=== PATIENT | female | born 1945 | race African-American/Black ===

== ENCOUNTER 2016-06-02 13:39 | Inpatient (IN) | payer MEDICARE, OTHER ==
[2016-06-02] MEDS ORDERED: ASPIRIN 81 MG TABLET, CHEWABLE PO ONE (13:50)
--- NOTE | 2016-06-02 13:52 | ER Document Report ---
ED Medical Screen (RME) - General Stated Complaint: CHEST PAIN Mode of Arrival: Ambulatory Information source: Patient Notes: Patient complains of chest pain that radiates around her chest area that started 2 days ago. Complains of shortness of breath and lower extremity swelling. No nausea or vomiting. hx: Hypertension, COPD, diabetes, CHF I have greeted and performed a rapid initial assessment of this patient. A comprehensive ED assessment and evaluation of the patient, analysis of test results and completion of the medical decision making process will be conducted by additional ED providers. TRAVEL OUTSIDE OF THE [place] IN LAST 30 DAYS: No - Related Data Allergies/Adverse Reactions: Iodinated Contrast Media - Oral and [IV Dye, Iodine Containing] Adverse Reaction (Unknown, Verified 06/02/16 13:44) Respiratory distress Past Medical History - Past Medical History Cardiac Medical History: Reports: Hx Hypertension Pulmonary Medical History: Reports: Hx COPD Denies: Hx Tuberculosis Endocrine Medical History: Reports: Hx Diabetes Mellitus Type 2 - Immunizations Hx Diphtheria, Pertussis, Tetanus Vaccination: Yes Physical Exam - Vital signs Vitals: Temp Pulse Resp BP Pulse Ox 98.0 F 69 28 H 152/71 H 90 L 06/02/16 13:46 06/02/16 13:46 06/02/16 13:46 06/02/16 13:46 06/02/16 13:46 - Respiratory Respiratory status: Labored - slightly Breath sounds: Nonproductive cough Course - Re-evaluation Re-evalutation: 06/02/16 13:52 air purifier servicer advised the patient status - Vital Signs Vital signs: Temp Pulse Resp BP Pulse Ox 98.0 F 69 28 H 152/71 H 90 L 06/02/16 13:46 06/02/16 13:46 06/02/16 13:46 06/02/16 13:46 06/02/16 13:46
[2016-06-02 15:03] LABS: ABSOLUTE BASOPHILS # (AUTO) 0.1 10^3/uL (0.0-0.2); ABSOLUTE EOSINOPHILS # (AUTO) 0.3 10^3/uL (0.0-0.6); ABSOLUTE LYMPHOCYTES (AUTO) 1.4 10^3/uL (0.5-4.7); ABSOLUTE MONOCYTES (AUTO) 0.7 10^3/uL (0.1-1.4); ABSOLUTE NEUT (AUTO) 5.4 10^3/uL (1.7-8.2); BASOPHILS % (AUTO) 0.8 % (0-2); HEMATOCRIT 29.4 % (36.0-47.0); HEMOGLOBIN 9.2 g/dL (12.0-15.5); HGB HCT DIFFERENCE -1.8; LYMPHOCYTES % (AUTO) 17.4 % (13-45); MEAN CORPUSCULAR HEMOGLOBIN 27.8 pg (27.0-33.4); MEAN CORPUSCULAR HGB CONC 31.4 g/dL (32.0-36.0); MEAN CORPUSCULAR VOLUME 89 fl (80-97); MONOCYTES % (AUTO) 8.8 % (3-13); RED BLOOD COUNT 3.32 10^6/uL (3.72-5.28); WHITE BLOOD COUNT 7.8 10^3/uL (4.0-10.5)
[2016-06-02 15:15] LABS: ALANINE AMINOTRANSFERASE 30 U/L (9-52); ALKALINE PHOSPHATASE 90 U/L (38-126); ANION GAP 9 (5-19); ASPARTATE AMINO TRANSFERASE 13 U/L (14-36); BILIRUBIN,TOTAL 0.3 mg/dL (0.2-1.3); BLOOD UREA NITROGEN 25 mg/dL (7-20); CARBON DIOXIDE 20 mmol/L (22-30); CHLORIDE 114 mmol/L (98-107); CREATINE KINASE 152 U/L (30-135); CREATININE RESULT 2.03 mg/dL (0.52-1.25); GLUCOSE 223 mg/dL (75-110); MAGNESIUM 2.1 mg/dL (1.6-2.3); POTASSIUM 5.5 mmol/L (3.6-5.0); SODIUM 143.1 mmol/L (137-145); TOTAL PROTEIN 5.5 g/dL (6.3-8.2)
--- NOTE | 2016-06-02 15:23 | ER Document Report ---
[id number] TRAVEL OUTSIDE OF THE [place] IN LAST 30 DAYS: No - HPI Patient complains to provider of: Chest pain, Shortness of breath Quality of pain: Tightness Cardiac risk factors: Hypertension, Hx CHF Associated symptoms: Other - see above Exacerbated by: Activity <HEMA TAVERAS - Last Filed: 06/02/16 23:00> <KYM YOUSSEF - Last Filed: 06/15/16 13:13> - General Chief Complaint: Chest Tightness Stated Complaint: CHEST PAIN Notes: 70-year-old female with history of congestive heart failure and end-stage renal disease presents to the ED complaining of chest tightness and shortness of breath that started 2 days ago. Patient states that the tightness has progressively gotten worse and that she was not exerting herself when symptoms first started. Patient developed the difficulty breathing soon after the chest tightness began. Patient has noticed that she gets out of breath with exertion and the states that this has been gone on for the past 5 or 6 days. Patient is also complaining of swelling to the bilateral feet, ankles, and hands , a cough, and loss of weight. Patient denies any fever. Patient had a heart catheterization performed more than 5 years ago and states that she had a stress test completed as well. Patient states that she was on Lasix 1 year ago but was changed to new medication including spironolactone. Patient's primary care provider is Dr. Al, upholstery department supervisor is Dr. Perry, melt house supervisor is Dr. Conti. Patient states she has not taken her hypertensive medication today. ( HEMA TAVERAS) - Related Data Allergies/Adverse Reactions: Iodinated Contrast Media - Oral and [IV Dye, Iodine Containing] Adverse Reaction (Unknown, Verified 06/02/16 13:44) Respiratory distress Home Medications: Current Home Medications Albuterol Sulfate [Proair HFA] 2 inh PO Q4HP PRN 06/02/16 [History] Amlodipine Besylate [Norvasc 10 mg Tablet] 10 mg PO DAILY 06/02/16 [History] Atorvastatin Calcium [Lipitor 40 mg Tablet] 40 mg PO DAILY 06/02/16 [History] Carvedilol [Coreg 25 mg Tablet] 25 mg PO BID 06/02/16 [History] Hydralazine HCl [Apresoline 50 mg Tablet] 50 mg PO BID 06/02/16 [History] Insulin Detemir [Levemir Flextouch] 30 units SQ QAM 06/02/16 [History] Linagliptin [Tradjenta] 5 mg PO DAILY 06/02/16 [History] Roflumilast [Daliresp 500 mcg Tablet] 500 mcg PO DAILY 06/02/16 [History] Insulin Detemir [Levemir Flextouch] 10 units SQ QHS 06/03/16 [History] Past Medical History - General Information source: Patient - Social History Smoking Status: Former Smoker Chew tobacco use (# tins/day): No Frequency of alcohol use: None Drug Abuse: None Family History: None Patient has suicidal ideation: No Patient has homicidal ideation: No - Past Medical History Cardiac Medical History: Reports: Hx Congestive Heart Failure, Hx Hypertension Pulmonary Medical History: Reports: Hx COPD Endocrine Medical History: Reports: Hx Diabetes Mellitus Type 2 Renal/ Medical History: Reports: Hx End Stage Renal Disease. Denies: Hx Peritoneal Dialysis - Immunizations Hx Diphtheria, Pertussis, Tetanus Vaccination: Yes Hx Pneumococcal Vaccination: 01/23/09 <HEMA TAVERAS - Last Filed: 06/02/16 23:00> Review of Systems - Review of Systems Constitutional: See HPI, Weight loss. denies: Fever EENT: No symptoms reported Cardiovascular: See HPI, Chest pain - Chest tightness Respiratory: See HPI, Cough, Short of breath Gastrointestinal: No symptoms reported Genitourinary: No symptoms reported Female Genitourinary: No symptoms reported Musculoskeletal: See HPI, Ankle swelling - bilaterally, Other - bilateral feet and hand swelling Skin: No symptoms reported Hematologic/Lymphatic: No symptoms reported Neurological/Psychological: No symptoms reported -: Yes All other systems reviewed and negative <HEMA TAVERAS - Last Filed: 06/02/16 23:00> Physical Exam - General General appearance: Alert In distress: None - HEENT Head: Normocephalic, Atraumatic Eyes: Normal Extraocular movements intact: Yes Pupils: PERRL - Respiratory Respiratory status: No respiratory distress Breath sounds: Rhonchi - bilateral - Cardiovascular Rhythm: Regular Heart sounds: Normal auscultation - Abdominal Inspection: Normal Distension: No distension Bowel sounds: Normal Tenderness: Nontender - Back Back: Normal - Extremities General upper extremity: Normal inspection, Normal ROM General lower extremity: Normal inspection, Normal ROM - Neurological Neuro grossly intact: Yes Cognition: Normal Orientation: AAOx4 [place] Coma Scale Eye Opening: Spontaneous [place] Coma Scale Verbal: Oriented [place] Coma Scale Motor: Obeys Commands [place] Coma Scale Total: 15 Speech: Normal - Psychological Associated symptoms: Normal affect, Normal mood - Skin Skin Temperature: Warm Skin Moisture: Dry Skin Color: Normal <HEMA TAVERAS - Last Filed: 06/02/16 23:00> Course - Laboratory Result Diagrams: 06/02/16 14:40 06/02/16 14:40 <HEMA TAVERAS - Last Filed: 06/02/16 23:00> - Laboratory Result Diagrams: 06/05/16 06:22 06/06/16 09:07 <KYM YOUSSEF - Last Filed: 06/15/16 13:13> - Re-evaluation Re-evalutation: 06/02/16 17:58 I personally performed the services described in the documentation, reviewed and edited the documentation which was dictated to my scribe in my presence, and it accurately records my words and actions. seen and evaluated the bedside she claims shortness of breath chest wall pain since Wednesday. She states that she has lower extremity swelling stage IV kidney disease. She is not overtly in congestive heart failure chest x-ray shows bilateral pneumonia right greater than left. Initial O2 sat was 90% with mild respiratory distress. She is currently satting 93% broad-spectrum antibiotics oxygen and will admit the patient to the hospital for inpatient further assessment and evaluation. EKG is stable negative initial (KYM YOUSSEF) - Vital Signs Vital signs: Temp Pulse Resp BP Pulse Ox 98.5 F 71 18 173/75 H 97 06/06/16 11:00 06/06/16 11:00 06/06/16 11:00 06/06/16 11:00 06/06/16 11:00 (HEMA TAVERAS) (KYM YOUSSEF) - Laboratory Laboratory results interpreted by me: 06/02/16 06/02/16 06/02/16 14:40 14:40 14:40 RBC 3.32 L Hgb 9.2 L Hct 29.4 L MCHC 31.4 L RDW 15.0 H Potassium 5.5 H Chloride 114 H Carbon Dioxide 20 L BUN 25 H Creatinine 2.03 H Est GFR ( Amer) 29 L Est GFR (Non-Af Amer) 24 L Glucose 223 H AST 13 L Creatine Kinase 152 H NT-Pro-B Natriuret Pep 1840 H Total Protein 5.5 L Albumin 3.0 L Urine Protein Urine Glucose (UA) Ur Leukocyte Esterase 06/02/16 14:40 RBC Hgb Hct MCHC RDW Potassium Chloride Carbon Dioxide BUN Creatinine Est GFR ( Amer) Est GFR (Non-Af Amer) Glucose AST Creatine Kinase NT-Pro-B Natriuret Pep Total Protein Albumin Urine Protein >=500 H Urine Glucose (UA) 50 H Ur Leukocyte Esterase SMALL H (HEMA TAVERAS) (KYM YOUSSEF) - EKG Interpretation by Me Additional EKG results interpreted by me: 06/02/16 18:00 EKG shows sinus rhythm at 70 bpm with left axis deviation no acute ST segment elevation or depression (KYM YOUSSEF) Critical Care Note - Critical Care Note Total time excluding time spent on procedures (mins): 45 <KYM YOUSSEF - Last Filed: 06/15/16 13:13> Discharge <HEMA TAVERAS - Last Filed: 06/02/16 23:00> - Discharge Admitting Provider: Hospitalist Unit Admitted: Medical Floor <KYM YOUSSEF - Last Filed: 06/15/16 13:13> - Discharge Clinical Impression: acute pneumonia with low o2 sat Condition: Good Disposition: ADMITTED INPATIENT Scribe Documentation - Scribe Written by Shelly:: Shelly Parker, 06/02/2016 2524 acting as scribe for :: Lisandro <HEMA TAVERAS - Last Filed: 06/02/16 23:00>
[2016-06-02 15:27] LABS: CREATINE KINASE MB 0.58 ng/mL (<4.55); TROPONIN I 0.019 ng/mL
[2016-06-02] MEDS ORDERED: CEFTRIAXONE INJ 1000 MG VIAL IV ONE (17:07)
[2016-06-02] MEDS ORDERED: AZITHROMYCIN INJ 500 MG VIAL IV ONE (17:08)
[2016-06-02] MEDS ORDERED: CEFTRIAXONE 2 GM/D5W RTU 2 GM/50 ML RTUPB IV ONE (17:41)
[2016-06-02 17:47] LABS: APPEARANCE,URINE SLIGHTLY-CLOUDY; BILIRUBIN,URINE NEGATIVE (NEGATIVE); GLUCOSE, URINE 50 mg/dL (NEGATIVE); KETONES,URINE NEGATIVE (NEGATIVE); LEUKOCYTE ESTERASE,URINE SMALL (NEGATIVE); NITRITE,URINE NEGATIVE (NEGATIVE); PROTEIN,URINE >=500 mg/dL (NEGATIVE); URINE SPECIFIC GRAVITY 1.014; UROBILINOGEN,URINE NEGATIVE mg/dL (<2.0)
[2016-06-02] MEDS ORDERED: GLUCAGON,HUMAN RECOMB 1 MG INJ IM PRN (18:27)
[2016-06-02] MEDS ORDERED: ACETAMINOPHEN 325 MG TABLET PO PRN (18:27)
[2016-06-02] MEDS ORDERED: DEXTROSE 40% GEL 15 GM TUBE PO PRN ×2 (18:27)
[2016-06-02] MEDS ORDERED: DEXTROSE 50%-WATER 25 GM/50 ML DISP.SYRIN IV PRN ×2 (18:27)
[2016-06-02] MEDS ORDERED: IPRATROPIUM/ALBUTEROL 0.5-2.5 MG/3 ML AMPUL NEB PRN (18:27)
[2016-06-02] MEDS ORDERED: ONDANSETRON HCL INJ/PF 4 MG/2 ML SDV IV PRN (18:32)
--- NOTE | 2016-06-02 18:49 | PDOC H&P ---
History of Present Illness Admission Date/PCP: 06/02/16 Patient complains of: Worsening shortness of breath History of Present Illness: LUIZA CAMARGO is a 70 year old female presents with several day history of worsening shortness of breath, increasing lower extremity edema, chest tightness with wheezing in spite of increased use of her rescue inhalers, cough developing last 24 hours productive of yellow phlegm with associated pressure- like headache. She reports a recent trip to [place] where she was in the car for 5 hours. Also reports wearing her compression stockings as she's been instructed. Shortly after the trip however is when her symptoms began including asymmetric swelling of her right greater than left lower extremities. She denies any pain in her lower extremities. She denies fevers chills, palpitations, orthopnea, PND, syncope or presyncope. Evaluation in the emergency department shows an elevated BNP with her serum creatinine at baseline 2.0 but clinical signs and symptoms suggestive of an acute bronchitis and possible bilateral pneumonia on chest x-ray as such we were asked to admit for further evaluation and management Her room air sat on presentation is 90% and I find her resting comfortably at 93 % on room air. She carries a history of congestive heart failure but can't remember when her last echocardiogram was performed or what her last EF was. She had a stress test last year that was reportedly normal and are more than 10 years ago that did not require any balloon or stent deployment. She reports receiving both influenza and Pneumovax vaccines. She has a history of COPD but quit smoking more than 30 years ago. She also has a history of obstructive sleep apnea and wears CPAP intermittently. She has chronic kidney disease stage IV and sees Dr. elliott. Past Medical History Cardiac Medical History: Reports: Congestive Heart Failure, Hypertension Pulmonary Medical History: Reports: Chronic Obstructive Pulmonary Disease (COPD) Denies: Tuberculosis Endocrine Medical History: Reports: Diabetes Mellitus Type 2 Renal/ Medical History: Reports: End Stage Renal Disease Hematology: Reports: Anemia Past Surgical History Past Surgical History: Reports: None Social History Smoking Status: Former Smoker Frequency of Alcohol Use: None Hx Recreational Drug Use: No Hx Prescription Drug Abuse: No - Advance Directive Resuscitation Status: Full Code Family History Family History: None Parental Family History Reviewed: Yes Children Family History Reviewed: Yes Sibling(s) Family History Reviewed.: Yes Medication/Allergy Home Medications: Insulin Regular, Human [Novolin R (Reg) Insulin 100 unit/mL] 20 unit SUBCUT DAILY 04/09/13 Sitagliptin Phosphate [Januvia 50 mg Tablet] 100 mg PO DAILY 04/09/13 Atorvastatin Calcium [Lipitor 20 mg Tablet] 20 mg PO QHS 04/10/13 Lisinopril 40 mg PO DAILY #0 tablet 04/10/13 Loratadine 10 mg PO DAILY 04/10/13 Aspirin [Ecotrin 81 mg EC Tablet] 81 mg PO DAILY #30 tabec 04/14/13 Montelukast Sodium [Singulair 5 mg Chewable Tab] 5 mg PO QHS #0 tab.chew Tiotropium [place] [Spiriva Handihaler 18 mcg/dose (30 Dose)] 18 mcg IH DAILY Amlodipine Besylate [Norvasc 5 mg Tablet] 5 mg PO Q12 #60 tablet 07/21/13 Carvedilol [Coreg 12.5 mg Tablet] 25 mg PO Q12 #60 tablet 07/21/13 Fluticasone/Salmeterol [Advair 250-50 Diskus 14 Dose/Diskus] 1 puff IH Q12H #0 07/21/13 Furosemide [Lasix 40 mg Tablet] 40 mg PO BID #60 tablet 07/21/13 Potassium Chloride [Klor-Con 10 Meq Tablet.sa] 20 meq PO Q12 #0 tablet.sa Allergies/Adverse Reactions: Iodinated Contrast Media - Oral and [IV Dye, Iodine Containing] Adverse Reaction (Unknown, Verified 06/02/16 13:44) Respiratory distress Review of Systems Constitutional: ABSENT: chills, fever(s), weight gain, weight loss Eyes: ABSENT: visual disturbances Ears: ABSENT: hearing changes Cardiovascular: PRESENT: chest pain - Described as tightness, dyspnea on exertion, edema. ABSENT: orthropnea, palpitations Respiratory: PRESENT: cough, sputum - Yellow. ABSENT: hemoptysis Gastrointestinal: ABSENT: abdominal pain, constipation, diarrhea, hematemesis, hematochezia, nausea, vomiting Genitourinary: ABSENT: dysuria, hematuria Musculoskeletal: ABSENT: joint swelling Integumentary: ABSENT: rash, wounds Neurological: ABSENT: abnormal gait, abnormal speech, confusion, dizziness, focal weakness, syncope Psychiatric: ABSENT: anxiety, depression Endocrine: ABSENT: cold intolerance, heat intolerance, polydipsia, polyuria Hematologic/Lymphatic: ABSENT: easy bleeding, easy bruising Physical Exam Vital Signs: Temp Pulse Resp BP Pulse Ox 98.0 F 69 28 H 152/71 H 97 06/02/16 13:46 06/02/16 13:46 06/02/16 13:46 06/02/16 13:46 06/02/16 14:21 Intake & Output 06/01/16 06/02/16 06/03/16 06:59 06:59 06:59 Weight 98.8 kg PHYSICAL EXAM GENERAL: NAD; well developed, well nourished; moderate obese; alert and oriented to person, place, time, situation HEENT: normocephalic, atraumatic; EOMI, PERRLA, no conjunctival injection, no scleral icterus; oral mucosa dry,; neck supple, no LAD, normal ROM RESPIRATORY: no accessory muscle use, mild increased WOB with increased intercostal muscle use but good air entry bilaterally; bilateral posterior wheezes, but no rales, rhonchi or inspiratory crackles CARDIO: no JVD; RRR; no systolic murmur; no tachycardia VASCULAR: no carotid bruit; no abdominal bruit; no pallor; 2+ radial, DP pulse ; normal capillary refill GI: soft; nondistended; normal bowel sounds; no hepato spleno megaly; no rebound, rigidity, guarding; no tenderness to palpation. NEURO: normal patella reflexes; normal sensation; normal motor function; no gait abnls; no dysarthria; no nystagmus; tongue protrudes midline; MSK: 5/5 strength; normal ROM hips; ambulatory without assistance; no tenderness EXTREMITIES: no calf tender; no palpable cords in calf; no clubbing, cyanosis ; bilateral right greater than left pedal edema to the knees; no palpable cords PSYCH: normal affect, normal mood SKIN: warm; moist; no petechiae; no telengectasias; no jaundice; no rash Results Laboratory Results: 06/02/16 14:40 06/02/16 14:40 06/02/16 06/02/16 06/02/16 14:40 14:40 14:40 WBC 7.8 RBC 3.32 L Hgb 9.2 L Hct 29.4 L MCV 89 MCH 27.8 MCHC 31.4 L RDW 15.0 H Plt Count 215 Seg Neutrophils % 69.0 Lymphocytes % 17.4 Monocytes % 8.8 Eosinophils % 4.0 Basophils % 0.8 Absolute Neutrophils 5.4 Absolute Lymphocytes 1.4 Absolute Monocytes 0.7 Absolute Eosinophils 0.3 Absolute Basophils 0.1 Sodium 143.1 Potassium 5.5 H Chloride 114 H Carbon Dioxide 20 L Anion Gap 9 BUN 25 H Creatinine 2.03 H Est GFR ( Amer) 29 L Est GFR (Non-Af Amer) 24 L Glucose 223 H Calcium 9.0 Magnesium 2.1 Total Bilirubin 0.3 AST 13 L ALT 30 Alkaline Phosphatase 90 Total Protein 5.5 L Albumin 3.0 L Urine Color YELLOW Urine Appearance SLIGHTLY-CLOUDY Urine pH 5.0 Ur Specific [place] 1.014 Urine Protein >=500 H Urine Glucose (UA) 50 H Urine Ketones NEGATIVE Urine Blood NEGATIVE Urine Nitrite NEGATIVE Ur Leukocyte Esterase SMALL H Urine WBC (Auto) 18 Urine RBC (Auto) 3 06/02/16 06/02/16 14:40 14:40 Creatine Kinase 152 H CK-MB (CK-2) 0.58 Troponin I 0.019 NT-Pro-B Natriuret Pep 1840 H Serum creatinine appears to be at baseline, BNP is elevated but difficult to interpret in the setting of chronic kidney disease. Cardiac enzymes are negative. EKG Comments: Normal sinus rhythm with poor R-wave progression across the precordium, left axis deviation, and borderline prolonged QT at 480 Impressions: Chest X-Ray 06/02/16 13:51 IMPRESSION: Bibasilar airspace disease right greater than left worrisome for pneumonia. Cardiomegaly Status: Image reviewed by me - By my interpretation, Allowing for differences in technique I really don't believe the chest x-ray looks significantly different from one performed late last year. Assessment & Plan - Diagnosis (1) Community acquired pneumonia Is this a current diagnosis for this admission?: YesPlan: Admitted to monitored bed for empiric antibiotics with Rocephin and Zithromax. Follow up on blood cultures performed in the emergency department. Pulmonary toilet. (2) COPD with acute exacerbation Is this a current diagnosis for this admission?: YesPlan: No clear indication for systemic steroids at this time, will use inhaled nebulizers and can add inhaled steroids if needed. (3) Edema extremities Is this a current diagnosis for this admission?: YesPlan: Unclear if this is worsening from her baseline but worrisome given the asymmetry and recent travel. We'll screen for DVT, I do not think a d-dimer is useful in the setting of chronic kidney disease. If she becomes tachycardic or hypoxic or the lower extremities show some evidence of DVT then she will need anticoagulation and a VQ scan of the lungs. Check echocardiogram (4) Obstructive sleep apnea Is this a current diagnosis for this admission?: YesPlan: Nocturnal CPAP as needed. (5) Chronic kidney disease, stage IV (severe) Is this a current diagnosis for this admission?: YesPlan: At baseline. Hold use of diuretics this time. 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 (7) Essential hypertension Is this a current diagnosis for this admission?: YesPlan: Continue home regimen and titrate as needed to goal blood pressure less than 140 /90 - Time Time Spent: 50 to 70 Minutes Anticipated discharge: Home Within: within 48 hours - Inpatient Certification Medical Necessity: Significant Comorbidiites Make Outpatient Treatment Too Risky , Need For Continuous Telemetry Monitoring, Need for IV Antibiotics
--- NOTE | 2016-06-02 18:52 | EKG REPORT ---
SEVERITY:- OTHERWISE NORMAL ECG - SINUS RHYTHM LEFT AXIS DEVIATION : Confirmed by: Rafael Baron MD 02-Jun-2016 18:51:54
[2016-06-03] MEDS: INSULIN LISPRO 100 UNIT/ML 3 ML VIAL SUBCUT PRN ×4 (00:10→22:36)
[2016-06-03] MEDS: HEPARIN SOD (PORCINE) 5,000 UNIT/ML 1 ML SYRINGE SUBCUT SCH ×4 (00:22→22:38)
[2016-06-03] MEDS: LANSOPRAZOLE 30 MG TAB.RAP.DR PO SCH (05:21)
[2016-06-03 08:08] LABS: ANION GAP 7 (5-19); BLOOD UREA NITROGEN 25 mg/dL (7-20); CALCIUM 8.8 mg/dL (8.4-10.2); CARBON DIOXIDE 20 mmol/L (22-30); CHLORIDE 115 mmol/L (98-107); CREATININE RESULT 2.06 mg/dL (0.52-1.25); GLUCOSE 122 mg/dL (75-110); POTASSIUM 5.3 mmol/L (3.6-5.0); SODIUM 142.4 mmol/L (137-145)
[2016-06-03 08:16] LABS: TROPONIN I 0.024 ng/mL
[2016-06-03] MEDS: METHYLPREDNISOLONE INJ 40 MG/1 ML SDV IV SCH ×2 (11:39→23:50)
[2016-06-03] MEDS: AMLODIPINE BESYLATE 10 MG TABLET PO SCH (11:39)
[2016-06-03] MEDS ORDERED: SODIUM CHLORIDE 3% FOR INHALATION 15 ML AMPUL NEB ONE (13:44)
--- NOTE | 2016-06-03 16:17 | XCELERA REPORT ---
[address] [address] Transthoracic Echocardiogram Report Name: LUIZA CAMARGO Age: 70 yrs Gender: Female : 1945 Patient Status: Inpatient Patient Location: [id number]\435\[id number]\A Study Date: 06/03/2016 03:26 PM Height: 61 in Weight: 217 lb BSA: 2.0 m2 Procedure: A complete two-dimensional transthoracic echocardiogram was performed (2D, M-mode, spectral and color flow Doppler). The study was technically adequate with some images being suboptimal in quality. Reason For Study: elevated BNP Ordering Physician: ALVERTO FARFAN Performed By: Lisbet Woo Interpretation Summary The Ejection Fraction estimate is 50-55% Doppler measurements suggest pseudonormalized left ventricular relaxation, which is associated with grade II/IV or mild to moderate diastolic dysfunction There is mild concentric left ventricular hypertrophy. The left ventricle is grossly normal size. Wall motion cannot be accurately commented on, but no definite regional wall motion abnormalities noted. Borderline right ventricular enlargement. The right ventricular systolic function is normal. The right atrium is normal in size The left atrium is moderately dilated. There is a moderate amount of mitral regurgitation There is no mitral valve stenosis. There is a trace amount of aortic regurgitation There is no aortic valve stenosis There is a trace to mild amount of tricuspid regurgitation There is moderate pulmonary hypertension by echo Best estimated right ventricular systolic pressure is elevated at 45- 55mmHg. The inferior vena cava appeared normal and decreased < 50% with respiration (RAP 10-15 mmHg) Minimal pericardial effusion. MMode/2D Measurements \T\ Calculations RVDd: 3.0 cm LVIDd: 5.8 cm FS: 28.9 % Ao root diam: 2.3 cm IVSd: 1.0 cm LVIDs: 4.2 cm EDV(Teich): 169.5 ml LVPWd: 0.99 cm ESV(Teich): 76.5 ml Ao root area: 4.3 cm2 EF(Teich): 54.9 % LA dimension: 4.7 cm Doppler Measurements \T\ Calculations MV E max jude: MV P1/2t max jude: Ao V2 max: LV V1 max P.1 cm/sec 148.7 cm/sec 180.4 cm/sec 6.5 mmHg MV A max jude: MV P1/2t: 60.1 msec Ao max PG: LV V1 max: 99.3 cm/sec 13.0 mmHg 127.1 cm/sec MV E/A: 1.5 MVA(P1/2t): 3.7 cm2 MV dec slope: 725.1 cm/sec2 MV dec time: 0.22 sec PA V2 max: TR max jude: 99.7 cm/sec 354.3 cm/sec PA max PG: TR max P.2 mmHg 4.0 mmHg Left Ventricle The left ventricle is grossly normal size. There is mild concentric left ventricular hypertrophy. The Ejection Fraction estimate is 50-55%. Doppler measurements suggest pseudonormalized left ventricular relaxation, which is associated with grade II/IV or mild to moderate diastolic dysfunction. Wall motion cannot be accurately commented on, but no definite regional wall motion abnormalities noted. Right Ventricle Borderline right ventricular enlargement. There is normal right ventricular wall thickness. The right ventricular systolic function is normal. Atria The right atrium is normal in size. The left atrium is moderately dilated. Interarterial septum not well visualized and not well dopplered. Cannot comment on ASD/PFO presence. Mitral Valve The mitral valve leaflets are sclerotic, but show no functional abnormalities. There is no mitral valve stenosis. There is a moderate amount of mitral regurgitation. Aortic Valve The aortic valve is grossly normal. There is no aortic valve stenosis. There is a trace amount of aortic regurgitation. Tricuspid Valve The tricuspid valve is not well visualized, but is grossly normal. There is no tricuspid stenosis. There is a trace to mild amount of tricuspid regurgitation. There is moderate pulmonary hypertension by echo. Best estimated right ventricular systolic pressure is elevated at 40-50mmHg. Pulmonic Valve The pulmonic valve is not well visualized. Great Vessels The aortic root is not well visualized but is probably normal size. The inferior vena cava appeared normal and decreased < 50% with respiration (RAP 10-15 mmHg). Effusions Minimal pericardial effusion. : ALVERTO FARFAN > Giancarlo Santana
[2016-06-03] MEDS: HYDRALAZINE HCL 50 MG TABLET PO SCH (17:37)
[2016-06-03] MEDS: CEFTRIAXONE 1 GM/D5W RTU 1 GM/50 ML RTUPB IV SCH (17:38)
--- NOTE | 2016-06-03 17:40 | PDOC PROGRESS REPORT ---
Subjective Progress Note for:: 06/03/16 Subjective:: History of present illness: LUIZA CAMARGO is a 70 year old female presents with several day history of worsening shortness of breath, increasing lower extremity edema, chest tightness with wheezing in spite of increased use of her rescue inhalers, cough developing last 24 hours productive of yellow phlegm with associated pressure-like headache. She reports a recent trip to [place] where she was in the car for 5 hours. Also reports wearing her compression stockings as she's been instructed. Shortly after the trip however is when her symptoms began including asymmetric swelling of her right greater than left lower extremities. She denies any pain in her lower extremities. She denies fevers chills, palpitations, orthopnea, PND, syncope or presyncope. Evaluation in the emergency department shows an elevated BNP with her serum creatinine at baseline 2.0 but clinical signs and symptoms suggestive of an acute bronchitis and possible bilateral pneumonia on chest x-ray as such we were asked to admit for further evaluation and management Her room air sat on presentation is 90% and I find her resting comfortably at 93 % on room air. She carries a history of congestive heart failure but can't remember when her last echocardiogram was performed or what her last EF was. She had a stress test last year that was reportedly normal and are more than 10 years ago that did not require any balloon or stent deployment. She reports receiving both influenza and Pneumovax vaccines. She has a history of COPD but quit smoking more than 30 years ago. She also has a history of obstructive sleep apnea and wears CPAP intermittently. She has chronic kidney disease stage IV and sees Dr. elliott. She was admitted to the hospital and started on broad-spectrum antibiotics for presumptive bacterial bronchitis and has shown at least some improvement. Lower extremity Dopplers were negative for DVT. Echocardiogram shows grade 2 out of 4 moderate diastolic dysfunction, mild concentric left ventricular hypertrophy, left atrial dilatation, moderate amount of mitral regurgitation, trace amount of aortic regurgitation, mild amount of tricuspid regurgitation, moderate pulmonary hypertension. Reason for visit: Follow-up dyspnea, bronchitis, lower extremity swelling. Subjective: Patient reports some improvement in her dyspnea though she still gets short of breath with exertion. She still complains of cough but not as productive. She denies fevers, chills, chest pain, abdominal pain, nausea vomiting, diarrhea, syncope or presyncope. ROS: per HPI plus a total of 10 systems reviewed, pertinent positives and negatives noted above, remaining systems negative. Physical Exam Vital Signs: Temp Pulse Resp BP Pulse Ox 98.8 F 71 14 145/66 H 98 06/03/16 11:18 06/03/16 16:27 06/03/16 16:27 06/03/16 11:18 06/03/16 16:27 Intake & Output 06/02/16 06/03/16 06/04/16 06:59 06:59 06:59 Weight 102.6 kg PHYSICAL EXAM GENERAL: NAD; well developed, well nourished; moderate obese; alert and oriented to person, place, time, situation HEENT: normocephalic, atraumatic; EOMI, PERRLA, no conjunctival injection, no scleral icterus; oral mucosa dry,; RESPIRATORY: no accessory muscle use, resolved increased WOB without increased intercostal muscle use; good air entry bilaterally; bilateral anterior wheezes right greater than left, but no rales, rhonchi or inspiratory crackles CARDIO: no JVD; RRR; no systolic murmur; no tachycardia VASCULAR: no carotid bruit; no abdominal bruit; no pallor; 2+ radial, DP pulse ; normal capillary refill GI: soft; nondistended; normal bowel sounds; no hepato spleno megaly; no rebound, rigidity, guarding; no tenderness to palpation. NEURO: normal patella reflexes; normal sensation; normal motor function; MSK: 5/5 strength; normal ROM hips; ambulatory without assistance; no tenderness EXTREMITIES: no calf tender; no palpable cords in calf; no clubbing, cyanosis ; mildly improved bilateral right greater than left pedal edema to the knees; no palpable cords PSYCH: normal affect, normal mood SKIN: warm; moist; no petechiae; no telengectasias; no jaundice; no rash Results Laboratory Results: 06/03/16 07:06 06/03/16 07:06 Sodium 142.4 Potassium 5.3 H Chloride 115 H Carbon Dioxide 20 L Anion Gap 7 BUN 25 H Creatinine 2.06 H Est GFR ( Amer) 29 L Est GFR (Non-Af Amer) 24 L Glucose 122 H Calcium 8.8 06/02/16 06/03/16 06/03/16 19:55 01:33 07:06 Troponin I 0.016 0.026 0.024 NT-Pro-B Natriuret Pep 2240 H Labs reviewed. Essentially no change in her electrolytes and renal function stable. 3 sets cardiac enzymes are reassuring. BNP remains elevated but difficult to interpret given the renal dysfunction. Impressions: Venous Doppler Study 06/02/16 00:00 IMPRESSION: NO EVIDENCE DVT OR SVT IN EITHER LEG. Chest X-Ray 06/02/16 13:51 IMPRESSION: Bibasilar airspace disease right greater than left worrisome for pneumonia. Cardiomegaly Status: Imported from PACS - Reports reviewed Assessment & Plan - Diagnosis (1) Community acquired pneumonia Is this a current diagnosis for this admission?: YesPlan: Improved with Rocephin and Zithromax. Follow up on blood cultures performed in the emergency department. Supplemental O2 as needed, Pulmonary toilet. (2) COPD with acute exacerbation Is this a current diagnosis for this admission?: YesPlan: Minimally improved, will add systemic steroids. (3) Edema extremities Is this a current diagnosis for this admission?: YesPlan: No evidence for venous occlusive disease on Dopplers of the lower extremity. Probably chronic diastolic dysfunction. (4) Obstructive sleep apnea Is this a current diagnosis for this admission?: YesPlan: Nocturnal CPAP from home as needed. (5) Chronic kidney disease, stage IV (severe) Is this a current diagnosis for this admission?: YesPlan: Stable At baseline. Hold use of diuretics this time. (6) Diabetes Qualifiers: Diabetes mellitus type: type 2 Diabetes mellitus complication status: with kidney complications Diabetes mellitus complication detail: with chronic kidney disease Diabetes mellitus fpc insulin use: with assistant terminal manager use Chronic kidney disease stage: stage 4 (severe) Qualified Code(s): E11.22 - Type 2 diabetes mellitus with diabetic chronic kidney disease ; N18.1 - Chronic kidney disease, stage 1; Z79.4 - halfway (current) use of insulin Is this a current diagnosis for this admission?: YesPlan: Continue sliding scale. Blood glucose will likely worsen with the addition of systemic steroids. Titrate as needed. (7) Essential hypertension Is this a current diagnosis for this admission?: YesPlan: Resume home regimen and titrate as needed to goal blood pressure less than 140/ 90 - Time Time Spent with patient: 25-34 minutes Anticipated discharge: Home Within: within 24 hours
[2016-06-03] MEDS ORDERED: AZITHROMYCIN 500 MG in DEXTROSE 5%-WATER 250 ML IV SCH (19:00)
[2016-06-03] MEDS ORDERED: FLUTICASONE/SALMETEROL DISKUS 250-50 MCG/DOSE IH SCH (22:00)
[2016-06-03] MEDS ORDERED: INSULIN DETEMIR 100 UNIT/ML 3 ML PEN SUBCUT ONE (22:28)
[2016-06-03] MEDS: ATORVASTATIN CALCIUM 40 MG TABLET PO SCH (22:36)
[2016-06-03] MEDS: CARVEDILOL 12.5 MG TABLET PO SCH (22:36)
[2016-06-03] MEDS: INSULIN DETEMIR 100 UNIT/ML 3 ML PEN SUBCUT SCH (22:37)
[2016-06-03] MEDS: FLUTICASONE/SALMETEROL DISKUS 250-50 MCG/DOSE IH SCH (22:44)
[2016-06-04] MEDS: LANSOPRAZOLE 30 MG TAB.RAP.DR PO SCH (06:34)
[2016-06-04] MEDS: HEPARIN SOD (PORCINE) 5,000 UNIT/ML 1 ML SYRINGE SUBCUT SCH ×3 (06:34→22:05)
[2016-06-04 07:21] LABS: ABSOLUTE BASOPHILS # (AUTO) 0.1 10^3/uL (0.0-0.2); ABSOLUTE LYMPHOCYTES (AUTO) 0.8 10^3/uL (0.5-4.7); ABSOLUTE MONOCYTES (AUTO) 0.1 10^3/uL (0.1-1.4); ABSOLUTE NEUT (AUTO) 8.4 10^3/uL (1.7-8.2); BASOPHILS % (AUTO) 0.6 % (0-2); HEMATOCRIT 28.4 % (36.0-47.0); HEMOGLOBIN 9.2 g/dL (12.0-15.5); HGB HCT DIFFERENCE -0.8; LYMPHOCYTES % (AUTO) 8.5 % (13-45); MEAN CORPUSCULAR HEMOGLOBIN 28.1 pg (27.0-33.4); MEAN CORPUSCULAR HGB CONC 32.4 g/dL (32.0-36.0); MEAN CORPUSCULAR VOLUME 87 fl (80-97); MONOCYTES % (AUTO) 0.7 % (3-13); RED BLOOD COUNT 3.27 10^6/uL (3.72-5.28); RED CELL DISTRIBUTION WIDTH 14.4 % (11.5-14.0); SEGMENTED NEUTROPHILS % (AUTO) 90.2 % (42-78); WHITE BLOOD COUNT 9.3 10^3/uL (4.0-10.5)
[2016-06-04 07:35] LABS: ANION GAP 9 (5-19); BLOOD UREA NITROGEN 32 mg/dL (7-20); CARBON DIOXIDE 17 mmol/L (22-30); CHLORIDE 112 mmol/L (98-107); CREATININE RESULT 2.19 mg/dL (0.52-1.25); GLUCOSE 237 mg/dL (75-110); SODIUM 138.3 mmol/L (137-145)
[2016-06-04] MEDS: INSULIN DETEMIR 100 UNIT/ML 3 ML PEN SUBCUT SCH ×2 (08:34→22:04)
[2016-06-04] MEDS: FLUTICASONE/SALMETEROL DISKUS 250-50 MCG/DOSE IH SCH ×2 (09:28→22:04)
[2016-06-04] MEDS: TIOTROPIUM BROMIDE DPI 5 CAP/KIT (18 MCG/CAP) IH SCH (09:29)
[2016-06-04] MEDS: CARVEDILOL 12.5 MG TABLET PO SCH ×2 (10:11→22:04)
[2016-06-04] MEDS: HYDRALAZINE HCL 50 MG TABLET PO SCH ×2 (10:11→17:34)
[2016-06-04] MEDS ORDERED: SODIUM POLYSTYRENE SULFONATE 15 GM/60 ML PO ONE (10:15)
--- NOTE | 2016-06-04 10:57 | Physician Advisory Note ---
Physician Advisor ProgressNote .: Pursuant to the plan for [facility], I have reviewed the medical record for this patient. Physician Advisor Statement: Excellent documentation of increased intercostal muscle use with increased work of breathing on H&P - if she had had hypoxemia or hypercapnea with it, then Ac Resp Failure would have been nicely supported. Possible documentation opportunities if attending agrees: 1. "CAP, likely due to ___, involving ___ lobe(s)" (Need name or group type of bacteria [GP? GN? aspiration type? MRSA? ] & involved lobes on every pneumonia. "CAP" & "HCAPNA" terms are insufficient for coding without this info.) As always, if concerned about any unstable VS or abnormal labs, please comment on them & note what doing about them, & please document each day the potential clinical problems you are concerned could occur if pt not kept in hospital for tx at this time. Thanks for your help with documentation accuracy/specificity improvement! Germaine Das MD [facility] Physician Advisor, Fellow of Hospital Medicine
[2016-06-04] MEDS: AMLODIPINE BESYLATE 10 MG TABLET PO SCH (12:50)
[2016-06-04] MEDS: METHYLPREDNISOLONE INJ 40 MG/1 ML SDV IV SCH ×2 (12:50→23:15)
[2016-06-04] MEDS: INSULIN LISPRO 100 UNIT/ML 3 ML VIAL SUBCUT PRN ×3 (12:50→22:04)
--- NOTE | 2016-06-04 13:20 | EKG REPORT ---
SEVERITY:- BORDERLINE ECG - SINUS RHYTHM BORDERLINE LEFT AXIS DEVIATION BORDERLINE R WAVE PROGRESSION, ANTERIOR LEADS BORDERLINE PROLONGED QT INTERVAL : Confirmed by: Rafael Baron MD 04-Jun-2016 13:19:03
--- NOTE | 2016-06-04 16:02 | PDOC PROGRESS REPORT ---
Subjective Progress Note for:: 06/04/16 Subjective:: History of present illness: LUIZA CAMARGO is a 70 year old female presents with several day history of worsening shortness of breath, increasing lower extremity edema, chest tightness with wheezing in spite of increased use of her rescue inhalers, cough developing last 24 hours productive of yellow phlegm with associated pressure-like headache. She reports a recent trip to [place] where she was in the car for 5 hours. Also reports wearing her compression stockings as she's been instructed. Shortly after the trip however is when her symptoms began including asymmetric swelling of her right greater than left lower extremities. She denies any pain in her lower extremities. She denies fevers chills, palpitations, orthopnea, PND, syncope or presyncope. Evaluation in the emergency department shows an elevated BNP with her serum creatinine at baseline 2.0 but clinical signs and symptoms suggestive of an acute bronchitis and possible bilateral pneumonia on chest x-ray as such we were asked to admit for further evaluation and management Her room air sat on presentation is 90% and I find her resting comfortably at 93 % on room air. She carries a history of congestive heart failure but can't remember when her last echocardiogram was performed or what her last EF was. She had a stress test last year that was reportedly normal and are more than 10 years ago that did not require any balloon or stent deployment. She reports receiving both influenza and Pneumovax vaccines. She has a history of COPD but quit smoking more than 30 years ago. She also has a history of obstructive sleep apnea and wears CPAP intermittently. She has chronic kidney disease stage IV and sees Dr. elliott. She was admitted to the hospital and started on broad-spectrum antibiotics for presumptive bacterial bronchitis and has shown at least some improvement. Lower extremity Dopplers were negative for DVT. Echocardiogram shows grade 2 out of 4 moderate diastolic dysfunction, mild concentric left ventricular hypertrophy, left atrial dilatation, moderate amount of mitral regurgitation, trace amount of aortic regurgitation, mild amount of tricuspid regurgitation, moderate pulmonary hypertension. Reason for visit: Follow-up dyspnea, bronchitis, lower extremity swelling, acute on chronic kidney disease. Subjective: Patient reports continued improvement in her dyspnea. She reports her cough is resolved as has her wheezing. She denies fevers, chills, chest pain or tightness, abdominal pain, nausea vomiting, diarrhea, syncope or presyncope. ROS: per HPI plus a total of 10 systems reviewed, pertinent positives and negatives noted above, remaining systems negative. Physical Exam Vital Signs: Temp Pulse Resp BP Pulse Ox 98.2 F 76 20 154/65 H 94 06/04/16 11:44 06/04/16 11:44 06/04/16 11:44 06/04/16 11:44 06/04/16 11:44 Intake & Output 06/03/16 06/04/16 06/05/16 06:59 06:59 06:59 Intake Total 1270 Balance 1270 Weight 102.6 kg 102.5 kg PHYSICAL EXAM GENERAL: NAD; well developed, well nourished; moderate obese; alert and oriented to person, place, time, situation HEENT: normocephalic, atraumatic; EOMI, PERRLA, no conjunctival injection, no scleral icterus; oral mucosa moist RESPIRATORY: no accessory muscle use, no WOB; good air entry bilaterally; resolution of bilateral anterior wheezes right greater than left; no rales, rhonchi or inspiratory crackles; maintaining oxygenation of 90% on room air for me at the bedside CARDIO: no JVD; RRR; no systolic murmur; no tachycardia VASCULAR: no carotid bruit; no abdominal bruit; no pallor; 2+ radial, DP pulse ; normal capillary refill GI: soft; nondistended; normal bowel sounds; no hepato spleno megaly; no rebound, rigidity, guarding; no tenderness to palpation. NEURO: normal patella reflexes; normal sensation; normal motor function; MSK: 5/5 strength; normal ROM hips; ambulatory without assistance; no tenderness EXTREMITIES: no calf tender; no palpable cords in calf; no clubbing, cyanosis ; mildly improved bilateral right greater than left pedal edema to the knees; no palpable cords PSYCH: normal affect, normal mood SKIN: warm; moist; no petechiae; no telengectasias; no jaundice; no rash Results Laboratory Results: 06/04/16 07:00 06/04/16 07:00 06/04/16 06/04/16 07:00 07:00 WBC 9.3 RBC 3.27 L Hgb 9.2 L Hct 28.4 L MCV 87 MCH 28.1 MCHC 32.4 RDW 14.4 H Plt Count 215 Seg Neutrophils % 90.2 H Lymphocytes % 8.5 L Monocytes % 0.7 L Eosinophils % 0.0 Basophils % 0.6 Absolute Neutrophils 8.4 H Absolute Lymphocytes 0.8 Absolute Monocytes 0.1 Absolute Eosinophils 0.0 Absolute Basophils 0.1 Sodium 138.3 Potassium 6.0 H* Chloride 112 H Carbon Dioxide 17 L Anion Gap 9 BUN 32 H Creatinine 2.19 H Est GFR ( Amer) 27 L Est GFR (Non-Af Amer) 22 L Glucose 237 H Calcium 9.0 06/02/16 06/03/16 06/03/16 19:55 01:33 07:06 Troponin I 0.016 0.026 0.024 NT-Pro-B Natriuret Pep 2240 H Labs reviewed. Slightly worsening renal function. Worsening hyperkalemia. Hemoglobin stable. EKG Comments: Stat EKG this morning shows no T-wave changes including no peaked T waves, inversion or depression/elevation Impressions: Venous Doppler Study 06/02/16 00:00 IMPRESSION: NO EVIDENCE DVT OR SVT IN EITHER LEG. Chest X-Ray 06/02/16 13:51 IMPRESSION: Bibasilar airspace disease right greater than left worrisome for pneumonia. Cardiomegaly Status: Imported from PACS - Reports reviewed Assessment & Plan - Diagnosis (1) Community acquired pneumonia Is this a current diagnosis for this admission?: YesPlan: Improved with Rocephin and Zithromax. blood cultures performed in the emergency department show no growth. Supplemental O2 as needed, Pulmonary toilet. (2) COPD with acute exacerbation Is this a current diagnosis for this admission?: YesPlan: Improved with addition of systemic steroids. (3) Edema extremities Is this a current diagnosis for this admission?: YesPlan: No evidence for venous occlusive disease on Dopplers of the lower extremity. Probably acute on chronic diastolic dysfunction. (4) Obstructive sleep apnea Is this a current diagnosis for this admission?: YesPlan: Nocturnal CPAP from home as needed. (5) Chronic kidney disease, stage IV (severe) Is this a current diagnosis for this admission?: YesPlan: Acute on chronic with worsening metabolic acidosis and hyperkalemia. Consult nephrology (6) Diabetes Qualifiers: Diabetes mellitus type: type 2 Diabetes mellitus complication status: with kidney complications Diabetes mellitus complication detail: with chronic kidney disease Diabetes mellitus terminal gauger supervisor insulin use: with terminal gauger supervisor use Chronic kidney disease stage: stage 4 (severe) Qualified Code(s): E11.22 - Type 2 diabetes mellitus with diabetic chronic kidney disease ; N18.1 - Chronic kidney disease, stage 1; Z79.4 - parts counterman (current) use of insulin Is this a current diagnosis for this admission?: Yes (7) Essential hypertension Is this a current diagnosis for this admission?: Yes (8) Hyperkalemia Is this a current diagnosis for this admission?: YesPlan: Dividose Kayexalate 60 g, repeat Chem-7 this evening. Consult nephrology for further recommendations. Home Aldactone and ARB held at admission, continue to do so. (9) UTI (urinary tract infection), uncomplicated Is this a current diagnosis for this admission?: YesPlan: Bilateral criteria, a symptomatically on presentation. Culture shows significant load of pansensitive Escherichia coli covered with the antibiotics used above. - Time Time Spent with patient: 35 or more minutes Medications reviewed and adjusted accordingly: Yes Anticipated discharge: Home Within: within 48 hours
[2016-06-04] MEDS: AZITHROMYCIN 250 MG TABLET PO SCH (17:34)
[2016-06-04] MEDS: CEFTRIAXONE 1 GM/D5W RTU 1 GM/50 ML RTUPB IV SCH (17:35)
[2016-06-04 18:35] LABS: ANION GAP 11 (5-19); BLOOD UREA NITROGEN 37 mg/dL (7-20); CALCIUM 8.8 mg/dL (8.4-10.2); CARBON DIOXIDE 18 mmol/L (22-30); CHLORIDE 112 mmol/L (98-107); CREATININE RESULT 2.09 mg/dL (0.52-1.25); GLUCOSE 295 mg/dL (75-110); POTASSIUM 5.5 mmol/L (3.6-5.0); SODIUM 141.2 mmol/L (137-145)
--- NOTE | 2016-06-04 18:37 | PDOC CONSULTATION ---
Consultation Consult Date: 06/04/16 Attending physician:: ALVERTO SINGH Consult reason:: I was asked by Dr. Singh to see the patient for hyperkalemia and chronic kidney disease. History of Present Illness Admission Date/PCP: 06/02/16 18:27 History of Present Illness: LUIZA CAMARGO is a 70 year old female presents with several day history of worsening shortness of breath, increasing lower extremity edema, chest tightness with wheezing in spite of increased use of her rescue inhalers, cough developing last 24 hours productive of yellow phlegm with associated pressure- like headache. She reports a recent trip to [place] where she was in the car for 5 hours. Also reports wearing her compression stockings as she's been instructed. Shortly after the trip however is when her symptoms began including asymmetric swelling of her right greater than left lower extremities. She denies any pain in her lower extremities. She denies fevers chills, palpitations, orthopnea, PND, syncope or presyncope. Evaluation in the emergency department shows an elevated BNP with her serum creatinine at baseline 2.0 but clinical signs and symptoms suggestive of an acute bronchitis and possible bilateral pneumonia on chest x-ray. Her room air sat on presentation is 90% and I find her resting comfortably at 93 % on room air. She carries a history of congestive heart failure but can't remember when her last echocardiogram was performed or what her last EF was. She had a stress test last year that was reportedly normal and are more than 10 years ago that did not require any balloon or stent deployment. She reports receiving both influenza and Pneumovax vaccines. She has a history of COPD but quit smoking more than 30 years ago. She also has a history of obstructive sleep apnea and wears CPAP intermittently. She has chronic kidney disease stage IV . Currently she is on IV antibiotics for treatment for possible pneumonia. She is also being treated for some COPD exacerbation with steroids. When she came in her kidney function is actually at baseline. Her usual creatinine runs anywhere on the low twos slight 2-2.08. Today her creatinine is very minimally elevated compared to baseline. Her potassium is also elevated at 6. She was given Kayexalate and repeat blood draw is currently being done. Patient is known to have mild hyperkalemia at the baseline in the range of around 5. 2's. Patient continues to have bilateral leg swelling. She tells me that her breathing is slightly better and her cough is improved and she is not producing any sputum. She denies any known fever no chills prior to admission. She denies any nausea nor vomiting nor abdominal pain nor diarrhea. She denies any dysuria as well. She said she is eating while here in the hospital. Past Medical History Cardiac Medical History: Reports: CHF-Diastolic, Hypertension-primary Pulmonary Medical History: Reports: Chronic Obstructive Pulmonary Disease (COPD) , Pneumonia, Sleep Apnea Endocrine Medical History: Reports: Diabetes Mellitus Type 2 Complications of Diabetes: Reports: Nephropathy Renal/ Medical History: Reports: Chronic Kidney Disease Stage IV, Metabolic Acidosis, Proteinuria - Usually at nonnephrotic range at baseline Hematology Medical History: Reports Anemia of Chronic Kidney Disease Past Surgical History Past Surgical History: Reports: None, Cardiac Catheterization - Last was 2006, Section, Other - Cataract surgeries bilaterally Social History Information Source: Patient, [facility] Office Lives with: Spouse/Significant other Smoking Status: Former Smoker Frequency of Alcohol Use: None Hx Recreational Drug Use: No Hx Prescription Drug Abuse: No - Advance Directive Resuscitation Status: Full Code Family History Family History: Malignancy - mother, Other - Hemophilia on her father Parental Family History Reviewed: Yes Children Family History Reviewed: No Sibling(s) Family History Reviewed.: No Medication/Allergy Home Medications: Loratadine 10 mg PO DAILY 04/10/13 Tiotropium [place] [Spiriva Handihaler 18 mcg/dose (30 Dose)] 18 mcg IH DAILY Fluticasone/Salmeterol [Advair 250-50 Diskus 14 Dose/Diskus] 1 puff IH Q12H #0 07/21/13 Albuterol Sulfate [Proair HFA] 2 inh PO Q4HP PRN 06/02/16 Amlodipine Besylate [Norvasc 10 mg Tablet] 10 mg PO DAILY 06/02/16 Atorvastatin Calcium [Lipitor 40 mg Tablet] 40 mg PO DAILY 06/02/16 Carvedilol [Coreg 25 mg Tablet] 25 mg PO BID 06/02/16 Hydralazine HCl [Apresoline 50 mg Tablet] 50 mg PO BID 06/02/16 Insulin Detemir [Levemir Flextouch] 30 units SQ QAM 06/02/16 Linagliptin [Tradjenta] 5 mg PO DAILY 06/02/16 Roflumilast [Daliresp 500 mcg Tablet] 500 mcg PO DAILY 06/02/16 Spironolactone [Aldactone] 50 mg PO DAILY 06/02/16 Valsartan [Diovan] 320 mg PO DAILY 06/02/16 Insulin Detemir [Levemir Flextouch] 10 units SQ QHS 06/03/16 Allergies/Adverse Reactions: Iodinated Contrast Media - Oral and [IV Dye, Iodine Containing] Adverse Reaction (Unknown, Verified 06/02/16 13:44) Respiratory distress Review of Systems All systems: reviewed and no additional remarkable complaints except as stated Review of Systems: Constitutional: ABSENT: chills, fatigue, fever(s), headache(s), weight gain, weight loss Eyes: ABSENT: visual disturbances Ears: ABSENT: hearing changes Cardiovascular: ABSENT: chest pain, orthropnea, palpitations; admits shortness of breath on minimal exertion and bilateral lower extremity edema Respiratory: ABSENT: hemoptysis; admits cough with initial sputum production it' s getting better associated with shortness of breath. Gastrointestinal: ABSENT: abdominal pain, constipation, diarrhea, hematemesis, hematochezia, nausea, vomiting Genitourinary: ABSENT: dysuria, hematuria Musculoskeletal: ABSENT: joint swelling Integumentary: ABSENT: rash, wounds Neurological: ABSENT: abnormal gait, abnormal speech, confusion, dizziness, focal weakness, numbness, syncope Psychiatric: ABSENT: anxiety, depression Endocrine: ABSENT: cold intolerance, heat intolerance, polydipsia, polyuria Hematologic/Lymphatic: ABSENT: easy bleeding, easy bruising, lymphadenopathy Physical Exam Vital Signs: Temp Pulse Resp BP Pulse Ox 97.8 F 87 20 149/66 H 99 06/04/16 16:06 06/04/16 16:06 06/04/16 16:06 06/04/16 16:06 06/04/16 16:06 Intake & Output 06/03/16 06/04/16 06/05/16 06:59 06:59 06:59 Intake Total 1270 500 Output Total 300 Balance 1270 200 Weight 102.6 kg 102.5 kg Exam: General appearance: no acute distress, cooperative, well-developed, well- nourished Head exam: PRESENT: atraumatic, normocephalic Eye exam: PRESENT: Conjunctiva slightly pale, EOMI, PERRLA. ABSENT: conjunctival injection, scleral icterus Mouth exam: PRESENT: moist, neck supple, tongue midline Neck exam: PRESENT: full ROM. ABSENT: carotid bruit, JVD, lymphadenopathy, thyromegaly Respiratory exam: PRESENT: Diminished to auscultation bilaterally. On the right base has some rhonchi ABSENT: rales, stridor, wheezes Cardiovascular exam: PRESENT: RRR, +S1, +S2. ABSENT: systolic murmur Pulses: PRESENT: normal radial pulses, normal dorsalis pedis pulses GI/Abdominal exam: PRESENT: normal bowel sounds, soft. ABSENT: guarding, mass, tenderness Rectal exam: deferred Extremities exam: PRESENT: full ROM. She has grade 2 bilateral pedal edema right greater than the left ABSENT: calf tenderness Musculoskeletal: PRESENT: full ROM. ABSENT: deformity Neurological exam: PRESENT: alert, Awake, Oriented to person, Oriented to place , Oriented to time, reflexes normal, CN II-XII grossly intact. ABSENT: motor sensory deficit Psychiatric exam: PRESENT: appropriate affect, normal mood. ABSENT: homicidal ideation, suicidal ideation Skin exam: PRESENT: intact, dry, warm. ABSENT: rash Results Laboratory Results: 06/04/16 07:00 06/04/16 07:00 06/04/16 06/04/16 07:00 07:00 WBC 9.3 RBC 3.27 L Hgb 9.2 L Hct 28.4 L MCV 87 MCH 28.1 MCHC 32.4 RDW 14.4 H Plt Count 215 Seg Neutrophils % 90.2 H Lymphocytes % 8.5 L Monocytes % 0.7 L Eosinophils % 0.0 Basophils % 0.6 Absolute Neutrophils 8.4 H Absolute Lymphocytes 0.8 Absolute Monocytes 0.1 Absolute Eosinophils 0.0 Absolute Basophils 0.1 Sodium 138.3 Potassium 6.0 H* Chloride 112 H Carbon Dioxide 17 L Anion Gap 9 BUN 32 H Creatinine 2.19 H Est GFR ( Amer) 27 L Est GFR (Non-Af Amer) 22 L Glucose 237 H Calcium 9.0 06/02/16 06/03/16 06/03/16 19:55 01:33 07:06 Troponin I 0.016 0.026 0.024 NT-Pro-B Natriuret Pep 2240 H Impressions: Venous Doppler Study 06/02/16 00:00 IMPRESSION: NO EVIDENCE DVT OR SVT IN EITHER LEG. Chest X-Ray 06/02/16 13:51 IMPRESSION: Bibasilar airspace disease right greater than left worrisome for pneumonia. Cardiomegaly Assessment & Plan - Diagnosis (1) Chronic kidney disease, stage IV (severe) Is this a current diagnosis for this admission?: YesPlan: Patient is still very close her baseline kidney function. She has a baseline diabetic nephropathy associated with nonnephrotic range proteinuria without hematuria. Contributory factors are her hypertension, vascular disease and obesity. (2) Hyperkalemia Is this a current diagnosis for this admission?: Yes (3) Anemia in chronic kidney disease (CKD) Is this a current diagnosis for this admission?: YesPlan: Agree with Kayexalate for acute onset of hyperkalemia. Follow-up repeat potassium. As I mentioned the patient does have baseline mild hyperkalemia to begin with. I think the patient needs a maintenance medication including Veltassa upon discharge to maintain potassium within normal levels so that we can resume her ARB and spironolactone. She needs to be in the low potassium diet. (4) Community acquired pneumonia Is this a current diagnosis for this admission?: YesPlan: Continue antibiotics per primary service. Remember to adjust antibiotics according to kidney function. (5) UTI (urinary tract infection), uncomplicated Is this a current diagnosis for this admission?: Yes (6) Type II diabetes mellitus Qualifiers: Diabetes mellitus complication status: with kidney complications Diabetes mellitus complication detail: with nephropathy Is this a current diagnosis for this admission?: Yes (7) Essential hypertension Is this a current diagnosis for this admission?: YesPlan: Fairly controlled. Continue current blood pressure medications. Once the potassium is improved the ARB and spironolactone can be resumed but we also need to start patient on a maintenance medication to maintain her potassium is within acceptable level. (8) Edema extremities Is this a current diagnosis for this admission?: YesPlan: Start Lasix 20 mg by mouth daily for now. May increase the dose subsequently. (9) COPD with acute exacerbation Is this a current diagnosis for this admission?: Yes - Notes Notes: Thank you very much for this consultation and I will follow the patient with you. - Time Time Spent: 50 to 70 Minutes
[2016-06-04] MEDS ORDERED: FUROSEMIDE 20 MG TABLET PO ONE (19:30)
[2016-06-04] MEDS: ATORVASTATIN CALCIUM 40 MG TABLET PO SCH (22:04)
[2016-06-05] MEDS: LANSOPRAZOLE 30 MG TAB.RAP.DR PO SCH (06:13)
[2016-06-05] MEDS: HEPARIN SOD (PORCINE) 5,000 UNIT/ML 1 ML SYRINGE SUBCUT SCH ×3 (06:13→21:49)
[2016-06-05 07:45] LABS: ABSOLUTE LYMPHOCYTES (AUTO) 0.7 10^3/uL (0.5-4.7); ABSOLUTE MONOCYTES (AUTO) 0.2 10^3/uL (0.1-1.4); ABSOLUTE NEUT (AUTO) 11.7 10^3/uL (1.7-8.2); BASOPHILS % (AUTO) 0.1 % (0-2); HEMATOCRIT 28.5 % (36.0-47.0); HEMOGLOBIN 8.9 g/dL (12.0-15.5); HGB HCT DIFFERENCE -1.8; LYMPHOCYTES % (AUTO) 5.2 % (13-45); MEAN CORPUSCULAR HEMOGLOBIN 27.2 pg (27.0-33.4); MEAN CORPUSCULAR HGB CONC 31.3 g/dL (32.0-36.0); MEAN CORPUSCULAR VOLUME 87 fl (80-97); MONOCYTES % (AUTO) 1.5 % (3-13); RED BLOOD COUNT 3.28 10^6/uL (3.72-5.28); RED CELL DISTRIBUTION WIDTH 14.6 % (11.5-14.0); SEGMENTED NEUTROPHILS % (AUTO) 93.2 % (42-78); WHITE BLOOD COUNT 12.5 10^3/uL (4.0-10.5)
[2016-06-05 08:05] LABS: ANION GAP 9 (5-19); BLOOD UREA NITROGEN 42 mg/dL (7-20); CARBON DIOXIDE 20 mmol/L (22-30); CHLORIDE 113 mmol/L (98-107); CREATININE RESULT 2.33 mg/dL (0.52-1.25); GLUCOSE 252 mg/dL (75-110); MAGNESIUM 2.3 mg/dL (1.6-2.3); PHOSPHORUS 5.5 mg/dL (2.5-4.5); POTASSIUM 5.3 mmol/L (3.6-5.0); SODIUM 141.6 mmol/L (137-145)
[2016-06-05] MEDS: INSULIN DETEMIR 100 UNIT/ML 3 ML PEN SUBCUT SCH ×2 (08:10→21:49)
[2016-06-05 09:09] LABS: FOLATE 8.51 ng/mL (>2.76)
[2016-06-05] MEDS ORDERED: FUROSEMIDE INJ/PF 20 MG/2 ML SDV IV ONE (09:56)
[2016-06-05] MEDS ORDERED: FUROSEMIDE 20 MG TABLET PO SCH (10:00)
[2016-06-05] MEDS: CARVEDILOL 12.5 MG TABLET PO SCH ×2 (10:03→21:49)
[2016-06-05] MEDS: TIOTROPIUM BROMIDE DPI 5 CAP/KIT (18 MCG/CAP) IH SCH (10:04)
[2016-06-05] MEDS: HYDRALAZINE HCL 50 MG TABLET PO SCH ×2 (10:04→17:57)
[2016-06-05] MEDS: FLUTICASONE/SALMETEROL DISKUS 250-50 MCG/DOSE IH SCH ×2 (10:04→21:50)
[2016-06-05] MEDS: METHYLPREDNISOLONE INJ 40 MG/1 ML SDV IV SCH (11:01)
[2016-06-05] MEDS: AMLODIPINE BESYLATE 10 MG TABLET PO SCH (11:01)
[2016-06-05] MEDS: INSULIN LISPRO 100 UNIT/ML 3 ML VIAL SUBCUT PRN ×3 (12:28→21:49)
--- NOTE | 2016-06-05 14:36 | PDOC PROGRESS REPORT ---
Subjective Progress Note for:: 06/05/16 Subjective:: Patient is doing well. She said her breathing is continuously improving. She has more urine output due to the Lasix given. She feels like her leg swelling is getting better. She is not coughing as much. Physical Exam Vital Signs: Temp Pulse Resp BP Pulse Ox 98.1 F 79 18 140/60 H 98 06/05/16 11:25 06/05/16 11:25 06/05/16 11:25 06/05/16 11:25 06/05/16 11:25 Intake & Output 06/04/16 06/05/16 06/06/16 06:59 06:59 06:59 Intake Total 1270 900 900 Output Total 300 Balance 1270 600 900 Weight 102.5 kg 102.8 kg Exam: General appearance: PRESENT: no acute distress, cooperative, well-developed, well-nourished Head exam: PRESENT: atraumatic, normocephalic Eye exam: PRESENT: conjunctiva pale, PERRLA. ABSENT: scleral icterus Neck exam: ABSENT: JVD Respiratory exam: PRESENT: Diminished breath sounds. Right base rhonchi ABSENT : crackles, rales, unlabored, wheezes Cardiovascular exam: PRESENT: Regular rate rhythm -+S1, +S2. ABSENT: diastolic murmur, systolic murmur GI/Abdominal exam: PRESENT: normal bowel sounds, soft. ABSENT: guarding, mass, tenderness Extremities exam: Grade 1 bilateral pitting edema Neurological exam: PRESENT: alert, awake, oriented to person, place and time. Skin exam: PRESENT: dry, warm, Results Laboratory Results: 06/05/16 06:22 06/05/16 06:22 06/04/16 06/05/16 06/05/16 18:13 06:22 06:22 WBC 12.5 H RBC 3.28 L Hgb 8.9 L Hct 28.5 L MCV 87 MCH 27.2 MCHC 31.3 L RDW 14.6 H Plt Count 231 Seg Neutrophils % 93.2 H Lymphocytes % 5.2 L Monocytes % 1.5 L Eosinophils % 0.0 Basophils % 0.1 Absolute Neutrophils 11.7 H Absolute Lymphocytes 0.7 Absolute Monocytes 0.2 Absolute Eosinophils 0.0 Absolute Basophils 0.0 Retic Count (auto) 2.31 Absolute Retic 0.076 Sodium 141.2 141.6 Potassium 5.5 H 5.3 H Chloride 112 H 113 H Carbon Dioxide 18 L 20 L Anion Gap 11 9 BUN 37 H 42 H Creatinine 2.09 H 2.33 H Est GFR ( Amer) 28 L 25 L Est GFR (Non-Af Amer) 24 L 21 L Glucose 295 H 252 H Calcium 8.8 9.0 Phosphorus 5.5 H Magnesium 2.3 Iron 42 TIBC 240 L % Saturation 18 Ferritin 60.40 Vitamin B12 562.0 Folate 8.51 06/02/16 06/03/16 06/03/16 19:55 01:33 07:06 Troponin I 0.016 0.026 0.024 NT-Pro-B Natriuret Pep 2240 H Impressions: Venous Doppler Study 06/02/16 00:00 IMPRESSION: NO EVIDENCE DVT OR SVT IN EITHER LEG. Chest X-Ray 06/02/16 13:51 IMPRESSION: Bibasilar airspace disease right greater than left worrisome for pneumonia. Cardiomegaly Assessment & Plan - Diagnosis (1) Chronic kidney disease, stage IV (severe) Is this a current diagnosis for this admission?: YesPlan: Secondary to diabetic nephropathy with known nephrotic range proteinuria. Slight elevation in creatinine likely secondary to Lasix. Otherwise kidney function not significantly changed. (2) Diabetic nephropathy Qualifiers: Diabetes mellitus type: type 2 Qualified Code(s): E11.21 - Type 2 diabetes mellitus with diabetic nephropathy Is this a current diagnosis for this admission?: Yes (3) Hyperkalemia Is this a current diagnosis for this admission?: YesPlan: Improved with Kayexalate. Continue to hold spironolactone and valsartan for now. I will plan to initiate Veltassa once the patient is discharged home so we can resume the valsartan and the spironolactone if needed. Unfortunately veltassa is not in the formulary here in the hospital and is unavailable here. (4) Anemia in chronic kidney disease (CKD) Is this a current diagnosis for this admission?: YesPlan: We will give her Procrit 20,000 units subcutaneously today since she is due for it. We'll restart her ferrous sulfate 325 by mouth twice a day. (5) Community acquired pneumonia Is this a current diagnosis for this admission?: YesPlan: Continue antibiotics per primary service. Remember to adjust antibiotics according to kidney function. (6) UTI (urinary tract infection), uncomplicated Is this a current diagnosis for this admission?: Yes (7) Type II diabetes mellitus Qualifiers: Diabetes mellitus complication status: with kidney complications Diabetes mellitus complication detail: with nephropathy Is this a current diagnosis for this admission?: Yes (8) Essential hypertension Is this a current diagnosis for this admission?: YesPlan: Fairly controlled. Continue current blood pressure medications. Once the potassium is improved the ARB and spironolactone can be resumed but we also need to start patient on a maintenance medication to maintain her potassium is within acceptable level. (9) Edema extremities Is this a current diagnosis for this admission?: YesPlan: Improving with Lasix. Continue maintenance oral Lasix upon discharge. (10) COPD with acute exacerbation Is this a current diagnosis for this admission?: Yes - Notes Notes: I will follow the patient office if discharge over the weekend. - Time Time with patient: 15-25 minutes
--- NOTE | 2016-06-05 15:19 | PDOC PROGRESS REPORT ---
Subjective Progress Note for:: 06/05/16 Subjective:: Reason for visit: Follow-up dyspnea, bronchitis, lower extremity swelling, acute on chronic kidney disease. History of present illness: LUIZA CAMARGO is a 70 year old female presents with several day history of worsening shortness of breath, increasing lower extremity edema, chest tightness with wheezing in spite of increased use of her rescue inhalers, cough developing last 24 hours productive of yellow phlegm with associated pressure-like headache. She reports a recent trip to [place] where she was in the car for 5 hours. Also reports wearing her compression stockings as she's been instructed. Shortly after the trip however is when her symptoms began including asymmetric swelling of her right greater than left lower extremities. She denies any pain in her lower extremities. She denies fevers chills, palpitations, orthopnea, PND, syncope or presyncope. Evaluation in the emergency department shows an elevated BNP with her serum creatinine at baseline 2.0 but clinical signs and symptoms suggestive of an acute bronchitis and possible bilateral pneumonia on chest x-ray as such we were asked to admit for further evaluation and management Her room air sat on presentation is 90% and I find her resting comfortably at 93 % on room air. She carries a history of congestive heart failure but can't remember when her last echocardiogram was performed or what her last EF was. She had a stress test last year that was reportedly normal and are more than 10 years ago that did not require any balloon or stent deployment. She reports receiving both influenza and Pneumovax vaccines. She has a history of COPD but quit smoking more than 30 years ago. She also has a history of obstructive sleep apnea and wears CPAP intermittently. She has chronic kidney disease stage IV and sees Dr. elliott. She was admitted to the hospital and started on broad-spectrum antibiotics for presumptive bacterial bronchitis and has shown at least some improvement. Lower extremity Dopplers were negative for DVT. Echocardiogram shows grade 2 out of 4 moderate diastolic dysfunction, mild concentric left ventricular hypertrophy, left atrial dilatation, moderate amount of mitral regurgitation, trace amount of aortic regurgitation, mild amount of tricuspid regurgitation, moderate pulmonary hypertension. Her hospital course was complicated by transient hypokalemia that responded to a single dose of Kayexalate. Her Aldactone and ARB remain on hold. Subjective: Patient reports continued improvement in her dyspnea. She reports her cough is resolved as has her wheezing. She denies fevers, chills, chest pain or tightness, abdominal pain, nausea vomiting, diarrhea, syncope or presyncope. Unfortunately her room air sat for me while at rest sitting upright in a chair was 87%. ROS: per HPI plus a total of 10 systems reviewed, pertinent positives and negatives noted above, remaining systems negative. Physical Exam Vital Signs: Temp Pulse Resp BP Pulse Ox 98.1 F 79 18 140/60 H 98 06/05/16 11:25 06/05/16 11:25 06/05/16 11:25 06/05/16 11:25 06/05/16 11:25 Intake & Output 06/04/16 06/05/16 06/06/16 06:59 06:59 06:59 Intake Total 1270 900 900 Output Total 300 Balance 1270 600 900 Weight 102.5 kg 102.8 kg PHYSICAL EXAM GENERAL: NAD; well developed, well nourished; moderate obese; alert and oriented to person, place, time, situation HEENT: normocephalic, atraumatic; EOMI, PERRLA, no conjunctival injection, no scleral icterus; oral mucosa moist RESPIRATORY: no accessory muscle use, no WOB; good air entry bilaterally; resolution of bilateral anterior wheezes; no rales, rhonchi but does have bibasilar inspiratory crackles; maintaining oxygenation of only 87% on room air for me at the bedside CARDIO: no JVD; RRR; no systolic murmur; no tachycardia VASCULAR: no carotid bruit; no abdominal bruit; no pallor; 2+ radial, DP pulse ; normal capillary refill GI: soft; nondistended; normal bowel sounds; no hepato spleno megaly; no rebound, rigidity, guarding; no tenderness to palpation. NEURO: normal patella reflexes; normal sensation; normal motor function; MSK: 5/5 strength; normal ROM hips; ambulatory without assistance; no tenderness EXTREMITIES: no calf tender; no palpable cords in calf; no clubbing, cyanosis ; improved bilateral right greater than left pedal edema to the knees; no palpable cords PSYCH: normal affect, normal mood SKIN: warm; moist; no petechiae; no telengectasias; no jaundice; no rash Results Laboratory Results: 06/05/16 06:22 06/05/16 06:22 06/04/16 06/05/1606/05/17 18:13 06:22 06:22 WBC 12.5 H RBC 3.28 L Hgb 8.9 L Hct 28.5 L MCV 87 MCH 27.2 MCHC 31.3 L RDW 14.6 H Plt Count 231 Seg Neutrophils % 93.2 H Lymphocytes % 5.2 L Monocytes % 1.5 L Eosinophils % 0.0 Basophils % 0.1 Absolute Neutrophils 11.7 H Absolute Lymphocytes 0.7 Absolute Monocytes 0.2 Absolute Eosinophils 0.0 Absolute Basophils 0.0 Retic Count (auto) 2.31 Absolute Retic 0.076 Sodium 141.2 141.6 Potassium 5.5 H 5.3 H Chloride 112 H 113 H Carbon Dioxide 18 L 20 L Anion Gap 11 9 BUN 37 H 42 H Creatinine 2.09 H 2.33 H Est GFR ( Amer) 28 L 25 L Est GFR (Non-Af Amer) 24 L 21 L Glucose 295 H 252 H Calcium 8.8 9.0 Phosphorus 5.5 H Magnesium 2.3 Iron 42 TIBC 240 L % Saturation 18 Ferritin 60.40 Vitamin B12 562.0 Folate 8.51 06/02/16 06/03/16 06/03/16 19:55 01:33 07:06 Troponin I 0.016 0.026 0.024 NT-Pro-B Natriuret Pep 2240 H Impressions: Venous Doppler Study 06/02/16 00:00 IMPRESSION: NO EVIDENCE DVT OR SVT IN EITHER LEG. Chest X-Ray 06/02/16 13:51 IMPRESSION: Bibasilar airspace disease right greater than left worrisome for pneumonia. Cardiomegaly Assessment & Plan - Diagnosis (1) Community acquired pneumonia Is this a current diagnosis for this admission?: YesPlan: Improved with Rocephin and Zithromax. blood cultures performed in the emergency department show no growth. Supplemental O2 as needed, Pulmonary toilet. (2) COPD with acute exacerbation Is this a current diagnosis for this admission?: YesPlan: Improved with addition of systemic steroids. Continue inhaled steroids, nebulizers, intermittent supplemental O2 as needed to maintain sats greater than 90%. Patient does not use home O2. (3) Acute respiratory failure with hypoxia Is this a current diagnosis for this admission?: YesPlan: Secondary to the above. Continue aggressive incentive spirometry. Continue treatment as noted above (4) Edema extremities Is this a current diagnosis for this admission?: YesPlan: Improved. No evidence for venous occlusive disease on Dopplers of the lower extremity. Probably acute on chronic diastolic dysfunction. (5) Chronic kidney disease, stage IV (severe) Is this a current diagnosis for this admission?: YesPlan: Acute on chronic with worsening metabolic acidosis and hyperkalemia. Consult nephrology, appreciate their input. (6) Hyperkalemia Is this a current diagnosis for this admission?: YesPlan: Improved after Kayexalate. Home Aldactone and ARB held at admission, continue to do so. (7) UTI (urinary tract infection), uncomplicated Is this a current diagnosis for this admission?: YesPlan: By lab criteria, asymptomatic on presentation. Culture shows significant load of pansensitive Escherichia coli covered with the antibiotics used above. (8) Obstructive sleep apnea Is this a current diagnosis for this admission?: Yes (9) Diabetes Qualifiers: Diabetes mellitus type: type 2 Diabetes mellitus complication status: with kidney complications Diabetes mellitus complication detail: with chronic kidney disease Diabetes mellitus custodial insulin use: with terminal carman use Chronic kidney disease stage: stage 4 (severe) Qualified Code(s): E11.22 - Type 2 diabetes mellitus with diabetic chronic kidney disease ; N18.1 - Chronic kidney disease, stage 1; Z79.4 - [facility]itentiary (current) use of insulin Is this a current diagnosis for this admission?: Yes (10) Essential hypertension Is this a current diagnosis for this admission?: Yes - Time Time Spent with patient: 25-34 minutes Anticipated discharge: Home Within: within 24 hours - Plan Summary Plan Summary: Continue home regimen for chronic medical conditions.
[2016-06-05] MEDS ORDERED: EPOETIN ALFA INJ 20000 UNIT/1 ML VIAL (RENAL) SUBCUT ONE (15:30)
[2016-06-05] MEDS: FERROUS SULFATE 325 MG TABLET PO SCH (17:55)
[2016-06-05] MEDS: AZITHROMYCIN 250 MG TABLET PO SCH (17:57)
[2016-06-05] MEDS: CEFTRIAXONE 1 GM/D5W RTU 1 GM/50 ML RTUPB IV SCH (17:58)
[2016-06-05] MEDS: ATORVASTATIN CALCIUM 40 MG TABLET PO SCH (21:49)
[2016-06-06] MEDS: METHYLPREDNISOLONE INJ 40 MG/1 ML SDV IV SCH (00:21)
[2016-06-06] MEDS: HEPARIN SOD (PORCINE) 5,000 UNIT/ML 1 ML SYRINGE SUBCUT SCH (06:33)
[2016-06-06] MEDS: LANSOPRAZOLE 30 MG TAB.RAP.DR PO SCH (06:33)
[2016-06-06] MEDS: FERROUS SULFATE 325 MG TABLET PO SCH (08:18)
[2016-06-06] MEDS: INSULIN DETEMIR 100 UNIT/ML 3 ML PEN SUBCUT SCH (08:19)
[2016-06-06] MEDS: INSULIN LISPRO 100 UNIT/ML 3 ML VIAL SUBCUT PRN (08:20)
[2016-06-06 09:42] LABS: ANION GAP 9 (5-19); BLOOD UREA NITROGEN 55 mg/dL (7-20); CARBON DIOXIDE 20 mmol/L (22-30); CHLORIDE 110 mmol/L (98-107); CREATININE RESULT 2.31 mg/dL (0.52-1.25); GLUCOSE 329 mg/dL (75-110); POTASSIUM 5.4 mmol/L (3.6-5.0); SODIUM 139.2 mmol/L (137-145)
[2016-06-06] MEDS: HYDRALAZINE HCL 50 MG TABLET PO SCH (10:29)
[2016-06-06] MEDS: FLUTICASONE/SALMETEROL DISKUS 250-50 MCG/DOSE IH SCH (10:30)
[2016-06-06] MEDS: CARVEDILOL 12.5 MG TABLET PO SCH (10:30)
[2016-06-06] MEDS: TIOTROPIUM BROMIDE DPI 5 CAP/KIT (18 MCG/CAP) IH SCH (10:30)
[2016-06-06 11:13] VITALS: BP 173/75
--- NOTE | 2016-06-06 14:28 | PDOC DISCHARGE SUMMARY ---
General - Admit/Disc Date/PCP Admission Date/Primary Care Provider: 06/02/16 18:27 Discharge Date: 06/06/16 - Discharge Diagnosis (1) Community acquired pneumonia Is this a current diagnosis for this admission?: YesSummary: Improved, changed to oral regimen with Vantin 200 mg daily and Zithromax 500 mg daily for an additional 7 days (this is renal dosing). (2) COPD with acute exacerbation Is this a current diagnosis for this admission?: YesSummary: Improved and back to baseline and she is oxygenating greater than 92% on room air for me either with exertion, continue seven-day course of steroids and rescue inhalers at home. (3) Acute respiratory failure with hypoxia Is this a current diagnosis for this admission?: YesSummary: Resolved and secondary to the above. (4) Edema extremities Is this a current diagnosis for this admission?: YesSummary: Improved with low-dose Lasix, continue once daily dosing at home. Patient is instructed to weigh herself daily and report 5 pound weight gain to her primary physician. (5) Chronic kidney disease, stage IV (severe) Is this a current diagnosis for this admission?: YesSummary: Dr. Gutierres consult during this admission, adjusted her meds and will need to see her next week for close outpt f/u. (6) Hyperkalemia Is this a current diagnosis for this admission?: YesSummary: Back to baseline. ARB and Aldactone still on hold until follow-up with nephrology this week. (7) UTI (urinary tract infection), uncomplicated Is this a current diagnosis for this admission?: YesSummary: Adequately covered with the above antibiotics. (8) Obstructive sleep apnea Is this a current diagnosis for this admission?: YesSummary: Continue as needed dosing with CPAP at home per her usual routine. (9) Diabetes Is this a current diagnosis for this admission?: Yes (10) Essential hypertension Is this a current diagnosis for this admission?: YesSummary: Better control on the current regimen. Continue same until follow-up with nephrology for further titration later this week. - Additional Information Resuscitation Status: Full Code Discharge Activity: Activity As Tolerated, Balance Activity w/Rest Home Medications: Loratadine 10 mg PO DAILY 04/10/13 Tiotropium [place] [Spiriva Handihaler 18 mcg/dose (30 Dose)] 18 mcg IH DAILY Fluticasone/Salmeterol [Advair 250-50 Diskus 14 Dose/Diskus] 1 puff IH Q12H #0 07/21/13 Albuterol Sulfate [Proair HFA] 2 inh PO Q4HP PRN 06/02/16 Amlodipine Besylate [Norvasc 10 mg Tablet] 10 mg PO DAILY 06/02/16 Atorvastatin Calcium [Lipitor 40 mg Tablet] 40 mg PO DAILY 06/02/16 Carvedilol [Coreg 25 mg Tablet] 25 mg PO BID 06/02/16 Hydralazine HCl [Apresoline 50 mg Tablet] 50 mg PO BID 06/02/16 Insulin Detemir [Levemir Flextouch] 30 units SQ QAM 06/02/16 Linagliptin [Tradjenta] 5 mg PO DAILY 06/02/16 Roflumilast [Daliresp 500 mcg Tablet] 500 mcg PO DAILY 06/02/16 Insulin Detemir [Levemir Flextouch] 10 units SQ QHS 06/03/16 Acetaminophen [Tylenol 325 mg Tablet] 650 mg PO Q4HP PRN tablet 06/06/16 Azithromycin [Zithromax 250 mg Tablet] 500 mg PO QPM #7 tablet 06/06/16 Cefpodoxime Proxetil [Vantin 200 mg Tablet] 1 tab PO DAILY #7 tab 06/06/16 Ferrous Sulfate [Feosol 325 mg Tablet] 325 mg PO BIDPCBS #60 tablet 06/06/16 Furosemide [Lasix] 20 mg PO DAILY #30 tablet 06/06/16 Prednisone [Deltasone 20 mg Tablet] 20 mg PO BID #14 tablet 06/06/16 History of Present Illness Patient complains of: Shortness of breath History of Present Illness: LUIZA CAMARGO is a 70 year old female presents with several day history of worsening shortness of breath, increasing lower extremity edema, chest tightness with wheezing in spite of increased use of her rescue inhalers, cough developing last 24 hours productive of yellow phlegm with associated pressure- like headache. She reports a recent trip to [place] where she was in the car for 5 hours. Also reports wearing her compression stockings as she's been instructed. Shortly after the trip however is when her symptoms began including asymmetric swelling of her right greater than left lower extremities. She denies any pain in her lower extremities. She denies fevers chills, palpitations, orthopnea, PND, syncope or presyncope. Evaluation in the emergency department shows an elevated BNP with her serum creatinine at baseline 2.0 but clinical signs and symptoms suggestive of an acute bronchitis and possible bilateral pneumonia on chest x-ray as such we were asked to admit for further evaluation and management Her room air sat on presentation is 90% and I find her resting comfortably at 93 % on room air. She carries a history of congestive heart failure but can't remember when her last echocardiogram was performed or what her last EF was. She had a stress test last year that was reportedly normal and are more than 10 years ago that did not require any balloon or stent deployment. She reports receiving both influenza and Pneumovax vaccines. She has a history of COPD but quit smoking more than 30 years ago. She also has a history of obstructive sleep apnea and wears CPAP intermittently. She has chronic kidney disease stage IV and sees Dr. gutierres. Hospital Course Hospital Course: She was admitted to the hospital and started on broad-spectrum antibiotics for presumptive bacterial bronchitis and has shown at least some improvement. Lower extremity Dopplers were negative for DVT. Echocardiogram shows grade 2 out of 4 moderate diastolic dysfunction, mild concentric left ventricular hypertrophy, left atrial dilatation, moderate amount of mitral regurgitation, trace amount of aortic regurgitation, mild amount of tricuspid regurgitation, moderate pulmonary hypertension. Her hospital course was complicated by transient hyperkalemia that responded to a single dose of Kayexalate. Her Aldactone and ARB remain on hold. Patient reports continued improvement in her dyspnea. She reports her cough is resolved as has her wheezing. She denies fevers, chills, chest pain or tightness, abdominal pain, nausea vomiting, diarrhea, syncope or presyncope. Unfortunately her room air sat for me yesterday while at rest sitting upright in a chair was 87% but after further diuresis and continue aggressive pulmonary toilet she is now maintaining room air sats greater than 92%. Her cough and congestion have improved she remained hemodynamic stable, her electrolytes issues have resolved and she is hemodynamic stable for discharge at this time. She expresses no concerns to me about being discharged today. Physical Exam Vital Signs: Temp Pulse Resp BP Pulse Ox 98.5 F 71 18 173/75 H 97 06/06/16 11:00 06/06/16 11:00 06/06/16 11:00 06/06/16 11:00 06/06/16 11:00 Intake & Output 06/05/16 06/06/16 06/07/16 06:59 06:59 06:59 Intake Total 900 1336 Output Total 300 Balance 600 1336 Weight 102.8 kg 103 kg PHYSICAL EXAM GENERAL: NAD; well developed, well nourished; moderate obese; alert and oriented to person, place, time, situation HEENT: normocephalic, atraumatic; oral mucosa moist RESPIRATORY: no accessory muscle use, no WOB; good air entry bilaterally; resolution of bilateral anterior wheezes; no rales, rhonchi but does have a few bibasilar inspiratory crackles; maintaining oxygenation of greater than 92% on room air for me at the bedside CARDIO: no JVD; RRR; no systolic murmur; no tachycardia VASCULAR: no carotid bruit; no abdominal bruit; no pallor; 2+ radial, DP pulse ; normal capillary refill GI: soft; nondistended; normal bowel sounds; no hepato spleno megaly; no rebound, rigidity, guarding; no tenderness to palpation. NEURO: normal patella reflexes; normal sensation; normal motor function; MSK: 5/5 strength; normal ROM hips; ambulatory without assistance; no tenderness EXTREMITIES: no calf tender; no palpable cords in calf; no clubbing, cyanosis ; improved bilateral right greater than left pedal edema to the knees; no palpable cords PSYCH: normal affect, normal mood SKIN: warm; moist; no petechiae; no telengectasias; no jaundice; no rash Results Laboratory Results: 06/05/16 06:22 06/06/16 09:07 06/05/16 06/06/16 06:22 09:07 Sodium 139.2 Potassium 5.4 H Chloride 110 H Carbon Dioxide 20 L Anion Gap 9 BUN 55 H Creatinine 2.31 H Est GFR ( Amer) 25 L Est GFR (Non-Af Amer) 21 L Glucose 329 H Calcium 9.0 Transferrin 189 L 06/02/16 06/03/16 06/03/16 19:55 01:33 07:06 Troponin I 0.016 0.026 0.024 NT-Pro-B Natriuret Pep 2240 H Impressions: Venous Doppler Study 06/02/16 00:00 IMPRESSION: NO EVIDENCE DVT OR SVT IN EITHER LEG. Chest X-Ray 06/02/16 13:51 IMPRESSION: Bibasilar airspace disease right greater than left worrisome for pneumonia. 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 Time Spent: Greater than 30 Minutes
== END 2016-06-06 12:00 | disposition home or self-care (01) | DRG 193 ==
LOC: ER 13:39 → EH 18:27 → UNDOADMIN 18:44 → EH 18:44 → 4S 23:45
PROC: 3E0F73Z Introduction of Anti-inflammatory into Respiratory Tract, Via Natural or Artificial Opening (ICD-10-PCS; principal; 2016-06-02)
DX: J18.9 Pneumonia, unspecified organism (principal); J96.01 Acute respiratory failure with hypoxia; I13.2 Hypertensive heart and chronic kidney disease with heart failure and with stage 5 chronic kidney disease, or end stage renal disease; N18.4 Chronic kidney disease, stage 4 (severe); J44.1 Chronic obstructive pulmonary disease with (acute) exacerbation; N39.0 Urinary tract infection, site not specified; Z68.41 Body mass index [BMI] 40.0-44.9, adult; E87.2 Acidosis; J44.0 Chronic obstructive pulmonary disease with (acute) lower respiratory infection; J20.9 Acute bronchitis, unspecified; E11.22 Type 2 diabetes mellitus with diabetic chronic kidney disease; I50.9 Heart failure, unspecified; E87.5 Hyperkalemia; E66.9 Obesity, unspecified; D63.1 Anemia in chronic kidney disease; I27.2 Other secondary pulmonary hypertension; G47.33 Obstructive sleep apnea (adult) (pediatric); B96.20 Unspecified Escherichia coli [E. coli] as the cause of diseases classified elsewhere; Z91.041 Radiographic dye allergy status; Z79.4 Long term (current) use of insulin; Z87.891 Personal history of nicotine dependence
CPT/HCPCS: 36415; 71020; 80048; 80053; 81001; 82550; 82553; 82607; 82728; 82746; 82962; 83540; 83550; 83735; 83880; 84100; 84466; 84484; 85025; 85045; 87040; 87086; 87088; 87186; 87804; 93005; 93010; 93306; 93970; 94799; 99291; J0456; J0696; J1644; J1815; J1940; J2920; J3490; J7060; Q4081

== ENCOUNTER 2016-07-02 14:14 | Emergency (ER) | payer MEDICARE, OTHER ==
[2016-07-02] MEDS ORDERED: ASPIRIN 81 MG TABLET, CHEWABLE PO ONE (14:37)
--- NOTE | 2016-07-02 14:37 | ER Document Report ---
ED Medical Screen (RME) - General Stated Complaint: DIFFICULTY BREATHING Notes: Patient is a 70-year-old female presents emergency Department complaining of shortness of breath for 2 weeks. admits to JEWELL that started yesterday, also admits to swelling. Chest pressure that started today, substernal, constant PMH: COPD, HTN, HLD, DM denies CHF, [place] Stress test was about 2 years ago, coronary cath 10 years ago I have greeted and performed a rapid initial assessment of this patient. A comprehensive ED assessment and evaluation of the patient, analysis of test results and completion of the medical decision making process will be conducted by additional ED providers. TRAVEL OUTSIDE OF THE [place] IN LAST 30 DAYS: No - Related Data Allergies/Adverse Reactions: Iodinated Contrast Media - Oral and [IV Dye, Iodine Containing] Adverse Reaction (Unknown, Verified 06/02/16 13:44) Respiratory distress Past Medical History - Past Medical History Cardiac Medical History: Reports: Hx Congestive Heart Failure, Hx Hypertension Pulmonary Medical History: Reports: Hx COPD, Hx Pneumonia, Hx Sleep Apnea Denies: Hx Tuberculosis Endocrine Medical History: Reports: Hx Diabetes Mellitus Type 2 Renal/ Medical History: Reports: Hx End Stage Renal Disease. Denies: Hx Peritoneal Dialysis Past Surgical History: Reports: Hx Cardiac Catheterization - Last was 2006, Hx Section, Other - Cataract surgeries bilaterally - Immunizations Hx Diphtheria, Pertussis, Tetanus Vaccination: Yes
[2016-07-02 15:07] LABS: ABSOLUTE EOSINOPHILS # (AUTO) 0.3 10^3/uL (0.0-0.6); ABSOLUTE MONOCYTES (AUTO) 0.5 10^3/uL (0.1-1.4); ABSOLUTE NEUT (AUTO) 3.7 10^3/uL (1.7-8.2); BASOPHILS % (AUTO) 0.9 % (0-2); EOSINOPHILS % (AUTO) 5.2 % (0-6); HEMATOCRIT 31.1 % (36.0-47.0); HEMOGLOBIN 9.8 g/dL (12.0-15.5); HGB HCT DIFFERENCE -1.7; LYMPHOCYTES % (AUTO) 18.7 % (13-45); MEAN CORPUSCULAR HEMOGLOBIN 27.7 pg (27.0-33.4); MEAN CORPUSCULAR HGB CONC 31.5 g/dL (32.0-36.0); MEAN CORPUSCULAR VOLUME 88 fl (80-97); MONOCYTES % (AUTO) 9.2 % (3-13); RED BLOOD COUNT 3.54 10^6/uL (3.72-5.28); RED CELL DISTRIBUTION WIDTH 15.5 % (11.5-14.0); WHITE BLOOD COUNT 5.6 10^3/uL (4.0-10.5)
--- NOTE | 2016-07-02 15:13 | ER Document Report ---
ED General - General Mode of Arrival: Medic Information source: Patient TRAVEL OUTSIDE OF THE [place] IN LAST 30 DAYS: No - HPI Onset: Yesterday <JERAMIE FISCHER - Last Filed: 07/02/16 19:48> <KYM YOUSSEF - Last Filed: 07/08/16 22:29> - General Chief Complaint: Shortness Of Breath Stated Complaint: DIFFICULTY BREATHING Notes: Patient is a 70-year-old female that presents to the emergency department today with complaints of shortness of breath. Patient states that she was diagnosed with pneumonia about one month ago but these symptoms today do not feel similar. Patient states she has chest tightness associated with breathing. Patient denies any fevers, cough, body aches, nausea, vomiting, or diarrhea. ( JERAMIE FISCHER) - Related Data Allergies/Adverse Reactions: Iodinated Contrast Media - Oral and [IV Dye, Iodine Containing] Adverse Reaction (Unknown, Verified 07/02/16 14:34) Respiratory distress Past Medical History - General Information source: Patient - Social History Smoking Status: Former Smoker Cigarette use (# per day): No Chew tobacco use (# tins/day): No Frequency of alcohol use: None Drug Abuse: None Lives with: Family Family History: Reviewed & Not Pertinent Patient has suicidal ideation: No Patient has homicidal ideation: No - Past Medical History Cardiac Medical History: Reports: Hx Congestive Heart Failure, Hx Hypertension Pulmonary Medical History: Reports: Hx COPD, Hx Pneumonia, Hx Sleep Apnea Endocrine Medical History: Reports: Hx Diabetes Mellitus Type 2 Renal/ Medical History: Reports: Hx End Stage Renal Disease Past Surgical History: Reports: Hx Cardiac Catheterization - Last was 2006, Hx Section, Other - Cataract surgeries bilaterally - Immunizations Hx Diphtheria, Pertussis, Tetanus Vaccination: Yes Hx Pneumococcal Vaccination: 01/23/09 <JERAMIE FISCHER - Last Filed: 07/02/16 19:48> Review of Systems - Review of Systems Constitutional: denies: Fever EENT: No symptoms reported Cardiovascular: No symptoms reported Respiratory: See HPI, Short of breath. denies: Cough Gastrointestinal: denies: Diarrhea, Nausea, Vomiting Genitourinary: No symptoms reported Female Genitourinary: No symptoms reported Musculoskeletal: denies: Joint pain Skin: No symptoms reported Hematologic/Lymphatic: No symptoms reported Neurological/Psychological: No symptoms reported -: Yes All other systems reviewed and negative <JERAMIE FISCHER - Last Filed: 07/02/16 19:48> Physical Exam - General General appearance: Appears well, Alert In distress: None - HEENT Head: Normocephalic, Atraumatic Eyes: Normal Extraocular movements intact: Yes - Respiratory Respiratory status: No respiratory distress Chest status: Nontender Breath sounds: Normal Chest palpation: Normal - Cardiovascular Rhythm: Regular Heart sounds: Normal auscultation Murmur: No - Abdominal Inspection: Normal Distension: No distension Bowel sounds: Normal Tenderness: Nontender - Extremities General upper extremity: Normal inspection, Normal ROM. No: Edema General lower extremity: Other - Trace pitting edema bilaterally - Neurological Neuro grossly intact: Yes Cognition: Normal Orientation: AAOx4 Speech: Normal - Psychological Associated symptoms: Normal affect - Skin Skin Temperature: Warm Skin Moisture: Dry Skin Color: Normal <JERAMIE FISCHER - Last Filed: 07/02/16 19:48> Course - Laboratory Result Diagrams: 07/02/16 14:45 07/02/16 14:45 <AALIYAHJERAMIE - Last Filed: 07/02/16 19:48> - Laboratory Result Diagrams: 07/02/16 14:45 07/02/16 14:45 <KYM YOUSSEF - Last Filed: 07/08/16 22:29> - Re-evaluation Re-evalutation: 07/03/16 00:26 I personally performed the services described in the documentation, reviewed and edited the documentation which was dictated to my scribe in my presence, and it accurately records my words and actions. Patient presents emergency problem with cough history of COPD no chest pain or pressure not hypoxic expiratory wheeze on examination no pneumonia significantly improved with treatment here. Patient be discharged on prednisone one to 2 day follow-up primary care physician and discussed reasons for ED return sooner (KYM YOUSSEF) - Vital Signs Vital signs: Temp Pulse Resp BP Pulse Ox 98.1 F 78 24 H 170/84 H 94 07/02/16 14:30 07/02/16 14:30 07/02/16 18:01 07/02/16 18:01 07/02/16 19:31 - Laboratory Laboratory results interpreted by me: 07/02/16 07/02/16 07/02/16 14:45 14:45 14:45 RBC 3.54 L Hgb 9.8 L Hct 31.1 L MCHC 31.5 L RDW 15.5 H Potassium 5.3 H Chloride 109 H Carbon Dioxide 20 L Creatinine 1.92 H Est GFR ( Amer) 31 L Est GFR (Non-Af Amer) 26 L Glucose 196 H NT-Pro-B Natriuret Pep 2050 H Total Protein 5.7 L Albumin 3.2 L - EKG Interpretation by Me Additional EKG results interpreted by me: 07/02/16 17:47 EKG interpreted by myself to reveal sinus rhythm at 78 bpm with left anterior fascicular block no acute ST segment elevation or depression no acute changes when compared to previous (KYM YOUSSEF) Discharge <JERAMIE FISCHER - Last Filed: 07/02/16 19:48> <KYM YOUSSEF - Last Filed: 07/08/16 22:29> - Discharge Clinical Impression: COPD exacerbation CHF (congestive heart failure) Qualifiers: Congestive heart failure type: unspecified congestive heart failure type Congestive heart failure chronicity: unspecified congestive heart failure chronicity Qualified Code(s): I50.9 - Heart failure, unspecified Condition: Stable Disposition: HOME, SELF-CARE Additional Instructions: BRONCHITIS: copd You have acute bronchitis. This disease is an infection or inflammation of the air passageways in your lungs. Symptoms usually include cough, low grade fever, shortness of breath, and wheezing. The cough usually persists for a couple of weeks. Most cases of bronchitis get better without antibiotics. We prescribe antibiotics when we believe bacteria are damaging your airways, or if there's high risk the bronchitis will worsen into pneumonia. Increase your fluid intake. A cool mist humidifier may make your lungs more comfortable. An expectorant (cough medicine that loosens phlegm) can help. If you smoke, STOP!!! Recovery from bronchitis can be somewhat slow, but you should see improvement within a day or two. Repeated episodes of bronchitis may result in lung damage -- for example, chronic bronchitis, recurrent pneumonias, or emphysema. Call the doctor if you develop increasing fever, shortness of breath, chest pain, bloody sputum, or otherwise worsen. If you have not improved at all after several days, contact the physician. BRONCHITIS WITH BRONCHOSPASM (WHEEZING): You have bronchitis with bronchospasm (wheezing). Sometimes people develop wheezing with a chest cold. This occurs either because of an underlying tendency toward asthma or because the virus itself irritates the bronchial tubes. This irritation causes cough, shortness of breath, and wheezing. Emergency treatment of bronchospasm may include adrenaline shots or bronchodilator aerosol. You may feel lightheaded and have a rapid pulse for an hour or two. Rest and get plenty of fluids. At home, we'll treat you with a bronchodilator inhaler. Corticosteroids may be required for some patients. Until you recover, avoid chemical fumes, dusts, pollens, and exercising in very cold or dry air. If you smoke, stop now! Most cases of bronchitis get better without antibiotics. We prescribe antibiotics when we believe bacteria are damaging your airways, or if there's high risk the bronchitis will worsen into pneumonia. Increase your fluid intake. A cool mist humidifier may make your lungs more comfortable. An expectorant (cough medicine that loosens phlegm) can help. Repeated episodes of bronchitis and bronchospasm may result in lung damage -- for example, chronic bronchitis, recurrent pneumonias, or emphysema. If you develop a fever, increased wheezing, chest pain, or severe shortness of breath, you should contact the doctor immediately. STEROID MEDICATION: You have been given an injection of or oral medicine of the cortisone/ steroid class. This medication is used to control inflammation or allergy. Chuy t is usually only given for a short period of time, until the acute process subsides. There are usually no side effects from short-term use of cortisone-like medications. Some persons feel an increased sense of well-being and are not sleepy at bedtime. Long-term use of cortisone medications is best avoided, unless required for a severe condition. If your condition does not remit, or relapses after the course of corticosteroid medication, you should consult your physician. ANTIBIOTIC THERAPY: You have been given an antibiotic prescription. It's important that you take all the medication, unless instructed otherwise by your physician. Failure to complete the entire course can result in relapse of your condition. Common side effects of antibiotics include nausea, intestinal cramping, or diarrhea. Women may develop vaginal yeast infections, and babies can get yeast (thrush) in the mouth following the use of antibiotics. Contact your physician if you develop significant side effects from this medication. Allergy to this antibiotic can result in hives, wheezing, faintness, or itching. If symptoms of allergy occur, stop the medication and call your doctor. FOLLOW-UP CARE: If you have been referred to a physician for follow-up care, call the physician s office for an appointment as you were instructed or within the next two days. If you experience worsening or a significant change in your symptoms, notify the physician immediately or return to the Emergency Department at any time for re-evaluation. Prescriptions: Doxycycline Hyclate 100 mg PO BID #14 capsule Prednisone [Deltasone 20 mg Tablet] 3 tab PO DAILY 5 Days Referrals: CATALINA FAULKNER MD [Primary Care Provider] - Follow up tomorrow (In one to 2 days return for increasing worsening or new symptoms) Scribe Documentation - Scribe Written by Shelly:: Shelly Ulloa, [id number]/02/[id number] acting as scribe for :: Lisandro <JERAMIE FISCHER - Last Filed: 07/02/16 19:48>
[2016-07-02 15:21] LABS: ALANINE AMINOTRANSFERASE 38 U/L (9-52); ALBUMIN 3.2 g/dL (3.5-5.0); ALKALINE PHOSPHATASE 88 U/L (38-126); ANION GAP 9 (5-19); ASPARTATE AMINO TRANSFERASE 16 U/L (14-36); BILIRUBIN,TOTAL 0.3 mg/dL (0.2-1.3); BLOOD UREA NITROGEN 16 mg/dL (7-20); CALCIUM 9.2 mg/dL (8.4-10.2); CARBON DIOXIDE 20 mmol/L (22-30); CHLORIDE 109 mmol/L (98-107); CREATINE KINASE 117 U/L (30-135); CREATININE RESULT 1.92 mg/dL (0.52-1.25); GLUCOSE 196 mg/dL (75-110); POTASSIUM 5.3 mmol/L (3.6-5.0); SODIUM 137.8 mmol/L (137-145); TOTAL PROTEIN 5.7 g/dL (6.3-8.2)
[2016-07-02] MEDS ORDERED: METHYLPREDNISOLONE INJ 125 MG/2 ML SDV IV ONE (15:27)
[2016-07-02 15:34] LABS: CREATINE KINASE MB 0.64 ng/mL (<4.55); TROPONIN I 0.027 ng/mL
[2016-07-02] MEDS ORDERED: FUROSEMIDE INJ/PF 100 MG/10 ML SDV IV ONE (17:43)
--- NOTE | 2016-07-02 19:58 | EKG REPORT ---
SEVERITY:- ABNORMAL ECG - SINUS RHYTHM LEFT ANTERIOR FASCICULAR BLOCK BORDERLINE R WAVE PROGRESSION, ANTERIOR LEADS BORDERLINE PROLONGED QT INTERVAL : Confirmed by: Giancarlo Santana 02-Jul-2016 19:57:53
[2016-07-02 20:48] VITALS: BP 170/84
== END 2016-07-02 19:10 | disposition home or self-care (01) ==
LOC: ER 14:14
DX: J44.1 Chronic obstructive pulmonary disease with (acute) exacerbation (principal); E11.22 Type 2 diabetes mellitus with diabetic chronic kidney disease; I13.2 Hypertensive heart and chronic kidney disease with heart failure and with stage 5 chronic kidney disease, or end stage renal disease; N18.6 End stage renal disease; I50.9 Heart failure, unspecified; I44.4 Left anterior fascicular block; Z87.01 Personal history of pneumonia (recurrent); Z87.891 Personal history of nicotine dependence
CPT/HCPCS: 93005; 99285; 96374; 96375; 36415; 82553; 82550; 85025; 80053; 84484; 83880; 71010; 93010; A9270; J1940; J2930

== ENCOUNTER 2018-04-03 11:40 | Emergency (ER) | payer MEDICARE, OTHER ==
[2018-04-03] MEDS ORDERED: ASPIRIN 81 MG TABLET, CHEWABLE PO ONE (12:03)
[2018-04-03 12:19] LABS: ABSOLUTE BASOPHILS # (AUTO) 0.1 10^3/uL (0.0-0.2); ABSOLUTE EOSINOPHILS # (AUTO) 0.3 10^3/uL (0.0-0.6); ABSOLUTE LYMPHOCYTES (AUTO) 1.2 10^3/uL (0.5-4.7); ABSOLUTE MONOCYTES (AUTO) 0.7 10^3/uL (0.1-1.4); ABSOLUTE NEUT (AUTO) 7.6 10^3/uL (1.7-8.2); BASOPHILS % (AUTO) 0.7 % (0-2); EOSINOPHILS % (AUTO) 2.9 % (0-6); HEMATOCRIT 26.2 % (36.0-47.0); HEMOGLOBIN 8.7 g/dL (12.0-15.5); LYMPHOCYTES % (AUTO) 11.7 % (13-45); MEAN CORPUSCULAR HEMOGLOBIN 29.2 pg (27.0-33.4); MEAN CORPUSCULAR HGB CONC 33.1 g/dL (32.0-36.0); MEAN CORPUSCULAR VOLUME 88 fl (80-97); MONOCYTES % (AUTO) 7.4 % (3-13); PLATELET COUNT 260 10^3/uL (150-450); RED BLOOD COUNT 2.96 10^6/uL (3.72-5.28); RED CELL DISTRIBUTION WIDTH 15.2 % (11.5-14.0); SEGMENTED NEUTROPHILS % (AUTO) 77.3 % (42-78); TOTAL CELLS COUNTED % (AUTO) 100 %; WHITE BLOOD COUNT 9.9 10^3/uL (4.0-10.5)
[2018-04-03 12:35] LABS: ALANINE AMINOTRANSFERASE 18 U/L (9-52); ALBUMIN 3.7 g/dL (3.5-5.0); ALKALINE PHOSPHATASE 85 U/L (38-126); ANION GAP 10 (5-19); ASPARTATE AMINO TRANSFERASE 21 U/L (14-36); BILIRUBIN,DIRECT 0.3 mg/dL (0.0-0.4); BILIRUBIN,TOTAL 0.5 mg/dL (0.2-1.3); BLOOD UREA NITROGEN 36 mg/dL (7-20); CARBON DIOXIDE 24 mmol/L (22-30); CHLORIDE 106 mmol/L (98-107); CREATINE KINASE 117 U/L (30-135); GLUCOSE 143 mg/dL (75-110); POTASSIUM 5.1 mmol/L (3.6-5.0); SODIUM 139.6 mmol/L (137-145); TOTAL PROTEIN 6.8 g/dL (6.3-8.2)
--- NOTE | 2018-04-03 12:41 | RADIOLOGY REPORT (SQ) ---
EXAM DESCRIPTION: CHEST SINGLE VIEW COMPLETED DATE/TIME: 04/03/2018 12:30 pm REASON FOR STUDY: cp COMPARISON: 07/02/2016 EXAM PARAMETERS: NUMBER OF VIEWS: One view. TECHNIQUE: Single frontal radiographic view of the chest acquired. RADIATION DOSE: NA LIMITATIONS: None. FINDINGS: LUNGS AND PLEURA: Probable small bilateral pleural effusions and a probable component of c hronic bibasilar atelectasis or scarring. MEDIASTINUM AND HILAR STRUCTURES: No masses. Contour normal. HEART AND VASCULAR STRUCTURES: Cardiomegaly. BONES: No acute findings. HARDWARE: None in the chest. OTHER: No other significant finding. IMPRESSION: Cardiomegaly with probable small bilateral pleural effusions and a probable component of chronic bibasilar atelectasis or scarring. No new airspace opacity. TECHNICAL DOCUMENTATION: JOB ID: [id number] [employer]- All Rights Reserved Reading location - IP/workstation name: [email or web address]
[2018-04-03 12:45] LABS: CREATINE KINASE MB 0.46 ng/mL (<4.55); TROPONIN I 0.028 ng/mL
--- NOTE | 2018-04-03 12:49 | ER Document Report ---
ED General - General Chief Complaint: Chest Pain Stated Complaint: CHEST PAIN Time Seen by Provider: 04/03/18 12:41 Mode of Arrival: Ambulatory Information source: Patient Notes: 72-year-old female with COPD, coronary artery disease, type 1 diabetes, hypertension, end-stage renal disease, congestive heart failure presents with complaint of shortness of breath. Patient states shortness of breath started 3 days prior to arrival with worsening this morning. She denies chest pain but admits to chest tightness. She denies cough, fever, nausea, vomiting, abdominal pain. Patient believes that the change in weather is what flared her up. She has not been on any recent antibiotics or steroids. She denies history of PE, DVT, recent travel, estrogen use, recent surgery, history of cancer. Patient is a former smoker. She did attempt to use her rescue inhaler but states that it did not help. Primary care physician is Dr. Otto. TRAVEL OUTSIDE OF THE [place] IN LAST 30 DAYS: No - HPI Onset: Other Onset/Duration: Gradual, Persistent, Worse Quality of pain: No pain Severity: None Associated symptoms: Shortness of breath. denies: Chest pain, Nonproductive cough, Productive cough, Fever, Headache, Hurts to breath, Leg swelling, Nausea , Vomiting Exacerbated by: Movement, Walking Relieved by: Denies Similar symptoms previously: Yes Recently seen / treated by doctor: No - Related Data Allergies/Adverse Reactions: Iodinated Contrast- Oral and IV Dye [IV Dye, Iodine Containing] Adverse Reaction (Unknown, Verified 07/02/16 14:34) Respiratory distress Past Medical History - General Information source: Patient, [facility] Records - Social History Smoking Status: Former Smoker Frequency of alcohol use: None Drug Abuse: None Lives with: Spouse/Significant other Family History: Reviewed & Not Pertinent Patient has suicidal ideation: No Patient has homicidal ideation: No - Past Medical History Cardiac Medical History: Reports: Hx Congestive Heart Failure, Hx Hypertension Pulmonary Medical History: Reports: Hx COPD, Hx Pneumonia, Hx Sleep Apnea Denies: Hx Tuberculosis Endocrine Medical History: Reports: Hx Diabetes Mellitus Type 2 Renal/ Medical History: Reports: Hx End Stage Renal Disease. Denies: Hx Peritoneal Dialysis Past Surgical History: Reports: Hx Cardiac Catheterization - Last was 2006, Hx Section, Other - Cataract surgeries bilaterally - Immunizations Hx Diphtheria, Pertussis, Tetanus Vaccination: Yes Hx Pneumococcal Vaccination: 01/23/09 Review of Systems - Review of Systems Notes: REVIEW OF SYSTEMS: CONSTITUTIONAL : Denies fever, chills, or sweats. Denies recent illness. Denies weight loss, recent hospitalizations. EENT: Denies visual changes, eye pain. Denies sore throat, oral lesions, difficulty swallowing. CARDIOVASCULAR: Denies chest pain. Denies palpitations. Denies lower extremity edema. RESPIRATORY: Denies cough. GASTROINTESTINAL: Denies abdominal pain or distention. Denies nausea, vomiting , or diarrhea. Denies blood in vomitus, stools, or per rectum. Denies black, tarry stools. Denies constipation. GENITOURINARY: Denies difficulty urinating, painful urination, frequency, blood in urine, or vaginal discharge. MUSCULOSKELETAL: Denies back or neck pain or stiffness. Denies joint pain or swelling. SKIN: Denies rash, lesions or sores. HEMATOLOGIC : Denies easy bruising or bleeding. LYMPHATIC: Denies swollen glands. NEUROLOGICAL: Denies confusion or altered mental status. Denies loss of consciousness. Denies dizziness or lightheadedness. Denies headache. Denies weakness or paralysis. Denies problems difficulty with ambulation, slurred speech. Denies sensory loss, numbness, or tingling. Denies seizures. PSYCHIATRIC: Denies anxiety or stress. Denies depression, suicidal ideation, or homicidal ideation. Denies visual or auditory hallucinations. PHYSICAL EXAMINATION: GENERAL: Well-appearing, well-nourished and in no acute distress. HEAD: Atraumatic, normocephalic. EYES: Pupils equal round and reactive to light, extraocular movements intact, conjunctiva are normal. ENT: Nares patent, oropharynx clear without exudates. Moist mucous membranes. NECK: Normal range of motion, supple without lymphadenopathy LUNGS: Diminished breath sounds bilaterally. No wheezes rales or rhonchi. HEART: Regular rate and rhythm without murmurs ABDOMEN: Soft, nontender, nondistended abdomen. No guarding, no rebound. No masses appreciated. Female : deferred Musculoskeletal: Normal range of motion, no pitting or edema. No cyanosis. NEUROLOGICAL: Cranial nerves grossly intact. Normal speech, normal gait. Normal sensory, motor exams PSYCH: Normal mood, normal affect. SKIN: Warm, Dry, normal turgor, no rashes or lesions noted. Physical Exam - Vital signs Vitals: Temp Pulse Resp BP Pulse Ox 98.4 F 78 26 H 150/63 H 90 L 04/03/18 11:54 04/03/18 11:54 04/03/18 11:54 04/03/18 11:54 04/03/18 11:54 Interpretation: Hypertensive, Hypoxic, Tachypneic. No: Tachycardic, Febrile Notes: Patient's initial oxygen saturation was documented at 90% but currently on monitor without receiving treatment or oxygen she is 95%. Course - Re-evaluation Re-evalutation: Laboratory 04/03/18 04/03/18 04/03/18 12:05 12:05 12:05 WBC 9.9 RBC 2.96 L Hgb 8.7 L Hct 26.2 L MCV 88 MCH 29.2 MCHC 33.1 RDW 15.2 H Plt Count 260 Seg Neutrophils % 77.3 Lymphocytes % 11.7 L Monocytes % 7.4 Eosinophils % 2.9 Basophils % 0.7 Absolute Neutrophils 7.6 Absolute Lymphocytes 1.2 Absolute Monocytes 0.7 Absolute Eosinophils 0.3 Absolute Basophils 0.1 Sodium 139.6 Potassium 5.1 H Chloride 106 Carbon Dioxide 24 Anion Gap 10 BUN 36 H Creatinine 3.40 H Est GFR ( Amer) 16 L Est GFR (Non-Af Amer) 13 L Glucose 143 H Calcium 9.0 Total Bilirubin 0.5 Direct Bilirubin 0.3 Neonat Total Bilirubin Not Reportable Neonat Direct Bilirubin Not Reportable Neonat Indirect Bili Not Reportable AST 21 ALT 18 Alkaline Phosphatase 85 Creatine Kinase 117 CK-MB (CK-2) 0.46 Troponin I 0.028 NT-Pro-B Natriuret Pep Total Protein 6.8 Albumin 3.7 Stool Occult Blood 04/03/18 04/03/18 12:05 14:48 WBC RBC Hgb Hct MCV MCH MCHC RDW Plt Count Seg Neutrophils % Lymphocytes % Monocytes % Eosinophils % Basophils % Absolute Neutrophils Absolute Lymphocytes Absolute Monocytes Absolute Eosinophils Absolute Basophils Sodium Potassium Chloride Carbon Dioxide Anion Gap BUN Creatinine Est GFR ( Amer) Est GFR (Non-Af Amer) Glucose Calcium Total Bilirubin Direct Bilirubin Neonat Total Bilirubin Neonat Direct Bilirubin Neonat Indirect Bili AST ALT Alkaline Phosphatase Creatine Kinase CK-MB (CK-2) Troponin I NT-Pro-B Natriuret Pep 3480 H Total Protein Albumin Stool Occult Blood NEGATIVE Chest X-Ray 04/03/18 12:03 IMPRESSION: Cardiomegaly with probable small bilateral pleural effusions and a probable component of chronic bibasilar atelectasis or scarring. No new airspace opacity. Temp Pulse Resp BP Pulse Ox 98.4 F 78 19 151/69 H 97 04/03/18 11:54 04/03/18 11:54 04/03/18 15:34 04/03/18 15:34 04/03/18 15:34 04/03/18 15:16 Rectal exam was performed after CBC showed a hemoglobin of 8.7. Patient is occult negative. She does report improvement of her shortness of breath after receiving a DuoNeb and Solu-Medrol. 04/03/18 15:32 Discussed admission with the patient and her due to patient's worsening renal function, elevated BNP and possible pleural effusion. Patient states "I feel great". She is declining admission at this time. She states that she recently saw her fortune cookie maker who did blood work and told her that she has stage IV end-stage renal disease. She is not currently on dialysis. She also states she has an upcoming appointment in 3 days with her primary care physician. Patient declining further workup and is requesting discharge home. Patient is alert and oriented x3, is at the bedside and also requesting patient be discharged home. 72-year-old female with COPD, coronary artery disease, type 1 diabetes, hypertension, end-stage renal disease, congestive heart failure presents with complaint of shortness of breath. Patient states shortness of breath started 3 days prior to arrival with worsening this morning. She denies chest pain but admits to chest tightness. She denies cough, fever, nausea, vomiting, abdominal pain. Patient believes that the change in weather is what flared her up. She has not been on any recent antibiotics or steroids. No signs reviewed and within normal limits upon arrival. Exam significant for diminished breath sounds bilaterally. Patient has no accessory muscle use, is able to speak in full sentences. Patient did receive breathing treatments and Solu-Medrol. On reevaluation she states that her shortness of breath has improved. Chest x-ray obtained showed probable pleural effusion and cardiomegaly. CT of the chest without contrast was ordered to assess for the extent of her pleural effusion but was not performed because patient is requesting discharge home. CBC does show an anemia of 8.7 which is decreased from 10 2 months ago. Rectal exam was performed and negative for blood. Discussed findings of worsening renal function, possible pleural effusion with the patient and her . Patient declining admission at this time. Patient warned of side effects of prednisone with her diabetes. Patient was discharged home and encouraged to return with any concerning symptoms. 04/03/18 18:37 04/03/18 18:40 04/03/18 21:23 - Vital Signs Vital signs: Temp Pulse Resp BP Pulse Ox 98.4 F 78 19 151/69 H 97 04/03/18 11:54 04/03/18 11:54 04/03/18 15:34 04/03/18 15:34 04/03/18 15:34 - Laboratory Result Diagrams: 04/03/18 12:05 04/03/18 12:05 Laboratory results interpreted by me: 04/03/18 04/03/18 04/03/18 12:05 12:05 12:05 RBC 2.96 L Hgb 8.7 L Hct 26.2 L RDW 15.2 H Lymphocytes % 11.7 L Potassium 5.1 H BUN 36 H Creatinine 3.40 H Est GFR ( Amer) 16 L Est GFR (Non-Af Amer) 13 L Glucose 143 H NT-Pro-B Natriuret Pep 3480 H - Diagnostic Test Radiology reviewed: Image reviewed, Reports reviewed - EKG Interpretation by Me EKG shows normal: Sinus rhythm Rate: Normal Rhythm: NSR Commodore/QRS: Left axis deviation When compared to previous EKG there are: No significant change Discharge - Discharge Clinical Impression: COPD with acute exacerbation, Chronic kidney disease, stage IV (severe), Essential hypertension Anemia in chronic kidney disease (CKD) Qualifiers: Chronic kidney disease stage: unspecified stage Qualified Code(s): N18.9 - Chronic kidney disease, unspecified Congestive heart failure Qualifiers: Heart failure type: unspecified Heart failure chronicity: unspecified Qualified Code(s): I50.9 - Heart failure, unspecified Condition: Good Disposition: HOME, SELF-CARE Instructions: Chronic Obstructive Lung Disease ([facility]), Congestive Heart Failure ([facility]) Additional Instructions: You were seen for a COPD exacerbation. Your symptoms improved with treatment here in the emergency department. However, it is very important that you return to the emergency department immediately if you began to have worsening difficulty breathing that does not respond to your normal home nebulizers. You are also being sent home on a five-day course of steroids that you should start taking tomorrow. Please also take the antibiotics as prescribed. Please also follow closely with your primary care physician. You should eturn to emergency department if you develop fever greater than 101, persistent cough, persistent vomiting, pass out, or any other symptoms that are concerning to you. You are being prescribed prednisone which will cause an elevation in your glucose. Please monitor this and return to the emergency department with any concerns. Please keep your upcoming appointment with your primary care physician. Follow up with your [id number] hours for further care or return to the ED IMMEDIATELY if symptoms worsen or you have any concerns. If you cannot afford to follow up with your primary care physician a list of low cost clinics have been provided at the end of your discharge papers as well. Most prescribed medications have multiple side effects. The safest thing to do is when filling your prescription speak to your pharmacist regarding possible interactions with your normal home medications and over the counter medications such as Ibuprofen, Tylenol, Benadryl. If you experience any symptoms that cause you discomfort or concern you should discontinue the medication immediately and return to the emergency room or call your primary care physician. Prescriptions: Prednisone [Deltasone 20 mg Tablet] 3 tab PO DAILY 5 Days #15 tablet Forms: Elevated Blood Pressure Referrals: RAFAL OTTO MD [Primary Care Provider] - Follow up as needed
[2018-04-03] MEDS ORDERED: IPRATROPIUM/ALBUTEROL 0.5-2.5 MG/3 ML AMPUL NEB ONE (12:55)
[2018-04-03] MEDS ORDERED: METHYLPREDNISOLONE INJ 125 MG/2 ML SDV IV ONE (12:55)
[2018-04-03] MEDS ORDERED: FUROSEMIDE INJ/PF 20 MG/2 ML SDV IV ONE (15:23)
[2018-04-03 15:44] VITALS: BP 151/69
--- NOTE | 2018-04-03 22:14 | EKG REPORT ---
SEVERITY:- BORDERLINE ECG - SINUS RHYTHM LEFT AXIS DEVIATION BORDERLINE PROLONGED QT INTERVAL : Confirmed by: Giancarlo Santana 03-Apr-2018 22:14:29
== END 2018-04-03 15:44 | disposition home or self-care (01) ==
LOC: ER 11:40
DX: I13.0 Hypertensive heart and chronic kidney disease with heart failure and stage 1 through stage 4 chronic kidney disease, or unspecified chronic kidney disease (principal); E10.22 Type 1 diabetes mellitus with diabetic chronic kidney disease; N18.4 Chronic kidney disease, stage 4 (severe); I50.9 Heart failure, unspecified; R06.02 Shortness of breath; R07.9 Chest pain, unspecified; J44.1 Chronic obstructive pulmonary disease with (acute) exacerbation; Z87.891 Personal history of nicotine dependence
CPT/HCPCS: 93005; 94640; 99285; 96374; 96375; 36415; 82553; 82550; 85025; 82272; 80053; 84484; 83880; 71045; 93010; J1940; J2930; A9270; J7620

== ENCOUNTER 2018-04-22 08:58 | Inpatient (IN) | payer MEDICARE, OTHER ==
[2018-04-22] MEDS ORDERED: IPRATROPIUM/ALBUTEROL 0.5-2.5 MG/3 ML AMPUL NEB ONE (09:37)
[2018-04-22] MEDS ORDERED: MAGNESIUM SULFATE/D5W 1 GM/100 ML RTUPB IV ONE (09:37)
[2018-04-22] MEDS ORDERED: LIDOCAINE 1% INJ-PF (10 MG/ML) 30 ML SDV NEB ONE (09:43)
[2018-04-22 09:46] LABS: VENOUS BLOOD HCO3 20.2 mmol/L (20-32); VENOUS BLOOD PCO2 38.3 mmHg (35-63); VENOUS BLOOD PH 7.34 (7.30-7.42)
[2018-04-22 09:53] LABS: ABSOLUTE BASOPHILS # (AUTO) 0.1 10^3/uL (0.0-0.2); ABSOLUTE EOSINOPHILS # (AUTO) 0.2 10^3/uL (0.0-0.6); ABSOLUTE LYMPHOCYTES (AUTO) 0.9 10^3/uL (0.5-4.7); ABSOLUTE MONOCYTES (AUTO) 0.6 10^3/uL (0.1-1.4); ABSOLUTE NEUT (AUTO) 4.9 10^3/uL (1.7-8.2); EOSINOPHILS % (AUTO) 2.8 % (0-6); HEMATOCRIT 29.2 % (36.0-47.0); HEMOGLOBIN 9.6 g/dL (12.0-15.5); LYMPHOCYTES % (AUTO) 12.9 % (13-45); MEAN CORPUSCULAR HEMOGLOBIN 29.1 pg (27.0-33.4); MEAN CORPUSCULAR HGB CONC 33.1 g/dL (32.0-36.0); MEAN CORPUSCULAR VOLUME 88 fl (80-97); MONOCYTES % (AUTO) 8.9 % (3-13); PLATELET COUNT 146 10^3/uL (150-450); RED BLOOD COUNT 3.31 10^6/uL (3.72-5.28); RED CELL DISTRIBUTION WIDTH 15.5 % (11.5-14.0); SEGMENTED NEUTROPHILS % (AUTO) 74.4 % (42-78); TOTAL CELLS COUNTED % (AUTO) 100 %; WHITE BLOOD COUNT 6.7 10^3/uL (4.0-10.5)
[2018-04-22 10:00] LABS: ALANINE AMINOTRANSFERASE 36 U/L (9-52); ALKALINE PHOSPHATASE 69 U/L (38-126); ANION GAP 8 (5-19); ASPARTATE AMINO TRANSFERASE 28 U/L (14-36); BILIRUBIN,DIRECT 0.2 mg/dL (0.0-0.4); BILIRUBIN,TOTAL 0.5 mg/dL (0.2-1.3); BLOOD UREA NITROGEN 49 mg/dL (7-20); CALCIUM 8.5 mg/dL (8.4-10.2); CARBON DIOXIDE 20 mmol/L (22-30); CHLORIDE 103 mmol/L (98-107); CREATINE KINASE 447 U/L (30-135); GLUCOSE 172 mg/dL (75-110); POTASSIUM 4.7 mmol/L (3.6-5.0); SODIUM 130.7 mmol/L (137-145); TOTAL PROTEIN 5.5 g/dL (6.3-8.2)
--- NOTE | 2018-04-22 10:02 | RADIOLOGY REPORT (SQ) ---
EXAM DESCRIPTION: CHEST SINGLE VIEW COMPLETED DATE/TIME: 04/22/2018 9:51 am REASON FOR STUDY: sob COMPARISON: 04/03/2018 NUMBER OF VIEWS: One view. TECHNIQUE: Single frontal radiographic view of the chest acquired. LIMITATIONS: AP portable. FINDINGS: LUNGS AND PLEURA: No opacities, masses or pneumothorax. No pleural effusion. MEDIASTINUM AND HILAR STRUCTURES: No masses. Contour normal. HEART AND VASCULAR STRUCTURES: Heart enlarged without failure. Normal vasculature for technique. BONES: No acute findings. HARDWARE: None in the chest. OTHER: No other significant finding. IMPRESSION: HEART ENLARGED WITHOUT FAILURE. TECHNICAL DOCUMENTATION: JOB ID: [id number] [employer]- All Rights Reserved Reading location - IP/workstation name: [email or web address]
[2018-04-22 10:13] LABS: CREATINE KINASE MB 1.55 ng/mL (<4.55)
[2018-04-22 10:20] LABS: TROPONIN I 0.062 ng/mL
[2018-04-22] MEDS ORDERED: FUROSEMIDE INJ/PF 20 MG/2 ML SDV IV ONE (11:32)
[2018-04-22] MEDS ORDERED: METHYLPREDNISOLONE INJ 125 MG/2 ML SDV IV ONE (11:32)
--- NOTE | 2018-04-22 11:53 | ER Document Report ---
ED General - General Chief Complaint: Shortness Of Breath Stated Complaint: COUGH/SHORT OF BREATH/HEADACHE Time Seen by Provider: 04/22/18 09:16 TRAVEL OUTSIDE OF THE [place] IN LAST 30 DAYS: No - HPI Patient complains to provider of: Short of breath cough headache Notes: Patient in for evaluation of shortness of breath headache and cough. Patient with a history of CHF COPD diabetes renal insufficiency. Patient states compliance with her medications. Patient denies any fevers at home however states minimally productive cough approximately 4-3 days ago however no production at this time. Patient states she has been using her inhalers no recent steroids. Patient presents hypoxic states that she is not on any oxygen at home. Denies any recent travel or sick contacts. Patient denies any chest pain nausea vomiting diarrhea patient otherwise on oxygen looks to be resting comfortably with a nonproductive cough. A brief review of the patient's medical records available in [email or web address] was performed - Related Data Allergies/Adverse Reactions: Iodinated Contrast- Oral and IV Dye [IV Dye, Iodine Containing] Adverse Reaction (Unknown, Verified 04/22/18 09:00) Respiratory distress Past Medical History - Social History Smoking Status: Never Smoker Chew tobacco use (# tins/day): No Frequency of alcohol use: None Drug Abuse: None Family History: Reviewed & Not Pertinent Patient has suicidal ideation: No Patient has homicidal ideation: No - Past Medical History Cardiac Medical History: Reports: Hx Congestive Heart Failure, Hx Hypertension Pulmonary Medical History: Reports: Hx COPD, Hx Pneumonia, Hx Sleep Apnea Denies: Hx Tuberculosis Endocrine Medical History: Reports: Hx Diabetes Mellitus Type 2 Renal/ Medical History: Reports: Hx End Stage Renal Disease. Denies: Hx Peritoneal Dialysis Past Surgical History: Reports: Hx Cardiac Catheterization - Last was 2006, Hx Section, Other - Cataract surgeries bilaterally - Immunizations Hx Diphtheria, Pertussis, Tetanus Vaccination: Yes Hx Pneumococcal Vaccination: 01/23/09 Review of Systems - Review of Systems Constitutional: No symptoms reported EENT: No symptoms reported Cardiovascular: No symptoms reported Respiratory: Cough, Short of breath, Sputum, Wheezing Gastrointestinal: No symptoms reported Genitourinary: No symptoms reported Female Genitourinary: No symptoms reported Musculoskeletal: No symptoms reported Skin: No symptoms reported Hematologic/Lymphatic: No symptoms reported Neurological/Psychological: No symptoms reported -: Yes All other systems reviewed and negative Physical Exam - Vital signs Vitals: Temp Pulse Resp BP Pulse Ox 98.8 F 87 16 143/57 H 86 L 04/22/18 09:04 04/22/18 09:04 04/22/18 09:04 04/22/18 09:04 04/22/18 09:04 Interpretation: Normal - General General appearance: Appears well, Alert - HEENT Head: Normocephalic, Atraumatic Eyes: Normal Conjunctiva: Normal Cornea: Normal Extraocular movements intact: Yes Pupils: PERRL Notes: No JVD or hepatojugular reflux - Respiratory Respiratory status: No respiratory distress Chest status: Nontender Breath sounds: Rhonchi, Wheezing Chest palpation: Normal - Cardiovascular Rhythm: Regular Heart sounds: Normal auscultation Murmur: No - Abdominal Inspection: Normal Distension: No distension Bowel sounds: Normal Tenderness: Nontender Organomegaly: No organomegaly - Back Back: Normal, Nontender - Extremities General upper extremity: Normal inspection, Nontender, Normal color, Normal ROM, Normal temperature General lower extremity: Normal inspection, Nontender, Edema, Normal color, Normal ROM, Normal temperature, Normal weight bearing. No: Cassandra's sign - Neurological Neuro grossly intact: Yes Cognition: Normal Orientation: AAOx4 Gueydan Coma Scale Eye Opening: Spontaneous Lindsay Coma Scale Verbal: Oriented Lindsay Coma Scale Motor: Obeys Commands Gueydan Coma Scale Total: 15 Speech: Normal Motor strength normal: LUE, RUE, LLE, RLE Sensory: Normal - Psychological Associated symptoms: Normal affect, Normal mood - Skin Skin Temperature: Warm Skin Moisture: Dry Skin Color: Normal Course - Re-evaluation Re-evalutation: 04/22/18 14:58 Laboratory studies were compared from her previous visit showing improvement of her renal function improvement of her BNP. Patient does have some slight swelling of her legs no signs of overt CHF no hepatojugular reflux no JVD on examination. Patient had improvement of her breath sounds after breathing treatment however when taking patient off oxygen and resting will become hypoxic with SPO2 is in the 90 range. Because of this best course of action would be to admit the patient for COPD exacerbation because of her oxygen use. Discussed with hospitalist will admit - Vital Signs Vital signs: Temp Pulse Resp BP Pulse Ox 98.8 F 84 28 H 149/83 H 98 04/22/18 09:04 04/22/18 13:53 04/22/18 14:23 04/22/18 14:26 04/22/18 14:23 - Laboratory Result Diagrams: 04/22/18 09:28 04/22/18 09:28 Laboratory results interpreted by me: 04/22/18 04/22/18 04/22/18 09:28 09:28 09:28 RBC 3.31 L Hgb 9.6 L Hct 29.2 L RDW 15.5 H Plt Count 146 L Lymphocytes % 12.9 L Sodium 130.7 L Carbon Dioxide 20 L BUN 49 H Creatinine 2.68 H Est GFR ( Amer) 21 L Est GFR (Non-Af Amer) 18 L Glucose 172 H Lactic Acid < 0.5 L Creatine Kinase 447 H NT-Pro-B Natriuret Pep Total Protein 5.5 L Albumin 3.0 L Lipase 604.0 H 04/22/18 09:28 RBC Hgb Hct RDW Plt Count Lymphocytes % Sodium Carbon Dioxide BUN Creatinine Est GFR ( Amer) Est GFR (Non-Af Amer) Glucose Lactic Acid Creatine Kinase NT-Pro-B Natriuret Pep 2450 H Total Protein Albumin Lipase Critical Care Note - Critical Care Note Total time excluding time spent on procedures (mins): 35 Comments: Multiple evaluation patient with COPD exacerbation and hypoxia requiring oxygen. Discharge - Discharge Clinical Impression: COPD exacerbation, Obstructive sleep apnea, Acute respiratory failure with hypoxia, Edema extremities Diabetes Qualifiers: Diabetes mellitus type: type 1 Diabetes mellitus complication status: with unspecified complications Qualified Code(s): E10.8 - Type 1 diabetes mellitus with unspecified complications CHF (congestive heart failure) Qualifiers: Heart failure type: unspecified Heart failure chronicity: unspecified Qualified Code(s): I50.9 - Heart failure, unspecified Condition: Good Disposition: ADMITTED INPATIENT Admitting Provider: Hospitalist - [facility] Admitted: Telemetry
[2018-04-22] MEDS ORDERED: IPRATROPIUM/ALBUTEROL 0.5-2.5 MG/3 ML AMPUL NEB PRN (13:46)
--- NOTE | 2018-04-22 14:53 | EKG REPORT ---
SEVERITY:- BORDERLINE ECG - SINUS RHYTHM LEFT AXIS DEVIATION BORDERLINE R WAVE PROGRESSION, ANTERIOR LEADS : Confirmed by: Giancarlo Santana 22-Apr-2018 14:52:43
[2018-04-22] MEDS ORDERED: DEXTROSE 40% GEL 15 GM TUBE X 2 PO PRN (18:00)
[2018-04-22] MEDS ORDERED: DEXTROSE 50%-WATER SYRINGE 25 GM/50 ML DOSE IV PRN (18:00)
[2018-04-22] MEDS ORDERED: DEXTROSE 50%-WATER SYRINGE 12.5 GM/25 ML DOSE IV PRN (18:00)
[2018-04-22] MEDS ORDERED: DEXTROSE 40% GEL 15 GM TUBE PO PRN (18:00)
[2018-04-22] MEDS ORDERED: GLUCAGON,HUMAN RECOMB 1 MG INJ IM PRN (18:00)
--- NOTE | 2018-04-22 18:43 | PDOC H&P ---
History of Present Illness Admission Date/PCP: 04/22/18 12:22 RAFAL OTTO MD Patient complains of: Shortness of breath, lower extremity swelling History of Present Illness: LUIZA CAMARGO is a 72 year old female history of COPD, CHF, and other comorbidities, who presented to the ED with complaint of shortness of breath. This has been progressive for the past week or more. She reports wheezing. She has had progressive lower extremity swelling, states she is now swollen all over. She used her outpatient medications, without improvement --instead she has been getting worse. She lives with her , reports medications compliance and denies dietary indiscretion. States she does not use too much salt or eat out a lot. She denies chest pain or palpitations. She has cough, currently nonproductive. Evaluation in the ED significant for wheezing on exam, lower extremities edema, and BNP of 2400. Patient referred to hospitalist service for admission. Past Medical History Cardiac Medical History: Reports: Congestive Heart Failure, Hypertension Pulmonary Medical History: Reports: Chronic Obstructive Pulmonary Disease (COPD), Pneumonia, Sleep Apnea Denies: Tuberculosis Endocrine Medical History: Reports: Diabetes Mellitus Type 2 Renal/ Medical History: Reports: End Stage Renal Disease Hematology: Reports: Anemia Past Surgical History Past Surgical History: Reports: Cardiac Catheterization - Last was 2006, Section, Other - Cataract surgeries bilaterally Social History Smoking Status: Former Smoker Frequency of Alcohol Use: None Hx Recreational Drug Use: No Hx Prescription Drug Abuse: No - Advance Directive Resuscitation Status: Full Code Family History Family History: Reviewed & Not Pertinent Family History: Significant from more that this is from unknown cancer, brother with COPD. Parental Family History Reviewed: Yes Children Family History Reviewed: Yes Sibling(s) Family History Reviewed.: Yes Medication/Allergy Home Medications: Loratadine 10 mg PO DAILY 04/10/13 Tiotropium [place] [Spiriva Handihaler 18 mcg/dose (30 Dose)] 18 mcg IH DAILY 07/14/13 Albuterol Sulfate [Proair HFA] 2 inh PO Q4HP PRN 06/02/16 Amlodipine Besylate [Norvasc 10 mg Tablet] 10 mg PO DAILY 06/02/16 Atorvastatin Calcium [Lipitor 40 mg Tablet] 40 mg PO DAILY 06/02/16 Carvedilol [Coreg 25 mg Tablet] 25 mg PO BID 06/02/16 Hydralazine HCl [Apresoline 50 mg Tablet] 50 mg PO BID 06/02/16 Insulin Detemir [Levemir Flextouch] 30 units SQ QAM 06/02/16 Linagliptin [Tradjenta] 5 mg PO DAILY 06/02/16 Roflumilast [Daliresp 500 mcg Tablet] 500 mcg PO DAILY 06/02/16 Aspirin [Aspirin 81 mg Chewable Tablet] 81 mg PO DAILY 04/22/18 Cholecalciferol (Vitamin D3) [Vitamin D] 50,000 unit PO MO@1000 04/22/18 Ferrous Sulfate [Feosol 325 mg Tablet] 325 mg PO DAILY 04/22/18 Spironolactone [Aldactone] 50 mg PO DAILY 04/22/18 Torsemide [Demadex 20 mg Tablet] 20 mg PO DAILY 04/22/18 Valsartan [Diovan] 320 mg PO DAILY 04/22/18 Allergies/Adverse Reactions: Iodinated Contrast- Oral and IV Dye [IV Dye, Iodine Containing] Adverse Reaction (Unknown, Verified 04/22/18 09:00) Respiratory distress Review of Systems Review of Systems: CONSTITUTIONAL : Fever, chills -- No; fatigue -- yes EENT: Denies eye, ear, throat, or mouth pain or symptoms. Denies nasal or sinus congestion or discharge. Denies throat, tongue, or mouth swelling or difficulty swallowing. CARDIOVASCULAR: Denies chest pain. No racing heart RESPIRATORY: yes to cough, shortness of breath. GASTROINTESTINAL: Denies abdominal pain or distention. Denies nausea, vomi ting, or diarrhea. No rectal bleeding. GENITOURINARY: Urinary symptoms -- no. MUSCULOSKELETAL: No acute weakness SKIN: Denies rash, lesions or sores. HEMATOLOGIC : Denies easy bruising or bleeding. LYMPHATIC: Denies swollen, enlarged glands. NEUROLOGICAL: New weakness, headaches, slured speach - No PSYCHIATRIC: Changes anxiety or stress, depression, suicidal ideation, or homicidal ideation -- No ALL OTHER SYSTEMS REVIEWED AND NEGATIVE. Physical Exam Vital Signs: Temp Pulse Resp BP Pulse Ox 98.8 F 87 21 H 145/51 H 97 04/22/18 09:04 04/22/18 09:04 04/22/18 12:32 04/22/18 12:32 04/22/18 12:32 Intake & Output 04/21/18 04/22/1818 06:59 06:59 06:59 Intake Total 100 Balance 100 Weight 97.5 kg GENERAL: Well-developed, Well-nourished, no acute distress HEENT: Normocephalic/atraumatic NECK supple, no JVD CARDIOVASCULAR: RRR, normal S1-S2 LUNGS: Expiratory wheezing bilaterally, good air movement ABDOMEN: Soft, NT, NL bowel sounds EXTREMITIES: 3+ lower extremities edema to thigh, no clubbing, cyanosis NEUROLOGICAL: Alert, oriented x 3, no acute/lateralizing weakness Results Laboratory Results: 04/22/18 09:28 04/22/18 09:28 04/22/18 04/22/18 04/22/18 09:28 09:28 09:28 WBC 6.7 RBC 3.31 L Hgb 9.6 L Hct 29.2 L MCV 88 MCH 29.1 MCHC 33.1 RDW 15.5 H Plt Count 146 L Seg Neutrophils % 74.4 Lymphocytes % 12.9 L Monocytes % 8.9 Eosinophils % 2.8 Basophils % 1.0 Absolute Neutrophils 4.9 Absolute Lymphocytes 0.9 Absolute Monocytes 0.6 Absolute Eosinophils 0.2 Absolute Basophils 0.1 VBG pH VBG pCO2 VBG HCO3 VBG Base Excess Sodium 130.7 L Potassium 4.7 Chloride 103 Carbon Dioxide 20 L Anion Gap 8 BUN 49 H Creatinine 2.68 H Est GFR ( Amer) 21 L Est GFR (Non-Af Amer) 18 L Glucose 172 H Lactic Acid < 0.5 L Calcium 8.5 Magnesium 2.0 Total Bilirubin 0.5 AST 28 ALT 36 Alkaline Phosphatase 69 Total Protein 5.5 L Albumin 3.0 L Lipase 604.0 H 04/22/18 09:28 WBC RBC Hgb Hct MCV MCH MCHC RDW Plt Count Seg Neutrophils % Lymphocytes % Monocytes % Eosinophils % Basophils % Absolute Neutrophils Absolute Lymphocytes Absolute Monocytes Absolute Eosinophils Absolute Basophils VBG pH 7.34 VBG pCO2 38.3 VBG HCO3 20.2 VBG Base Excess -5.0 Sodium Potassium Chloride Carbon Dioxide Anion Gap BUN Creatinine Est GFR ( Amer) Est GFR (Non-Af Amer) Glucose Lactic Acid Calcium Magnesium Total Bilirubin AST ALT Alkaline Phosphatase Total Protein Albumin Lipase 04/22/18 04/22/18 04/22/18 09:28 09:28 09:28 Creatine Kinase 447 H CK-MB (CK-2) 1.55 Troponin I 0.062 NT-Pro-B Natriuret Pep 2450 H Impressions: Chest X-Ray 04/22/18 09:24 IMPRESSION: HEART ENLARGED WITHOUT FAILURE. Assessment & Plan - Diagnosis (1) COPD exacerbation Is this a current diagnosis for this admission?: Yes (2) CHF (congestive heart failure) Qualifiers: Heart failure type: unspecified Heart failure chronicity: unspecified Qualified Code(s): I50.9 - Heart failure, unspecified Is this a current diagnosis for this admission?: Yes (3) Edema extremities Is this a current diagnosis for this admission?: Yes (4) Obstructive sleep apnea Is this a current diagnosis for this admission?: Yes (5) Type II diabetes mellitus Qualifiers: Diabetes mellitus complication status: with kidney complications Diabetes mellitus complication detail: with nephropathy Is this a current diagnosis for this admission?: Yes (6) Chronic kidney disease, stage 4 (severe) Is this a current diagnosis for this admission?: Yes - Inpatient Certification Based on my medical assessment, after consideration of the patient's comorbidities, presenting symptoms, or acuity I expect that the services needed warrant INPATIENT care.: Yes I certify that my determination is in accordance with my understanding of Medicare's requirements for reasonable and necessary INPATIENT services [42 CFR 412.3e].: Yes Medical Necessity: Failure to Improve With Outpatient Therapy, Significant Comorbidiites Make Outpatient Treatment Too Risky, Need For Continuous Telemetry Monitoring - Plan Summary Plan Summary: Will admit to inpatient status. Will treat COPD exacerbation with nebulizers, O2. We will also treat with Solu-Medrol 40mg IV q8 hrs. For suspected CHF exacerbation, will treat with Lasix 40 mg IV twice daily for now. Check strict I&O's. Follow-up CBC and Chem-7 in a.m. Continue home medications otherwise. Check Accu-Cheks with sliding scale insulin coverage.
[2018-04-22] MEDS: INSULIN LISPRO 100 UNIT/ML 3 ML VIAL SUBCUT PRN (22:51)
[2018-04-22] MEDS: FUROSEMIDE INJ/PF 40 MG/4 ML SDV IV SCH (22:51)
[2018-04-22] MEDS: CARVEDILOL 12.5 MG TABLET PO SCH (22:52)
[2018-04-22] MEDS: HYDRALAZINE HCL 50 MG TABLET PO SCH (22:52)
[2018-04-23 06:18] LABS: ABSOLUTE LYMPHOCYTES (AUTO) 0.4 10^3/uL (0.5-4.7); ABSOLUTE MONOCYTES (AUTO) 0.1 10^3/uL (0.1-1.4); ABSOLUTE NEUT (AUTO) 4.3 10^3/uL (1.7-8.2); BASOPHILS % (AUTO) 0.3 % (0-2); HEMATOCRIT 27.3 % (36.0-47.0); HEMOGLOBIN 9.2 g/dL (12.0-15.5); LYMPHOCYTES % (AUTO) 8.1 % (13-45); MEAN CORPUSCULAR HEMOGLOBIN 29.3 pg (27.0-33.4); MEAN CORPUSCULAR HGB CONC 33.6 g/dL (32.0-36.0); MEAN CORPUSCULAR VOLUME 87 fl (80-97); MONOCYTES % (AUTO) 1.2 % (3-13); PLATELET COUNT 137 10^3/uL (150-450); RED BLOOD COUNT 3.13 10^6/uL (3.72-5.28); SEGMENTED NEUTROPHILS % (AUTO) 90.4 % (42-78); TOTAL CELLS COUNTED % (AUTO) 100 %; WHITE BLOOD COUNT 4.7 10^3/uL (4.0-10.5)
[2018-04-23 06:46] LABS: ANION GAP 8 (5-19); BLOOD UREA NITROGEN 47 mg/dL (7-20); CALCIUM 8.4 mg/dL (8.4-10.2); CARBON DIOXIDE 19 mmol/L (22-30); CHLORIDE 102 mmol/L (98-107); GLUCOSE 193 mg/dL (75-110); POTASSIUM 5.1 mmol/L (3.6-5.0); SODIUM 129.3 mmol/L (137-145)
[2018-04-23] MEDS: INSULIN DETEMIR 100 UNIT/ML 3 ML PEN SUBCUT SCH (08:26)
[2018-04-23] MEDS: INSULIN LISPRO 100 UNIT/ML 3 ML VIAL SUBCUT PRN ×2 (08:27→12:06)
[2018-04-23] MEDS ORDERED: (PENDING PHARMACY ID) (Roflumilast [Daliresp 500 Mcg Tablet] 500 MCG) PO SCH (10:00)
[2018-04-23] MEDS ORDERED: (PENDING PHARMACY ID) (Linagliptin [Tradjenta] 5 MG) PO SCH (10:00)
[2018-04-23] MEDS ORDERED: (PENDING PHARMACY ID) (Valsartan [Diovan] 320 MG) PO SCH (10:00)
[2018-04-23] MEDS: CARVEDILOL 12.5 MG TABLET PO SCH ×2 (10:09→22:10)
[2018-04-23] MEDS: FUROSEMIDE INJ/PF 40 MG/4 ML SDV IV SCH ×2 (10:10→22:09)
[2018-04-23] MEDS: AMLODIPINE BESYLATE 10 MG TABLET PO SCH (10:10)
[2018-04-23] MEDS: ASPIRIN 81 MG TABLET, CHEWABLE PO SCH (10:10)
[2018-04-23] MEDS: HYDRALAZINE HCL 50 MG TABLET PO SCH ×2 (10:10→22:10)
[2018-04-23] MEDS: ATORVASTATIN CALCIUM 40 MG TABLET PO SCH (10:10)
[2018-04-23] MEDS: VALSARTAN 160 MG TABLET PO SCH (10:11)
[2018-04-23] MEDS: SITAGLIPTIN PHOSPHATE 25 MG TABLET PO SCH (10:11)
[2018-04-23] MEDS: LORATADINE 10 MG TABLET PO SCH (10:11)
[2018-04-23] MEDS: ROFLUMILAST 500 MCG TABLET PO SCH (10:11)
[2018-04-23] MEDS: ENOXAPARIN SODIUM INJ 30 MG/0.3 ML DISP.SYRIN SUBCUT SCH (10:12)
[2018-04-23] MEDS: FERROUS SULFATE 325 MG TABLET PO SCH (10:12)
--- NOTE | 2018-04-23 12:01 | PDOC PROGRESS REPORT ---
Subjective Progress Note for:: 04/23/18 Subjective:: Feeling much better already. Breathing improving, lower extremity swelling improving. Urinating well, although this was not recorded. Lower extremity swelling improving. No chest pain or palpitations. Denies fever or chills. Reason For Visit: COPD,CHF Physical Exam Vital Signs: Temp Pulse Resp BP Pulse Ox 98.4 F 88 18 163/64 H 98 04/23/18 08:00 04/23/18 08:00 04/23/18 08:00 04/23/18 08:00 04/23/18 08:00 Intake & Output 04/22/18 04/23/18 04/24/18 06:59 06:59 06:59 Intake Total 900 Balance 900 Weight 83.3 kg GENERAL: Well-developed, Well-nourished, no acute distress HEENT: Normocephalic/atraumatic NECK supple, no JVD CARDIOVASCULAR: RRR, normal S1-S2 LUNGS: Occasional wheezing bilaterally, good air movement ABDOMEN: Soft, NT, NL bowel sounds EXTREMITIES: 2+ lower extremities edema to thigh, no clubbing, cyanosis NEUROLOGICAL: Alert, oriented x 3, no acute/lateralizing weakness Results Laboratory Results: 04/23/18 05:18 04/23/18 05:18 04/23/18 04/23/18 05:18 05:18 WBC 4.7 RBC 3.13 L Hgb 9.2 L Hct 27.3 L MCV 87 MCH 29.3 MCHC 33.6 RDW 15.0 H Plt Count 137 L Seg Neutrophils % 90.4 H Lymphocytes % 8.1 L Monocytes % 1.2 L Eosinophils % 0.0 Basophils % 0.3 Absolute Neutrophils 4.3 Absolute Lymphocytes 0.4 L Absolute Monocytes 0.1 Absolute Eosinophils 0.0 Absolute Basophils 0.0 Sodium 129.3 L Potassium 5.1 H Chloride 102 Carbon Dioxide 19 L Anion Gap 8 BUN 47 H Creatinine 2.52 H Est GFR ( Amer) 23 L Est GFR (Non-Af Amer) 19 L Glucose 193 H Calcium 8.4 04/22/18 04/22/18 04/22/18 09:28 09:28 09:28 Creatine Kinase 447 H CK-MB (CK-2) 1.55 Troponin I 0.062 NT-Pro-B Natriuret Pep 2450 H 04/22/18 13:30 Creatine Kinase CK-MB (CK-2) Troponin I 0.050 NT-Pro-B Natriuret Pep Impressions: Chest X-Ray 04/22/18 09:24 IMPRESSION: HEART ENLARGED WITHOUT FAILURE. Assessment & Plan - Diagnosis (1) COPD exacerbation Is this a current diagnosis for this admission?: Yes (2) CHF (congestive heart failure) Qualifiers: Heart failure type: unspecified Heart failure chronicity: unspecified Qualified Code(s): I50.9 - Heart failure, unspecified Is this a current diagnosis for this admission?: Yes (3) Edema extremities Is this a current diagnosis for this admission?: Yes (4) Obstructive sleep apnea Is this a current diagnosis for this admission?: Yes (5) Type II diabetes mellitus Qualifiers: Diabetes mellitus complication status: with kidney complications Diabetes mellitus complication detail: with nephropathy Is this a current diagnosis for this admission?: Yes (6) Chronic kidney disease, stage 4 (severe) Is this a current diagnosis for this admission?: Yes - Plan Summary Plan Summary: Will continue nebulizers, O2 as needed. Will decrease Solu-Medrol to 40 mg IV every 12. We will continue IV Lasix at twice daily for now. Strict I&O'spatibruce educated and her RN informed. Follow-up CBC, Chem-7 in a.m.
[2018-04-23] MEDS: METHYLPREDNISOLONE INJ 125 MG/2 ML SDV IV SCH (17:29)
[2018-04-24 06:50] LABS: HEMATOCRIT 27.1 % (36.0-47.0); HEMOGLOBIN 9.4 g/dL (12.0-15.5); MEAN CORPUSCULAR HEMOGLOBIN 29.8 pg (27.0-33.4); MEAN CORPUSCULAR HGB CONC 34.7 g/dL (32.0-36.0); MEAN CORPUSCULAR VOLUME 86 fl (80-97); PLATELET COUNT 160 10^3/uL (150-450); RED BLOOD COUNT 3.16 10^6/uL (3.72-5.28); RED CELL DISTRIBUTION WIDTH 15.1 % (11.5-14.0); WHITE BLOOD COUNT 8.4 10^3/uL (4.0-10.5)
[2018-04-24 07:08] LABS: ANION GAP 8 (5-19); BLOOD UREA NITROGEN 51 mg/dL (7-20); CALCIUM 8.3 mg/dL (8.4-10.2); CARBON DIOXIDE 20 mmol/L (22-30); CHLORIDE 102 mmol/L (98-107); GLUCOSE 208 mg/dL (75-110); POTASSIUM 5.2 mmol/L (3.6-5.0); SODIUM 129.5 mmol/L (137-145)
[2018-04-24 07:18] LABS: ABSOLUTE LYMPHOCYTES# (MANUAL) 0.3 10^3/uL (0.5-4.7); ABSOLUTE NEUTROPHILS# (MANUAL) 8.1 10^3/uL (1.7-8.2); ANISOCYTOSIS 1+; BASOPHILS % (MANUAL) 0 % (0-2); BURR CELLS 1+; EOSINOPHILS % (MANUAL) 0 % (0-6); LYMPHOCYTES % (MANUAL) 4 % (13-45); MONOCYTES % (MANUAL) 0 % (3-13); PLATELET COMMENT ADEQUATE; POLYCHROMASIA 1+; SEGMENTED NEUTROPHILS % (MAN) 96 % (42-78); TEAR DROP CELLS 1+; TOTAL CELLS COUNTED 100
[2018-04-24] MEDS: INSULIN DETEMIR 100 UNIT/ML 3 ML PEN SUBCUT SCH (08:00)
[2018-04-24] MEDS: INSULIN LISPRO 100 UNIT/ML 3 ML VIAL SUBCUT PRN ×2 (08:01→12:15)
--- NOTE | 2018-04-24 09:59 | PDOC PROGRESS REPORT ---
Subjective Progress Note for:: 04/24/18 Subjective:: Feeling continues to improve. Breathing much better, lower extremity swelling improving. Urinating well, although urine has slowed down and urine output was not fully recorded. Lower extremity swelling improving. No chest pain or palpitations. Denies fever or chills. Reason For Visit: COPD,CHF Physical Exam Vital Signs: Temp Pulse Resp BP Pulse Ox 98.6 F 82 19 124/52 L 97 04/24/18 08:00 04/24/18 08:00 04/24/18 08:00 04/24/18 08:00 04/24/18 08:00 Intake & Output 04/23/18 04/24/18 04/25/18 06:59 06:59 06:59 Intake Total 900 1880 Output Total 400 Balance 900 1480 Weight 83.3 kg 84.2 kg GENERAL: Well-developed, Well-nourished, no acute distress HEENT: Normocephalic/atraumatic NECK supple, no JVD CARDIOVASCULAR: RRR, normal S1-S2 LUNGS: Clear to auscultation bilaterally, good air movement ABDOMEN: Soft, NT, NL bowel sounds EXTREMITIES: 2+ lower extremities edema to thigh, no clubbing, cyanosis NEUROLOGICAL: Alert, oriented x 3, no acute/lateralizing weakness Results Laboratory Results: 04/24/18 05:52 04/24/18 05:52 04/24/18 04/24/18 05:52 05:52 WBC 8.4 RBC 3.16 L Hgb 9.4 L Hct 27.1 L MCV 86 MCH 29.8 MCHC 34.7 RDW 15.1 H Plt Count 160 Seg Neutrophils % Not Reportable Lymphocytes % Not Reportable Monocytes % Not Reportable Eosinophils % Not Reportable Basophils % Not Reportable Absolute Neutrophils Not Reportable Absolute Lymphocytes Not Reportable Absolute Monocytes Not Reportable Absolute Eosinophils Not Reportable Absolute Basophils Not Reportable Sodium 129.5 L Potassium 5.2 H Chloride 102 Carbon Dioxide 20 L Anion Gap 8 BUN 51 H Creatinine 2.48 H Est GFR ( Amer) 23 L Est GFR (Non-Af Amer) 19 L Glucose 208 H Calcium 8.3 L 04/22/18 04/22/18 04/22/18 09:28 09:28 09:28 Creatine Kinase 447 H CK-MB (CK-2) 1.55 Troponin I 0.062 NT-Pro-B Natriuret Pep 2450 H 04/22/18 13:30 Creatine Kinase CK-MB (CK-2) Troponin I 0.050 NT-Pro-B Natriuret Pep Impressions: Chest X-Ray 04/22/18 09:24 IMPRESSION: HEART ENLARGED WITHOUT FAILURE. Assessment & Plan - Diagnosis (1) COPD exacerbation Is this a current diagnosis for this admission?: Yes (2) CHF (congestive heart failure) Qualifiers: Heart failure type: combined systolic and diastolic Heart failure chronicity: acute on chronic Qualified Code(s): I50.43 - Acute on chronic combined systolic (congestive) and diastolic (congestive) heart failure Is this a current diagnosis for this admission?: Yes (3) Edema extremities Is this a current diagnosis for this admission?: Yes (4) Obstructive sleep apnea Is this a current diagnosis for this admission?: Yes (5) Type II diabetes mellitus Qualifiers: Diabetes mellitus complication status: with kidney complications Diabetes mellitus complication detail: with nephropathy Is this a current diagnosis for this admission?: Yes (6) Chronic kidney disease, stage 4 (severe) Is this a current diagnosis for this admission?: Yes - Plan Summary Plan Summary: For COPD, Will continue nebulizers, O2 as needed. Will d/c Solu-Medrol 40 mg IV every 12 and start prednisone 40 mg twice daily. For CHF, this is likely acute on chronic diastolic. Echo from 2017 showed EF of 50-55%. Will recheck echo. We will continue IV Lasix at twice daily for now but increase from 40 mg to 60 mg. Strict I&O'spatient again educated and her RN informed. CKD stable. We will treat hyperkalemia with Kayexalate 30 g p.o. x1. Follow-up Chem-7 in a.m.
[2018-04-24] MEDS ORDERED: SODIUM POLYSTYRENE SULFONATE 15 GM/60 ML PO ONE (10:00)
[2018-04-24] MEDS: ATORVASTATIN CALCIUM 40 MG TABLET PO SCH (10:52)
[2018-04-24] MEDS: FERROUS SULFATE 325 MG TABLET PO SCH (10:52)
[2018-04-24] MEDS: ENOXAPARIN SODIUM INJ 30 MG/0.3 ML DISP.SYRIN SUBCUT SCH (10:52)
[2018-04-24] MEDS: CARVEDILOL 12.5 MG TABLET PO SCH ×2 (10:52→21:48)
[2018-04-24] MEDS: AMLODIPINE BESYLATE 10 MG TABLET PO SCH (10:52)
[2018-04-24] MEDS: HYDRALAZINE HCL 50 MG TABLET PO SCH ×2 (10:53→21:49)
[2018-04-24] MEDS: SITAGLIPTIN PHOSPHATE 25 MG TABLET PO SCH (10:53)
[2018-04-24] MEDS: LORATADINE 10 MG TABLET PO SCH (10:53)
[2018-04-24] MEDS: ASPIRIN 81 MG TABLET, CHEWABLE PO SCH (10:53)
[2018-04-24] MEDS: ROFLUMILAST 500 MCG TABLET PO SCH (10:53)
[2018-04-24] MEDS: VALSARTAN 160 MG TABLET PO SCH (10:53)
[2018-04-24] MEDS: FUROSEMIDE INJ/PF 40 MG/4 ML SDV IV SCH ×2 (10:59→21:47)
[2018-04-24] MEDS: PREDNISONE 20 MG TABLET PO SCH ×2 (11:00→17:21)
[2018-04-24] MEDS: METHYLPREDNISOLONE INJ 125 MG/2 ML SDV IV SCH (11:08)
--- NOTE | 2018-04-24 12:51 | XCELERA REPORT ---
[address] [address] Transthoracic Echocardiogram Report Name: LUIZA CAMARGO Age: 72 yrs Gender: Female : 1945 Patient Status: [facility]: 04/24/2018 11:54 AM Height: 61 in Weight: 185 lb BSA: 1.8 m2 Procedure: A complete two-dimensional transthoracic echocardiogram was performed (2D, M-mode, spectral and color flow Doppler). The study was technically adequate with some images being suboptimal in quality. Reason For Study: CHF Ordering Physician: EMMIE EVANS Performed By: Rony Perez Interpretation Summary Left ventricular systolic function is normal. Doppler measurements suggest pseudonormalized left ventricular relaxation, which is associated with grade II/IV or mild to moderate diastolic dysfunction There is mild to moderate concentric left ventricular hypertrophy. There is a mild to moderate amount of mitral regurgitation MMode/2D Measurements & Calculations RVDd: 2.6 cm LVIDd: 5.1 cm FS: 28.5 % Ao root diam: 2.4 cm IVSd: 1.7 cm LVIDs: 3.7 cm EDV(Teich): Ao root area: 124.6 ml LVPWd: 1.2 cm 4.4 cm2 ESV(Teich): 56.5 ml LA dimension: 5.0 cm EF(Teich): 54.7 % LVOT diam: 1.9 cmLVLd ap4: 9.1 cm SV(MOD-sp4): LVOT area: EDV(MOD-sp4): 93.0 ml 2.7 cm2 154.0 ml LVLs ap4: 8.4 cm ESV(MOD-sp4): 61.0 ml EF(MOD-sp4): 60.4 % Doppler Measurements & Calculations MV E max jude: MV P1/2t max jude: Ao V2 max: LV V1 max P.3 cm/sec 147.2 cm/sec 188.7 cm/sec 7.3 mmHg MV A max jude: MV P1/2t: 61.7 msec Ao max PG: LV V1 mean P.3 cm/sec 14.2 mmHg 3.3 mmHg MVA(P1/2t): 3.6 cm2 MV E/A: 0.93 MV dec slope: Ao V2 mean: LV V1 max: 699.0 cm/sec2 113.6 cm/sec 134.9 cm/sec Ao mean PG: LV V1 mean: 6.7 mmHg 81.4 cm/sec Ao V2 VTI: 33.6 cm LV V1 VTI: 29.5 cm CHRIS(I,D): 2.4 cm2 CHRIS(V,D): 1.9 cm2 MR max jude: SV(LVOT): 79.8 ml PA V2 max: TR max jude: 546.6 cm/sec 88.3 cm/sec 275.5 cm/sec MR max PG: PA max PG: TR max P.5 mmHg 3.1 mmHg 30.4 mmHg PA V2 mean: 55.4 cm/sec PA mean P.5 mmHg PA V2 VTI: 18.7 cm MV P1/2t-pr_phl: 68.2 msec Left Ventricle The left ventricle is grossly normal size. There is mild to moderate concentric left ventricular hypertrophy. Left ventricular systolic function is normal. Doppler measurements suggest pseudonormalized left ventricular relaxation, which is associated with grade II/IV or mild to moderate diastolic dysfunction. Wall motion cannot be accurately commented on, but no definite regional wall motion abnormalities noted. Right Ventricle The right ventricle is grossly normal size. There is normal right ventricular wall thickness. The right ventricular systolic function is normal. Atria The right atrium is normal in size. The left atrium is mildly dilated. Interarterial septum not well visualized and not well dopplered. Cannot comment on ASD/PFO presence. Mitral Valve The mitral valve leaflets are sclerotic, but show no functional abnormalities. There is no mitral valve stenosis. There is a mild to moderate amount of mitral regurgitation. Aortic Valve The aortic valve is grossly normal. There is no aortic valve stenosis. No aortic regurgitation is present. Tricuspid Valve The tricuspid valve is not well visualized, but is grossly normal. There is no tricuspid stenosis. There is a trace to mild amount of tricuspid regurgitation. There is mild pulmonary hypertension by echo. Right ventricular systolic pressure is estimated to be elevated at 30-40mmHg. Pulmonic Valve The pulmonic valve is not well visualized. Great Vessels The aortic root is not well visualized but is probably normal size. The inferior vena cava was not well visualized. Effusions Minimal pericardial effusion. : EMMIE EVANS > Giancarlo Santana
[2018-04-25 06:01] LABS: ANION GAP 7 (5-19); BLOOD UREA NITROGEN 56 mg/dL (7-20); CALCIUM 8.4 mg/dL (8.4-10.2); CARBON DIOXIDE 21 mmol/L (22-30); CHLORIDE 105 mmol/L (98-107); GLUCOSE 249 mg/dL (75-110); POTASSIUM 5.1 mmol/L (3.6-5.0); SODIUM 133.4 mmol/L (137-145)
[2018-04-25] MEDS: INSULIN LISPRO 100 UNIT/ML 3 ML VIAL SUBCUT PRN (08:16)
[2018-04-25] MEDS: INSULIN DETEMIR 100 UNIT/ML 3 ML PEN SUBCUT SCH (08:17)
[2018-04-25] MEDS: CARVEDILOL 12.5 MG TABLET PO SCH (09:37)
[2018-04-25] MEDS: ATORVASTATIN CALCIUM 40 MG TABLET PO SCH (09:38)
[2018-04-25] MEDS: AMLODIPINE BESYLATE 10 MG TABLET PO SCH (09:38)
[2018-04-25] MEDS: PREDNISONE 20 MG TABLET PO SCH (09:38)
[2018-04-25] MEDS: VALSARTAN 160 MG TABLET PO SCH (09:38)
[2018-04-25] MEDS: LORATADINE 10 MG TABLET PO SCH (09:38)
[2018-04-25] MEDS: HYDRALAZINE HCL 50 MG TABLET PO SCH (09:38)
[2018-04-25] MEDS: ASPIRIN 81 MG TABLET, CHEWABLE PO SCH (09:38)
[2018-04-25] MEDS: FERROUS SULFATE 325 MG TABLET PO SCH (09:39)
[2018-04-25] MEDS: ROFLUMILAST 500 MCG TABLET PO SCH (09:40)
[2018-04-25] MEDS: SITAGLIPTIN PHOSPHATE 25 MG TABLET PO SCH (09:40)
[2018-04-25] MEDS: ENOXAPARIN SODIUM INJ 30 MG/0.3 ML DISP.SYRIN SUBCUT SCH (09:41)
[2018-04-25] MEDS: FUROSEMIDE INJ/PF 40 MG/4 ML SDV IV SCH (09:41)
[2018-04-25] MEDS ORDERED: ERGOCALCIFEROL (VITAMIN D2) 50000 UNIT (1.25 MG) CAPSULE PO SCH (10:00)
[2018-04-25] MEDS ORDERED: (PENDING PHARMACY ID) (Cholecalciferol (Vitamin D3) [Vitamin D3] 50,000 UNIT) PO SCH (10:00)
[2018-04-25] MEDS ORDERED: SODIUM POLYSTYRENE SULFONATE 15 GM/60 ML PO ONE (13:10)
--- NOTE | 2018-04-25 14:01 | PDOC DISCHARGE SUMMARY ---
General - Admit/Disc Date/PCP Admission Date/Primary Care Provider: 04/22/18 12:22 RAFAL OTTO MD Discharge Date: 04/25/18 - Discharge Diagnosis (1) COPD exacerbation Is this a current diagnosis for this admission?: Yes (2) CHF (congestive heart failure) Is this a current diagnosis for this admission?: Yes (3) Edema extremities Is this a current diagnosis for this admission?: Yes (4) Obstructive sleep apnea Is this a current diagnosis for this admission?: Yes (5) Type II diabetes mellitus Is this a current diagnosis for this admission?: Yes (6) Chronic kidney disease, stage 4 (severe) Is this a current diagnosis for this admission?: Yes - Additional Information Resuscitation Status: Full Code Discharge Diet: Cardiac, Diabetic Discharge Activity: Activity As Tolerated, Balance Activity w/Rest, Weigh Daily Prescriptions: Prednisone [Deltasone 20 mg Tablet] 40 mg PO DAILY 4 Days tablet Home Medications: Loratadine 10 mg PO DAILY 04/10/13 Tiotropium [place] [Spiriva Handihaler 18 mcg/dose (30 Dose)] 18 mcg IH DAILY 07/14/13 Albuterol Sulfate [Proair HFA] 2 inh PO Q4HP PRN 06/02/16 Amlodipine Besylate [Norvasc 10 mg Tablet] 10 mg PO DAILY 06/02/16 Atorvastatin Calcium [Lipitor 40 mg Tablet] 40 mg PO DAILY 06/02/16 Carvedilol [Coreg 25 mg Tablet] 25 mg PO BID 06/02/16 Hydralazine HCl [Apresoline 50 mg Tablet] 50 mg PO BID 06/02/16 Insulin Detemir [Levemir Flextouch] 30 units SQ QAM 06/02/16 Linagliptin [Tradjenta] 5 mg PO DAILY 06/02/16 Roflumilast [Daliresp 500 mcg Tablet] 500 mcg PO DAILY 06/02/16 Aspirin [Aspirin 81 mg Chewable Tablet] 81 mg PO DAILY 04/22/18 Ergocalciferol (Vitamin D2) [Drisdol 50,000 unit (1.25MG) Capsule] 50,000 unit PO MO@1000 04/22/18 Ferrous Sulfate [Feosol 325 mg Tablet] 325 mg PO DAILY 04/22/18 Spironolactone [Aldactone] 50 mg PO DAILY 04/22/18 Torsemide [Demadex 20 mg Tablet] 20 mg PO DAILY 04/22/18 Valsartan [Diovan] 320 mg PO DAILY 04/22/18 Prednisone [Deltasone 20 mg Tablet] 40 mg PO DAILY 4 Days tablet 04/25/18 History of Present Illness History of Present Illness: Patient was admitted after presentation as in HPI below: "LUIZA CAMARGO is a 72 year old female history of COPD, CHF, and other comorbidities, who presented to the ED with complaint of shortness of breath. This has been progressive for the past week or more. She reports wheezing. She has had progressive lower extremity swelling, states she is now swollen all over. She used her outpatient medications, without improvement --instead she has been getting worse. She lives with her , reports medications compliance and denies dietary indiscretion. States she does not use too much salt or eat out a lot. She denies chest pain or palpitations. She has cough, currently nonproductive. Evaluation in the ED significant for wheezing on exam, lower extremities edema, and BNP of 2400. Patient referred to hospitalist service for admission." Hospital Course Hospital Course: Patient was admitted and managed as follows: For COPD, treated with nebulizers, O2 as needed, Solu-Medrol darlyn and then transitioned to prednisone 40 mg twice daily and now daily. She has markedly improved, including sob and wheezing. For CHF, this is likely acute on chronic diastolic. Echo from 2017 showed EF of 50-55%. Repeat echo with preserved EF. Was treated with IV Lasix at twice daily with good diureses and improvement in LE swelling. Strict I&O's done and patient educated on proper diet and salt restriction. CKD stable. She had hyperkalemia treated with Kayexalate 30 g p.o. x1 which caused significant BM. Refused further kayexylate on date of discharge. States on Veltassa as outpatient and she would resume taking when she gets home. She is to f/u with pcp and Minister as outpatient. They are to consider discontinuing Aldactone. Patient did not want me to stop--states it;s working for her and would wait until she follows up with her PCP. Physical Exam Vital Signs: Temp Pulse Resp BP Pulse Ox 98.7 F 84 24 H 163/69 H 96 04/25/18 11:18 04/25/18 11:18 04/25/18 11:18 04/25/18 11:18 04/25/18 11:18 Intake & Output 04/24/18 04/25/18 04/26/18 06:59 06:59 06:59 Intake Total 1880 750 Output Total 400 1400 Balance 1480 -650 Weight 84.2 kg 83.4 kg GENERAL: Well-developed, Well-nourished, no acute distress HEENT: Normocephalic/atraumatic NECK supple, no JVD CARDIOVASCULAR: RRR, normal S1-S2 LUNGS: Clear to auscultation bilaterally, good air movement ABDOMEN: Soft, NT, NL bowel sounds EXTREMITIES: 1 to 2+ lower extremities edema to thigh, no clubbing, cyanosis NEUROLOGICAL: Alert, oriented x 3, nonfocal Results Laboratory Results: 04/24/18 05:52 04/25/18 05:10 04/25/18 05:10 Sodium 133.4 L Potassium 5.1 H Chloride 105 Carbon Dioxide 21 L Anion Gap 7 BUN 56 H Creatinine 2.41 H Est GFR ( Amer) 24 L Est GFR (Non-Af Amer) 20 L Glucose 249 H Calcium 8.4 04/22/18 04/22/18 04/22/18 09:28 09:28 09:28 Creatine Kinase 447 H CK-MB (CK-2) 1.55 Troponin I 0.062 NT-Pro-B Natriuret Pep 2450 H 04/22/18 13:30 Creatine Kinase CK-MB (CK-2) Troponin I 0.050 NT-Pro-B Natriuret Pep Impressions: Chest X-Ray 04/22/18 09:24 IMPRESSION: HEART ENLARGED WITHOUT FAILURE. Qualifiers - * PATIENT BEING DISCHARGED WITH ANY OF THE FOLLOWING DIAGNOSIS: No
[2018-04-25 15:52] VITALS: BP 139/66
== END 2018-04-25 16:00 | disposition home or self-care (01) | DRG 190 ==
LOC: ER 08:58 → EH 12:22 → 5 15:11
PROVIDERS: ADMIT Internal Medicine; ATTEND Internal Medicine
PROC: 3E0F73Z Introduction of Anti-inflammatory into Respiratory Tract, Via Natural or Artificial Opening (ICD-10-PCS; principal; 2018-04-22)
PROC: 3E02340 Introduction of Influenza Vaccine into Muscle, Percutaneous Approach (ICD-10-PCS; 2018-04-25)
DX: J44.1 Chronic obstructive pulmonary disease with (acute) exacerbation (principal); I50.33 Acute on chronic diastolic (congestive) heart failure; N18.4 Chronic kidney disease, stage 4 (severe); I13.0 Hypertensive heart and chronic kidney disease with heart failure and stage 1 through stage 4 chronic kidney disease, or unspecified chronic kidney disease; G47.33 Obstructive sleep apnea (adult) (pediatric); E11.22 Type 2 diabetes mellitus with diabetic chronic kidney disease; E87.5 Hyperkalemia; D63.1 Anemia in chronic kidney disease; Z23 Encounter for immunization; Z79.4 Long term (current) use of insulin; Z79.899 Other long term (current) drug therapy; Z98.42 Cataract extraction status, left eye; Z98.41 Cataract extraction status, right eye; Z87.891 Personal history of nicotine dependence; Z79.82 Long term (current) use of aspirin; Z91.041 Radiographic dye allergy status
CPT/HCPCS: 36415; 71045; 80048; 80053; 82550; 82553; 82803; 82962; 83605; 83690; 83735; 83880; 84484; 85025; 90471; 90686; 93005; 93010; 93306; 94640; 96365; 96375; 99291; G0008; J1650; J1815; J1940; J2930; J3475; J3490; J7512; J7620

== ENCOUNTER → 2018-05-13 | Outpatient (CLI) | payer MEDICARE, OTHER | LOC: OD 14:15 | PROVIDERS: ATTEND Internal Medicine Nephrology | DX: N18.9 Chronic kidney disease, unspecified (principal); D63.1 Anemia in chronic kidney disease | CPT/HCPCS: 36415; 82728; 83540; 83550 ==

== ENCOUNTER 2018-05-20 14:54 | Inpatient (IN) | payer MEDICARE, OTHER ==
[2018-05-20] MEDS ORDERED: ONDANSETRON HCL INJ/PF 4 MG/2 ML SDV ONE ×2 (17:32→21:48)
[2018-05-20] MEDS ORDERED: IPRATROPIUM/ALBUTEROL 0.5-2.5 MG/3 ML AMPUL NEB ONE (17:45)
--- NOTE | 2018-05-20 17:45 | ER Document Report ---
ED General - General Chief Complaint: Shortness Of Breath Stated Complaint: SHORT OF BREATH/LEG SWELLING Time Seen by Provider: 05/20/18 17:34 Mode of Arrival: Ambulatory Information source: Patient Cannot obtain history due to: Dementia TRAVEL OUTSIDE OF THE [place] IN LAST 30 DAYS: No - HPI Patient complains to provider of: short of breath Onset: Other - Here is a 72-year-old female with known history of heart failure on multiple diuretics who presents for evaluation of increasing shortness of breath leg distention he had pain in the legs. She has had episodes like this in the past for which she is required IV diuretics without any improvement in her symptoms. She denies any fevers or chills, does have a cough which is nonproductive she is orthopneic and unable to lie flat. She says she been try ing to pry her legs up to try to get the fluid out of them but is not been working. - Related Data Allergies/Adverse Reactions: Iodinated Contrast- Oral and IV Dye [IV Dye, Iodine Containing] Adverse Reaction (Unknown, Verified 05/20/18 14:55) Respiratory distress Past Medical History - General Information source: Patient - Social History Smoking Status: Former Smoker Family History: Reviewed & Not Pertinent - Past Medical History Cardiac Medical History: Reports: Hx Congestive Heart Failure, Hx Hypertension Pulmonary Medical History: Reports: Hx COPD, Hx Pneumonia, Hx Sleep Apnea Denies: Hx Tuberculosis Endocrine Medical History: Reports: Hx Diabetes Mellitus Type 2 Renal/ Medical History: Reports: Hx End Stage Renal Disease. Denies: Hx Peritoneal Dialysis Past Surgical History: Reports: Hx Cardiac Catheterization - Last was 2006, Hx Section, Other - Cataract surgeries bilaterally - Immunizations Hx Diphtheria, Pertussis, Tetanus Vaccination: Yes Hx Pneumococcal Vaccination: 01/23/09 Review of Systems - Review of Systems -: Yes All other systems reviewed and negative Physical Exam - Vital signs Vitals: Temp Pulse Resp BP Pulse Ox 98.1 F 74 24 H 141/52 H 93 05/20/18 15:22 05/20/18 15:22 05/20/18 15:22 05/20/18 15:22 05/20/18 15:22 Interpretation: Tachypneic - General General appearance: Appears well, Alert - HEENT Head: Normocephalic, Atraumatic Eyes: Normal - Respiratory Respiratory status: Labored, Tachypnea Chest status: Nontender Breath sounds: Rhonchi, Wheezing - Cardiovascular Rhythm: Regular Heart sounds: Normal auscultation - Abdominal Inspection: Normal Distension: No distension Tenderness: Nontender - Back Back: Normal, Nontender - Extremities General upper extremity: Normal inspection, Nontender, Normal ROM, Normal strength General lower extremity: Normal inspection, Tender - +3 pitting edema, Edema, Normal ROM, Normal strength - Neurological Neuro grossly intact: Yes Cognition: Normal Orientation: AAOx4 Lindsay Coma Scale Eye Opening: Spontaneous Lindsay Coma Scale Verbal: Oriented Lindsay Coma Scale Motor: Obeys Commands [place] Coma Scale Total: 15 Speech: Normal Motor strength normal: LUE, RUE, LLE, RLE Sensory: Normal - Psychological Associated symptoms: Normal affect, Normal mood Course - Re-evaluation Re-evalutation: 72-year-old female who presents for evaluation of shortness of breath. Feels as if she is fluid overloaded at this time. Nothing is made it any better or worse. Will administer IV diuresis. We will plan for reassessment broad workup. Patient with an elevated BNP in conjunction likely with her clinical evidence of fluid overload. Patient with marked tachypnea and difficulty speaking. Given her elevated markers of heart failure, her marked tachypnea, her negative troponins believe she is likely exacerbating her underlying heart failure. She does have a preserved ejection fraction and her case is complicated by her underlying lung issues however I believe she would benefit from inpatient admission monitoring reassessment and diuresis. Do not believe that this patient represents a high likelihood of other underlying issue such as but not limited to infectious etiology, thromboembolic disease or otherwise. Spoke to the on-call hospitalist Dr. Reji Barr who agrees to evaluate and admit this patient. - Vital Signs Vital signs: Temp Pulse Resp BP Pulse Ox 97.7 F 73 19 126/55 H 100 05/21/18 16:42 05/21/18 16:15 05/21/18 20:02 05/21/18 20:02 05/21/18 20:02 - Laboratory Result Diagrams: 05/21/18 05:05 05/21/18 05:05 Laboratory results interpreted by me: 05/20/18 05/20/18 05/20/18 17:30 17:30 19:25 RBC 3.09 L Hgb 9.3 L Hct 26.8 L RDW 15.1 H Sodium 128.6 L Chloride 93 L BUN 31 H Creatinine 3.51 H Est GFR ( Amer) 16 L Est GFR (Non-Af Amer) 13 L NT-Pro-B Natriuret Pep 3210 H Total Protein 5.6 L Albumin 3.4 L Discharge - Discharge Clinical Impression: Shortness of breath Heart failure Qualifiers: Heart failure type: other Qualified Code(s): I50.89 - Other heart failure Renal failure Qualifiers: Renal failure chronicity: unspecified chronicity Qualified Code(s): N19 - Unspecified kidney failure Condition: Stable Disposition: ADMITTED INPATIENT Admitting Provider: Hospitalist Unit Admitted: Telemetry
[2018-05-20 17:57] LABS: HEMATOCRIT 26.8 % (36.0-47.0); HEMOGLOBIN 9.3 g/dL (12.0-15.5); MEAN CORPUSCULAR HEMOGLOBIN 29.9 pg (27.0-33.4); MEAN CORPUSCULAR HGB CONC 34.5 g/dL (32.0-36.0); MEAN CORPUSCULAR VOLUME 87 fl (80-97); PLATELET COUNT 364 10^3/uL (150-450); RED BLOOD COUNT 3.09 10^6/uL (3.72-5.28); RED CELL DISTRIBUTION WIDTH 15.1 % (11.5-14.0); WHITE BLOOD COUNT 9.6 10^3/uL (4.0-10.5)
[2018-05-20] MEDS ORDERED: ONDANSETRON HCL INJ/PF 4 MG/2 ML SDV IV ONE (18:13)
[2018-05-20 18:20] LABS: CREATINE KINASE MB 0.38 ng/mL (<4.55); TROPONIN I 0.016 ng/mL
[2018-05-20 18:25] LABS: ABSOLUTE LYMPHOCYTES# (MANUAL) 1.9 10^3/uL (0.5-4.7); ABSOLUTE MONOCYTES # (MANUAL) 0.5 10^3/uL (0.1-1.4); ABSOLUTE NEUTROPHILS# (MANUAL) 7.1 10^3/uL (1.7-8.2); BASOPHILS % (MANUAL) 0 % (0-2); EOSINOPHILS % (MANUAL) 1 % (0-6); LYMPHOCYTES % (MANUAL) 19 % (13-45); MONOCYTES % (MANUAL) 5 % (3-13); SEGMENTED NEUTROPHILS % (MAN) 74 % (42-78); TOTAL CELLS COUNTED 100
[2018-05-20 18:26] LABS: ANISOCYTOSIS SLIGHT; OVALOCYTES SLIGHT; PLATELET COMMENT ADEQUATE; POIKILOCYTOSIS SLIGHT; POLYCHROMASIA SLIGHT
--- NOTE | 2018-05-20 18:30 | RADIOLOGY REPORT (SQ) ---
EXAM DESCRIPTION: CHEST SINGLE VIEW COMPLETED DATE/TIME: 05/20/2018 6:08 pm REASON FOR STUDY: sob COMPARISON: 04/22/2018 EXAM PARAMETERS: NUMBER OF VIEWS: One view. TECHNIQUE: Single frontal radiographic view of the chest acquired. RADIATION DOSE: NA LIMITATIONS: None. FINDINGS: LUNGS AND PLEURA: Pulmonary vascular congestion. Cannot exclude mild pulmonary edema. MEDIASTINUM AND HILAR STRUCTURES: No masses. Contour normal. HEART AND VASCULAR STRUCTURES: Cardiomegaly. BONES: No acute findings. HARDWARE: None in the chest. OTHER: No other significant finding. IMPRESSION: Cardiomegaly. Cannot exclude mild pulmonary edema. TECHNICAL DOCUMENTATION: JOB ID: [id number] [employer]- All Rights Reserved Reading location - IP/workstation name: ACE
[2018-05-20] MEDS ORDERED: FUROSEMIDE INJ/PF 40 MG/4 ML SDV IV ONE (19:55)
[2018-05-20 20:01] LABS: ALANINE AMINOTRANSFERASE 27 U/L (9-52); ALBUMIN 3.4 g/dL (3.5-5.0); ALKALINE PHOSPHATASE 77 U/L (38-126); ANION GAP 7 (5-19); ASPARTATE AMINO TRANSFERASE 18 U/L (14-36); BILIRUBIN,DIRECT 0.3 mg/dL (0.0-0.4); BILIRUBIN,TOTAL 0.4 mg/dL (0.2-1.3); BLOOD UREA NITROGEN 31 mg/dL (7-20); CALCIUM 8.9 mg/dL (8.4-10.2); CARBON DIOXIDE 29 mmol/L (22-30); CHLORIDE 93 mmol/L (98-107); CREATINE KINASE 96 U/L (30-135); GLUCOSE 92 mg/dL (75-110); POTASSIUM 4.4 mmol/L (3.6-5.0); SODIUM 128.6 mmol/L (137-145); TOTAL PROTEIN 5.6 g/dL (6.3-8.2)
[2018-05-20] MEDS ORDERED: ONDANSETRON HCL INJ/PF 4 MG/2 ML SDV IV PRN (22:35)
[2018-05-20] MEDS ORDERED: MAG HYDROX/AL HYDROX/SIMETH SUSP 30 ML UDCUP PO PRN (22:35)
[2018-05-20] MEDS ORDERED: MAGNESIUM HYDROXIDE SUSP 30 ML UDCUP PO PRN (22:35)
[2018-05-20] MEDS ORDERED: ONDANSETRON 4 MG TAB.RAPDIS PO PRN (22:35)
[2018-05-20] MEDS ORDERED: ACETAMINOPHEN 325 MG TABLET PO PRN (22:54)
[2018-05-20] MEDS ORDERED: NICOTINE 21 MG/24 HR PATCH.TD24 TD PRN (22:54)
[2018-05-20] MEDS ORDERED: ALBUTEROL SULFATE 0.083% NEB 2.5 MG/3 ML AMPUL NEB PRN (22:54)
[2018-05-20] MEDS ORDERED: ACETAMINOPHEN 650 MG SUPP.RECT PR PRN (22:54)
--- NOTE | 2018-05-20 22:55 | EKG REPORT ---
SEVERITY:- ABNORMAL ECG - SINUS RHYTHM LEFT AXIS DEVIATION BORDERLINE R WAVE PROGRESSION, ANTERIOR LEADS BORDERLINE T ABNORMALITIES, LATERAL LEADS BORDERLINE PROLONGED QT INTERVAL : Confirmed by: Chioma Carr MD 20-May-2018 22:54:38
[2018-05-21] MEDS: LEVALBUTEROL HCL NEB 1.25 MG/3 ML AMPUL NEB SCH ×3 (00:11→16:12)
[2018-05-21] MEDS: IPRATROPIUM BROMIDE 0.02% NEB 0.5 MG/2.5 ML AMPUL NEB SCH ×3 (00:11→16:12)
[2018-05-21] MEDS ORDERED: BUDESONIDE NEB 0.5 MG/2 ML AMPUL NEB ONE (00:15)
[2018-05-21] MEDS ORDERED: ATORVASTATIN CALCIUM 40 MG TABLET PO ONE (00:15)
[2018-05-21] MEDS ORDERED: HYDRALAZINE HCL 50 MG TABLET PO ONE ×3 (00:15→16:30)
[2018-05-21 00:48] LABS: APPEARANCE,URINE CLEAR; BILIRUBIN,URINE NEGATIVE (NEGATIVE); COLOR,URINE YELLOW; GLUCOSE, URINE NEGATIVE (NEGATIVE); KETONES,URINE NEGATIVE (NEGATIVE); LEUKOCYTE ESTERASE,URINE NEGATIVE (NEGATIVE); NITRITE,URINE NEGATIVE (NEGATIVE); PROTEIN,URINE 100 mg/dL (NEGATIVE); URINE SPECIFIC GRAVITY 1.009; UROBILINOGEN,URINE NEGATIVE mg/dL (<2.0)
--- NOTE | 2018-05-21 02:45 | PDOC H&P ---
History of Present Illness Admission Date/PCP: KAMILLE GLASGOW MD Patient complains of: Dyspnea History of Present Illness: LUIZA CAMARGO is a 72 year old female who presented to the emergency room with a 7-day history of gradually worsening dyspnea. She admits that over the last week she has experienced gradually increasing shortness of breath as well as d yspnea on exertion, accompanied by increased swelling in her lower extremities and decreased urine output. She now rates her dyspnea as severe and further admits numerous similar episodes in the past related to congestive heart failure and COPD. She denies having identified any aggravating or ameliorating factors for her current episode of dyspnea. In the emergency room she was found to have an elevated BNP (higher than her prior reading) as well as a significant increase in her serum creatinine to 3.51. Her chest x-ray showed evidence of COPD as well as some congestive changes consistent with volume overload. With these findings the patient was admitted to hospital for further evaluation and treatment of her dyspnea as well as her acute on chronic renal failure. Past Medical History Cardiac Medical History: Reports: Congestive Heart Failure, Hypertension Denies: Atrial Fibrillation, DVT, Myocardial Infarction, Pulmonary Embolism Pulmonary Medical History: Reports: Chronic Obstructive Pulmonary Disease (COPD), Pneumonia, Sleep Apnea Denies: Tuberculosis EENT Medical History: Reports: Cataracts - Bilaterally Denies: Ears, Nose, Throat Neurological Medical History: Denies: Hemorrhagic CVA, Ischemic CVA, Seizures Endocrine Medical History: Reports: Diabetes Mellitus Type 2, Obesity Denies: Diabetes Mellitus Type 1, Hyperthyroidism, Hypothyroidism Renal/ Medical History: Reports: Chronic Kidney Disease Denies: Nephrolithiasis Malignancy Medical History: Reports: None GI Medical History: Denies: Cirrhosis, Hepatitis Musculoskeltal Medical History: Denies: Arthritis, Gout Skin Medical History: Denies: Eczema, Psoriasis Psychiatric Medical History: Denies: Alcohol Dependency, Substance Abuse, Tobacco Dependency Traumatic Medical History: Reports: None Hematology: Reports: Anemia Denies: Bleeding Tendencies Infectious Medical History: Reports: None Past Surgical History Past Surgical History: Reports: Cardiac Catheterization - Last was 2006, Cesa rean Section, Other - Cataract surgeries bilaterally Social History Information Source: Patient Lives with: Spouse/Significant other Smoking Status: Never Smoker Frequency of Alcohol Use: None Hx Recreational Drug Use: No Drugs: None Hx Prescription Drug Abuse: No - Advance Directive Resuscitation Status: Full Code Surrogate healthcare decision maker:: Spouse Family History Family History: denies: CAD, DM, Hypertension, Malignancy Parental Family History Reviewed: Yes Children Family History Reviewed: No Sibling(s) Family History Reviewed.: Yes Medication/Allergy Home Medications: Loratadine 10 mg PO DAILY 04/10/13 Tiotropium [place] [Spiriva Handihaler 18 mcg/dose (30 Dose)] 18 mcg IH DAILY 07/14/13 Albuterol Sulfate [Proair HFA] 2 inh PO Q4HP PRN 06/02/16 Amlodipine Besylate [Norvasc 10 mg Tablet] 10 mg PO DAILY 06/02/16 Atorvastatin Calcium [Lipitor 40 mg Tablet] 40 mg PO DAILY 06/02/16 Carvedilol [Coreg 25 mg Tablet] 25 mg PO BID 06/02/16 Hydralazine HCl [Apresoline 50 mg Tablet] 50 mg PO BID 06/02/16 Insulin Detemir [Levemir Flextouch] 30 units SQ QAM 06/02/16 Linagliptin [Tradjenta] 5 mg PO DAILY 06/02/16 Roflumilast [Daliresp 500 mcg Tablet] 500 mcg PO DAILY 06/02/16 Aspirin [Aspirin 81 mg Chewable Tablet] 81 mg PO DAILY 04/22/18 Ergocalciferol (Vitamin D2) [Drisdol 50,000 unit (1.25MG) Capsule] 50,000 unit PO MO@1000 04/22/18 Ferrous Sulfate [Feosol 325 mg Tablet] 325 mg PO DAILY 04/22/18 Spironolactone [Aldactone] 50 mg PO DAILY 04/22/18 Torsemide [Demadex 20 mg Tablet] 20 mg PO DAILY 04/22/18 Valsartan [Diovan] 320 mg PO DAILY 04/22/18 Prednisone [Deltasone 20 mg Tablet] 40 mg PO DAILY 4 Days tablet 04/25/18 Allergies/Adverse Reactions: Iodinated Contrast- Oral and IV Dye [IV Dye, Iodine Containing] Adverse Reaction (Unknown, Verified 05/20/18 14:55) Respiratory distress Review of Systems Constitutional: ABSENT: chills, fever(s) Eyes: ABSENT: visual disturbances, other - Ocular pain Ears: ABSENT: hearing changes, other - Ear pain Nose, Mouth, and Throat: ABSENT: mouth pain, sore throat Cardiovascular: PRESENT: dyspnea on exertion, edema, orthropnea. ABSENT: chest pain, palpitations Respiratory: PRESENT: dyspnea. ABSENT: cough, hemoptysis, sputum Gastrointestinal: ABSENT: abdominal pain, constipation, diarrhea, nausea, vomiting Genitourinary: ABSENT: dysuria, hematuria Musculoskeletal: ABSENT: deformity, joint swelling Integumentary: ABSENT: pruritus, rash Neurological: ABSENT: confusion, convulsions, memory loss, tremor(s) Psychiatric: ABSENT: anxiety, depression Endocrine: ABSENT: cold intolerance, heat intolerance Hematologic/Lymphatic: ABSENT: easy bleeding, easy bruising Physical Exam Vital Signs: Temp Pulse Resp BP Pulse Ox 98.1 F 74 18 126/76 H 92 05/20/18 15:22 05/20/18 15:22 05/20/18 20:02 05/20/18 20:02 05/20/18 20:02 Intake & Output 05/18/18 05/19/18 05/20/18 23:59 23:59 23:59 Weight 99 kg General appearance: PRESENT: no acute distress, cooperative, morbidly obese Head exam: PRESENT: atraumatic, normocephalic Eye exam: PRESENT: conjunctiva pink, EOMI. ABSENT: scleral icterus Ear exam: PRESENT: normal external ear exam. ABSENT: bleeding, drainage Mouth exam: PRESENT: dry mucosa, neck supple Neck exam: PRESENT: JVD - Mild bilaterally. ABSENT: thyromegaly, tracheal deviation Respiratory exam: PRESENT: decreased breath sounds - Breath sounds mildly decreased throughout all chen, symmetrical, unlabored Cardiovascular exam: PRESENT: RRR. ABSENT: clicks, gallop, rubs Pulses: PRESENT: normal radial pulses. ABSENT: normal dorsalis pedis pul - Dorsalis pedis pulses are decreased bilaterally due to severe bipedal edema Vascular exam: PRESENT: normal capillary refill. ABSENT: pallor GI/Abdominal exam: PRESENT: normal bowel sounds, soft Rectal exam: PRESENT: deferred Extremities exam: PRESENT: pedal edema - Severe bipedal edema, other - 4+ pitting edema to the knees bilaterally. ABSENT: joint swelling Musculoskeletal exam: ABSENT: deformity, dislocation Neurological exam: PRESENT: alert, oriented to person, oriented to place, oriented to time, oriented to situation, CN II-XII grossly intact. ABSENT: motor sensory deficit Psychiatric exam: PRESENT: flat affect, normal mood Skin exam: PRESENT: dry, intact, warm. ABSENT: jaundice, rash, urticaria Results Laboratory Results: 05/20/18 17:30 05/20/18 19:25 05/20/18 05/20/18 05/20/18 17:30 17:30 19:25 WBC 9.6 RBC 3.09 L Hgb 9.3 L Hct 26.8 L MCV 87 MCH 29.9 MCHC 34.5 RDW 15.1 H Plt Count 364 Seg Neutrophils % Not Reportable Lymphocytes % Not Reportable Monocytes % Not Reportable Eosinophils % Not Reportable Basophils % Not Reportable Absolute Neutrophils Not Reportable Absolute Lymphocytes Not Reportable Absolute Monocytes Not Reportable Absolute Eosinophils Not Reportable Absolute Basophils Not Reportable Sodium Cancelled 128.6 L Potassium Cancelled 4.4 Chloride Cancelled 93 L Carbon Dioxide Cancelled 29 Anion Gap Cancelled 7 BUN Cancelled 31 H Creatinine Cancelled 3.51 H Est GFR ( Amer) Cancelled 16 L Est GFR (Non-Af Amer) Cancelled 13 L Glucose Cancelled 92 Calcium Cancelled 8.9 Total Bilirubin Cancelled 0.4 AST Cancelled 18 ALT Cancelled 27 Alkaline Phosphatase Cancelled 77 Total Protein Cancelled 5.6 L Albumin Cancelled 3.4 L 05/20/18 05/20/18 05/20/18 17:30 17:30 19:25 Creatine Kinase Cancelled 96 CK-MB (CK-2) 0.38 Troponin I 0.016 NT-Pro-B Natriuret Pep 3210 H Impressions: Chest X-Ray 05/20/18 17:10 IMPRESSION: Cardiomegaly. Cannot exclude mild pulmonary edema. Assessment & Plan - Diagnosis (1) Acute on chronic diastolic (congestive) heart failure Is this a current diagnosis for this admission?: Yes Plan: Patient will be continued on her current heart failure regiment with adjustments made relative to her degree of renal failure. Her output will be followed closely as well as her daily lab work including a CBC and a basic metabolic profile with a magnesium level. (2) Acute on chronic renal failure Qualifiers: Acute renal failure type: unspecified Chronic kidney disease stage: stage 4 (severe) Qualified Code(s): N17.9 - Acute kidney failure, unspecified; N18.4 - Chronic kidney disease, stage 4 (severe) Is this a current diagnosis for this admission?: Yes Plan: Patient's usual renal function is in the creatinine range of about 2.5 although it appears that her renal function has been much better than this in the not too distant past. It is highly likely that some of her current medications have resulted in her decreased renal function and for that reason her Daliresp and Tradjenta have been discontinued. She should also be taken off other agents which may be toxic to the kidney. (3) Diabetes mellitus type 2 in obese Is this a current diagnosis for this admission?: Yes Plan: Patient will be continued on her current diabetic regiment with the exception of Tradjenta. Her hemoglobin A1c will be evaluated to determine the efficacy of her prior therapy and appropriate substitute for Tradjenta may need to be employed keeping in mind the patient's significant renal dysfunction when selecting another agent. (4) Chronic obstructive pulmonary disease Qualifiers: COPD type: unspecified COPD Qualified Code(s): J44.9 - Chronic obstructive pulmonary disease, unspecified Is this a current diagnosis for this admission?: Yes Plan: Patient will be continued on her usual regiment for COPD with the exception of her Daliresp which has been stopped due to her decreased renal function. She may require addition of another medication to replace the effect of the Daliresp however in choosing a new agent her significantly decreased renal function must be considered and any nephrotoxic agents need to be avoided. (5) Hypertension Qualifiers: Hypertension type: essential hypertension Qualified Code(s): I10 - Essential (primary) hypertension Is this a current diagnosis for this admission?: Yes Plan: Patient will be continued on her current antihypertensive regiment and her vital signs will be followed closely during her hospital course. - Time Time Spent: 30 to 50 Minutes Critical Time spent with patient: Less than 15 minutes Medications reviewed and adjusted accordingly: Yes Anticipated discharge: Home - Inpatient Certification Based on my medical assessment, after consideration of the patient's comorbidities, presenting symptoms, or acuity I expect that the services needed warrant INPATIENT care.: Yes I certify that my determination is in accordance with my understanding of Medicare's requirements for reasonable and necessary INPATIENT services [42 CFR 412.3e].: Yes Medical Necessity: Significant Comorbidiites Make Outpatient Treatment Too Risky, Need Close Monitoring Due to Risk of Patient Decompensation, Need For Co ntinuous Telemetry Monitoring, Risk of Complication if Not Cared For in Hospital
[2018-05-21 05:19] LABS: HEMATOCRIT 25.3 % (36.0-47.0); HEMOGLOBIN 8.6 g/dL (12.0-15.5); MEAN CORPUSCULAR HEMOGLOBIN 29.2 pg (27.0-33.4); MEAN CORPUSCULAR HGB CONC 34.2 g/dL (32.0-36.0); MEAN CORPUSCULAR VOLUME 85 fl (80-97); PLATELET COUNT 334 10^3/uL (150-450); RED BLOOD COUNT 2.96 10^6/uL (3.72-5.28); RED CELL DISTRIBUTION WIDTH 15.1 % (11.5-14.0); WHITE BLOOD COUNT 8.4 10^3/uL (4.0-10.5)
[2018-05-21 05:37] LABS: ANION GAP 8 (5-19); BLOOD UREA NITROGEN 33 mg/dL (7-20); CALCIUM 8.8 mg/dL (8.4-10.2); CARBON DIOXIDE 28 mmol/L (22-30); CHLORIDE 94 mmol/L (98-107); CHOLESTEROL 120.49 mg/dL (0-200); GLUCOSE 86 mg/dL (75-110); POTASSIUM 4.5 mmol/L (3.6-5.0); SODIUM 130.3 mmol/L (137-145); TRIGLYCERIDES 48 mg/dL (<150)
[2018-05-21 05:47] LABS: DIRECT LDL 58 mg/dL (<100)
[2018-05-21 05:52] LABS: ABSOLUTE LYMPHOCYTES# (MANUAL) 0.8 10^3/uL (0.5-4.7); ABSOLUTE MONOCYTES # (MANUAL) 0.3 10^3/uL (0.1-1.4); ABSOLUTE NEUTROPHILS# (MANUAL) 7.1 10^3/uL (1.7-8.2); BASOPHILS % (MANUAL) 1 % (0-2); EOSINOPHILS % (MANUAL) 1 % (0-6); LYMPHOCYTES % (MANUAL) 9 % (13-45); MONOCYTES % (MANUAL) 4 % (3-13); SEGMENTED NEUTROPHILS % (MAN) 85 % (42-78); TOTAL CELLS COUNTED 100
[2018-05-21 05:53] LABS: ANISOCYTOSIS SLIGHT; BURR CELLS SLIGHT; OVALOCYTES SLIGHT; POIKILOCYTOSIS 1+; TEAR DROP CELLS SLIGHT; TOXIC GRANULATION SLIGHT; TOXIC VACUOLATION PRESENT
[2018-05-21 05:54] LABS: FREE T3 2.39 pg/mL (2.77-5.27); FREE T4 (FREE THYROXINE) 1.41 ng/dL (0.78-2.19); PLATELET COMMENT ADEQUATE
[2018-05-21] MEDS ORDERED: HYDRALAZINE HCL 50 MG TABLET PO SCH (06:00)
[2018-05-21 06:07] LABS: THYROID STIMULATING HORMONE 0.9 uIU/mL (0.47-4.68)
[2018-05-21] MEDS: LANSOPRAZOLE 30 MG TAB.RAP.DR PO SCH ×2 (06:15→18:46)
[2018-05-21] MEDS: HEPARIN SOD (PORCINE) 5,000 UNIT/ML 1 ML SYRINGE SUBCUT SCH ×3 (06:15→22:12)
[2018-05-21] MEDS: BUDESONIDE NEB 0.5 MG/2 ML AMPUL NEB SCH ×2 (08:45→20:06)
[2018-05-21] MEDS: INSULIN DETEMIR 100 UNIT/ML 3 ML PEN SUBCUT SCH (08:54)
[2018-05-21] MEDS ORDERED: GLUCAGON,HUMAN RECOMB 1 MG INJ IM PRN (09:38)
[2018-05-21] MEDS ORDERED: DEXTROSE 40% GEL 15 GM TUBE PO PRN ×2 (09:38)
[2018-05-21] MEDS ORDERED: DEXTROSE 50%-WATER 25 GM/50 ML DISP.SYRIN IV PRN ×2 (09:38)
[2018-05-21] MEDS ORDERED: VALSARTAN 160 MG TABLET PO SCH (10:00)
[2018-05-21] MEDS ORDERED: SPIRONOLACTONE 25 MG TABLET PO SCH (10:00)
[2018-05-21] MEDS ORDERED: TORSEMIDE 20 MG TABLET PO SCH (10:00)
[2018-05-21] MEDS ORDERED: FUROSEMIDE INJ/PF 40 MG/4 ML SDV IV SCH (10:15)
[2018-05-21] MEDS: DOCUSATE SODIUM 100 MG CAPSULE PO SCH ×2 (10:57→18:44)
[2018-05-21] MEDS: ASPIRIN 81 MG TABLET, CHEWABLE PO SCH (10:57)
[2018-05-21] MEDS: FERROUS SULFATE 325 MG TABLET PO SCH (10:57)
[2018-05-21] MEDS: CARVEDILOL 12.5 MG TABLET PO SCH ×2 (11:07→18:48)
[2018-05-21] MEDS: TIOTROPIUM BROMIDE DPI 5 CAP/KIT (18 MCG/CAP) IH SCH (11:08)
[2018-05-21] MEDS: VALSARTAN 160 MG TABLET PO SCH (11:11)
--- NOTE | 2018-05-21 12:08 | PDOC CONSULTATION ---
Consultation Consult Date: 05/21/18 Consult reason:: Congestive heart failure History of Present Illness Admission Date/PCP: 05/20/18 22:42 KAMILLE GLASGOW MD Patient complains of: Progressive shortness of breath with swelling both extremities. History of Present Illness: LUIZA CAMARGO is a 72 year old female with past medical history of hypertension, diabetes mellitus, chronic kidney disease stage III/IV, history of COPD, chronic anemia likely anemia of chronic disease, morbid obesity, history of diastolic dysfunction comes with complaints of progressively worsening shortness of breath with swelling of both lower extremities for the past week or so. She denies any david chest pain or dizziness or palpitations. She admits to compliance with her diuretic therapy and claims that she was taking her Demadex twice a day lately with not much effect. Patient is and lives with her . She denies history of cigarette smoking or alcohol abuse. She also has a history of sleep apnea and claims that she uses her CPAP on and off. Past Medical History Cardiac Medical History: Reports: Congestive Heart Failure, Hypertension Denies: Atrial Fibrillation, DVT, Myocardial Infarction, Pulmonary Embolism Pulmonary Medical History: Reports: Chronic Obstructive Pulmonary Disease (COPD), Pneumonia, Sleep Apnea Denies: Tuberculosis EENT Medical History: Reports: Cataracts - Bilaterally Denies: Ears, Nose, Throat Neurological Medical History: Denies: Hemorrhagic CVA, Ischemic CVA, Seizures Endocrine Medical History: Reports: Diabetes Mellitus Type 2, Obesity Denies: Diabetes Mellitus Type 1, Hyperthyroidism, Hypothyroidism Renal/ Medical History: Reports: Chronic Kidney Disease, End Stage Renal Disease Denies: Nephrolithiasis Malignancy Medical History: Reports: None GI Medical History: Denies: Cirrhosis, Hepatitis Musculoskeltal Medical History: Denies: Arthritis, Gout Skin Medical History: Denies: Eczema, Psoriasis Psychiatric Medical History: Denies: Alcohol Dependency, Substance Abuse, Tobacco Dependency Traumatic Medical History: Reports: None Hematology: Reports: Anemia Denies: Bleeding Tendencies Infectious Medical History: Reports: None Past Surgical History Past Surgical History: Reports: Cardiac Catheterization - Last was 2006, Leonardo arean Section, Other - Cataract surgeries bilaterally Social History Lives with: Spouse/Significant other Smoking Status: Never Smoker Frequency of Alcohol Use: None Hx Recreational Drug Use: No Drugs: None Hx Prescription Drug Abuse: No - Advance Directive Resuscitation Status: Full Code Family History Family History: None. denies: CAD, DM, Hypertension, Malignancy Parental Family History Reviewed: Yes Children Family History Reviewed: Unknown Sibling(s) Family History Reviewed.: Unknown Medication/Allergy Home Medications: Loratadine 10 mg PO DAILY 04/10/13 Tiotropium Elsie [Spiriva Handihaler 18 mcg/dose (30 Dose)] 1 puff IH DAILY 07/14/13 Amlodipine Besylate [Norvasc 10 mg Tablet] 10 mg PO DAILY 06/02/16 Atorvastatin Calcium [Lipitor 40 mg Tablet] 40 mg PO DAILY 06/02/16 Carvedilol [Coreg 25 mg Tablet] 25 mg PO Q12 06/02/16 Hydralazine HCl [Apresoline 50 mg Tablet] 50 mg PO Q12 06/02/16 Insulin Detemir [Levemir Flextouch] 30 units SQ QAM 06/02/16 Linagliptin [Tradjenta] 5 mg PO DAILY 06/02/16 Roflumilast [Daliresp 500 mcg Tablet] 500 mcg PO DAILY 06/02/16 Ergocalciferol (Vitamin D2) [Drisdol 50,000 unit (1.25MG) Capsule] 50,000 unit PO MO@1000 04/22/18 Ferrous Sulfate [Feosol 325 mg Tablet] 325 mg PO DAILY 04/22/18 Spironolactone [Aldactone] 50 mg PO DAILY 04/22/18 Torsemide [Demadex 20 mg Tablet] 20 mg PO DAILY 04/22/18 Valsartan [Diovan] 320 mg PO DAILY 04/22/18 Aspirin [Ecotrin 81 mg EC Tablet] 81 mg PO DAILY 05/21/18 Fluticasone/Salmeterol [Advair 250-50 Diskus 14 Dose/Diskus] 1 inh IH Q12 05/21/18 Metolazone [Zaroxolyn 5 Mg Tablet] 5 mg PO DAILY 05/21/18 Patiromer Calcium Sorbitex [Veltassa] 16.8 gm PO DAILY 05/21/18 Allergies/Adverse Reactions: Iodinated Contrast- Oral and IV Dye [IV Dye, Iodine Containing] Adverse Reaction (Unknown, Verified 05/20/18 14:55) Respiratory distress Review of Systems Cardiovascular: PRESENT: dyspnea on exertion, edema, orthropnea Physical Exam Vital Signs: Temp Pulse Resp BP Pulse Ox 98.8 F 90 19 139/67 H 97 05/21/18 11:02 05/21/18 08:45 05/21/18 11:00 05/21/18 11:00 05/21/18 11:00 Intake & Output 05/20/18 05/21/18 05/22/18 06:59 06:59 06:59 Output Total 20 Balance -20 Weight 99 kg General appearance: PRESENT: mild distress, morbidly obese Head exam: PRESENT: atraumatic, normocephalic Neck exam: PRESENT: JVD Respiratory exam: PRESENT: accessory muscle use, decreased breath sounds Extremities exam: PRESENT: pedal edema, +2 edema Results Laboratory Results: 05/21/18 05:05 05/21/18 05:05 05/20/18 05/20/18 05/20/18 17:30 17:30 19:25 WBC 9.6 RBC 3.09 L Hgb 9.3 L Hct 26.8 L MCV 87 MCH 29.9 MCHC 34.5 RDW 15.1 H Plt Count 364 Seg Neutrophils % Not Reportable Lymphocytes % Not Reportable Monocytes % Not Reportable Eosinophils % Not Reportable Basophils % Not Reportable Absolute Neutrophils Not Reportable Absolute Lymphocytes Not Reportable Absolute Monocytes Not Reportable Absolute Eosinophils Not Reportable Absolute Basophils Not Reportable Sodium Cancelled 128.6 L Potassium Cancelled 4.4 Chloride Cancelled 93 L Carbon Dioxide Cancelled 29 Anion Gap Cancelled 7 BUN Cancelled 31 H Creatinine Cancelled 3.51 H Est GFR ( Amer) Cancelled 16 L Est GFR (Non-Af Amer) Cancelled 13 L Glucose Cancelled 92 Calcium Cancelled 8.9 Magnesium Total Bilirubin Cancelled 0.4 AST Cancelled 18 ALT Cancelled 27 Alkaline Phosphatase Cancelled 77 Total Protein Cancelled 5.6 L Albumin Cancelled 3.4 L Triglycerides Cholesterol LDL Cholesterol Direct VLDL Cholesterol HDL Cholesterol TSH Free T4 Free T3 pg/mL Urine Color Urine Appearance Urine pH Ur Specific [place] Urine Protein Urine Glucose (UA) Urine Ketones Urine Blood Urine Nitrite Ur Leukocyte Esterase Urine WBC (Auto) Urine RBC (Auto) 05/20/18 05/21/18 05/21/18 22:45 05:05 05:05 WBC 8.4 RBC 2.96 L Hgb 8.6 L Hct 25.3 L MCV 85 MCH 29.2 MCHC 34.2 RDW 15.1 H Plt Count 334 Seg Neutrophils % Not Reportable Lymphocytes % Not Reportable Monocytes % Not Reportable Eosinophils % Not Reportable Basophils % Not Reportable Absolute Neutrophils Not Reportable Absolute Lymphocytes Not Reportable Absolute Monocytes Not Reportable Absolute Eosinophils Not Reportable Absolute Basophils Not Reportable Sodium 130.3 L Potassium 4.5 Chloride 94 L Carbon Dioxide 28 Anion Gap 8 BUN 33 H Creatinine 3.68 H Est GFR ( Amer) 15 L Est GFR (Non-Af Amer) 12 L Glucose 86 Calcium 8.8 Magnesium 1.9 Total Bilirubin AST ALT Alkaline Phosphatase Total Protein Albumin Triglycerides 48 Cholesterol 120.49 LDL Cholesterol Direct 58 VLDL Cholesterol 10.0 HDL Cholesterol 51 TSH Free T4 Free T3 pg/mL Urine Color YELLOW Urine Appearance CLEAR Urine pH 7.0 Ur Specific [place] 1.009 Urine Protein 100 H Urine Glucose (UA) NEGATIVE Urine Ketones NEGATIVE Urine Blood NEGATIVE Urine Nitrite NEGATIVE Ur Leukocyte Esterase NEGATIVE Urine WBC (Auto) 1 Urine RBC (Auto) 0 05/21/18 05:05 WBC RBC Hgb Hct MCV MCH MCHC RDW Plt Count Seg Neutrophils % Lymphocytes % Monocytes % Eosinophils % Basophils % Absolute Neutrophils Absolute Lymphocytes Absolute Monocytes Absolute Eosinophils Absolute Basophils Sodium Potassium Chloride Carbon Dioxide Anion Gap BUN Creatinine Est GFR ( Amer) Est GFR (Non-Af Amer) Glucose Calcium Magnesium Total Bilirubin AST ALT Alkaline Phosphatase Total Protein Albumin Triglycerides Cholesterol LDL Cholesterol Direct VLDL Cholesterol HDL Cholesterol TSH 0.90 Free T4 1.41 Free T3 pg/mL 2.39 L Urine Color Urine Appearance Urine pH Ur Specific [place] Urine Protein Urine Glucose (UA) Urine Ketones Urine Blood Urine Nitrite Ur Leukocyte Esterase Urine WBC (Auto) Urine RBC (Auto) 05/20/18 05/20/18 05/20/18 17:30 17:30 19:25 Creatine Kinase Cancelled 96 CK-MB (CK-2) 0.38 Troponin I 0.016 NT-Pro-B Natriuret Pep 3210 H 05/20/18 21:29 Creatine Kinase CK-MB (CK-2) Troponin I 0.020 NT-Pro-B Natriuret Pep Impressions: Chest X-Ray 05/20/18 17:10 IMPRESSION: Cardiomegaly. Cannot exclude mild pulmonary edema. Assessment & Plan - Diagnosis (1) Acute on chronic diastolic (congestive) heart failure Is this a current diagnosis for this admission?: Yes (2) Acute on chronic renal failure Qualifiers: Acute renal failure type: unspecified Chronic kidney disease stage: stage 4 (severe) Qualified Code(s): N17.9 - Acute kidney failure, unspecified; N18.4 - Chronic kidney disease, stage 4 (severe) Is this a current diagnosis for this admission?: Yes (4) Hypertension Qualifiers: Hypertension type: essential hypertension Qualified Code(s): I10 - Essential (primary) hypertension Is this a current diagnosis for this admission?: Yes (5) Diabetes mellitus type 2 in obese Is this a current diagnosis for this admission?: Yes (6) Chronic obstructive pulmonary disease Qualifiers: COPD type: unspecified COPD Qualified Code(s): J44.9 - Chronic obstructive pulmonary disease, unspecified Is this a current diagnosis for this admission?: Yes - Notes Notes: Reviewed labs, EKG and imaging test. Patient's last echocardiogram in March 2018 showed preserved EF with LVH and diastolic dysfunction. EKG shows sinus rhythm with no acute STT changes noted to suggest acute coronary syndrome. Patient with multiple comorbidities with chronic diastolic dysfunction comes with acute heart failure symptoms with worsening renal function likely secondary to splanchnic congestion and will recommend up titrating the Lasix to 40 mg IV twice a day initially to correct volume overload status and with improving splanchnic congestion renal function will likely improve. Will recommend to avoid nephrotoxic medications at this time. Continue afterload reduction with beta-dana, hydralazine and ARB. Monitor intake output and renal function closely. Diabetes management per primary team. Will reevaluate volume status in a.m. tomorrow. - Time Time Spent: 50 to 70 Minutes
[2018-05-21] MEDS: HYDRALAZINE HCL 50 MG TABLET PO SCH ×2 (16:02→22:11)
[2018-05-21] MEDS ORDERED: HEPARIN SOD (PORCINE) 5,000 UNIT/ML 1 ML SYRINGE SUBCUT ONE (16:30)
--- NOTE | 2018-05-21 17:30 | PDOC PROGRESS REPORT ---
Subjective Progress Note for:: 05/21/18 Subjective:: LUIZA CAMARGO is a 72 y.o. F with PMH of HTN, DM, CKD stage III/IV, COPD, chronic anemia, morbid obesity, history of diastolic dysfunction comes with complaints of progressively worsening shortness of breath with swelling of both lower extremities. CXR reveals pulmonary vascular congestion. The patient was treated with a dose of Lasix in the ED. additionally, her Creatinine has increased significantly from her baseline 2.5-->3.48. Upon assessment, the patient was resting comfortably in bed on room air. She states that her breathing feels much better, and her peripheral edema has greatly improved since receiving IV Lasix. However, when assisted patient to sit up in the bed, her SPO2 dropped to 87% with minimal exertion. Lungs clear to auscultation. Patient does not appear to be in respiratory distress. (+) 2 peripheral edema to feet and ankles. Cardiology consulted given the patient's longstanding history of CHF. Would like to attempt to optimize her cardiac function in order to better perfuse her kidneys and, hopefully, avoid dialysis. Reason For Visit: ACUTE ON CHRONIC RENAL FAILURE Physical Exam Vital Signs: Temp Pulse Resp BP Pulse Ox 98.8 F 90 19 139/67 H 97 05/21/18 11:02 05/21/18 08:45 05/21/18 11:00 05/21/18 11:00 05/21/18 11:00 Intake & Output 05/20/18 05/21/18 05/22/18 06:59 06:59 06:59 Output Total 20 Balance -20 Weight 99 kg General appearance: PRESENT: no acute distress, morbidly obese Head exam: PRESENT: atraumatic Eye exam: PRESENT: conjunctiva pink, PERRLA Mouth exam: PRESENT: moist Teeth exam: PRESENT: poor dentation Neck exam: PRESENT: full ROM Respiratory exam: PRESENT: clear to auscultation jackie, symmetrical, unlabored Cardiovascular exam: PRESENT: +S1, +S2. ABSENT: irregular rhythm Pulses: PRESENT: normal radial pulses, normal dorsalis pedis pul Vascular exam: PRESENT: normal capillary refill GI/Abdominal exam: PRESENT: soft. ABSENT: distended, tenderness Rectal exam: PRESENT: deferred Extremities exam: PRESENT: full ROM, pedal edema, +2 edema Musculoskeletal exam: PRESENT: ambulatory, full ROM Neurological exam: PRESENT: alert, awake, oriented to person, oriented to place, oriented to time, oriented to situation Psychiatric exam: PRESENT: appropriate affect Skin exam: PRESENT: dry, intact, normal color Results Laboratory Results: 05/21/18 05:05 05/21/18 05:05 05/20/18 05/20/18 05/20/18 17:30 17:30 19:25 WBC 9.6 RBC 3.09 L Hgb 9.3 L Hct 26.8 L MCV 87 MCH 29.9 MCHC 34.5 RDW 15.1 H Plt Count 364 Seg Neutrophils % Not Reportable Lymphocytes % Not Reportable Monocytes % Not Reportable Eosinophils % Not Reportable Basophils % Not Reportable Absolute Neutrophils Not Reportable Absolute Lymphocytes Not Reportable Absolute Monocytes Not Reportable Absolute Eosinophils Not Reportable Absolute Basophils Not Reportable Sodium Cancelled 128.6 L Potassium Cancelled 4.4 Chloride Cancelled 93 L Carbon Dioxide Cancelled 29 Anion Gap Cancelled 7 BUN Cancelled 31 H Creatinine Cancelled 3.51 H Est GFR ( Amer) Cancelled 16 L Est GFR (Non-Af Amer) Cancelled 13 L Glucose Cancelled 92 Calcium Cancelled 8.9 Magnesium Total Bilirubin Cancelled 0.4 AST Cancelled 18 ALT Cancelled 27 Alkaline Phosphatase Cancelled 77 Total Protein Cancelled 5.6 L Albumin Cancelled 3.4 L Triglycerides Cholesterol LDL Cholesterol Direct VLDL Cholesterol HDL Cholesterol TSH Free T4 Free T3 pg/mL Urine Color Urine Appearance Urine pH Ur Specific [place] Urine Protein Urine Glucose (UA) Urine Ketones Urine Blood Urine Nitrite Ur Leukocyte Esterase Urine WBC (Auto) Urine RBC (Auto) 05/20/18 05/21/18 05/21/18 22:45 05:05 05:05 WBC 8.4 RBC 2.96 L Hgb 8.6 L Hct 25.3 L MCV 85 MCH 29.2 MCHC 34.2 RDW 15.1 H Plt Count 334 Seg Neutrophils % Not Reportable Lymphocytes % Not Reportable Monocytes % Not Reportable Eosinophils % Not Reportable Basophils % Not Reportable Absolute Neutrophils Not Reportable Absolute Lymphocytes Not Reportable Absolute Monocytes Not Reportable Absolute Eosinophils Not Reportable Absolute Basophils Not Reportable Sodium 130.3 L Potassium 4.5 Chloride 94 L Carbon Dioxide 28 Anion Gap 8 BUN 33 H Creatinine 3.68 H Est GFR ( Amer) 15 L Est GFR (Non-Af Amer) 12 L Glucose 86 Calcium 8.8 Magnesium 1.9 Total Bilirubin AST ALT Alkaline Phosphatase Total Protein Albumin Triglycerides 48 Cholesterol 120.49 LDL Cholesterol Direct 58 VLDL Cholesterol 10.0 HDL Cholesterol 51 TSH Free T4 Free T3 pg/mL Urine Color YELLOW Urine Appearance CLEAR Urine pH 7.0 Ur Specific [place] 1.009 Urine Protein 100 H Urine Glucose (UA) NEGATIVE Urine Ketones NEGATIVE Urine Blood NEGATIVE Urine Nitrite NEGATIVE Ur Leukocyte Esterase NEGATIVE Urine WBC (Auto) 1 Urine RBC (Auto) 0 05/21/18 05:05 WBC RBC Hgb Hct MCV MCH MCHC RDW Plt Count Seg Neutrophils % Lymphocytes % Monocytes % Eosinophils % Basophils % Absolute Neutrophils Absolute Lymphocytes Absolute Monocytes Absolute Eosinophils Absolute Basophils Sodium Potassium Chloride Carbon Dioxide Anion Gap BUN Creatinine Est GFR ( Amer) Est GFR (Non-Af Amer) Glucose Calcium Magnesium Total Bilirubin AST ALT Alkaline Phosphatase Total Protein Albumin Triglycerides Cholesterol LDL Cholesterol Direct VLDL Cholesterol HDL Cholesterol TSH 0.90 Free T4 1.41 Free T3 pg/mL 2.39 L Urine Color Urine Appearance Urine pH Ur Specific [place] Urine Protein Urine Glucose (UA) Urine Ketones Urine Blood Urine Nitrite Ur Leukocyte Esterase Urine WBC (Auto) Urine RBC (Auto) 05/20/18 05/20/18 05/20/18 17:30 17:30 19:25 Creatine Kinase Cancelled 96 CK-MB (CK-2) 0.38 Troponin I 0.016 NT-Pro-B Natriuret Pep 3210 H 05/20/18 21:29 Creatine Kinase CK-MB (CK-2) Troponin I 0.020 NT-Pro-B Natriuret Pep Impressions: Chest X-Ray 05/20/18 17:10 IMPRESSION: Cardiomegaly. Cannot exclude mild pulmonary edema. Status: Imported from PACS Assessment & Plan - Diagnosis (1) Acute on chronic diastolic (congestive) heart failure Is this a current diagnosis for this admission?: Yes Plan: 03/2018 echocardiogram shows preserved EF with LVH and grade II diastolic dysfunction. No need to repeat at this time. EKG shows NSR, no signs of acute ischemia or infarction BNP 3210, higher than patient's range of [id number] Attempt to correct volume overload with twice daily IV Lasix 40 mg per Cardiology recommendations Monitor I/O and daily chemistries (2) Acute on chronic renal failure Qualifiers: Acute renal failure type: unspecified Chronic kidney disease stage: stage 4 (severe) Qualified Code(s): N17.9 - Acute kidney failure, unspecified; N18.4 - Chronic kidney disease, stage 4 (severe) Is this a current diagnosis for this admission?: Yes Plan: Followed by Dr. Gutierres Baseline creatinine 2.5 Creatinine upon arrival 3.4 Worsening renal function likely secondary to splanchnic congestion, plan for BID diuresis to correct volume overload and splanchnic congestion Avoid nephrotoxic medications at this time -Daliresp and Tradjenta currently on hold (3) Chronic obstructive pulmonary disease Qualifiers: COPD type: unspecified COPD Qualified Code(s): J44.9 - Chronic obstructive pulmonary disease, unspecified Is this a current diagnosis for this admission?: Yes Plan: History of COPD Continue Pulmicort, Spiriva and Serevent Supplemental oxygen via nasal cannula for SPO2 >88% (4) Hypertension Qualifiers: Hypertension type: essential hypertension Qualified Code(s): I10 - Essential (primary) hypertension Is this a current diagnosis for this admission?: Yes Plan: PMH of HTN Continue home dose hydralazine, Diovan, Norvasc (5) Diabetes Qualifiers: Diabetes mellitus type: type 2 Diabetes mellitus complication status: with unspecified complications Is this a current diagnosis for this admission?: Yes Plan: Accu-Cheks AC at bedtime Humalog sliding scale insulin Cardiac diabetic diet Hgb A1c with a.m. labs (6) Morbid obesity Is this a current diagnosis for this admission?: Yes Plan: Cardiac/diabetic diet - Time Time Spent with patient: 15-24 minutes Smoking Cessation Education: 3 to 10 minutes Anticipated discharge: Home Within: within 48 hours - Inpatient Certification Based on my medical assessment, after consideration of the patient's comorbidities, presenting symptoms, or acuity I expect that the services needed warrant INPATIENT care.: Yes I certify that my determination is in accordance with my understanding of Medicare's requirements for reasonable and necessary INPATIENT services [42 CFR 412.3e].: Yes Medical Necessity: Risk of Complication if Not Cared For in Hospital - Plan Summary Plan Summary: Avoid nephrotoxic medications. Twice daily Lasix. Supplemental oxygen for SPO2>88%
[2018-05-21] MEDS: FUROSEMIDE INJ/PF 40 MG/4 ML SDV IV SCH (18:45)
[2018-05-21] MEDS: ATORVASTATIN CALCIUM 40 MG TABLET PO SCH (22:12)
[2018-05-22] MEDS: IPRATROPIUM BROMIDE 0.02% NEB 0.5 MG/2.5 ML AMPUL NEB SCH ×4 (00:23→23:30)
[2018-05-22] MEDS: LEVALBUTEROL HCL NEB 1.25 MG/3 ML AMPUL NEB SCH ×4 (00:23→23:30)
[2018-05-22] MEDS: HEPARIN SOD (PORCINE) 5,000 UNIT/ML 1 ML SYRINGE SUBCUT SCH ×3 (05:11→21:25)
[2018-05-22] MEDS: LANSOPRAZOLE 30 MG TAB.RAP.DR PO SCH ×2 (05:12→17:33)
[2018-05-22] MEDS: HYDRALAZINE HCL 50 MG TABLET PO SCH ×3 (05:12→21:22)
[2018-05-22 05:43] LABS: HEMATOCRIT 25.3 % (36.0-47.0); HEMOGLOBIN 8.6 g/dL (12.0-15.5); MEAN CORPUSCULAR HEMOGLOBIN 29.5 pg (27.0-33.4); MEAN CORPUSCULAR HGB CONC 33.9 g/dL (32.0-36.0); MEAN CORPUSCULAR VOLUME 87 fl (80-97); PLATELET COUNT 319 10^3/uL (150-450); RED CELL DISTRIBUTION WIDTH 15.3 % (11.5-14.0); WHITE BLOOD COUNT 8.6 10^3/uL (4.0-10.5)
[2018-05-22 06:16] LABS: ABSOLUTE LYMPHOCYTES# (MANUAL) 1.3 10^3/uL (0.5-4.7); ABSOLUTE MONOCYTES # (MANUAL) 0.9 10^3/uL (0.1-1.4); ABSOLUTE NEUTROPHILS# (MANUAL) 5.8 10^3/uL (1.7-8.2); BAND NEUTROPHILS % (MANUAL) 1 % (3-5); BASOPHILS % (MANUAL) 0 % (0-2); EOSINOPHILS % (MANUAL) 6 % (0-6); LYMPHOCYTES % (MANUAL) 15 % (13-45); MONOCYTES % (MANUAL) 11 % (3-13); SEGMENTED NEUTROPHILS % (MAN) 67 % (42-78); TOTAL CELLS COUNTED 100
[2018-05-22 06:17] LABS: POLYCHROMASIA SLIGHT; TOXIC GRANULATION SLIGHT
[2018-05-22 06:18] LABS: ANISOCYTOSIS SLIGHT; BURR CELLS 1+; OVALOCYTES SLIGHT; PLATELET COMMENT ADEQUATE; POIKILOCYTOSIS 1+; SCHISTOCYTES 1+
[2018-05-22 06:26] LABS: ANION GAP 9 (5-19); BLOOD UREA NITROGEN 36 mg/dL (7-20); CALCIUM 8.7 mg/dL (8.4-10.2); CARBON DIOXIDE 27 mmol/L (22-30); CHLORIDE 93 mmol/L (98-107); GLUCOSE 118 mg/dL (75-110); POTASSIUM 4.4 mmol/L (3.6-5.0); SODIUM 129.4 mmol/L (137-145)
[2018-05-22] MEDS: BUDESONIDE NEB 0.5 MG/2 ML AMPUL NEB SCH ×2 (07:54→19:00)
--- NOTE | 2018-05-22 09:11 | PDOC PROGRESS REPORT ---
Subjective Progress Note for:: 05/22/18 Subjective:: Patient claims she feels better today with improved shortness of breath. Reason For Visit: ACUTE ON CHRONIC diastolic heart failure Physical Exam Vital Signs: Temp Pulse Resp BP Pulse Ox 98.5 F 75 16 132/58 H 100 05/22/18 08:07 05/22/18 08:07 05/22/18 08:07 05/22/18 08:07 05/22/18 08:07 Intake & Output 05/21/18 05/22/18 05/23/18 06:59 06:59 06:59 Output Total 20 Balance -20 Weight 99 kg 96.4 kg General appearance: PRESENT: no acute distress, obese, well-developed, well- nourished Head exam: PRESENT: atraumatic, normocephalic Eye exam: PRESENT: conjunctiva pink, EOMI, PERRLA. ABSENT: scleral icterus Ear exam: PRESENT: normal external ear exam Mouth exam: PRESENT: moist, tongue midline Neck exam: ABSENT: carotid bruit, JVD, lymphadenopathy, thyromegaly Respiratory exam: PRESENT: clear to auscultation jackie. ABSENT: rales, rhonchi, wheezes Cardiovascular exam: PRESENT: RRR. ABSENT: diastolic murmur, rubs, systolic mur mur Pulses: PRESENT: normal dorsalis pedis pul Vascular exam: PRESENT: normal capillary refill GI/Abdominal exam: PRESENT: normal bowel sounds, soft. ABSENT: distended, guarding, mass, organolmegaly, rebound, tenderness Rectal exam: PRESENT: deferred Extremities exam: PRESENT: full ROM, +2 edema. ABSENT: calf tenderness, clubbing, pedal edema Neurological exam: PRESENT: alert, awake, oriented to person, oriented to place, oriented to time, oriented to situation, CN II-XII grossly intact. ABSENT: motor sensory deficit Psychiatric exam: PRESENT: appropriate affect, normal mood. ABSENT: homicidal ideation, suicidal ideation Skin exam: PRESENT: dry, intact, warm. ABSENT: cyanosis, rash Results Laboratory Results: 05/22/18 04:27 05/22/18 04:27 05/22/18 05/22/18 04:27 04:27 WBC 8.6 RBC 2.90 L Hgb 8.6 L Hct 25.3 L MCV 87 MCH 29.5 MCHC 33.9 RDW 15.3 H Plt Count 319 Seg Neutrophils % Not Reportable Lymphocytes % Not Reportable Monocytes % Not Reportable Eosinophils % Not Reportable Basophils % Not Reportable Absolute Neutrophils Not Reportable Absolute Lymphocytes Not Reportable Absolute Monocytes Not Reportable Absolute Eosinophils Not Reportable Absolute Basophils Not Reportable Sodium 129.4 L Potassium 4.4 Chloride 93 L Carbon Dioxide 27 Anion Gap 9 BUN 36 H Creatinine 3.60 H Est GFR ( Amer) 15 L Est GFR (Non-Af Amer) 13 L Glucose 118 H Calcium 8.7 Magnesium 2.0 05/20/18 05/20/18 05/20/18 17:30 17:30 19:25 Creatine Kinase Cancelled 96 CK-MB (CK-2) 0.38 Troponin I 0.016 NT-Pro-B Natriuret Pep 3210 H 05/20/18 05/22/18 21:29 04:27 Creatine Kinase CK-MB (CK-2) Troponin I 0.020 NT-Pro-B Natriuret Pep 4680 H Impressions: Chest X-Ray 05/20/18 17:10 IMPRESSION: Cardiomegaly. Cannot exclude mild pulmonary edema. Status: Image reviewed by me Assessment & Plan - Diagnosis (1) Acute on chronic diastolic (congestive) heart failure Is this a current diagnosis for this admission?: Yes (2) Acute on chronic renal failure Qualifiers: Acute renal failure type: unspecified Chronic kidney disease stage: stage 4 (severe) Qualified Code(s): N17.9 - Acute kidney failure, unspecified; N18.4 - Chronic kidney disease, stage 4 (severe) Is this a current diagnosis for this admission?: Yes (3) Morbid obesity Is this a current diagnosis for this admission?: Yes (4) Hypertension Qualifiers: Hypertension type: essential hypertension Qualified Code(s): I10 - Essential (primary) hypertension Is this a current diagnosis for this admission?: Yes (5) Diabetes mellitus type 2 in obese Is this a current diagnosis for this admission?: Yes (6) Chronic obstructive pulmonary disease Qualifiers: COPD type: unspecified COPD Qualified Code(s): J44.9 - Chronic obstructive pulmonary disease, unspecified Is this a current diagnosis for this admission?: Yes - Notes Notes: Patient still has volume excess on exam but has lost 5.3 kg since her admission. Reviewed her labs and telemetry. Diffuse artifacts on telemetry but no obvious significant arrhythmia noted. Will recommend to continue on IV Lasix 40 twice daily and in addition give her metolazone 2.5 mg oral today. Will recommend close intake output charting as we do not have any intake output from yesterday and repeat renal function in the morning. Diuretic need will need to be ass essed after reviewing daily weights and renal function. Continue with afterload reduction with beta-dana, hydralazine and ARB therapy and continue patient on aspirin and statin therapy. Dr. Carr will resume care in the morning tomorrow for her cardiology needs. - Time Time with patient: Greater than 35 minutes Medications reviewed and adjusted accordingly: Yes
[2018-05-22] MEDS: ASPIRIN 81 MG TABLET, CHEWABLE PO SCH (09:19)
[2018-05-22] MEDS: FERROUS SULFATE 325 MG TABLET PO SCH (09:19)
[2018-05-22] MEDS: VALSARTAN 160 MG TABLET PO SCH (09:19)
[2018-05-22] MEDS: CARVEDILOL 12.5 MG TABLET PO SCH ×2 (09:19→17:32)
[2018-05-22] MEDS: TIOTROPIUM BROMIDE DPI 5 CAP/KIT (18 MCG/CAP) IH SCH (09:20)
[2018-05-22] MEDS: DOCUSATE SODIUM 100 MG CAPSULE PO SCH ×2 (09:20→17:29)
[2018-05-22] MEDS: FUROSEMIDE INJ/PF 40 MG/4 ML SDV IV SCH ×2 (09:22→17:32)
[2018-05-22] MEDS: METOLAZONE 2.5 MG TABLET PO SCH (10:39)
[2018-05-22] MEDS: INSULIN DETEMIR 100 UNIT/ML 3 ML PEN SUBCUT SCH (11:57)
--- NOTE | 2018-05-22 13:55 | PDOC PROGRESS REPORT ---
Subjective Progress Note for:: 05/22/18 Subjective:: LUIZA CAMARGO is a 72 y.o. F with PMH of HTN, DM, CKD stage III/IV, COPD, chronic anemia, morbid obesity, history of diastolic dysfunction. She was admitted to [facility] with pulmonary edema, SOB and acute renal failure. The patient has been treated with BID Lasix. Upon assessment, the patient was resting comfortably in the bedside recliner. She is receiving supplemental O2 via nasal cannula. She states that her breathing feels much better today. Crackles can be auscultated bilaterally. (+) 2 peripheral edema to feet and ankles. The patient's Creatinine has remained relatively unchanged (3.68-->3.6) and BNP has increased (3200-->4600). Cardiology recommending starting Metolazone 2.5 mg daily to increase diuresis. Reason For Visit: ACUTE ON CHRONIC RENAL FAILURE Physical Exam Vital Signs: Temp Pulse Resp BP Pulse Ox 98.5 F 75 16 132/58 H 100 05/22/18 08:07 05/22/18 08:07 05/22/18 08:07 05/22/18 08:07 05/22/18 08:07 Intake & Output 05/21/18 05/22/18 05/23/18 06:59 06:59 06:59 Output Total 20 Balance -20 Weight 99 kg 96.4 kg General appearance: PRESENT: no acute distress, morbidly obese Eye exam: PRESENT: conjunctiva pink, PERRLA Mouth exam: PRESENT: moist Teeth exam: PRESENT: poor dentation Neck exam: PRESENT: full ROM. ABSENT: JVD Respiratory exam: PRESENT: crackles, symmetrical, unlabored - SUPPLEMENTAL O2 VIA NASAL CANNULA Cardiovascular exam: PRESENT: +S1, +S2 Pulses: PRESENT: normal radial pulses, normal dorsalis pedis pul Vascular exam: PRESENT: normal capillary refill GI/Abdominal exam: PRESENT: soft. ABSENT: distended, tenderness Rectal exam: PRESENT: deferred Extremities exam: PRESENT: full ROM, pedal edema, +2 edema Musculoskeletal exam: PRESENT: ambulatory, full ROM Neurological exam: PRESENT: alert, awake, oriented to person, oriented to place, oriented to time, oriented to situation Psychiatric exam: PRESENT: appropriate affect Skin exam: PRESENT: dry, intact, normal color Results Laboratory Results: 05/22/18 04:27 05/22/18 04:27 05/22/18 05/22/18 04:27 04:27 WBC 8.6 RBC 2.90 L Hgb 8.6 L Hct 25.3 L MCV 87 MCH 29.5 MCHC 33.9 RDW 15.3 H Plt Count 319 Seg Neutrophils % Not Reportable Lymphocytes % Not Reportable Monocytes % Not Reportable Eosinophils % Not Reportable Basophils % Not Reportable Absolute Neutrophils Not Reportable Absolute Lymphocytes Not Reportable Absolute Monocytes Not Reportable Absolute Eosinophils Not Reportable Absolute Basophils Not Reportable Sodium 129.4 L Potassium 4.4 Chloride 93 L Carbon Dioxide 27 Anion Gap 9 BUN 36 H Creatinine 3.60 H Est GFR ( Amer) 15 L Est GFR (Non-Af Amer) 13 L Glucose 118 H Calcium 8.7 Magnesium 2.0 05/20/18 05/20/18 05/20/18 17:30 17:30 19:25 Creatine Kinase Cancelled 96 CK-MB (CK-2) 0.38 Troponin I 0.016 NT-Pro-B Natriuret Pep 3210 H 05/20/18 05/22/18 21:29 04:27 Creatine Kinase CK-MB (CK-2) Troponin I 0.020 NT-Pro-B Natriuret Pep 4680 H Impressions: Chest X-Ray 05/20/18 17:10 IMPRESSION: Cardiomegaly. Cannot exclude mild pulmonary edema. Status: Imported from PACS Assessment & Plan - Diagnosis (1) Acute on chronic diastolic (congestive) heart failure Is this a current diagnosis for this admission?: Yes Plan: 03/2018 echocardiogram shows preserved EF with LVH and grade II diastolic dysfunction. No need to repeat at this time. EKG shows NSR, no signs of acute ischemia or infarction BNP 4500, higher than patient's range of 7050-4682 Attempt to correct volume overload with twice daily IV Lasix 40 mg and daily metolazone 2.5mgper Cardiology recommendations Monitor I/O and daily chemistries (2) Acute on chronic renal failure Qualifiers: Acute renal failure type: unspecified Chronic kidney disease stage: stage 4 (severe) Qualified Code(s): N17.9 - Acute kidney failure, unspecified; N18.4 - Chronic kidney disease, stage 4 (severe) Is this a current diagnosis for this admission?: Yes Plan: Unchanged Followed by Dr. Gutierres Baseline creatinine 2.5 Creatinine upon arrival 3.4-->now 3.0 Renal function likely secondary to splanchnic congestion, plan for BID Lasix and daily metolazone to correct volume overload and splanchnic congestion Avoid nephrotoxic medications at this time -Daliresp and Tradjenta currently on hold (3) Chronic obstructive pulmonary disease Qualifiers: COPD type: unspecified COPD Qualified Code(s): J44.9 - Chronic obstructive pulmonary disease, unspecified Is this a current diagnosis for this admission?: Yes Plan: History of COPD Continue Pulmicort, Spiriva and Serevent Supplemental oxygen via nasal cannula for SPO2 >88% (4) Hypertension Qualifiers: Hypertension type: essential hypertension Qualified Code(s): I10 - Essential (primary) hypertension Is this a current diagnosis for this admission?: Yes Plan: PMH of HTN Continue home dose hydralazine, Diovan, Norvasc (5) Diabetes Qualifiers: Diabetes mellitus type: type 2 Diabetes mellitus complication status: with unspecified complications Is this a current diagnosis for this admission?: Yes (6) Morbid obesity Is this a current diagnosis for this admission?: Yes Plan: Cardiac/diabetic diet
[2018-05-22] MEDS: INSULIN LISPRO 100 UNIT/ML 3 ML VIAL SUBCUT PRN (16:49)
[2018-05-22] MEDS: ATORVASTATIN CALCIUM 40 MG TABLET PO SCH (21:22)
[2018-05-23 04:45] LABS: HEMATOCRIT 24.3 % (36.0-47.0); HEMOGLOBIN 8.3 g/dL (12.0-15.5); MEAN CORPUSCULAR HEMOGLOBIN 29.3 pg (27.0-33.4); MEAN CORPUSCULAR VOLUME 86 fl (80-97); PLATELET COUNT 296 10^3/uL (150-450); RED BLOOD COUNT 2.83 10^6/uL (3.72-5.28); RED CELL DISTRIBUTION WIDTH 15.1 % (11.5-14.0); WHITE BLOOD COUNT 8.7 10^3/uL (4.0-10.5)
[2018-05-23 05:10] LABS: ANION GAP 9 (5-19); BLOOD UREA NITROGEN 37 mg/dL (7-20); CALCIUM 8.5 mg/dL (8.4-10.2); CARBON DIOXIDE 27 mmol/L (22-30); CHLORIDE 94 mmol/L (98-107); GLUCOSE 101 mg/dL (75-110); POTASSIUM 4.3 mmol/L (3.6-5.0); SODIUM 129.7 mmol/L (137-145)
[2018-05-23 05:17] LABS: ABSOLUTE LYMPHOCYTES# (MANUAL) 1.7 10^3/uL (0.5-4.7); ABSOLUTE NEUTROPHILS# (MANUAL) 5.7 10^3/uL (1.7-8.2); BASOPHILS % (MANUAL) 0 % (0-2); EOSINOPHILS % (MANUAL) 3 % (0-6); LYMPHOCYTES % (MANUAL) 19 % (13-45); MONOCYTES % (MANUAL) 11 % (3-13); SEGMENTED NEUTROPHILS % (MAN) 66 % (42-78); TOTAL CELLS COUNTED 100
[2018-05-23 05:19] LABS: ANISOCYTOSIS SLIGHT; POIKILOCYTOSIS 2+; POLYCHROMASIA SLIGHT; TOXIC GRANULATION SLIGHT; TOXIC VACUOLATION PRESENT
[2018-05-23 05:20] LABS: OVALOCYTES 1+; PLATELET COMMENT ADEQUATE; SCHISTOCYTES 1+; TEAR DROP CELLS SLIGHT
[2018-05-23] MEDS: HEPARIN SOD (PORCINE) 5,000 UNIT/ML 1 ML SYRINGE SUBCUT SCH ×3 (05:52→21:03)
[2018-05-23] MEDS: HYDRALAZINE HCL 50 MG TABLET PO SCH ×3 (05:54→21:02)
[2018-05-23] MEDS: LANSOPRAZOLE 30 MG TAB.RAP.DR PO SCH ×2 (05:55→17:19)
[2018-05-23] MEDS ORDERED: MAGNESIUM HYDROXIDE SUSP 30 ML UDCUP ONE (07:52)
[2018-05-23] MEDS ORDERED: BISACODYL 10 MG SUPP.RECT PR PRN (08:08)
[2018-05-23] MEDS ORDERED: MAGNESIUM HYDROXIDE SUSP 30 ML UDCUP PO PRN (08:08)
[2018-05-23] MEDS: INSULIN DETEMIR 100 UNIT/ML 3 ML PEN SUBCUT SCH (08:28)
[2018-05-23] MEDS: LEVALBUTEROL HCL NEB 1.25 MG/3 ML AMPUL NEB SCH ×2 (09:08→15:58)
[2018-05-23] MEDS: BUDESONIDE NEB 0.5 MG/2 ML AMPUL NEB SCH ×2 (09:08→20:17)
[2018-05-23] MEDS: IPRATROPIUM BROMIDE 0.02% NEB 0.5 MG/2.5 ML AMPUL NEB SCH ×2 (09:08→15:58)
[2018-05-23] MEDS ORDERED: ERGOCALCIFEROL (VITAMIN D2) 50000 UNIT (1.25 MG) CAPSULE PO SCH (10:00)
[2018-05-23] MEDS: VALSARTAN 160 MG TABLET PO SCH (10:34)
[2018-05-23] MEDS: FUROSEMIDE INJ/PF 40 MG/4 ML SDV IV SCH ×2 (10:35→17:20)
[2018-05-23] MEDS: METOLAZONE 2.5 MG TABLET PO SCH (10:35)
[2018-05-23] MEDS: CARVEDILOL 12.5 MG TABLET PO SCH ×2 (10:35→17:19)
[2018-05-23] MEDS: FERROUS SULFATE 325 MG TABLET PO SCH (10:35)
[2018-05-23] MEDS: ASPIRIN 81 MG TABLET, CHEWABLE PO SCH (10:35)
[2018-05-23] MEDS: DOCUSATE SODIUM 100 MG CAPSULE PO SCH ×2 (10:41→17:19)
[2018-05-23] MEDS: TIOTROPIUM BROMIDE DPI 5 CAP/KIT (18 MCG/CAP) IH SCH (10:43)
--- NOTE | 2018-05-23 15:42 | PDOC CONSULTATION ---
Consultation Consult Date: 05/23/18 Attending physician:: LAUREL ANDREWS Consult reason:: I was asked to see the patient because of pulmonary congestion, increased lower extremity edema in a patient with underlying chronic kidney disease. History of Present Illness Admission Date/PCP: 05/20/18 22:42 KAMILLE GLASGOW MD History of Present Illness: LUIZA CAMARGO is a 72 year old female known to me with history of chronic kidney disease baseline stage IV secondary to diabetic nephropathy with nephrotic range proteinuria, diabetes mellitus type 2, hypertension, anemia of chronic kidney disease, COPD, cardiomyopathy, and sleep apnea who came into the emergency room last Wednesday because of worsening shortness of breath, increasing leg swelling for 2-3 days and decreased urine output. Patient was also constipated and has not had bowel movement for 4 days until this morning after she was given laxatives. She denies any chest pains, nausea, no vomiting at home but vomited couple times here in hospital. She claims she has good appetite any confusion or fatigue. She is currently making urine. On record she made 725 mL of urine yesterday but today so far since this morning she already made 700 mL of urine. Patient's kidney function has been declining for the past year. When she came in last Wednesday she had a BUN of 31, creatinine of 3.51 and estimated GFR of 16. Today she has a BUN of 37, creatinine of 2.68 with estimated GFR of 15. She is known to have proteinuria. For the past 6 months her creatinine as an outpatient range anywhere between 3.4-4.06. Her last urine protein to creatinine ratio on March 21, 2018 was about 3.3 g. She receives Procrit in our office in the last dose that she got was last Wednesday prior to her going to the emergency room. She has attended education class for renal replacement therapy and both her and her favors doing in center hemodialysis if she needs to be started on renal replacement therapy. Currently the patient said she is feeling better than when she came in. Her breathing seems better, urine output is also improving and she thinks that her leg swelling is also improved. She is currently being treated with IV Lasix and metolazone just got added today. Past Medical History Cardiac Medical History: Reports: CHF-Diastolic, Hypertension-primary Pulmonary Medical History: Reports: Chronic Obstructive Pulmonary Disease (COPD), Pneumonia, Sleep Apnea EENT Medical History: Reports: Cataracts - Bilaterally Endocrine Medical History: Reports: Diabetes Mellitus Type 2, Obesity Complications of Diabetes: Reports: Nephropathy Renal/ Medical History: Reports: Chronic Kidney Disease Stage IV, Hyperkalemia, Hyperphosphatemia, Metabolic Acidosis, Proteinuria, Secondary Hyperparathyroidism Hematology Medical History: Reports Anemia of Chronic Kidney Disease Past Surgical History Past Surgical History: Reports: Cardiac Catheterization - Last was 2006, Section, Other - Cataract surgeries bilaterally Social History Information Source: Patient, [facility] Records Lives with: Spouse/Significant other Smoking Status: Former Smoker Number of Years Smokin Last Time Smoked: 1982 Frequency of Alcohol Use: None Hx Recreational Drug Use: No Drugs: None Hx Prescription Drug Abuse: No - Advance Directive Resuscitation Status: Full Code Family History Family History: Malignancy - Mother, Other - Hemophilia on her father Parental Family History Reviewed: Yes Children Family History Reviewed: Yes Sibling(s) Family History Reviewed.: Yes Medication/Allergy Home Medications: Loratadine 10 mg PO DAILY 04/10/13 Tiotropium Offerman [Spiriva Handihaler 18 mcg/dose (30 Dose)] 1 puff IH DAILY 07/14/13 Amlodipine Besylate [Norvasc 10 mg Tablet] 10 mg PO DAILY 06/02/16 Atorvastatin Calcium [Lipitor 40 mg Tablet] 40 mg PO DAILY 06/02/16 Carvedilol [Coreg 25 mg Tablet] 25 mg PO Q12 06/02/16 Hydralazine HCl [Apresoline 50 mg Tablet] 50 mg PO Q12 06/02/16 Insulin Detemir [Levemir Flextouch] 30 units SQ QAM 06/02/16 Linagliptin [Tradjenta] 5 mg PO DAILY 06/02/16 Roflumilast [Daliresp 500 mcg Tablet] 500 mcg PO DAILY 06/02/16 Ergocalciferol (Vitamin D2) [Drisdol 50,000 unit (1.25MG) Capsule] 50,000 unit PO MO@1000 04/22/18 Ferrous Sulfate [Feosol 325 mg Tablet] 325 mg PO DAILY 04/22/18 Spironolactone [Aldactone] 50 mg PO DAILY 04/22/18 Torsemide [Demadex 20 mg Tablet] 20 mg PO DAILY 04/22/18 Valsartan [Diovan] 320 mg PO DAILY 04/22/18 Aspirin [Ecotrin 81 mg EC Tablet] 81 mg PO DAILY 05/21/18 Fluticasone/Salmeterol [Advair 250-50 Diskus 14 Dose/Diskus] 1 inh IH Q12 05/21/18 Metolazone [Zaroxolyn 5 Mg Tablet] 5 mg PO DAILY 05/21/18 Patiromer Calcium Sorbitex [Veltassa] 16.8 gm PO DAILY 05/21/18 Allergies/Adverse Reactions: Iodinated Contrast- Oral and IV Dye [IV Dye, Iodine Containing] Adverse Reaction (Unknown, Verified 05/20/18 14:55) Respiratory distress Review of Systems All systems: reviewed and no additional remarkable complaints except as stated Review of Systems: Constitutional: ABSENT: chills, fatigue, fever(s), headache(s), weight gain, weight loss Eyes: ABSENT: visual disturbances Ears: ABSENT: hearing changes Cardiovascular: ABSENT: chest pain, orthropnea, palpitations; admits shortness of breath and edema Respiratory: ABSENT: cough, hemoptysis Gastrointestinal: ABSENT: abdominal pain, diarrhea, hematemesis, hematochezia, nausea, vomiting; admits constipation Genitourinary: ABSENT: dysuria, hematuria Musculoskeletal: ABSENT: joint swelling Integumentary: ABSENT: rash, wounds Neurological: ABSENT: abnormal gait, abnormal speech, confusion, dizziness, focal weakness, syncope; admits some tingling in her legs after sitting on the commode earlier. Psychiatric: ABSENT: anxiety, depression Endocrine: ABSENT: cold intolerance, heat intolerance, polydipsia, polyuria Hematologic/Lymphatic: ABSENT: easy bleeding, easy bruising, lymphadenopathy Physical Exam Vital Signs: Temp Pulse Resp BP Pulse Ox 99.5 F 90 24 H 152/59 H 94 05/23/18 11:39 05/23/18 11:39 05/23/18 11:39 05/23/18 11:39 05/23/18 11:39 Intake & Output 05/22/18 05/23/18 05/24/18 06:59 06:59 06:59 Intake Total 458 Output Total 725 200 Balance -267 -200 Weight 96.4 kg 99.2 kg Exam: General appearance: No acute distress, cooperative, well-developed, well- nourished Head exam: PRESENT: atraumatic, normocephalic Eye exam: PRESENT: Conjunctiva pale, EOMI, PERRLA. ABSENT: conjunctival inje ction, scleral icterus Mouth exam: PRESENT: moist, neck supple, tongue midline Neck exam: PRESENT: full ROM. ABSENT: carotid bruit, JVD, lymphadenopathy, thyromegaly Respiratory exam: PRESENT: Diminished to auscultation bilaterally. ABSENT: rales, rhonchi, stridor, wheezes Cardiovascular exam: PRESENT: RRR, +S1, +S2. ABSENT: systolic murmur Pulses: PRESENT: normal radial pulses, normal dorsalis pedis pulses GI/Abdominal exam: PRESENT: normal bowel sounds, soft. ABSENT: guarding, mass, tenderness Rectal exam: Deferred Extremities exam: PRESENT: full ROM. Grade 2 bilateral lower extremity pitting edema ABSENT: calf tenderness Musculoskeletal: PRESENT: full ROM. ABSENT: deformity Neurological exam: PRESENT: alert, Awake, Oriented to person, Oriented to place, Oriented to time, reflexes normal, CN II-XII grossly intact. ABSENT: motor sensory deficit Psychiatric exam: PRESENT: appropriate affect, normal mood. ABSENT: homicidal ideation, suicidal ideation Skin exam: PRESENT: intact, dry, warm. ABSENT: rash Results Laboratory Results: 05/23/18 04:23 05/23/18 04:23 05/23/18 05/23/18 04:23 04:23 WBC 8.7 RBC 2.83 L Hgb 8.3 L Hct 24.3 L MCV 86 MCH 29.3 MCHC 34.0 RDW 15.1 H Plt Count 296 Seg Neutrophils % Not Reportable Lymphocytes % Not Reportable Monocytes % Not Reportable Eosinophils % Not Reportable Basophils % Not Reportable Absolute Neutrophils Not Reportable Absolute Lymphocytes Not Reportable Absolute Monocytes Not Reportable Absolute Eosinophils Not Reportable Absolute Basophils Not Reportable Sodium 129.7 L Potassium 4.3 Chloride 94 L Carbon Dioxide 27 Anion Gap 9 BUN 37 H Creatinine 3.68 H Est GFR ( Amer) 15 L Est GFR (Non-Af Amer) 12 L Glucose 101 Calcium 8.5 Magnesium 1.9 05/20/18 05/20/18 05/20/18 17:30 17:30 19:25 Creatine Kinase Cancelled 96 CK-MB (CK-2) 0.38 Troponin I 0.016 NT-Pro-B Natriuret Pep 3210 H 05/20/18 05/22/18 05/23/18 21:29 04:27 04:23 Creatine Kinase CK-MB (CK-2) Troponin I 0.020 NT-Pro-B Natriuret Pep 4680 H 3860 H Impressions: Chest X-Ray 05/20/18 17:10 IMPRESSION: Cardiomegaly. Cannot exclude mild pulmonary edema. Assessment & Plan - Diagnosis (1) Acute on chronic diastolic (congestive) heart failure Is this a current diagnosis for this admission?: Yes Plan: Agree with IV Lasix in addition of metolazone today. Depending on her response in terms of her swelling and breathing will adjust doses accordingly. (2) Chronic kidney disease, stage 4 (severe) Is this a current diagnosis for this admission?: Yes Plan: Patient's kidney function has been progressive within the last year and she is actually approaching end-stage renal disease. At this time she is not at the point that she would need renal replacement therapy initiation yet but she is pretty close. I discussed this possibility with the patient and her at bedside today. They are very much aware of it and if she needs it they would go for in center hemodialysis. We will continue to monitor patient's kidney function during this hospitalization. Avoid nephrotoxic medications. Adjust medications according to kidney function. (3) Diabetic nephropathy Qualifiers: Diabetes mellitus type: type 2 Qualified Code(s): E11.21 - Type 2 diabetes mellitus with diabetic nephropathy Is this a current diagnosis for this admission?: Yes Plan: Patient is known to have nephrotic range proteinuria. (4) Hyponatremia Is this a current diagnosis for this admission?: Yes Plan: Likely secondary to hypervolemic state. Hopefully it will improve with diuresis. (5) Anemia in chronic kidney disease (CKD) Is this a current diagnosis for this admission?: Yes Plan: Last Procrit received with last 05/20/2017. We will dose it in a week. (6) Diabetes mellitus type 2 in obese Is this a current diagnosis for this admission?: Yes (7) Hypertension Qualifiers: Hypertension type: essential hypertension Qualified Code(s): I10 - Essential (primary) hypertension Is this a current diagnosis for this admission?: Yes (8) Secondary hyperparathyroidism Is this a current diagnosis for this admission?: Yes (9) Chronic obstructive pulmonary disease Qualifiers: COPD type: unspecified COPD Qualified Code(s): J44.9 - Chronic obstructive pulmonary disease, unspecified Is this a current diagnosis for this admission?: Yes (10) Morbid obesity Is this a current diagnosis for this admission?: Yes - Notes Notes: Thank you very much for this consultation. We will follow the patient with you. - Time Time Spent: Greater than 70 Minutes
--- NOTE | 2018-05-23 16:50 | PDOC PROGRESS REPORT ---
Subjective Progress Note for:: 05/23/18 Subjective:: LUIZA CAMARGO is a 72 y.o. F with PMH of HTN, DM, CKD stage III/IV, COPD, chronic anemia, morbid obesity, history of diastolic dysfunction. She was admitted to [facility] with pulmonary edema, SOB and acute renal failure. The patient has been treated with BID Lasix IV and PO metolazone was started yesterday. Upon assessment, the patient was resting comfortably in the bed She is receiving supplemental O2 via nasal cannula. She states that her breathing 'good' today. Lung sounds are now clear bilaterally. (+) 1 peripheral edema to feet and ankles, which is an improvement compared to yesterday. The patient's Creatinine has remained relatively unchanged (3.68-->3.6) and BNP has improved slightly (3200-->4600-->3800). Consulted nephrology today. Dr. Gutierres states that the patient's renal function has been declining in the recent months. Baseline creatinine is 3.4-4.06. She agrees with the current plan to continue diuresis. Will adjust medications as needed. No new recommendations from cardiology. Reason For Visit: ACUTE ON CHRONIC RENAL FAILURE Physical Exam Vital Signs: Temp Pulse Resp BP Pulse Ox 99.5 F 90 24 H 152/59 H 94 05/23/18 11:39 05/23/18 11:39 05/23/18 11:39 05/23/18 11:39 05/23/18 11:39 Intake & Output 05/22/18 05/23/18 05/24/18 06:59 06:59 06:59 Intake Total 458 Output Total 725 200 Balance -267 -200 Weight 96.4 kg 99.2 kg General appearance: PRESENT: morbidly obese Eye exam: PRESENT: conjunctiva pink Mouth exam: PRESENT: moist, tongue midline Teeth exam: PRESENT: poor dentation Neck exam: PRESENT: full ROM. ABSENT: JVD Respiratory exam: PRESENT: clear to auscultation jackie, symmetrical, unlabored Cardiovascular exam: PRESENT: +S1, +S2 Pulses: PRESENT: normal radial pulses, normal dorsalis pedis pul GI/Abdominal exam: PRESENT: soft. ABSENT: tenderness Rectal exam: PRESENT: deferred Extremities exam: PRESENT: full ROM, pedal edema, +1 edema Musculoskeletal exam: PRESENT: ambulatory, full ROM, normal inspection Neurological exam: PRESENT: alert, awake, oriented to person, oriented to place, oriented to time, oriented to situation Psychiatric exam: PRESENT: appropriate affect Skin exam: PRESENT: dry, intact, normal color Results Laboratory Results: 05/23/18 04:23 05/23/18 04:23 05/23/18 05/23/18 04:23 04:23 WBC 8.7 RBC 2.83 L Hgb 8.3 L Hct 24.3 L MCV 86 MCH 29.3 MCHC 34.0 RDW 15.1 H Plt Count 296 Seg Neutrophils % Not Reportable Lymphocytes % Not Reportable Monocytes % Not Reportable Eosinophils % Not Reportable Basophils % Not Reportable Absolute Neutrophils Not Reportable Absolute Lymphocytes Not Reportable Absolute Monocytes Not Reportable Absolute Eosinophils Not Reportable Absolute Basophils Not Reportable Sodium 129.7 L Potassium 4.3 Chloride 94 L Carbon Dioxide 27 Anion Gap 9 BUN 37 H Creatinine 3.68 H Est GFR ( Amer) 15 L Est GFR (Non-Af Amer) 12 L Glucose 101 Calcium 8.5 Magnesium 1.9 05/20/18 05/20/18 05/20/18 17:30 17:30 19:25 Creatine Kinase Cancelled 96 CK-MB (CK-2) 0.38 Troponin I 0.016 NT-Pro-B Natriuret Pep 3210 H 05/20/18 05/22/18 05/23/18 21:29 04:27 04:23 Creatine Kinase CK-MB (CK-2) Troponin I 0.020 NT-Pro-B Natriuret Pep 4680 H 3860 H Impressions: Chest X-Ray 05/20/18 17:10 IMPRESSION: Cardiomegaly. Cannot exclude mild pulmonary edema. Status: Imported from PACS Assessment & Plan - Diagnosis (1) Acute on chronic diastolic (congestive) heart failure Is this a current diagnosis for this admission?: Yes Plan: 03/2018 echocardiogram shows preserved EF with LVH and grade II diastolic dysfunction. No need to repeat at this time. EKG shows NSR, no signs of acute ischemia or infarction BNP improving 4500-->3800, higher than patient's range of 5489-1322 Attempt to correct volume overload with twice daily IV Lasix 40 mg and daily met olazone 2.5mg per Cardiology recommendations Monitor I/O and daily chemistries (2) Acute on chronic renal failure Qualifiers: Acute renal failure type: unspecified Chronic kidney disease stage: stage 4 (severe) Qualified Code(s): N17.9 - Acute kidney failure, unspecified; N18.4 - Chronic kidney disease, stage 4 (severe) Is this a current diagnosis for this admission?: Yes Plan: Unchanged Followed by Dr. Gutierres, she has been consulted Baseline creatinine 3.4-4.06 (per Dr. Gutierres's records) Creatinine upon arrival 3.4-->now 3.68 Renal function likely secondary to splanchnic congestion, plan for BID Lasix and daily metolazone to correct volume overload and splanchnic congestion Avoid nephrotoxic medications at this time -Daliresp and Tradjenta currently on hold No plan for dialysis at this time (3) Chronic obstructive pulmonary disease Qualifiers: COPD type: unspecified COPD Qualified Code(s): J44.9 - Chronic obstructive pulmonary disease, unspecified Is this a current diagnosis for this admission?: Yes Plan: History of COPD Continue Pulmicort, Spiriva and Serevent Supplemental oxygen via nasal cannula for SPO2 >88% Of note, the patient does not wear O2 at home. Attempt to wean as tolerated (4) Hypertension Qualifiers: Hypertension type: essential hypertension Qualified Code(s): I10 - Essential (primary) hypertension Is this a current diagnosis for this admission?: Yes Plan: PMH of HTN Continue home dose hydralazine, Diovan, Norvasc (5) Diabetes Qualifiers: Diabetes mellitus type: type 2 Diabetes mellitus complication status: with unspecified complications Is this a current diagnosis for this admission?: Yes Plan: Accu-Cheks AC at bedtime Humalog sliding scale insulin Cardiac diabetic diet (6) Morbid obesity Is this a current diagnosis for this admission?: Yes Plan: Cardiac/diabetic diet - Time Time Spent with patient: 15-24 minutes Medications reviewed and adjusted accordingly: Yes Anticipated discharge: Home Within: within 48 hours - Inpatient Certification Based on my medical assessment, after consideration of the patient's comorbidities, presenting symptoms, or acuity I expect that the services needed warrant INPATIENT care.: Yes I certify that my determination is in accordance with my understanding of Medicare's requirements for reasonable and necessary INPATIENT services [42 CFR 412.3e].: Yes Medical Necessity: Risk of Complication if Not Cared For in Hospital - Plan Summary Plan Summary: CONTINUE DIURESIS. WEAN O2 TOLERATED. CARDIOLOGY AND NEPHROLOGY RECS.
[2018-05-23] MEDS: ATORVASTATIN CALCIUM 40 MG TABLET PO SCH (21:02)
[2018-05-23] MEDS: INSULIN LISPRO 100 UNIT/ML 3 ML VIAL SUBCUT PRN (21:18)
--- NOTE | 2018-05-23 22:32 | Progress Note ---
Provider Note Provider Note: CARDIOLOGY PROGRESS NOTE by Dr. Chioma Carr on 05/23/2018. SUBJECTIVE: The patient denies any further chest pain or discomfort. She does have some degree of orthopnea but no PND. Her leg edema is much improved there is no palpitations. There is no rash arrhythmia seen on the monitor. There is no TIA CVA symptoms. PHYSICAL EXAMINATION: The patient is morbidly obese. In no acute distress. She is well-groomed. \ Selected Entries 05/23/18 11:39 Temperature 99.5 F Temperature Oral Source Pulse Rate 90 Respiratory 24 H Rate Blood Pressure 152/59 H Blood Pressure 90 Mean BP Location Left Arm BP Position Supine O2 Sat by Pulse 94 Oximetry Oxygen Flow 2.00 Rate Oxygen Delivery Nasal Cannula Method HEAD: Is atraumatic normocephalic. EYES:. Pupils equal round regular react to light accommodation. Extraocular movements are normal. There is no clinical pallor. There is no scleral icterus. ENT: Is negative. NECK: Supple. There is no JVD. Carotids are equal there is no bruit. There is no lymphadenopathy. There is no goiter. There is no accessory muscle respiration in use. Trachea central. LUNGS: Clear to auscultation percussion, without any rhonchi rales or wheezing. There is no chest wall tenderness on palpation. HEART: S1-S2 is heard. There is no S3 gallop. There is no S4 gallop. There is systolic murmur left sternal border and the apex there is no rub. ABDOMEN: Is obese. Nontender. Bowel sounds are normal. There is no hepatosplenomegaly. EXTREMITIES: Femorals are deep, and femorals are diminished. Leg pulses are diminished. There is trace pedal edema. There is no DVT or cellulitis. There is no calf tenderness. There is no cyanosis or clubbing. [employer]ED [employer]ARD: The patient is conscious awake alert oriented x3 with no focal deficits. PSYCHIATRIC: The patient judgment insight are intact her affect is normal. 05/22/18 05/23/18 05/23/18 21:07 04:23 04:23 WBC 8.7 RBC 2.83 L Hgb 8.3 L Hct 24.3 L MCV 86 MCH 29.3 MCHC 34.0 RDW 15.1 H Plt Count 296 Sodium 129.7 L Potassium 4.3 Chloride 94 L Carbon Dioxide 27 Anion Gap 9 BUN 37 H Creatinine 3.68 H Est GFR ( Amer) 15 L Glucose 101 POC Glucose 137 H Calcium 8.5 Magnesium 1.9 NT-Pro-B Natriuret Pep 05/23/18 04:23 WBC RBC Hgb Hct MCV MCH MCHC RDW Plt Count Sodium Potassium Chloride Carbon Dioxide Anion Gap BUN Creatinine Est GFR ( Amer) Glucose POC Glucose Calcium Magnesium NT-Pro-B Natriuret Pep 3860 H IMPRESSION/RECOMMENDATION: Next 1. Acute on chronic systolic and diastolic heart failure. Systolic heart failure due to the patient's volume overload due to her renal failure. These are much improved at present seems to be compensated. 2. Acute on chronic kidney disease. At present patient is chronic kidney disease stage IV. Nephrology on the case. 3. Hypertension: Blood pressure still not optimally controlled. Will let nephrology address this. 4. Diabetes mellitus: Type II. Continue current antidiabetic treatment. 5. MORBID OBESITY. 6. COPD: Appears to be stable. Cardiac status is stable. Given patient's multiple risk factors for coronary artery disease, would recommend that the patient have a IV Lexiscan Cardiolite as an outpatient. Medical decision making is of moderate complexity. 40 minutes spent on this patient more than 50% of time spent on direct patient care. The patient's son is her surrogate healthcare decision maker. Medications reviewed. Management plan discussed with other caregiving providers on the case. Cardiac status is stable hence will sign off.
[2018-05-24] MEDS: LEVALBUTEROL HCL NEB 1.25 MG/3 ML AMPUL NEB SCH ×3 (00:21→16:30)
[2018-05-24] MEDS: IPRATROPIUM BROMIDE 0.02% NEB 0.5 MG/2.5 ML AMPUL NEB SCH ×3 (00:21→16:30)
[2018-05-24 04:37] LABS: ABSOLUTE RETICS # 0.105 10^6/uL (0.028-0.122); RETICULOCYTE COUNT (AUTO) 3.71 % (0.66-2.85)
[2018-05-24 04:59] LABS: ANION GAP 7 (5-19); BLOOD UREA NITROGEN 37 mg/dL (7-20); CALCIUM 8.6 mg/dL (8.4-10.2); CARBON DIOXIDE 29 mmol/L (22-30); CHLORIDE 94 mmol/L (98-107); GLUCOSE 116 mg/dL (75-110); IRON(TIBC) 44.2 ug/dL (37-170); PHOSPHORUS 3.7 mg/dL (2.5-4.5); POTASSIUM 4.3 mmol/L (3.6-5.0); SODIUM 130.4 mmol/L (137-145)
[2018-05-24] MEDS: LANSOPRAZOLE 30 MG TAB.RAP.DR PO SCH ×2 (06:37→17:20)
[2018-05-24] MEDS: HYDRALAZINE HCL 50 MG TABLET PO SCH ×3 (06:37→22:16)
[2018-05-24] MEDS: HEPARIN SOD (PORCINE) 5,000 UNIT/ML 1 ML SYRINGE SUBCUT SCH ×3 (06:38→21:25)
[2018-05-24] MEDS: BUDESONIDE NEB 0.5 MG/2 ML AMPUL NEB SCH ×2 (07:28→21:11)
[2018-05-24] MEDS: INSULIN DETEMIR 100 UNIT/ML 3 ML PEN SUBCUT SCH (08:21)
[2018-05-24] MEDS: TIOTROPIUM BROMIDE DPI 5 CAP/KIT (18 MCG/CAP) IH SCH (10:15)
[2018-05-24] MEDS: CARVEDILOL 12.5 MG TABLET PO SCH ×2 (10:15→17:20)
[2018-05-24] MEDS: FUROSEMIDE INJ/PF 40 MG/4 ML SDV IV SCH ×2 (10:15→17:20)
[2018-05-24] MEDS: VALSARTAN 160 MG TABLET PO SCH (10:15)
[2018-05-24] MEDS: FERROUS SULFATE 325 MG TABLET PO SCH (10:15)
[2018-05-24] MEDS: DOCUSATE SODIUM 100 MG CAPSULE PO SCH ×2 (10:16→17:20)
[2018-05-24] MEDS: METOLAZONE 2.5 MG TABLET PO SCH (10:16)
[2018-05-24] MEDS: ASPIRIN 81 MG TABLET, CHEWABLE PO SCH (10:16)
[2018-05-24] MEDS: INSULIN LISPRO 100 UNIT/ML 3 ML VIAL SUBCUT SCH ×3 (13:50→23:05)
--- NOTE | 2018-05-24 16:14 | PDOC PROGRESS REPORT ---
Subjective Progress Note for:: 05/24/18 Subjective:: LUIZA CAMARGO is a 72 y.o. F with PMH of HTN, DM, CKD stage III/IV, COPD, chronic anemia, morbid obesity, history of diastolic dysfunction. She was admitted to [facility] with pulmonary edema, SOB and acute renal failure. The patient was seen on morning rounds. She was found resting in bed comfortably on supplemental oxygen via nasal cannula. She was sleeping in semi-recumbent position comfortably; woke easily when I said her name. She reports that she is feeling well today and that her edema has improved significantly. She denies fever, chills, headache, dizziness, chest pain, palpitations, orthopnea, abdominal pain, nausea vomiting and diarrhea. She does endorse slight dyspnea on exertion; however, notes that this is the first time she has walked since her time of admission. She has no new questions or concerns. No concerns per nursing. Reason For Visit: ACUTE ON CHRONIC RENAL FAILURE Physical Exam Vital Signs: Temp Pulse Resp BP Pulse Ox 99.1 F 76 16 125/81 99 05/24/18 11:55 05/24/18 14:00 05/24/18 11:55 05/24/18 11:55 05/24/18 11:55 Intake & Output 05/23/18 05/24/18 05/25/18 06:59 06:59 06:59 Intake Total 458 487 Output Total 725 1700 Balance -267 -1213 Weight 99.2 kg 98.3 kg General appearance: PRESENT: no acute distress, cooperative, morbidly obese, well-developed, well-nourished Head exam: PRESENT: atraumatic, normocephalic Eye exam: PRESENT: conjunctiva pink, EOMI, PERRLA. ABSENT: scleral icterus Ear exam: PRESENT: normal external ear exam Mouth exam: PRESENT: moist, tongue midline Neck exam: ABSENT: carotid bruit, JVD, lymphadenopathy, thyromegaly Respiratory exam: PRESENT: clear to auscultation jackie, symmetrical, unlabored, other - Supplemental oxygen via nasal cannula. ABSENT: rales, rhonchi, wheezes Cardiovascular exam: PRESENT: RRR, +S1, +S2. ABSENT: diastolic murmur, rubs, systolic murmur Pulses: PRESENT: normal dorsalis pedis pul Vascular exam: PRESENT: normal capillary refill GI/Abdominal exam: PRESENT: normal bowel sounds, soft. ABSENT: distended, guarding, mass, organolmegaly, rebound, tenderness Rectal exam: PRESENT: deferred Extremities exam: PRESENT: full ROM, +2 edema - BLE. ABSENT: calf tenderness, clubbing, pedal edema Musculoskeletal exam: PRESENT: ambulatory Neurological exam: PRESENT: alert, awake, oriented to person, oriented to place, oriented to time, oriented to situation, CN II-XII grossly intact. ABSENT: motor sensory deficit Psychiatric exam: PRESENT: appropriate affect, normal mood. ABSENT: homicidal ideation, suicidal ideation Skin exam: PRESENT: dry, intact, warm. ABSENT: cyanosis, rash Results Laboratory Results: 05/23/18 04:23 05/24/18 04:23 05/24/18 05/24/18 05/24/18 04:23 04:23 04:23 Retic Count (auto) 3.71 H Absolute Retic 0.105 Sodium 130.4 L Potassium 4.3 Chloride 94 L Carbon Dioxide 29 Anion Gap 7 BUN 37 H Creatinine 3.64 H Est GFR ( Amer) 15 L Est GFR (Non-Af Amer) 12 L Glucose 116 H Calcium 8.6 Phosphorus 3.7 Magnesium 2.4 H Iron 44.2 TIBC 254 % Saturation 17 Ferritin 61.30 Vitamin B12 > 1000.0 H Folate 19.00 PTH Intact 169.9 H 05/20/18 05/20/18 05/20/18 17:30 17:30 19:25 Creatine Kinase Cancelled 96 CK-MB (CK-2) 0.38 Troponin I 0.016 NT-Pro-B Natriuret Pep 3210 H 05/20/18 05/22/18 05/23/18 21:29 04:27 04:23 Creatine Kinase CK-MB (CK-2) Troponin I 0.020 NT-Pro-B Natriuret Pep 4680 H 3860 H Impressions: Chest X-Ray 05/20/18 17:10 IMPRESSION: Cardiomegaly. Cannot exclude mild pulmonary edema. Assessment & Plan - Diagnosis (1) Acute on chronic diastolic (congestive) heart failure Is this a current diagnosis for this admission?: Yes Plan: 03/2018 echocardiogram shows preserved EF with LVH and grade II diastolic dysfunction. No need to repeat at this time. EKG shows NSR, no signs of acute ischemia or infarction BNP improving 4500-->3800, higher than patient's range of 9933-0113 She is admitted to [facility] on continuous cardiac telemetry. Cardiac diet. Daily weights and strict I&O's. Continue to correct volume overload with twice daily IV Lasix 40 mg a daily metolazone 2.5 mg per cardiology's recommendations. Continue antihypertensives; carvedilol, hydralazine, valsartan Daily aspirin and statin therapy. Cardiology is consulted; appreciate their evaluation recommendations. (2) Anemia in chronic kidney disease (CKD) Qualifiers: Chronic kidney disease stage: stage 4 (severe) Qualified Code(s): N18.4 - Chronic kidney disease, stage 4 (severe); D63.1 - Anemia in chronic kidney disease Is this a current diagnosis for this admission?: Yes Plan: Hemoglobin has drifted down slightly; 9.3--> 8.3 No evidence of active bleeding. Anemia panel normal; confirms anemia of chronic disease. Continue multivitamin. Registered dietitian is consulted. (3) Chronic obstructive pulmonary disease Qualifiers: COPD type: unspecified COPD Qualified Code(s): J44.9 - Chronic obstructive pulmonary disease, unspecified Is this a current diagnosis for this admission?: Yes Plan: Stable and without exacerbation at this time. Continue home dose Pulmicort, Spiriva, and Serevent. Continue supplemental oxygen via nasal cannula to maintain oxygen saturations >88%; patient is not home O2 dependent and continues to require 2 L/min. No indications for antibiotics or steroid therapy at this time. (4) Hypertension Qualifiers: Hypertension type: essential hypertension Qualified Code(s): I10 - Essential (primary) hypertension Is this a current diagnosis for this admission?: Yes Plan: Continue home dose carvedilol, hydralazine, valsartan Cardiac diet. (5) Hyponatremia Is this a current diagnosis for this admission?: Yes Plan: Trending upward; Na 128.6--> 130.4 Likely from volume overload; continue diuresing as above. Daily chemistries. Consider fluid restriction. (6) Morbid obesity Is this a current diagnosis for this admission?: Yes Plan: Cardiac/diabetic diet. Encourage mobility. Registered dietitian is consulted. (7) Diabetes Qualifiers: Diabetes mellitus type: type 2 Diabetes mellitus complication status: with unspecified complications Is this a current diagnosis for this admission?: Yes Plan: Patient is placed on a consistent carb/cardiac diet. Accu-Cheks before meals and at bedtime with Humalog for sliding scale coverage and hypoglycemia protocols in place. (8) Acute on chronic renal failure Qualifiers: Acute renal failure type: unspecified Chronic kidney disease stage: stage 4 (severe) Qualified Code(s): N17.9 - Acute kidney failure, unspecified; N18.4 - Chronic kidney disease, stage 4 (severe) Is this a current diagnosis for this admission?: Yes Plan: Stable; likely at baseline. Patient is followed by Dr. Gutierres as an outpatient; creatinine of 3.4-4.[address] Gutierres's outpatient records. Avoid nephrotoxic medications as able. Optimize cardiac function through management of CHF exacerbation. Daily chemistries. Dr. Gutierres has been consulted; appreciate her evaluation recommendations. - Time Time Spent with patient: 15-24 minutes Medications reviewed and adjusted accordingly: Yes Anticipated discharge: Home with Homehealth Within: within 48 hours - Plan Summary Plan Summary: Encourage ambulation; patient continues to require supplemental oxygen when ambulatory. Continue IV furosemide for diuresis today; anticipate transition to p.o. furosemide tomorrow. Likely discharge within 1-2 days.
[2018-05-24] MEDS ORDERED: FERRIC CARBOXYMALTOSE 750 MG in NORMAL SALINE 100 ML IV ONE ×2 (21:03→22:00)
--- NOTE | 2018-05-24 21:09 | PDOC PROGRESS REPORT ---
Subjective Progress Note for:: 05/24/18 Subjective:: Patient is feeling much better every day. Her breathing is better and she is making good amount of urine every day. So far she is diuresing with negative fluid balance of at least -1 L daily. Reason For Visit: ACUTE ON CHRONIC RENAL FAILURE Physical Exam Vital Signs: Temp Pulse Resp BP Pulse Ox 99.5 F 72 18 127/46 H 98 05/24/18 19:51 05/24/18 19:51 05/24/18 19:51 05/24/18 19:51 05/24/18 19:51 Intake & Output 05/23/18 05/24/18 05/25/18 06:59 06:59 06:59 Intake Total 458 487 829 Output Total 725 1700 500 Balance -267 -1213 329 Weight 99.2 kg 98.3 kg Exam: General appearance: PRESENT: no acute distress, cooperative, well-developed, well-nourished Head exam: PRESENT: atraumatic, normocephalic, facial puffiness is slowly improving Eye exam: PRESENT: conjunctiva pale, PERRLA. ABSENT: scleral icterus Neck exam: ABSENT: JVD Respiratory exam: PRESENT: Normal breath sounds. ABSENT: crackles, rales, rhonchi, unlabored, wheezes Cardiovascular exam: PRESENT: Regular rate rhythm -+S1, +S2. Grade 2/6 systolic murmur GI/Abdominal exam: PRESENT: normal bowel sounds, soft. ABSENT: guarding, mass, tenderness Extremities exam: Slightly improved grade 1 bilateral lower extremity edema Neurological exam: PRESENT: alert, awake, oriented to person, place and time. Skin exam: PRESENT: dry, warm, Results Laboratory Results: 05/23/18 04:23 05/24/18 04:23 05/24/18 05/24/18 05/24/18 04:23 04:23 04:23 Retic Count (auto) 3.71 H Absolute Retic 0.105 Sodium 130.4 L Potassium 4.3 Chloride 94 L Carbon Dioxide 29 Anion Gap 7 BUN 37 H Creatinine 3.64 H Est GFR ( Amer) 15 L Est GFR (Non-Af Amer) 12 L Glucose 116 H Calcium 8.6 Phosphorus 3.7 Magnesium 2.4 H Iron 44.2 TIBC 254 % Saturation 17 Ferritin 61.30 Vitamin B12 > 1000.0 H Folate 19.00 PTH Intact 169.9 H 05/20/18 05/20/18 05/20/18 17:30 17:30 19:25 Creatine Kinase Cancelled 96 CK-MB (CK-2) 0.38 Troponin I 0.016 NT-Pro-B Natriuret Pep 3210 H 05/20/18 05/22/18 05/23/18 21:29 04:27 04:23 Creatine Kinase CK-MB (CK-2) Troponin I 0.020 NT-Pro-B Natriuret Pep 4680 H 3860 H Impressions: Chest X-Ray 05/20/18 17:10 IMPRESSION: Cardiomegaly. Cannot exclude mild pulmonary edema. Assessment & Plan - Diagnosis (1) Acute on chronic diastolic (congestive) heart failure Is this a current diagnosis for this admission?: Yes Plan: Improving. (2) Chronic kidney disease, stage 4 (severe) Is this a current diagnosis for this admission?: Yes Plan: Kidney function is currently stable. No indication of initiation of renal replacement therapy at this time. (3) Diabetic nephropathy Qualifiers: Diabetes mellitus type: type 2 Qualified Code(s): E11.21 - Type 2 diabetes mellitus with diabetic nephropathy Is this a current diagnosis for this admission?: Yes (4) Hyponatremia Is this a current diagnosis for this admission?: Yes Plan: Due to hypervolemic state. Slowly improving. (5) Anemia in chronic kidney disease (CKD) Qualifiers: Chronic kidney disease stage: stage 4 (severe) Qualified Code(s): N18.4 - Chronic kidney disease, stage 4 (severe); D63.1 - Anemia in chronic kidney disease Is this a current diagnosis for this admission?: Yes Plan: Her iron is suboptimal despite oral iron supplement. I will give her a dose of IV Injectafer. We will continue weekly dose of Procrit if she is still here by Wednesday. (6) Diabetes mellitus type 2 in obese Is this a current diagnosis for this admission?: Yes (7) Hypertension Qualifiers: Hypertension type: essential hypertension Qualified Code(s): I10 - Essential (primary) hypertension Is this a current diagnosis for this admission?: Yes (8) Secondary hyperparathyroidism Is this a current diagnosis for this admission?: Yes Plan: Start calcitriol 0.25 mcg 3 times a week. (9) Chronic obstructive pulmonary disease Qualifiers: COPD type: unspecified COPD Qualified Code(s): J44.9 - Chronic obstructive pulmonary disease, unspecified Is this a current diagnosis for this admission?: Yes (10) Morbid obesity Is this a current diagnosis for this admission?: Yes - Time Time with patient: 15-25 minutes
[2018-05-24] MEDS: ATORVASTATIN CALCIUM 40 MG TABLET PO SCH (22:16)
[2018-05-25] MEDS: IPRATROPIUM BROMIDE 0.02% NEB 0.5 MG/2.5 ML AMPUL NEB SCH ×3 (00:03→19:46)
[2018-05-25] MEDS: LEVALBUTEROL HCL NEB 1.25 MG/3 ML AMPUL NEB SCH ×3 (00:03→19:46)
[2018-05-25] MEDS: LANSOPRAZOLE 30 MG TAB.RAP.DR PO SCH ×2 (05:38→19:03)
[2018-05-25] MEDS: HYDRALAZINE HCL 50 MG TABLET PO SCH ×3 (05:38→21:53)
[2018-05-25] MEDS: HEPARIN SOD (PORCINE) 5,000 UNIT/ML 1 ML SYRINGE SUBCUT SCH ×3 (05:40→21:53)
[2018-05-25 06:32] LABS: HEMATOCRIT 23.9 % (36.0-47.0); HEMOGLOBIN 8.1 g/dL (12.0-15.5); MEAN CORPUSCULAR HEMOGLOBIN 29.5 pg (27.0-33.4); MEAN CORPUSCULAR HGB CONC 33.8 g/dL (32.0-36.0); MEAN CORPUSCULAR VOLUME 87 fl (80-97); PLATELET COUNT 326 10^3/uL (150-450); RED BLOOD COUNT 2.74 10^6/uL (3.72-5.28); RED CELL DISTRIBUTION WIDTH 15.3 % (11.5-14.0); WHITE BLOOD COUNT 8.9 10^3/uL (4.0-10.5)
[2018-05-25 06:51] LABS: ANION GAP 7 (5-19); BLOOD UREA NITROGEN 37 mg/dL (7-20); CALCIUM 8.8 mg/dL (8.4-10.2); CARBON DIOXIDE 28 mmol/L (22-30); CHLORIDE 95 mmol/L (98-107); GLUCOSE 106 mg/dL (75-110); POTASSIUM 4.4 mmol/L (3.6-5.0); SODIUM 129.5 mmol/L (137-145)
[2018-05-25] MEDS: INSULIN LISPRO 100 UNIT/ML 3 ML VIAL SUBCUT SCH ×4 (08:21→21:50)
[2018-05-25] MEDS: BUDESONIDE NEB 0.5 MG/2 ML AMPUL NEB SCH ×2 (08:47→19:46)
[2018-05-25] MEDS: ASPIRIN 81 MG TABLET, CHEWABLE PO SCH (09:26)
[2018-05-25] MEDS: CARVEDILOL 12.5 MG TABLET PO SCH ×2 (09:26→19:05)
[2018-05-25] MEDS: VALSARTAN 160 MG TABLET PO SCH (09:26)
[2018-05-25] MEDS: METOLAZONE 2.5 MG TABLET PO SCH (09:26)
[2018-05-25] MEDS: MULTIVITAMIN TABLET PO SCH (09:27)
[2018-05-25] MEDS: DOCUSATE SODIUM 100 MG CAPSULE PO SCH ×2 (09:27→19:03)
[2018-05-25] MEDS: FERROUS SULFATE 325 MG TABLET PO SCH (09:27)
[2018-05-25] MEDS: FUROSEMIDE INJ/PF 40 MG/4 ML SDV IV SCH (09:30)
[2018-05-25] MEDS: TIOTROPIUM BROMIDE DPI 5 CAP/KIT (18 MCG/CAP) IH SCH (09:41)
[2018-05-25] MEDS: INSULIN DETEMIR 100 UNIT/ML 3 ML PEN SUBCUT SCH (09:41)
[2018-05-25] MEDS ORDERED: CALCITRIOL 0.25 MCG CAPSULE PO SCH (10:00)
[2018-05-25] MEDS ORDERED: TORSEMIDE 20 MG TABLET PO ONE ×2 (15:53→18:00)
--- NOTE | 2018-05-25 16:08 | PDOC PROGRESS REPORT ---
Subjective Progress Note for:: 05/25/18 Subjective:: LUIZA CAMARGO is a 72 y.o. F with PMH of HTN, DM, CKD stage III/IV, COPD, chronic anemia, morbid obesity, history of diastolic dysfunction. She was admitted to [facility] with pulmonary edema, SOB and acute renal failure. The patient was seen on afternoon rounds. She was found ambulating easily in her room while on supplemental oxygen via nasal cannula. She reports that she is feeling well today and that her edema has continued to improve. She ambulated in the hallway on room air today; D satting into the low 80s and developing dyspnea. She reports that she had no difficulty ambulating while on supplemental oxygen. She denies fever, chills, headache, dizziness, chest pain, palpitations, orthopnea, abdominal pain, nausea vomiting and diarrhea. She has no new questions or concerns; hopeful to discharge to home tomorrow. No concerns per nursing. Reason For Visit: ACUTE ON CHRONIC RENAL FAILURE Physical Exam Vital Signs: Temp Pulse Resp BP Pulse Ox 98.8 F 69 16 137/55 H 97 05/25/18 12:09 05/25/18 12:09 05/25/18 12:09 05/25/18 12:09 05/25/18 12:09 Intake & Output 05/24/18 05/25/18 05/26/18 06:59 06:59 06:59 Intake Total 487 944 Output Total 1700 500 Balance -1213 444 Weight 98.3 kg 93.4 kg General appearance: PRESENT: no acute distress, cooperative, obese, well- developed, well-nourished Head exam: PRESENT: atraumatic, normocephalic Eye exam: PRESENT: conjunctiva pink, EOMI, PERRLA. ABSENT: scleral icterus Ear exam: PRESENT: normal external ear exam Mouth exam: PRESENT: moist, tongue midline Neck exam: ABSENT: carotid bruit, JVD, lymphadenopathy, thyromegaly Respiratory exam: PRESENT: clear to auscultation jackie, symmetrical, unlabored, other - Supplemental oxygen via nasal cannula. ABSENT: rales, rhonchi, wheezes Cardiovascular exam: PRESENT: RRR, +S1, +S2. ABSENT: diastolic murmur, rubs, systolic murmur Pulses: PRESENT: normal dorsalis pedis pul Vascular exam: PRESENT: normal capillary refill GI/Abdominal exam: PRESENT: normal bowel sounds, soft. ABSENT: distended, guarding, mass, organolmegaly, rebound, tenderness Rectal exam: PRESENT: deferred Extremities exam: PRESENT: full ROM. ABSENT: calf tenderness, clubbing, pedal edema Neurological exam: PRESENT: alert, awake, oriented to person, oriented to place, oriented to time, oriented to situation, CN II-XII grossly intact. ABSENT: motor sensory deficit Psychiatric exam: PRESENT: appropriate affect, normal mood. ABSENT: homicidal ideation, suicidal ideation Skin exam: PRESENT: dry, intact, warm. ABSENT: cyanosis, rash Results Laboratory Results: 05/25/18 06:18 05/25/18 06:18 05/25/18 05/25/18 06:18 06:18 WBC 8.9 RBC 2.74 L Hgb 8.1 L Hct 23.9 L MCV 87 MCH 29.5 MCHC 33.8 RDW 15.3 H Plt Count 326 Sodium 129.5 L Potassium 4.4 Chloride 95 L Carbon Dioxide 28 Anion Gap 7 BUN 37 H Creatinine 3.67 H Est GFR ( Amer) 15 L Est GFR (Non-Af Amer) 12 L Glucose 106 Calcium 8.8 05/20/18 05/20/18 05/20/18 17:30 17:30 19:25 Creatine Kinase Cancelled 96 CK-MB (CK-2) 0.38 Troponin I 0.016 NT-Pro-B Natriuret Pep 3210 H 05/20/18 05/22/18 05/23/18 21:29 04:27 04:23 Creatine Kinase CK-MB (CK-2) Troponin I 0.020 NT-Pro-B Natriuret Pep 4680 H 3860 H 05/25/18 06:18 Creatine Kinase CK-MB (CK-2) Troponin I NT-Pro-B Natriuret Pep 3730 H Impressions: Chest X-Ray 05/20/18 17:10 IMPRESSION: Cardiomegaly. Cannot exclude mild pulmonary edema. Assessment & Plan - Diagnosis (1) Acute on chronic diastolic (congestive) heart failure Is this a current diagnosis for this admission?: Yes Plan: 03/2018 echocardiogram shows preserved EF with LVH and grade II diastolic dy sfunction. No need to repeat at this time. EKG shows NSR, no signs of acute ischemia or infarction BNP improving 4500-->3800, higher than patient's range of 1117-7111 She is admitted to [facility] on continuous cardiac telemetry. Cardiac diet. Daily weights and strict I&O's. Continue daily metolazone 2.5 mg. Will transition from IV furosemide to p.o. torsemide today. Continue antihypertensives; carvedilol, hydralazine, valsartan Daily aspirin and statin therapy. Cardiology is consulted; appreciate their evaluation recommendations. (2) Anemia in chronic kidney disease (CKD) Qualifiers: Chronic kidney disease stage: stage 4 (severe) Qualified Code(s): N18.4 - Chronic kidney disease, stage 4 (severe); D63.1 - Anemia in chronic kidney disease Is this a current diagnosis for this admission?: Yes Plan: Stable. Hemoglobin has drifted down slightly; 9.3--> 8.3 No evidence of active bleeding. Anemia panel normal; confirms anemia of chronic disease. Continue multivitamin. Previously received iron infusion. Followed by Dr. Gutierres; considering Procrit. Appreciate nephrology's assistance. Registered dietitian is consulted. (3) Chronic obstructive pulmonary disease Qualifiers: COPD type: unspecified COPD Qualified Code(s): J44.9 - Chronic obstructive pulmonary disease, unspecified Is this a current diagnosis for this admission?: Yes Plan: Stable and without exacerbation at this time. Continue home dose Pulmicort, Spiriva, and Serevent. Continue supplemental oxygen via nasal cannula to maintain oxygen saturations >88%; patient is not home O2 dependent and continues to require 2 L/min. No indications for antibiotics or steroid therapy at this time. (4) Hypertension Qualifiers: Hypertension type: essential hypertension Qualified Code(s): I10 - Essential (primary) hypertension Is this a current diagnosis for this admission?: Yes Plan: Continue home dose carvedilol, hydralazine, valsartan Cardiac diet. (5) Hyponatremia Is this a current diagnosis for this admission?: Yes Plan: Stable; Na 128.6--> 130.4--> 129.5 Likely from volume overload; continue diuresing as above. Daily chemistries. Fluid restrict to 1500 ml daily. (6) Morbid obesity Is this a current diagnosis for this admission?: Yes Plan: Cardiac/diabetic diet. Encourage mobility. Registered dietitian is consulted. (7) Diabetes Qualifiers: Diabetes mellitus type: type 2 Diabetes mellitus complication status: with unspecified complications Is this a current diagnosis for this admission?: Yes Plan: Patient is placed on a consistent carb/cardiac diet. Accu-Cheks before meals and at bedtime with Humalog for sliding scale coverage and hypoglycemia protocols in place. (8) Acute on chronic renal failure Qualifiers: Acute renal failure type: unspecified Chronic kidney disease stage: stage 4 (severe) Qualified Code(s): N17.9 - Acute kidney failure, unspecified; N18.4 - Chronic kidney disease, stage 4 (severe) Is this a current diagnosis for this admission?: Yes Plan: Stable; likely at baseline. Patient is followed by Dr. Gutierres as an outpatient; creatinine of 3.4-4.[address] Gutierres's outpatient records. Avoid nephrotoxic medications as able. Optimize cardiac function through management of CHF exacerbation. Daily chemistries. Dr. Gutierres has been consulted; appreciate her evaluation recommendations. - Time Time Spent with patient: Less than 15 minutes Medications reviewed and adjusted accordingly: Yes Anticipated discharge: Home Within: within 24 hours
--- NOTE | 2018-05-25 21:03 | PDOC PROGRESS REPORT ---
Subjective Progress Note for:: 05/25/18 Subjective:: Patient is doing well and continues to make good amount of urine output continues to feel better every single day. She does not have any new complaints. Reason For Visit: ACUTE ON CHRONIC RENAL FAILURE Physical Exam Vital Signs: Temp Pulse Resp BP Pulse Ox 99.8 F 79 16 138/53 H 97 05/25/18 19:39 05/25/18 19:46 05/25/18 19:46 05/25/18 19:39 05/25/18 19:46 Intake & Output 05/24/18 05/25/18 05/26/18 06:59 06:59 06:59 Intake Total 487 944 860 Output Total 1700 500 900 Balance -1213 444 -40 Weight 98.3 kg 93.4 kg Exam: General appearance: PRESENT: no acute distress, cooperative, well-developed, well-nourished Head exam: PRESENT: atraumatic, normocephalic Eye exam: PRESENT: conjunctiva pink, PERRLA. ABSENT: scleral icterus Neck exam: ABSENT: JVD Respiratory exam: PRESENT: Normal breath sounds. ABSENT: crackles, rales, rhonchi, unlabored, wheezes Cardiovascular exam: PRESENT: Regular rate rhythm -+S1, +S2. Grade 2/6 systolic murmur GI/Abdominal exam: PRESENT: normal bowel sounds, soft. ABSENT: guarding, mass, tenderness Extremities exam: Grade 1 bilateral lower extremity pitting edema Neurological exam: PRESENT: alert, awake, oriented to person, place and time. Skin exam: PRESENT: dry, warm, Results Laboratory Results: 05/25/18 06:18 05/25/18 06:18 05/25/18 05/25/18 06:18 06:18 WBC 8.9 RBC 2.74 L Hgb 8.1 L Hct 23.9 L MCV 87 MCH 29.5 MCHC 33.8 RDW 15.3 H Plt Count 326 Sodium 129.5 L Potassium 4.4 Chloride 95 L Carbon Dioxide 28 Anion Gap 7 BUN 37 H Creatinine 3.67 H Est GFR ( Amer) 15 L Est GFR (Non-Af Amer) 12 L Glucose 106 Calcium 8.8 05/20/18 05/20/18 05/20/18 17:30 17:30 19:25 Creatine Kinase Cancelled 96 CK-MB (CK-2) 0.38 Troponin I 0.016 NT-Pro-B Natriuret Pep 3210 H 05/20/18 05/22/18 05/23/18 21:29 04:27 04:23 Creatine Kinase CK-MB (CK-2) Troponin I 0.020 NT-Pro-B Natriuret Pep 4680 H 3860 H 05/25/18 06:18 Creatine Kinase CK-MB (CK-2) Troponin I NT-Pro-B Natriuret Pep 3730 H Impressions: Chest X-Ray 05/20/18 17:10 IMPRESSION: Cardiomegaly. Cannot exclude mild pulmonary edema. Assessment & Plan - Diagnosis (1) Acute on chronic diastolic (congestive) heart failure Is this a current diagnosis for this admission?: Yes Plan: Improving. (2) Chronic kidney disease, stage 4 (severe) Is this a current diagnosis for this admission?: Yes Plan: Kidney function is currently stable. No indication of initiation of renal replacement therapy at this time. (3) Diabetic nephropathy Qualifiers: Diabetes mellitus type: type 2 Qualified Code(s): E11.21 - Type 2 diabetes mellitus with diabetic nephropathy Is this a current diagnosis for this admission?: Yes (4) Hyponatremia Is this a current diagnosis for this admission?: Yes Plan: Due to hypervolemic state. Not significantly change. (5) Anemia in chronic kidney disease (CKD) Qualifiers: Chronic kidney disease stage: stage 4 (severe) Qualified Code(s): N18.4 - Chronic kidney disease, stage 4 (severe); D63.1 - Anemia in chronic kidney disease Is this a current diagnosis for this admission?: Yes Plan: Her iron is suboptimal despite oral iron supplement. I gave her a dose of IV Injectafer, 05/24/17. We will continue weekly dose of Procrit if she is still here by Wednesday. (6) Diabetes mellitus type 2 in obese Is this a current diagnosis for this admission?: Yes (7) Hypertension Qualifiers: Hypertension type: essential hypertension Qualified Code(s): I10 - Essential (primary) hypertension Is this a current diagnosis for this admission?: Yes (8) Secondary hyperparathyroidism Is this a current diagnosis for this admission?: Yes Plan: Start calcitriol 0.25 mcg 3 times a week. (9) Chronic obstructive pulmonary disease Qualifiers: COPD type: unspecified COPD Qualified Code(s): J44.9 - Chronic obstructive pulmonary disease, unspecified Is this a current diagnosis for this admission?: Yes (10) Morbid obesity Is this a current diagnosis for this admission?: Yes - Time Time with patient: 15-25 minutes
[2018-05-25] MEDS: ATORVASTATIN CALCIUM 40 MG TABLET PO SCH (21:54)
[2018-05-26] MEDS: HEPARIN SOD (PORCINE) 5,000 UNIT/ML 1 ML SYRINGE SUBCUT SCH ×2 (05:00→13:20)
[2018-05-26] MEDS: LANSOPRAZOLE 30 MG TAB.RAP.DR PO SCH (05:34)
[2018-05-26] MEDS: HYDRALAZINE HCL 50 MG TABLET PO SCH ×2 (05:34→13:19)
[2018-05-26 05:36] LABS: HEMATOCRIT 23.9 % (36.0-47.0); MEAN CORPUSCULAR HEMOGLOBIN 29.2 pg (27.0-33.4); MEAN CORPUSCULAR HGB CONC 33.4 g/dL (32.0-36.0); MEAN CORPUSCULAR VOLUME 88 fl (80-97); PLATELET COUNT 308 10^3/uL (150-450); RED BLOOD COUNT 2.74 10^6/uL (3.72-5.28); RED CELL DISTRIBUTION WIDTH 15.5 % (11.5-14.0); WHITE BLOOD COUNT 8.8 10^3/uL (4.0-10.5)
[2018-05-26 05:51] LABS: ANION GAP 8 (5-19); BLOOD UREA NITROGEN 40 mg/dL (7-20); CALCIUM 8.6 mg/dL (8.4-10.2); CARBON DIOXIDE 27 mmol/L (22-30); CHLORIDE 95 mmol/L (98-107); GLUCOSE 122 mg/dL (75-110); POTASSIUM 4.4 mmol/L (3.6-5.0); SODIUM 130.2 mmol/L (137-145)
[2018-05-26] MEDS: BUDESONIDE NEB 0.5 MG/2 ML AMPUL NEB SCH (08:00)
[2018-05-26] MEDS: LEVALBUTEROL HCL NEB 1.25 MG/3 ML AMPUL NEB SCH (08:00)
[2018-05-26] MEDS: IPRATROPIUM BROMIDE 0.02% NEB 0.5 MG/2.5 ML AMPUL NEB SCH (08:00)
[2018-05-26] MEDS: INSULIN LISPRO 100 UNIT/ML 3 ML VIAL SUBCUT SCH ×2 (08:06→12:15)
[2018-05-26] MEDS: INSULIN DETEMIR 100 UNIT/ML 3 ML PEN SUBCUT SCH (08:19)
[2018-05-26] MEDS ORDERED: TORSEMIDE 20 MG TABLET PO SCH (10:00)
[2018-05-26] MEDS: CARVEDILOL 12.5 MG TABLET PO SCH (10:01)
[2018-05-26] MEDS: DOCUSATE SODIUM 100 MG CAPSULE PO SCH (10:01)
[2018-05-26] MEDS: MULTIVITAMIN TABLET PO SCH (10:01)
[2018-05-26] MEDS: ASPIRIN 81 MG TABLET, CHEWABLE PO SCH (10:01)
[2018-05-26] MEDS: FERROUS SULFATE 325 MG TABLET PO SCH (10:01)
[2018-05-26] MEDS: VALSARTAN 160 MG TABLET PO SCH (10:01)
[2018-05-26] MEDS: METOLAZONE 2.5 MG TABLET PO SCH (10:09)
[2018-05-26] MEDS: TIOTROPIUM BROMIDE DPI 5 CAP/KIT (18 MCG/CAP) IH SCH (10:10)
--- NOTE | 2018-05-26 11:32 | RADIOLOGY REPORT (SQ) ---
EXAM DESCRIPTION: CHEST SINGLE VIEW COMPLETED DATE/TIME: 05/26/2018 9:02 am REASON FOR STUDY: dyspnea, hypoxia COMPARISON: Chest films 05/20/2018, 04/03/2018, 06/02/2016 EXAM PARAMETERS: NUMBER OF VIEWS: One view. TECHNIQUE: Single frontal radiographic view of the chest acquired. RADIATION DOSE: NA LIMITATIONS: None. FINDINGS: LUNGS AND PLEURA: No opacities, masses or pneumothorax. No pleural effusion. MEDIASTINUM AND HILAR STRUCTURES: No masses. Contour normal. HEART AND VASCULAR STRUCTURES: Stable massive cardiomegaly BONES: No acute findings. HARDWARE: None in the chest. OTHER: No other significant finding. IMPRESSION: Massive cardiomegaly, no acute infiltrates TECHNICAL DOCUMENTATION: JOB ID: [id number] [employer]- All Rights Reserved Reading location - IP/workstation name: [email or web address]
[2018-05-26 11:46] VITALS: BP 152/53
--- NOTE | 2018-05-29 16:38 | PDOC DISCHARGE SUMMARY ---
General - Admit/Disc Date/PCP Admission Date/Primary Care Provider: 05/20/18 22:42 KAMILLE GLASGOW MD Discharge Date: 05/26/18 - Discharge Diagnosis (1) Acute on chronic diastolic (congestive) heart failure Is this a current diagnosis for this admission?: Yes Summary: 03/2018 echocardiogram shows preserved EF with LVH and grade II diastolic dysfunction. No need to repeat at this time. EKG shows NSR, no signs of acute ischemia or infarction BNP improving 4500-->3800, higher than patient's range of 1620-1473 The patient was initially admitted to [facility] on continuous cardiac telemetry; as her condition improved, she was downgraded to medical floor on telemetry. She was placed on a cardiac diet with a fluid restriction of 2000 mL's daily. Cardiology was consulted; carvedilol, hydralazine, and valsartan were continued, metolazone was decreased to 2.5 mg daily, and she was briefly placed on IV furosemide for diuresis. As her condition improved; she was transitioned back t o p.o. torsemide. Her daily aspirin and statin therapy were continued. She was supported with supplemental oxygen via nasal cannula which was gradually weaned, however, the patient does continue to require oxygen while ambulatory. Her inpatient hospital benefit was maximized; therefore she was discharged home in stable condition. She was maintaining oxygen saturations on supplemental oxygen by nasal cannula while sleeping and while ambulatory. Patient reports that her dyspnea and lower extremity edema have improved greatly, though she remains fatigued. She was offered short-term rehab stay versus home health nursing and physical therapy; both of these services were declined. The patient was encouraged to follow-up with her primary care provider within 1 week and to discuss the services further. She is also instructed to weigh herself daily and to report any weight gain of greater than 2 pounds to her primary care provider right away. She is encouraged to follow-up with nephrology, Dr. Glasgow, as scheduled in June and with cardiology, Dr. Carr, as scheduled in 2 weeks. She is also advised to return to the emergency department as needed for any concerning symptoms. (2) Anemia in chronic kidney disease (CKD) Is this a current diagnosis for this admission?: Yes Summary: Stable. Hemoglobin has drifted down slightly; 9.3--> 8.3 No evidence of active bleeding. Anemia panel normal; confirms anemia of chronic disease. Now status post iron infusion. Nephrology, Dr. Glasgow, we were consulted; appreciate their assistance. (3) Chronic obstructive pulmonary disease Is this a current diagnosis for this admission?: Yes Summary: Stable and without exacerbation at this time. Continue home dose Pulmicort, Spiriva, and Serevent. Continue supplemental oxygen via nasal cannula to maintain oxygen saturations >88%; patient is not home O2 dependent and continues to require 2 L/min. Arrangements were made for the patient to receive home oxygen. She did not require antibiotic or steroid therapy while admitted. (4) Hypertension Is this a current diagnosis for this admission?: Yes Summary: Her home dose carvedilol, hydralazine, and valsartan were continued. Her metolazone dose was decreased slightly, and after receiving IV furosemide for diuresis, she was transitioned back to torsemide at discharge. (5) Hyponatremia Is this a current diagnosis for this admission?: Yes Summary: Stable; Na 128.6--> 130.4--> 129.5 Likely from volume overload; continue diuresing as above. Recommending 2000 mL fluid restriction. Recommend follow-up chemistry at her visit with her primary care provider next week. (6) Morbid obesity Is this a current diagnosis for this admission?: Yes Summary: Recommend continuing cardiac and diabetic diet with gradually increasing physical activity as tolerated. (7) Diabetes Is this a current diagnosis for this admission?: Yes Summary: A1c of 7.1%; well controlled on home medication regiment. (8) Acute on chronic renal failure Is this a current diagnosis for this admission?: Yes Summary: Stable; likely at baseline. Patient is followed by Dr. Glasgow as an outpatient; creatinine of 3.4-4.[address] Glasgow's outpatient records. Recommend following up with Dr. Glasgow as scheduled in June. - Additional Information Resuscitation Status: Full Code Discharge Diet: Cardiac, Other (Comments) Discharge Activity: Activity As Tolerated, Balance Activity w/Rest, Weigh Daily Prescriptions: Calcitriol [Rocaltrol 0.25 mcg Capsule] 0.25 mcg PO MOWEFR #30 capsule Metolazone [Zaroxolyn 2.5 mg Tablet] 2.5 mg PO DAILY #30 tablet Multivitamin [Tab-A-Carlos (Multiple Vitamin) Tablet] 1 tab PO DAILY #90 tablet Nicotine [Nicoderm 21 mg/24 Hr Transderm Patch] 1 each TD DAILYP PRN #30 patch.td24 PRN Reason: Torsemide [Demadex 20 mg Tablet] 20 mg PO DAILY #30 tablet Home Medications: Loratadine 10 mg PO DAILY 04/10/13 Tiotropium [place] [Spiriva Handihaler 18 mcg/dose (30 Dose)] 1 puff IH DAILY 07/14/13 Atorvastatin Calcium [Lipitor 40 mg Tablet] 40 mg PO DAILY 06/02/16 Carvedilol [Coreg 25 mg Tablet] 25 mg PO Q12 06/02/16 Hydralazine HCl [Apresoline 50 mg Tablet] 50 mg PO Q12 06/02/16 Insulin Detemir [Levemir Flextouch] 30 units SQ QAM 06/02/16 Linagliptin [Tradjenta] 5 mg PO DAILY 06/02/16 Roflumilast [Daliresp 500 mcg Tablet] 500 mcg PO DAILY 06/02/16 Ergocalciferol (Vitamin D2) [Drisdol 50,000 unit (1.25MG) Capsule] 50,000 unit PO MO@1000 04/22/18 Ferrous Sulfate [Feosol 325 mg Tablet] 325 mg PO DAILY 04/22/18 Valsartan [Diovan] 320 mg PO DAILY 04/22/18 Aspirin [Ecotrin 81 mg EC Tablet] 81 mg PO DAILY 05/21/18 Fluticasone/Salmeterol [Advair 250-50 Diskus 14 Dose/Diskus] 1 inh IH Q12 05/21/18 Acetaminophen [Tylenol 325 mg Tablet] 650 mg PO Q4HP PRN tablet 05/26/18 Aspirin [Aspirin 81 mg Chewable Tablet] 81 mg PO DAILY tab.chew 05/26/18 Calcitriol [Rocaltrol 0.25 mcg Capsule] 0.25 mcg PO MOWEFR #30 capsule 05/26/18 Metolazone [Zaroxolyn 2.5 mg Tablet] 2.5 mg PO DAILY #30 tablet 05/26/18 Multivitamin [Tab-A-Carlos (Multiple Vitamin) Tablet] 1 tab PO DAILY #90 tablet 05/26/18 Nicotine [Nicoderm 21 mg/24 Hr Transderm Patch] 1 each TD DAILYP PRN #30 patch.td24 05/26/18 Torsemide [Demadex 20 mg Tablet] 20 mg PO DAILY #30 tablet 05/26/18 History of Present Illness History of Present Illness: Per H&P by Dr. Barr: LUIZA CAMARGO is a 72 year old female who presented to the emergency room with a 7-day history of gradually worsening dyspnea. She admits that over the last week she has experienced gradually increasing shortness of breath as well as dyspnea on exertion, accompanied by increased swelling in her lower extremities and decreased urine output. She now rates her dyspnea as severe and further admits numerous similar episodes in the past related to congestive heart failure and COPD. She denies having identified any aggravating or ameliorating factors for her current episode of dyspnea. In the emergency room she was found to have an elevated BNP (higher than her prior reading) as well as a significant increase in her serum creatinine to 3.51. Her chest x-ray showed evidence of COPD as well as some congestive changes consistent with volume overload. With these findings the patient was admitted to hospital for further evaluation and treatment of her dyspnea as well as her acute on chronic renal failure. Physical Exam Vital Signs: Temp Pulse Resp BP Pulse Ox 99.9 F 64 17 152/53 H 98 05/26/18 15:12 05/26/18 15:12 05/26/18 15:12 05/26/18 15:12 05/26/18 15:12 General appearance: PRESENT: no acute distress, cooperative, obese, well- developed, well-nourished Head exam: PRESENT: atraumatic, normocephalic Eye exam: PRESENT: conjunctiva pink, EOMI, PERRLA. ABSENT: scleral icterus Ear exam: PRESENT: normal external ear exam Mouth exam: PRESENT: moist, tongue midline Neck exam: ABSENT: carotid bruit, JVD, lymphadenopathy, thyromegaly Respiratory exam: PRESENT: clear to auscultation jackie, symmetrical, unlabored, other - Supplemental oxygen via nasal cannula. ABSENT: rales, rhonchi, wheezes Cardiovascular exam: PRESENT: RRR, +S1, +S2. ABSENT: diastolic murmur, rubs, systolic murmur Pulses: PRESENT: normal dorsalis pedis pul Vascular exam: PRESENT: normal capillary refill GI/Abdominal exam: PRESENT: normal bowel sounds, soft. ABSENT: distended, guarding, mass, organolmegaly, rebound, tenderness Rectal exam: PRESENT: deferred Extremities exam: PRESENT: full ROM, +2 edema - Nonpitting edema to bilateral lower extremities. ABSENT: calf tenderness, clubbing, pedal edema Neurological exam: PRESENT: alert, awake, oriented to person, oriented to place, oriented to time, oriented to situation, CN II-XII grossly intact. ABSENT: motor sensory deficit Psychiatric exam: PRESENT: appropriate affect, normal mood. ABSENT: homicidal ideation, suicidal ideation Skin exam: PRESENT: dry, intact, warm. ABSENT: cyanosis, rash Results Laboratory Results: 05/26/18 05:16 05/26/18 05:16 05/20/18 05/20/18 05/20/18 17:30 17:30 19:25 Creatine Kinase Cancelled 96 CK-MB (CK-2) 0.38 Troponin I 0.016 NT-Pro-B Natriuret Pep 3210 H 05/20/18 05/22/18 05/23/18 21:29 04:27 04:23 Creatine Kinase CK-MB (CK-2) Troponin I 0.020 NT-Pro-B Natriuret Pep 4680 H 3860 H 05/25/18 06:18 Creatine Kinase CK-MB (CK-2) Troponin I NT-Pro-B Natriuret Pep 3730 H Impressions: Chest X-Ray 05/26/18 00:00 IMPRESSION: Massive cardiomegaly, no acute infiltrates Qualifiers - * PATIENT BEING DISCHARGED WITH ANY OF THE FOLLOWING DIAGNOSIS: Heart Failure HF Pt being discharged on ACEI for LVEF less than 40%?: No Reason(s) for not prescribing ACEI:: Not indicated - On ARB;normal LVEF HF Pt being discharged on ARBS for LVEF less than 40%?: Yes HF Pt with Afib discharged with Warfarin?: No Reason(s) for not prescribing Warfarin:: Not indicated - Not in A. fib HF Pt discharged on evidence-based Beta Ermias:: Yes Plan Discharge Plan: Discharged home with self-care. Follow-up with primary care provider within 1 week. Follow-up with nephrology as scheduled in June. Follow-up with cardiology within 2-4 weeks. Continue daily weights; report weight gain of more than 2 pounds to your primary care provider. Eat a low-sodium diet and fluid restrict to less than 2000 mL's daily. Recommend discussing home health nursing with primary care provider at follow-up appointment; we offered to arrange for CHF tele-health program which was declined. Return to the emergency department as needed for concerning symptoms. Time Spent: Less than 30 Minutes
== END 2018-05-26 16:45 | disposition home or self-care (01) | DRG 682 ==
LOC: ER 14:54 → EH 22:42 → 3N 05-21 23:30 → 4N 05-25 03:50
PROVIDERS: ADMIT Emergency Medicine; ATTEND Emergency Medicine
PROC: 3E0F73Z Introduction of Anti-inflammatory into Respiratory Tract, Via Natural or Artificial Opening (ICD-10-PCS; principal; 2018-05-20)
DX: N17.9 Acute kidney failure, unspecified (principal); I50.33 Acute on chronic diastolic (congestive) heart failure; I13.0 Hypertensive heart and chronic kidney disease with heart failure and stage 1 through stage 4 chronic kidney disease, or unspecified chronic kidney disease; E87.1 Hypo-osmolality and hyponatremia; D63.1 Anemia in chronic kidney disease; J44.9 Chronic obstructive pulmonary disease, unspecified; E66.01 Morbid (severe) obesity due to excess calories; E11.22 Type 2 diabetes mellitus with diabetic chronic kidney disease; N18.4 Chronic kidney disease, stage 4 (severe); E87.5 Hyperkalemia; N25.81 Secondary hyperparathyroidism of renal origin; E83.39 Other disorders of phosphorus metabolism; Z98.42 Cataract extraction status, left eye; Z79.82 Long term (current) use of aspirin; Z79.4 Long term (current) use of insulin; Z79.899 Other long term (current) drug therapy; Z98.41 Cataract extraction status, right eye; Z87.891 Personal history of nicotine dependence; Z91.041 Radiographic dye allergy status; Z80.9 Family history of malignant neoplasm, unspecified
CPT/HCPCS: 36415; 71045; 80048; 80053; 80061; 81001; 82550; 82553; 82607; 82728; 82746; 82962; 83036; 83540; 83550; 83735; 83880; 83970; 84100; 84439; 84443; 84481; 84484; 85025; 85027; 85045; 93005; 93010; 94640; 94667; 94799; 96374; 96375; 96376; 99285; J1439; J1644; J1815; J1940; J2405; J3490; J7620

== ENCOUNTER → 2018-06-21 | Outpatient (CLI) | payer MEDICARE, OTHER ==
[2018-06-21 11:57] LABS: ABSOLUTE BASOPHILS # (AUTO) 0.1 10^3/uL (0.0-0.2); ABSOLUTE EOSINOPHILS # (AUTO) 0.3 10^3/uL (0.0-0.6); ABSOLUTE LYMPHOCYTES (AUTO) 1.6 10^3/uL (0.5-4.7); ABSOLUTE MONOCYTES (AUTO) 0.5 10^3/uL (0.1-1.4); ABSOLUTE NEUT (AUTO) 4.6 10^3/uL (1.7-8.2); BASOPHILS % (AUTO) 1.3 % (0-2); EOSINOPHILS % (AUTO) 4.7 % (0-6); HEMOGLOBIN 11.5 g/dL (12.0-15.5); MEAN CORPUSCULAR HEMOGLOBIN 28.9 pg (27.0-33.4); MEAN CORPUSCULAR VOLUME 88 fl (80-97); MONOCYTES % (AUTO) 7.5 % (3-13); PLATELET COUNT 272 10^3/uL (150-450); RED BLOOD COUNT 3.99 10^6/uL (3.72-5.28); RED CELL DISTRIBUTION WIDTH 15.6 % (11.5-14.0); SEGMENTED NEUTROPHILS % (AUTO) 64.5 % (42-78); TOTAL CELLS COUNTED % (AUTO) 100 %; WHITE BLOOD COUNT 7.1 10^3/uL (4.0-10.5)
[2018-06-21 12:17] LABS: ANION GAP 9 (5-19); BLOOD UREA NITROGEN 41 mg/dL (7-20); CALCIUM 10.4 mg/dL (8.4-10.2); CARBON DIOXIDE 28 mmol/L (22-30); CHLORIDE 101 mmol/L (98-107); GLUCOSE 140 mg/dL (75-110); IRON(TIBC) 80.9 ug/dL (37-170); POTASSIUM 4.9 mmol/L (3.6-5.0); SODIUM 138.1 mmol/L (137-145)
[2018-06-21 12:43] LABS: URINE CREATININE 64.1 mg/dL (15-278)
[2018-06-21 12:51] LABS: UR PRO/CREAT RATIO RESULT 4.6 mg/mg (0.0-0.2); URINE PROTEIN 293.1 mg/dL (<12)
== END ==
LOC: OD 10:42
PROVIDERS: ATTEND Internal Medicine Nephrology
DX: D64.9 Anemia, unspecified (principal)
CPT/HCPCS: 36415; 80048; 82570; 82728; 83540; 83550; 83970; 84156; 85025

== ENCOUNTER → 2018-09-22 | Outpatient (CLI) | payer MEDICARE, OTHER ==
[2018-09-22 11:21] LABS: ABSOLUTE BASOPHILS # (AUTO) 0.1 10^3/uL (0.0-0.2); ABSOLUTE EOSINOPHILS # (AUTO) 0.3 10^3/uL (0.0-0.6); ABSOLUTE LYMPHOCYTES (AUTO) 1.3 10^3/uL (0.5-4.7); ABSOLUTE MONOCYTES (AUTO) 0.7 10^3/uL (0.1-1.4); ABSOLUTE NEUT (AUTO) 5.2 10^3/uL (1.7-8.2); EOSINOPHILS % (AUTO) 3.7 % (0-6); HEMATOCRIT 33.1 % (36.0-47.0); LYMPHOCYTES % (AUTO) 17.6 % (13-45); MEAN CORPUSCULAR HEMOGLOBIN 28.7 pg (27.0-33.4); MEAN CORPUSCULAR HGB CONC 33.3 g/dL (32.0-36.0); MEAN CORPUSCULAR VOLUME 86 fl (80-97); MONOCYTES % (AUTO) 9.3 % (3-13); PLATELET COUNT 232 10^3/uL (150-450); RED BLOOD COUNT 3.83 10^6/uL (3.72-5.28); RED CELL DISTRIBUTION WIDTH 14.9 % (11.5-14.0); SEGMENTED NEUTROPHILS % (AUTO) 68.4 % (42-78); TOTAL CELLS COUNTED % (AUTO) 100 %; WHITE BLOOD COUNT 7.5 10^3/uL (4.0-10.5)
[2018-09-22 12:19] LABS: ALBUMIN 3.9 g/dL (3.5-5.0); ANION GAP 10 (5-19); BLOOD UREA NITROGEN 52 mg/dL (7-20); CALCIUM 10.7 mg/dL (8.4-10.2); CARBON DIOXIDE 26 mmol/L (22-30); CHLORIDE 101 mmol/L (98-107); GLUCOSE 146 mg/dL (75-110); IRON(TIBC) 79.8 ug/dL (37-170); PHOSPHORUS 4.7 mg/dL (2.5-4.5); POTASSIUM 4.8 mmol/L (3.6-5.0); SODIUM 136.9 mmol/L (137-145)
[2018-09-22 12:20] LABS: UR PRO/CREAT RATIO RESULT 3.7 mg/mg (0.0-0.2); URINE CREATININE 43.5 mg/dL (15-278); URINE PROTEIN 159.1 mg/dL (<12)
== END ==
LOC: OD 10:43
PROVIDERS: ATTEND Internal Medicine Nephrology
DX: N18.4 Chronic kidney disease, stage 4 (severe) (principal); D63.1 Anemia in chronic kidney disease
CPT/HCPCS: 36415; 80069; 82306; 82570; 82728; 83540; 83550; 83970; 84156; 85025

== ENCOUNTER → 2018-11-29 | Outpatient (CLI) | payer MEDICARE, OTHER ==
[2018-11-29 12:11] LABS: ABSOLUTE BASOPHILS # (AUTO) 0.1 10^3/uL (0.0-0.2); ABSOLUTE EOSINOPHILS # (AUTO) 0.3 10^3/uL (0.0-0.6); ABSOLUTE LYMPHOCYTES (AUTO) 1.8 10^3/uL (0.5-4.7); ABSOLUTE MONOCYTES (AUTO) 0.9 10^3/uL (0.1-1.4); ABSOLUTE NEUT (AUTO) 6.8 10^3/uL (1.7-8.2); BASOPHILS % (AUTO) 0.9 % (0-2); EOSINOPHILS % (AUTO) 2.8 % (0-6); HEMATOCRIT 30.7 % (36.0-47.0); HEMOGLOBIN 10.5 g/dL (12.0-15.5); LYMPHOCYTES % (AUTO) 18.2 % (13-45); MEAN CORPUSCULAR HEMOGLOBIN 29.5 pg (27.0-33.4); MEAN CORPUSCULAR HGB CONC 34.2 g/dL (32.0-36.0); MEAN CORPUSCULAR VOLUME 86 fl (80-97); MONOCYTES % (AUTO) 8.8 % (3-13); PLATELET COUNT 308 10^3/uL (150-450); RED BLOOD COUNT 3.55 10^6/uL (3.72-5.28); RED CELL DISTRIBUTION WIDTH 14.9 % (11.5-14.0); SEGMENTED NEUTROPHILS % (AUTO) 69.3 % (42-78); TOTAL CELLS COUNTED % (AUTO) 100 %; WHITE BLOOD COUNT 9.9 10^3/uL (4.0-10.5)
[2018-11-29 12:32] LABS: ANION GAP 11 (5-19); BLOOD UREA NITROGEN 36 mg/dL (7-20); CALCIUM 10.6 mg/dL (8.4-10.2); CARBON DIOXIDE 25 mmol/L (22-30); CHLORIDE 93 mmol/L (98-107); GLUCOSE 89 mg/dL (75-110); PHOSPHORUS 4.3 mg/dL (2.5-4.5); POTASSIUM 4.4 mmol/L (3.6-5.0)
[2018-11-29 12:37] LABS: URINE CREATININE 78.9 mg/dL (15-278)
[2018-11-29 12:53] LABS: UR PRO/CREAT RATIO RESULT 4.9 mg/mg (0.0-0.2); URINE PROTEIN 385.7 mg/dL (<12)
== END ==
LOC: OD 11:15
PROVIDERS: ATTEND Internal Medicine Nephrology
DX: I12.0 Hypertensive chronic kidney disease with stage 5 chronic kidney disease or end stage renal disease (principal); N18.5 Chronic kidney disease, stage 5; E11.22 Type 2 diabetes mellitus with diabetic chronic kidney disease; D63.1 Anemia in chronic kidney disease
CPT/HCPCS: 36415; 80048; 82306; 82570; 84100; 84156; 85025

== ENCOUNTER 2018-12-13 15:02 | Inpatient (IN) | payer MEDICARE, OTHER ==
--- NOTE | 2018-12-13 15:40 | ER Document Report ---
ED Medical Screen (RME) - General Chief Complaint: Abnormal Lab Results Stated Complaint: ABNORMAL LABS Time Seen by Provider: 12/13/18 15:22 Primary Care Provider: KAMILLE GLASGOW MD [Primary Care Provider] - Follow up as needed Notes: Patient is a 73-year-old female with a history of kidney disease, hypertension, type 2 diabetes who presents to the emergency department for abnormal labs. She states earlier today she had her blood work drawn and was told by Dr. Glasgow to seek medical attention in the emergency department as her sodium was low. She reports her sodium was 118. Patient reports an increase in heartburn. Patient states she has had bilateral leg spasming. Patient states she is also had issues with constipation as she required an enema at home on Wednesday. Patient states she did have relief and a small bowel movement at that time. Patient also complains of lower abdominal pain that has been present for about 1 week. She said she did see Dr. Keen who placed her on antibiotics that she has not started as of yet. Patient states the pain is primarily in the left lower quadrant. Patient reports she does have a history of diverticulitis and that it feels similar. TRAVEL OUTSIDE OF THE [place] IN LAST 30 DAYS: No - Related Data Allergies/Adverse Reactions: Iodinated Contrast Media [IV Dye, Iodine Containing] Adverse Reaction (Unknown, Verified 05/20/18 14:55) Respiratory distress Past Medical History - Past Medical History Cardiac Medical History: Reports: Hx Congestive Heart Failure, Hx Hypertension Denies: Hx Atrial Fibrillation, Hx DVT, Hx Heart Attack, Hx Pulmonary Embolism Pulmonary Medical History: Reports: Hx COPD, Hx Pneumonia, Hx Sleep Apnea Denies: Hx Tuberculosis Neurological Medical History: Denies: Hx Seizures Endocrine Medical History: Reports: Hx Diabetes Mellitus Type 2. Denies: Hx Diabetes Mellitus Type 1, Hx Hyperthyroidism, Hx Hypothyroidism Renal/ Medical History: Reports: Hx End Stage Renal Disease. Denies: Hx Peritoneal Dialysis GI Medical History: Denies: Hx Cirrhosis, Hx Hepatitis Musculoskeltal Medical History: Denies Hx Arthritis, Denies Hx Gout Skin Medical History: Denies Hx Eczema, Denies Hx Psoriasis Psychiatric Medical History: Denies: Hx Depression Infectious Medical History: Denies: Hx Hepatitis Past Surgical History: Reports: Hx Cardiac Catheterization - Last was 2006, Hx Section, Other - Cataract surgeries bilaterally - Immunizations Hx Diphtheria, Pertussis, Tetanus Vaccination: Yes Physical Exam - Vital signs Vitals: Temp Pulse Resp BP Pulse Ox 98.5 F 63 16 153/64 H 96 12/13/18 15:07 12/13/18 15:07 12/13/18 15:07 12/13/18 15:07 12/13/18 15:07 Interpretation: Hypertensive - Abdominal Inspection: Obese Distension: No distension Bowel sounds: Normal Tenderness: Tender - lower abdominal tenderness Organomegaly: No organomegaly Course - Re-evaluation Re-evalutation: 12/13/18 15:37 I have greeted and performed a rapid initial assessment of this patient. A comprehensive ED assessment and evaluation of the patient, analysis of test results and completion of the medical decision making process will be conducted by additional ED providers. - Vital Signs Vital signs: Temp Pulse Resp BP Pulse Ox 98.5 F 63 16 153/64 H 96 12/13/18 15:07 12/13/18 15:07 12/13/18 15:07 12/13/18 15:07 12/13/18 15:07 Doctor's Discharge - Discharge Referrals: KAMILLE GLASGOW MD [Primary Care Provider] - Follow up as needed
[2018-12-13] MEDS ORDERED: NORMAL SALINE 500 ML IV ONE (15:54)
--- NOTE | 2018-12-13 15:56 | ER Document Report ---
ED General - General Chief Complaint: Abnormal Lab Results Stated Complaint: ABNORMAL LABS Time Seen by Provider: 12/13/18 15:22 Mode of Arrival: Ambulatory Information source: Patient Notes: Patient had routine outpatient lab work performed today. Patient states that her corporate travel coordinator advised her to come to the emergency department for abnormal lab work including a low sodium of 118. Patient does complain of leg cramps primarily at nighttime for the past 2 weeks. Patient denies any chest pain, headache, abdominal pain or back pain. Patient denies any nausea vomiting or diarrhea. TRAVEL OUTSIDE OF THE [place] IN LAST 30 DAYS: No - HPI Onset: This morning Onset/Duration: Gradual Quality of pain: Cramping Severity: Moderate Pain Level: Denies Associated symptoms: Leg swelling - Bilateral feet. denies: Chest pain, Chills, Nonproductive cough, Productive cough, Fever, Headache, Nausea, Vomiting, Shortness of breath Exacerbated by: Denies Relieved by: Denies Similar symptoms previously: No Recently seen / treated by doctor: Yes - Related Data Allergies/Adverse Reactions: Iodinated Contrast Media [IV Dye, Iodine Containing] Adverse Reaction (Unknown, Verified 05/20/18 14:55) Respiratory distress Past Medical History - General Information source: Patient - Social History Smoking Status: Former Smoker Frequency of alcohol use: None Drug Abuse: None Lives with: Family Family History: Reviewed & Not Pertinent Patient has suicidal ideation: No Patient has homicidal ideation: No - Past Medical History Cardiac Medical History: Reports: Hx Congestive Heart Failure, Hx Hypertension Pulmonary Medical History: Reports: Hx COPD, Hx Pneumonia, Hx Sleep Apnea Denies: Hx Tuberculosis Neurological Medical History: Denies: Hx Seizures Endocrine Medical History: Reports: Hx Diabetes Mellitus Type 2 Renal/ Medical History: Reports: Hx End Stage Renal Disease. Denies: Hx Peritoneal Dialysis Skin Medical History: Denies Hx Eczema, Denies Hx Psoriasis Infectious Medical History: Denies: Hx Hepatitis Past Surgical History: Reports: Hx Cardiac Catheterization - Last was 2006, Hx Section, Other - Cataract surgeries bilaterally - Immunizations Hx Diphtheria, Pertussis, Tetanus Vaccination: Yes Hx Pneumococcal Vaccination: 04/26/17 Review of Systems - Review of Systems Constitutional: No symptoms reported. denies: Fever, Recent illness EENT: No symptoms reported Cardiovascular: No symptoms reported. denies: Chest pain, Dizziness, Lightheaded Respiratory: No symptoms reported. denies: Cough, Short of breath Gastrointestinal: No symptoms reported. denies: Abdominal pain, Diarrhea, Nausea, Vomiting Genitourinary: No symptoms reported. denies: Dysuria, Flank pain Female Genitourinary: No symptoms reported Musculoskeletal: Muscle pain - Leg cramps at night, Ankle swelling. denies: Back pain Skin: No symptoms reported Hematologic/Lymphatic: No symptoms reported Neurological/Psychological: No symptoms reported. denies: Confusion, Weakness, Headaches Physical Exam - Vital signs Vitals: Temp Pulse Resp BP Pulse Ox 98.5 F 63 16 153/64 H 96 12/13/18 15:07 12/13/18 15:07 12/13/18 15:07 12/13/18 15:07 12/13/18 15:07 - General General appearance: Appears well, Alert In distress: None - HEENT Head: Normocephalic, Atraumatic Eyes: Normal Conjunctiva: Normal Nasal: Normal Mouth/Lips: Normal Mucous membranes: Normal Neck: Normal, Supple. No: Lymphadenopathy - Respiratory Respiratory status: No respiratory distress Chest status: Nontender Breath sounds: Normal. No: Rales, Rhonchi, Stridor, Wheezing Chest palpation: Normal - Cardiovascular Rhythm: Regular Heart sounds: S1 appreciated, S2 appreciated - Abdominal Inspection: Obese Distension: No distension Bowel sounds: Normal Tenderness: Nontender - Back Back: Normal, Nontender. No: CVA tenderness - Extremities General upper extremity: Normal inspection, Normal ROM General lower extremity: Edema - 2+pedal, Normal color, Normal ROM - Neurological Neuro grossly intact: Yes Cognition: Normal Lindsay Coma Scale Eye Opening: Spontaneous Lindsay Coma Scale Verbal: Oriented [place] Coma Scale Motor: Obeys Commands Lindsay Coma Scale Total: 15 - Psychological Associated symptoms: Normal affect, Normal mood - Skin Skin Temperature: Warm Skin Moisture: Dry Skin Color: Normal Course - Re-evaluation Re-evalutation: 12/13/18 15:[address] Tenorio regarding patient presentation and hyponatremia. Recommends giving fluid bolus of 500 normal saline at this time and anticipates admission to hospitalist to correct hyponatremia. 12/13/18 17:[address] Still for admission. Dr Still states that he will need to contact patient's corporate travel coordinator to confirm whether or not patient is appropriate for staying at this facility given severe hyponatremia. 12/13/18 17:22 Dr Still plans to evaluate patient and will keep patient here for admission although is uncertain yet which type of bed she will need to go to. 12/13/18 18:41 - Vital Signs Vital signs: Temp Pulse Resp BP Pulse Ox 98.5 F 63 16 156/76 H 99 12/13/18 15:07 12/13/18 15:07 12/13/18 16:08 12/13/18 16:08 12/13/18 16:08 - Laboratory Result Diagrams: 12/13/18 15:45 12/13/18 15:45 Laboratory results interpreted by me: 12/13/18 12/13/18 12/13/18 15:45 15:45 15:45 RBC 3.35 L Hgb 9.9 L Hct 28.1 L Sodium 117.5 L* Potassium 3.3 L Chloride 79 L BUN 49 H Creatinine 3.99 H Est GFR ( Amer) 13 L Est GFR (Non-Af Amer) 11 L Glucose 127 H Calcium 11.7 H Magnesium 1.1 L* AST 41 H Total Protein 5.5 L Albumin 3.4 L Urine Protein Ur Leukocyte Esterase 12/13/18 17:15 RBC Hgb Hct Sodium Potassium Chloride BUN Creatinine Est GFR ( Amer) Est GFR (Non-Af Amer) Glucose Calcium Magnesium AST Total Protein Albumin Urine Protein >=500 H Ur Leukocyte Esterase TRACE H - EKG Interpretation by Ut EKG shows normal: Sinus rhythm Heart block present: 1st Degree Additional EKG results interpreted by me: 12/13/18 17:[address] elevation, no T wave inversion, QTC 485 Discharge - Discharge Clinical Impression: Hyponatremia, Hypokalemia, Leg cramps Chronic kidney disease (CKD) Qualifiers: Chronic kidney disease stage: unspecified stage Qualified Code(s): N18.9 - Chronic kidney disease, unspecified Condition: Fair Disposition: ADMITTED INPATIENT Admitting Provider: Tessy (Hospitalist) Unit Admitted: ICU
[2018-12-13 16:09] LABS: ABSOLUTE BASOPHILS # (AUTO) 0.1 10^3/uL (0.0-0.2); ABSOLUTE EOSINOPHILS # (AUTO) 0.1 10^3/uL (0.0-0.6); ABSOLUTE LYMPHOCYTES (AUTO) 1.3 10^3/uL (0.5-4.7); ABSOLUTE MONOCYTES (AUTO) 0.6 10^3/uL (0.1-1.4); ABSOLUTE NEUT (AUTO) 6.8 10^3/uL (1.7-8.2); BASOPHILS % (AUTO) 0.6 % (0-2); EOSINOPHILS % (AUTO) 1.1 % (0-6); HEMATOCRIT 28.1 % (36.0-47.0); HEMOGLOBIN 9.9 g/dL (12.0-15.5); LYMPHOCYTES % (AUTO) 14.6 % (13-45); MEAN CORPUSCULAR HEMOGLOBIN 29.6 pg (27.0-33.4); MEAN CORPUSCULAR HGB CONC 35.4 g/dL (32.0-36.0); MEAN CORPUSCULAR VOLUME 84 fl (80-97); MONOCYTES % (AUTO) 7.2 % (3-13); PLATELET COUNT 281 10^3/uL (150-450); RED BLOOD COUNT 3.35 10^6/uL (3.72-5.28); SEGMENTED NEUTROPHILS % (AUTO) 76.5 % (42-78); TOTAL CELLS COUNTED % (AUTO) 100 %; WHITE BLOOD COUNT 8.8 10^3/uL (4.0-10.5)
[2018-12-13 16:20] LABS: ALBUMIN 3.4 g/dL (3.5-5.0); ALKALINE PHOSPHATASE 58 U/L (38-126); ANION GAP 12 (5-19); ASPARTATE AMINO TRANSFERASE 41 U/L (14-36); BILIRUBIN,DIRECT 0.2 mg/dL (0.0-0.4); BILIRUBIN,TOTAL 0.4 mg/dL (0.2-1.3); BLOOD UREA NITROGEN 49 mg/dL (7-20); CALCIUM 11.7 mg/dL (8.4-10.2); CARBON DIOXIDE 27 mmol/L (22-30); CHLORIDE 79 mmol/L (98-107); GLUCOSE 127 mg/dL (75-110); POTASSIUM 3.3 mmol/L (3.6-5.0); TOTAL PROTEIN 5.5 g/dL (6.3-8.2)
[2018-12-13] MEDS ORDERED: POTASSIUM CHLORIDE 10 MEQ CAPSULE.ER PO ONE ×2 (16:53→18:30)
[2018-12-13] MEDS ORDERED: ACETAMINOPHEN 325 MG TABLET PO PRN (17:37)
[2018-12-13 17:43] LABS: APPEARANCE,URINE SLIGHTLY-CLOUDY; BILIRUBIN,URINE NEGATIVE (NEGATIVE); COLOR,URINE YELLOW; GLUCOSE, URINE NEGATIVE (NEGATIVE); KETONES,URINE NEGATIVE (NEGATIVE); LEUKOCYTE ESTERASE,URINE TRACE (NEGATIVE); NITRITE,URINE NEGATIVE (NEGATIVE); PROTEIN,URINE >=500 mg/dL (NEGATIVE); URINE SPECIFIC GRAVITY 1.005; UROBILINOGEN,URINE NEGATIVE mg/dL (<2.0)
[2018-12-13] MEDS ORDERED: SODIUM CHLORIDE 3% 100 ML IV ONE (18:00)
--- NOTE | 2018-12-13 18:07 | PDOC H&P ---
History of Present Illness Admission Date/PCP: 12/13/18 17:35 RAFAL OTTO MD Patient complains of: Abnormal labs with leg cramps History of Present Illness: LUIZA CAMARGO is a 73 year old female with history of congestive heart failure, stage IV kidney disease, hypertension, type 2 diabetes mellitus, ulcerative colitis, COPD came to the emergency room with complaints of abnormal labs chemistry done yesterday came with sodium of 118 and she is complaining of poor appetite for the last 1 month drinking only chicken broth and drinking water because of ulcerative colitis and she is also complaining of recurrent extremely weak not able to sleep for almost a month and of the leg cramps are started from yesterday. The work-up in the emergency room shows serum sodium of 117.5 blood sugar within normal level and medical consult was called for admission for management of the hyponatremia. Went to talk to the patient she denies any headaches denies any dizziness denies any confusion denies any falls denies any nausea denies any pain denies any vomitings and she said she is compliant with her heart failure medications. Her only complaint she is lower leg pains associated with severe cramps. Past Medical History Cardiac Medical History: Reports: Congestive Heart Failure, Hypertension Denies: Atrial Fibrillation, DVT, Myocardial Infarction, Pulmonary Embolism Pulmonary Medical History: Reports: Chronic Obstructive Pulmonary Disease (COPD), Pneumonia, Sleep Apnea Denies: Tuberculosis Neurological Medical History: Denies: Seizures Endocrine Medical History: Reports: Diabetes Mellitus Type 2 Denies: Diabetes Mellitus Type 1, Hyperthyroidism, Hypothyroidism Renal/ Medical History: Reports: End Stage Renal Disease GI Medical History: Denies: Cirrhosis, Hepatitis Musculoskeltal Medical History: Denies: Arthritis, Gout Skin Medical History: Denies: Eczema, Psoriasis Psychiatric Medical History: Denies: Depression Hematology: Reports: Anemia Denies: Bleeding Tendencies Past Surgical History Past Surgical History: Reports: Cardiac Catheterization - Last was 2006, Section, Other - Cataract surgeries bilaterally Social History Smoking Status: Former Smoker Frequency of Alcohol Use: None Hx Recreational Drug Use: No Drugs: None Hx Prescription Drug Abuse: No - Advance Directive Resuscitation Status: Full Code Family History Family History: Reviewed & Not Pertinent Parental Family History Reviewed: Yes - Mother with history of cancer. Children Family History Reviewed: Yes Sibling(s) Family History Reviewed.: Yes Medication/Allergy Home Medications: Loratadine 10 mg PO DAILY 04/10/13 Tiotropium [place] [Spiriva Handihaler 18 mcg/dose (30 Dose)] 1 puff IH DAILY Atorvastatin Calcium [Lipitor 40 mg Tablet] 40 mg PO DAILY 06/02/16 Carvedilol [Coreg 25 mg Tablet] 25 mg PO Q12 06/02/16 Hydralazine HCl [Apresoline 50 mg Tablet] 50 mg PO Q12 06/02/16 Insulin Detemir [Levemir Flextouch] 30 units SQ QAM 06/02/16 Linagliptin [Tradjenta] 5 mg PO DAILY 06/02/16 Roflumilast [Daliresp 500 mcg Tablet] 500 mcg PO DAILY 06/02/16 Ergocalciferol (Vitamin D2) [Drisdol 50,000 unit (1.25MG) Capsule] 50,000 unit PO MO@1000 04/22/18 Ferrous Sulfate [Feosol 325 mg Tablet] 325 mg PO DAILY 04/22/18 Valsartan [Diovan] 320 mg PO DAILY 04/22/18 Aspirin [Ecotrin 81 mg EC Tablet] 81 mg PO DAILY 05/21/18 Fluticasone/Salmeterol [Advair 250-50 Diskus 14 Dose/Diskus] 1 inh IH Q12 05/21/18 Acetaminophen [Tylenol 325 mg Tablet] 650 mg PO Q4HP PRN tablet 05/26/18 Aspirin [Aspirin 81 mg Chewable Tablet] 81 mg PO DAILY tab.chew 05/26/18 Calcitriol [Rocaltrol 0.25 mcg Capsule] 0.25 mcg PO MOWEFR #30 capsule 05/26/18 Metolazone [Zaroxolyn 2.5 mg Tablet] 2.5 mg PO DAILY #30 tablet 05/26/18 Multivitamin [Tab-A-Carlos (Multiple Vitamin) Tablet] 1 tab PO DAILY #90 tablet 05/26/18 Nicotine [Nicoderm 21 mg/24 Hr Transderm Patch] 1 each TD DAILYP PRN #30 patch.td24 05/26/18 Torsemide [Demadex 20 mg Tablet] 20 mg PO DAILY #30 tablet 05/26/18 Allergies/Adverse Reactions: Iodinated Contrast Media [IV Dye, Iodine Containing] Adverse Reaction (Unknown, Verified 05/20/18 14:55) Respiratory distress Review of Systems Constitutional: PRESENT: fatigue, weakness. ABSENT: fever(s), headache(s), night sweats Eyes: ABSENT: visual disturbances Nose, Mouth, and Throat: ABSENT: sore throat Cardiovascular: ABSENT: palpitations Respiratory: ABSENT: dyspnea, hemoptysis Gastrointestinal: ABSENT: abdominal pain, constipation, diarrhea, hematemesis, hematochezia, nausea, vomiting Musculoskeletal: PRESENT: other - Lower leg cramps. ABSENT: joint swelling Neurological: ABSENT: abnormal gait, abnormal speech, confusion, dizziness, focal weakness, syncope Psychiatric: ABSENT: anxiety, depression, homidical ideation, suicidal ideation Physical Exam Vital Signs: Temp Pulse Resp BP Pulse Ox 98.5 F 63 16 156/76 H 99 12/13/18 15:07 12/13/18 15:07 12/13/18 16:08 12/13/18 16:08 12/13/18 16:08 Intake & Output 12/12/18 12/13/18 12/14/18 06:59 06:59 06:59 Weight 90.5 kg General appearance: PRESENT: no acute distress Head exam: PRESENT: atraumatic Eye exam: PRESENT: PERRLA Mouth exam: PRESENT: moist, tongue midline Teeth exam: PRESENT: poor dentation Neck exam: ABSENT: carotid bruit, JVD, lymphadenopathy, thyromegaly Respiratory exam: PRESENT: clear to auscultation jackie. ABSENT: rales, rhonchi, wheezes Cardiovascular exam: PRESENT: RRR. ABSENT: diastolic murmur, rubs, systolic murmur GI/Abdominal exam: PRESENT: normal bowel sounds, soft. ABSENT: distended, gu arding, mass, organolmegaly, rebound, tenderness Rectal exam: PRESENT: deferred Extremities exam: PRESENT: +1 edema Neurological exam: PRESENT: alert, awake, oriented to person, oriented to place, oriented to time, oriented to situation, CN II-XII grossly intact. ABSENT: motor sensory deficit Psychiatric exam: PRESENT: anxious Results Laboratory Results: 12/13/18 15:45 12/13/18 15:45 12/13/18 12/13/18 12/13/18 15:45 15:45 15:45 WBC 8.8 RBC 3.35 L Hgb 9.9 L Hct 28.1 L MCV 84 MCH 29.6 MCHC 35.4 RDW 14.0 Plt Count 281 Seg Neutrophils % 76.5 Lymphocytes % 14.6 Monocytes % 7.2 Eosinophils % 1.1 Basophils % 0.6 Absolute Neutrophils 6.8 Absolute Lymphocytes 1.3 Absolute Monocytes 0.6 Absolute Eosinophils 0.1 Absolute Basophils 0.1 Sodium 117.5 L* Potassium 3.3 L Chloride 79 L Carbon Dioxide 27 Anion Gap 12 BUN 49 H Creatinine 3.99 H Est GFR ( Amer) 13 L Est GFR (Non-Af Amer) 11 L Glucose 127 H Calcium 11.7 H Magnesium 1.1 L* Total Bilirubin 0.4 AST 41 H Alkaline Phosphatase 58 Total Protein 5.5 L Albumin 3.4 L Urine Color Urine Appearance Urine pH Ur Specific [place] Urine Protein Urine Glucose (UA) Urine Ketones Urine Blood Urine Nitrite Ur Leukocyte Esterase Urine WBC (Auto) Urine RBC (Auto) 12/13/18 17:15 WBC RBC Hgb Hct MCV MCH MCHC RDW Plt Count Seg Neutrophils % Lymphocytes % Monocytes % Eosinophils % Basophils % Absolute Neutrophils Absolute Lymphocytes Absolute Monocytes Absolute Eosinophils Absolute Basophils Sodium Potassium Chloride Carbon Dioxide Anion Gap BUN Creatinine Est GFR ( Amer) Est GFR (Non-Af Amer) Glucose Calcium Magnesium Total Bilirubin AST Alkaline Phosphatase Total Protein Albumin Urine Color YELLOW Urine Appearance SLIGHTLY-CLOUDY Urine pH 7.0 Ur Specific [place] 1.005 Urine Protein >=500 H Urine Glucose (UA) NEGATIVE Urine Ketones NEGATIVE Urine Blood NEGATIVE Urine Nitrite NEGATIVE Ur Leukocyte Esterase TRACE H Urine WBC (Auto) 8 Urine RBC (Auto) 2 Assessment and Plan - Diagnosis (1) Hyponatremia Is this a current diagnosis for this admission?: Yes Plan: 12/13/2018-patient came in with hyponatremia with complaints of severe leg cramps she is going to be placed in ICU to give 3% normal saline 100 mL then normal saline at 100 cc/h to watch basic metabolic profile every 4 hours. And to supplement magnesium 4 g IV because of her magnesium level is 1.1 and supplement potassium which is 3.3 with 40 mg of p.o. potassium. Consultation with Dr. Gutierres was requested. Fall precautions are requested. Urine analysis including urine osmolality, urine sodium urine potassium urine specific gravity was requested. Serum osmolality was also requested. To check for daily weights and to watch for the fluid overload. Started on GI prophylaxis and DVT prophylaxis. Chest x-ray and BNP was requested. Overall condition is critical prognosis is poor. (2) Chronic kidney disease (CKD) Qualifiers: Chronic kidney disease stage: unspecified stage Qualified Code(s): N18.9 - Chronic kidney disease, unspecified Is this a current diagnosis for this admission?: No Plan: 12/13/2018-serum creatinine is 4.0 patient has stage IV kidney disease not on dialysis. CKD may be a contributing factor for hyponatremia. (3) Acute on chronic diastolic (congestive) heart failure Is this a current diagnosis for this admission?: No Plan: 12/13/2018-patient has history of chronic diastolic heart failure mild pedal edema present patient is not in fluid overload. To watch for signs of pleural fluid overload. And is on diuretics at home to hold the diuretics for now because of severe hyponatremia. (4) Hypokalemia Is this a current diagnosis for this admission?: Yes Plan: 12/13/2018-patient serum potassium is 3.3 supplement potassium. (6) Hypomagnesemia Is this a current diagnosis for this admission?: Yes Plan: 12/13/2018-serum magnesium is 1.1 today to give 4 g of IV magnesium. (7) Hypercalcemia Is this a current diagnosis for this admission?: Yes Plan: 12/13/2018-patient serum calcium level is 11.7 to hold vitamin D and calcitriol supplementation. To recheck the calcium levels on daily basis. (8) Diabetes mellitus type 2 in obese Is this a current diagnosis for this admission?: No Plan: 12/13/2018-patient has history of type 2 diabetes mellitus plan to start her on insulin sliding scale before meals and at bedtime. Diet exercise compliant with medication discussed with the patient. Latest blood sugar is 127. To check for hemoglobin A1c. (9) Hypertension Qualifiers: Hypertension type: essential hypertension Qualified Code(s): I10 - Essen tial (primary) hypertension Is this a current diagnosis for this admission?: No Plan: 12/13/2018-patient has history of chronic essential hypertension latest blood pressure is 156/80. Plan is close to monitor the blood pressure. (10) Morbid obesity Is this a current diagnosis for this admission?: No Plan: 12/13/2018-patient BMI is more than 37, diet exercise weight loss lifestyle modifications are discussed with the patient. Dietary consult was requested. - Time Time Spent with patient: 25-34 minutes Medications reviewed and adjusted accordingly: Yes Anticipated discharge: Home
[2018-12-13] MEDS ORDERED: DEXTROSE 40% GEL 15 GM TUBE PO PRN ×2 (18:09)
[2018-12-13] MEDS ORDERED: DEXTROSE 50%-WATER 25 GM/50 ML DISP.SYRIN IV PRN ×2 (18:09)
[2018-12-13] MEDS ORDERED: GLUCAGON,HUMAN RECOMB 1 MG INJ IM PRN (18:09)
--- NOTE | 2018-12-13 18:18 | RADIOLOGY REPORT (SQ) ---
EXAM DESCRIPTION: CHEST 2 VIEWS COMPLETED DATE/TIME: 12/13/2018 6:11 pm REASON FOR STUDY: chf COMPARISON: 05/26/2018 EXAM PARAMETERS: NUMBER OF VIEWS: two views TECHNIQUE: Digital Frontal and Lateral radiographic views of the chest acquired. RADIATION DOSE: NA LIMITATIONS: none FINDINGS: LUNGS AND PLEURA: No opacities, masses or pneumothorax. No pleural effusion. MEDIASTINUM AND HILAR STRUCTURES: No masses or contour abnormalities. HEART AND VASCULAR STRUCTURES: Cardiomegaly. No david pulmonary edema. BONES: No acute findings. HARDWARE: None in the chest. OTHER: No other significant finding. IMPRESSION: Cardiomegaly without pulmonary edema. TECHNICAL DOCUMENTATION: JOB ID: [id number] [employer]- All Rights Reserved Reading location - IP/workstation name: [facility]
[2018-12-13] MEDS ORDERED: MAGNESIUM SULFATE 4 GM/100 ML RTUPB IV ONE (18:30)
--- NOTE | 2018-12-13 19:56 | EKG REPORT ---
SEVERITY:- ABNORMAL ECG - SINUS RHYTHM FIRST DEGREE AV BLOCK BORDERLINE IVCD WITH LAD : Confirmed by: Chioma Carr MD 13-Dec-2018 19:55:20
[2018-12-13 20:44] LABS: ANION GAP 10 (5-19); BLOOD UREA NITROGEN 51 mg/dL (7-20); CARBON DIOXIDE 27 mmol/L (22-30); CHLORIDE 82 mmol/L (98-107); GLUCOSE 127 mg/dL (75-110); POTASSIUM 3.4 mmol/L (3.6-5.0)
--- NOTE | 2018-12-13 21:41 | Operative Report ---
Nonrecallable Operative Report DATE OF SURGERY: 12/13/18 PREOPERATIVE DIAGNOSIS: Hyponatremia and phlebosclerosis POSTOPERATIVE DIAGNOSIS: Same as above OPERATION: 1. Ultrasound-guided central venous puncture. 2. Left internal jugular vein central line placement SURGEON: LONNY LILLY ANESTHESIA: Local TISSUE REMOVED OR ALTERED: None COMPLICATIONS: None apparent ESTIMATED BLOOD LOSS: Minimal PROCEDURE: Drains/implants: Left internal jugular vein central line at 15 cm. Procedure in detail: After informed consent was obtained, the patient was laid in the Trendelenburg position in the emergency room. The area of the left neck and chest were prepped and draped in a normal sterile fashion. An ultrasound wa s used to identify the left internal jugular vein. It was compressible with normal flow. Under direct ultrasonic guidance, the supplied access needle was used to cannulate the left internal jugular vein. Dark venous, nonpulsatile blood was returned in the syringe. The wire was inserted through the needle, and into the left internal jugular vein. This was done without difficulty. The ultrasound was used to identify the wire within the lumen of the left internal jugular vein. Photodocumentation was placed on the chart. Next, the catheter was slid over the wire using a modified Seldinger technique. The catheter was sutured to the skin at 15 cm. The catheter was aspirated and flushed x3 without difficulty. A dressing was placed, and the procedure was concluded. All sponge, instrument, and needle counts were correct. Condition: Fair.
[2018-12-13] MEDS ORDERED: FAMOTIDINE INJ/PF 20 MG/2 ML SDV IV SCH (22:00)
--- NOTE | 2018-12-13 22:27 | RADIOLOGY REPORT (SQ) ---
EXAM DESCRIPTION: XR CHEST 1 VIEW COMPLETED DATE/TME: 12/13/2018 00:00 CLINICAL HISTORY: 73 years, Female, post central line placement COMPARISON: Prior chest x-ray from 12/13/2018 at 6:25 PM NUMBER OF VIEWS: 1 TECHNIQUE: Portable chest LIMITATIONS: None. FINDINGS: Stable cardiomegaly. Central venous catheter with the tip in the proximal SVC. No pneumothorax. Lungs are clear IMPRESSION: Tip of the central line in the proximal SVC copyright 2010 [employer]- All Rights Reserved
[2018-12-13] MEDS: ENOXAPARIN SODIUM INJ 30 MG/0.3 ML DISP.SYRIN SUBCUT SCH (23:35)
[2018-12-13] MEDS: INSULIN REG, HUMAN 100 UNIT/ML 3 ML VIAL (PYX) SUBCUT SCH (23:37)
[2018-12-13] MEDS ORDERED: NORMAL SALINE 1000 ML 1,000 ML IV PRN (23:53)
[2018-12-14] MEDS ORDERED: POTASSI CL 20 MEQ/50 ML RIDER 20 MEQ/50 ML RTUPB IV ONE (00:01)
[2018-12-14] MEDS: POTASSIUM CHLORIDE 20 MEQ/50 ML RTU IV SCH ×2 (00:41→02:41)
[2018-12-14] MEDS ORDERED: CARVEDILOL 12.5 MG TABLET PO ONE (01:00)
[2018-12-14] MEDS ORDERED: PANTOPRAZOLE SODIUM 40 MG VIAL IV ONE (01:00)
[2018-12-14] MEDS: HYDRALAZINE HCL 50 MG TABLET PO SCH ×3 (06:09→21:45)
[2018-12-14 06:36] LABS: ABSOLUTE BASOPHILS # (AUTO) 0.1 10^3/uL (0.0-0.2); ABSOLUTE EOSINOPHILS # (AUTO) 0.2 10^3/uL (0.0-0.6); ABSOLUTE LYMPHOCYTES (AUTO) 1.4 10^3/uL (0.5-4.7); ABSOLUTE MONOCYTES (AUTO) 0.9 10^3/uL (0.1-1.4); ABSOLUTE NEUT (AUTO) 7.3 10^3/uL (1.7-8.2); BASOPHILS % (AUTO) 0.7 % (0-2); EOSINOPHILS % (AUTO) 1.7 % (0-6); HEMATOCRIT 26.1 % (36.0-47.0); HEMOGLOBIN 9.3 g/dL (12.0-15.5); LYMPHOCYTES % (AUTO) 14.5 % (13-45); MEAN CORPUSCULAR HEMOGLOBIN 30.1 pg (27.0-33.4); MEAN CORPUSCULAR HGB CONC 35.6 g/dL (32.0-36.0); MEAN CORPUSCULAR VOLUME 84 fl (80-97); MONOCYTES % (AUTO) 8.9 % (3-13); PLATELET COUNT 257 10^3/uL (150-450); RED BLOOD COUNT 3.09 10^6/uL (3.72-5.28); SEGMENTED NEUTROPHILS % (AUTO) 74.2 % (42-78); TOTAL CELLS COUNTED % (AUTO) 100 %; WHITE BLOOD COUNT 9.9 10^3/uL (4.0-10.5)
[2018-12-14] MEDS ORDERED: SODIUM CHLORIDE 3% 500 ML IV ONE ×2 (06:37→23:45)
[2018-12-14 06:52] LABS: BLOOD UREA NITROGEN 44 mg/dL (7-20); CALCIUM 11.1 mg/dL (8.4-10.2); CARBON DIOXIDE 25 mmol/L (22-30); CHLORIDE 85 mmol/L (98-107); GLUCOSE 84 mg/dL (75-110)
[2018-12-14 06:55] LABS: ANION GAP 8 (5-19)
[2018-12-14 07:00] LABS: POTASSIUM 3.5 mmol/L (3.6-5.0)
[2018-12-14 07:17] LABS: PHOSPHORUS 4.3 mg/dL (2.5-4.5)
[2018-12-14 08:44] LABS: APPEARANCE,URINE CLEAR; BILIRUBIN,URINE NEGATIVE (NEGATIVE); COLOR,URINE STRAW; GLUCOSE, URINE NEGATIVE (NEGATIVE); KETONES,URINE NEGATIVE (NEGATIVE); LEUKOCYTE ESTERASE,URINE NEGATIVE (NEGATIVE); NITRITE,URINE NEGATIVE (NEGATIVE); PROTEIN,URINE 100 mg/dL (NEGATIVE); URINE SPECIFIC GRAVITY 1.006; UROBILINOGEN,URINE NEGATIVE mg/dL (<2.0)
[2018-12-14] MEDS: INSULIN REG, HUMAN 100 UNIT/ML 3 ML VIAL (PYX) SUBCUT SCH ×4 (08:59→21:47)
[2018-12-14] MEDS: ENOXAPARIN SODIUM INJ 30 MG/0.3 ML DISP.SYRIN SUBCUT SCH (09:03)
[2018-12-14] MEDS: ROFLUMILAST 500 MCG TABLET PO SCH (09:03)
[2018-12-14] MEDS: CARVEDILOL 12.5 MG TABLET PO SCH ×2 (09:03→21:46)
[2018-12-14] MEDS: ATORVASTATIN CALCIUM 40 MG TABLET PO SCH (09:03)
[2018-12-14] MEDS: FERROUS SULFATE 325 MG TABLET PO SCH (09:03)
[2018-12-14] MEDS: ASPIRIN 81 MG TABLET, ENT COATED PO SCH (09:04)
[2018-12-14] MEDS: TIOTROPIUM BROMIDE DPI 5 CAP/KIT (18 MCG/CAP) IH SCH (09:04)
[2018-12-14] MEDS: VALSARTAN 160 MG TABLET PO SCH (09:04)
[2018-12-14] MEDS: LORATADINE 10 MG TABLET PO SCH (09:04)
[2018-12-14] MEDS: PANTOPRAZOLE SODIUM 40 MG VIAL IV SCH ×2 (09:04→21:46)
[2018-12-14] MEDS ORDERED: AMLODIPINE BESYLATE 10 MG TABLET PO SCH (10:00)
[2018-12-14] MEDS ORDERED: ENOXAPARIN SODIUM INJ 40 MG/0.4 ML DISP.SYRIN SUBCUT SCH (10:00)
--- NOTE | 2018-12-14 10:31 | PDOC CONSULTATION ---
Consultation Consult Date: 12/14/18 Provider Consulted: KAMILLE GLASGOW Consult reason:: I was asked to see the patient because of acute hyponatremia. History of Present Illness Admission Date/PCP: 12/13/18 17:35 RAFAL OTTO MD History of Present Illness: LUIZA CAMARGO is a 73 year old female known to me with history of chronic kidney disease stage V with EGFR anywhere between 12-15, diabetic nephropathy with nephrotic range proteinuria, hypertension, diabetes mellitus type 2, hypertension, COPD and history of CHF whom we advised to go to the emergency room because of severe acute hyponatremia. Patient did her labs as an outpatient and her sodium was 118. Her baseline sodium usually runs around low 130s. I had my staff call patient to go to the emergency room which she did. Patient said that she has not had much appetite for the last couple weeks and she is mostly just eating chicken broth throughout the day and the only meal she has is breakfast. She claims that just she is drinking 1 bottle of 12oz Gatorade and about 2-1/2 bottles of water daily. She reports some leg cramps. She denies any nausea, vomiting, diarrhea and in fact she has been constipated. She also mentioned that she could not sleep and she just not feeling well for the last couple weeks. She was actually at Dr. Otto office yesterday because she was having issues with her stomach. She was prescribed 2 antibiotics supposedly for diverticulitis which she has never started because we advised her to go to the emergency room. Patient denies any weakness or confusion. She denies any chest pains no shortness of breath. In the emergency room her initial sodium was 117. I spoke to Dr. Wang and advised him to give the patient 100 mL of 2% saline yesterday followed by a normal saline. I am not sure if the normal saline was ever given overnight but this morning she is on 3% saline. She is awake and communicating normally. When I saw her she was eating breakfast. Past Medical History Cardiac Medical History: Reports: CHF-Diastolic, Hypertension-primary Pulmonary Medical History: Reports: Chronic Obstructive Pulmonary Disease (COPD), Pneumonia, Sleep Apnea Endocrine Medical History: Reports: Diabetes Mellitus Type 2 Complications of Diabetes: Reports: Nephropathy Renal/ Medical History: Reports: Chronic Kidney Disease Stage V, Hypercalcemia, Hyperkalemia, Hyponatremia, Hyperphosphatemia, Metabolic Acidosis, Proteinuria, Secondary Hyperparathyroidism Hematology Medical History: Reports Anemia of Chronic Kidney Disease Past Surgical History Past Surgical History: Reports: Cardiac Catheterization - Last was 2006, Section, Other - Cataract surgeries bilaterally Social History Information Source: Patient, [facility] Lives with: Family Smoking Status: Never Smoker Frequency of Alcohol Use: None Hx Recreational Drug Use: No Drugs: None Hx Prescription Drug Abuse: No - Advance Directive Resuscitation Status: Full Code Family History Family History: Malignancy - Mother Family History: Father has hemophilia Parental Family History Reviewed: Yes Children Family History Reviewed: Yes Sibling(s) Family History Reviewed.: Yes Medication/Allergy Home Medications: Loratadine 10 mg PO DAILY 04/10/13 Tiotropium [place] [Spiriva Handihaler 18 mcg/dose (30 Dose)] 1 puff IH DAILY 07/14/13 Atorvastatin Calcium [Lipitor 40 mg Tablet] 40 mg PO DAILY 06/02/16 Carvedilol [Coreg 25 mg Tablet] 25 mg PO Q12 06/02/16 Hydralazine HCl [Apresoline 50 mg Tablet] 50 mg PO Q8 06/02/16 Insulin Detemir [Levemir Flextouch] 30 units SQ QAM 06/02/16 Linagliptin [Tradjenta] 5 mg PO DAILY 06/02/16 Roflumilast [Daliresp 500 mcg Tablet] 500 mcg PO DAILY 06/02/16 Ergocalciferol (Vitamin D2) [Drisdol 50,000 unit (1.25MG) Capsule] 50,000 unit PO [id number] MDD EVERY OTHER Wednesday04/22/18 Ferrous Sulfate [Feosol 325 mg Tablet] 325 mg PO DAILY 04/22/18 Valsartan [Diovan] 320 mg PO DAILY 04/22/18 Aspirin [Ecotrin 81 mg EC Tablet] 81 mg PO DAILY 05/21/18 Fluticasone/Salmeterol [Advair 250-50 Diskus 14 Dose/Diskus] 1 inh IH Q12 05/21/18 Torsemide [Demadex 20 mg Tablet] 20 mg PO DAILY #30 tablet 05/26/18 Amlodipine Besylate [Norvasc 10 mg Tablet] 10 mg PO DAILY 12/13/18 Metolazone [Zaroxolyn 2.5 mg Tablet] 5 mg PO DAILY 12/13/18 Patiromer Calcium Sorbitex [Veltassa] 1 packet PO DAILY 12/13/18 Spironolactone 50 mg PO DAILY 12/13/18 Allergies/Adverse Reactions: Iodinated Contrast Media [IV Dye, Iodine Containing] Adverse Reaction (Unknown, Verified 05/20/18 14:55) Respiratory distress Review of Systems All systems: reviewed and no additional remarkable complaints except as stated Review of Systems: Constitutional: [ABSENT: chills, fatigue, fever(s), headache(s), weight gain, weight loss; admits poor appetite] Eyes: [ABSENT: visual disturbances] Ears:[ ABSENT: hearing changes] Cardiovascular: [ABSENT: chest pain, dyspnea on exertion, edema, orthropnea, palpitations] Respiratory: [ABSENT: cough, dyspnea, hemoptysis] Gastrointestinal: [ABSENT: Diarrhea, hematemesis, hematochezia, nausea, vomiting; admits abdominal discomfort and constipation] Genitourinary: [ABSENT: dysuria, hematuria] Musculoskeletal: [ABSENT: joint swelling] Integumentary:[ ABSENT: rash, wounds] Neurological: [ABSENT: abnormal gait, abnormal speech, confusion, dizziness, focal weakness, numbness, syncope] Psychiatric: [ABSENT: anxiety, depression] Endocrine:[ ABSENT: cold intolerance, heat intolerance, polydipsia, polyuria] Hematologic/Lymphatic: [ABSENT: easy bleeding, easy bruising, lymphadenopathy] Physical Exam Vital Signs: Temp Pulse Resp BP Pulse Ox 98.4 F 74 15 140/58 H 96 12/14/18 08:00 12/14/18 08:49 12/14/18 08:00 12/14/18 08:00 12/14/18 08:00 Intake & Output 12/13/18 12/14/18 12/15/18 06:59 06:59 06:59 Intake Total 500 200 Output Total 1200 50 Balance -700 150 Weight 91.4 kg Exam: General appearance: No acute distress, cooperative, well-developed, well- nourished Head exam: PRESENT: atraumatic, normocephalic Eye exam: PRESENT: Conjunctiva slightly pale, EOMI, PERRLA. ABSENT: conjunctival injection, scleral icterus Mouth exam: PRESENT: moist, neck supple, tongue midline Neck exam: PRESENT: full ROM. ABSENT: carotid bruit, JVD, lymphadenopathy, thyromegaly Respiratory exam: PRESENT: clear to auscultation bilaterally. ABSENT: rales, rhonchi, stridor, wheezes Cardiovascular exam: PRESENT: RRR, +S1, +S2. ABSENT: systolic murmur Pulses: PRESENT: normal radial pulses, normal dorsalis pedis pulses GI/Abdominal exam: PRESENT: normal bowel sounds, soft. ABSENT: guarding, mass, tenderness Rectal exam: Deferred Extremities exam: PRESENT: full ROM. ABSENT: calf tenderness, pedal edema Musculoskeletal: PRESENT: full ROM. ABSENT: deformity Neurological exam: PRESENT: alert, Awake, Oriented to person, Oriented to place, Oriented to time, reflexes normal, CN II-XII grossly intact. ABSENT: motor sensory deficit Psychiatric exam: PRESENT: appropriate affect, normal mood. ABSENT: homicidal ideation, suicidal ideation Skin exam: PRESENT: intact, dry, warm. Fair skin turgor ABSENT: rash Results Laboratory Results: 12/14/18 06:00 12/14/18 06:00 12/13/18 12/13/18 12/13/18 15:45 15:45 15:45 WBC 8.8 RBC 3.35 L Hgb 9.9 L Hct 28.1 L MCV 84 MCH 29.6 MCHC 35.4 RDW 14.0 Plt Count 281 Seg Neutrophils % 76.5 Lymphocytes % 14.6 Monocytes % 7.2 Eosinophils % 1.1 Basophils % 0.6 Absolute Neutrophils 6.8 Absolute Lymphocytes 1.3 Absolute Monocytes 0.6 Absolute Eosinophils 0.1 Absolute Basophils 0.1 Sodium 117.5 L* Potassium 3.3 L Chloride 79 L Carbon Dioxide 27 Anion Gap 12 BUN 49 H Creatinine 3.99 H Est GFR ( Amer) 13 L Est GFR (Non-Af Amer) 11 L Glucose 127 H Serum Osmolality Calcium 11.7 H Phosphorus Magnesium 1.1 L* Total Bilirubin 0.4 AST 41 H Alkaline Phosphatase 58 Total Protein 5.5 L Albumin 3.4 L Urine Color Urine Appearance Urine pH Ur Specific [place] Urine Protein Urine Glucose (UA) Urine Ketones Urine Blood Urine Nitrite Ur Leukocyte Esterase Urine WBC (Auto) Urine RBC (Auto) Urine Osmolality 12/13/18 12/13/18 12/13/18 15:45 17:15 20:02 WBC RBC Hgb Hct MCV MCH MCHC RDW Plt Count Seg Neutrophils % Lymphocytes % Monocytes % Eosinophils % Basophils % Absolute Neutrophils Absolute Lymphocytes Absolute Monocytes Absolute Eosinophils Absolute Basophils Sodium 119.3 L* Potassium 3.4 L Chloride 82 L Carbon Dioxide 27 Anion Gap 10 BUN 51 H Creatinine 3.92 H Est GFR ( Amer) 14 L Est GFR (Non-Af Amer) 11 L Glucose 127 H Serum Osmolality 255 L Calcium 12.0 H* Phosphorus Magnesium Total Bilirubin AST Alkaline Phosphatase Total Protein Albumin Urine Color YELLOW Urine Appearance SLIGHTLY-CLOUDY Urine pH 7.0 Ur Specific [place] 1.005 Urine Protein >=500 H Urine Glucose (UA) NEGATIVE Urine Ketones NEGATIVE Urine Blood NEGATIVE Urine Nitrite NEGATIVE Ur Leukocyte Esterase TRACE H Urine WBC (Auto) 8 Urine RBC (Auto) 2 Urine Osmolality 12/14/18 12/14/18 12/14/18 06:00 06:00 06:00 WBC 9.9 RBC 3.09 L Hgb 9.3 L Hct 26.1 L MCV 84 MCH 30.1 MCHC 35.6 RDW 14.0 Plt Count 257 Seg Neutrophils % 74.2 Lymphocytes % 14.5 Monocytes % 8.9 Eosinophils % 1.7 Basophils % 0.7 Absolute Neutrophils 7.3 Absolute Lymphocytes 1.4 Absolute Monocytes 0.9 Absolute Eosinophils 0.2 Absolute Basophils 0.1 Sodium 118.4 L* Potassium 3.5 L Chloride 85 L Carbon Dioxide 25 Anion Gap 8 BUN 44 H Creatinine 3.83 H Est GFR ( Amer) 14 L Est GFR (Non-Af Amer) 12 L Glucose 84 Serum Osmolality Calcium 11.1 H Phosphorus 4.3 Magnesium 2.1 D Total Bilirubin AST Alkaline Phosphatase Total Protein Albumin Urine Color Urine Appearance Urine pH Ur Specific [place] Urine Protein Urine Glucose (UA) Urine Ketones Urine Blood Urine Nitrite Ur Leukocyte Esterase Urine WBC (Auto) Urine RBC (Auto) Urine Osmolality 12/14/18 12/14/18 07:59 07:59 WBC RBC Hgb Hct MCV MCH MCHC RDW Plt Count Seg Neutrophils % Lymphocytes % Monocytes % Eosinophils % Basophils % Absolute Neutrophils Absolute Lymphocytes Absolute Monocytes Absolute Eosinophils Absolute Basophils Sodium Potassium Chloride Carbon Dioxide Anion Gap BUN Creatinine Est GFR ( Amer) Est GFR (Non-Af Amer) Glucose Serum Osmolality Calcium Phosphorus Magnesium Total Bilirubin AST Alkaline Phosphatase Total Protein Albumin Urine Color STRAW Urine Appearance CLEAR Urine pH 7.0 Ur Specific [place] 1.006 Urine Protein 100 H Urine Glucose (UA) NEGATIVE Urine Ketones NEGATIVE Urine Blood LARGE H Urine Nitrite NEGATIVE Ur Leukocyte Esterase NEGATIVE Urine WBC (Auto) 3 Urine RBC (Auto) 16 Urine Osmolality 191 L 12/13/18 15:45 NT-Pro-B Natriuret Pep 2710 H Impressions: Chest X-Ray 12/13/18 17:40 IMPRESSION: Cardiomegaly without pulmonary edema. Assessment & Plan - Diagnosis (1) Hyponatremia Is this a current diagnosis for this admission?: Yes Plan: I think the patient is volume depleted due to poor oral intake. This is exacerbated as well with patient being on diuretics including torsemide and spironolactone. Will check TSH. Continue 3% at this time other current rate of 35 mL an hour. Will do serial BMP every 4 hours not to correct her sodium more than 10 to 12 mEq in 24 hours to prevent osmotic demyelination syndrome. Once the patient's sodium is about 120s think I will switch to normal saline. (2) Hypercalcemia Is this a current diagnosis for this admission?: Yes Plan: I think this is consistent with volume depletion in a patient who is also taking ergocalciferol. IV fluid hydration as above. Hold any calcium supplements or vitamin D. We will check the patient's serum protein electrophoresis, PTH and v itamin D. She has normal phosphorus and magnesium levels. (3) Hypokalemia Is this a current diagnosis for this admission?: Yes Plan: Patient is usually hyperkalemic and is on maintenance Veltassa. This is most likely due to diuretics and volume depletion. Hold Veltassa. (4) Chronic kidney disease, stage V Is this a current diagnosis for this admission?: Yes Plan: Patient is actually currently almost at baseline kidney function. She is not uremic and has not required initiation of renal replacement therapy. She is closely monitored as an outpatient. This is due to diabetic nephropathy with nephrotic range proteinuria. (5) Diabetic nephropathy Qualifiers: Diabetes mellitus type: type 2 Qualified Code(s): E11.21 - Type 2 diabetes mellitus with diabetic nephropathy Is this a current diagnosis for this admission?: Yes (6) Anemia in chronic kidney disease (CKD) Qualifiers: Chronic kidney disease stage: stage 4 (severe) Qualified Code(s): N18.4 - Chronic kidney disease, stage 4 (severe); D63.1 - Anemia in chronic kidney disease Is this a current diagnosis for this admission?: Yes Plan: She is on maintenance Procrit as an outpatient. Will get Procrit here as appropriate. (7) Diabetes mellitus type 2 in obese Is this a current diagnosis for this admission?: Yes (8) Hypertension Qualifiers: Hypertension type: essential hypertension Qualified Code(s): I10 - Essential (primary) hypertension Is this a current diagnosis for this admission?: Yes - Notes Notes: Discussed the case with Dr. Still yesterday and Dr. Cooper check today. Thank you very much for this consultation. We will follow patient with you. - Time Time Spent: Greater than 70 Minutes
[2018-12-14] MEDS ORDERED: NORMAL SALINE INJ/PF 0.9% 10 ML SDV IV PRN (11:36)
--- NOTE | 2018-12-14 11:59 | PDOC PROGRESS REPORT ---
Subjective Progress Note for:: 12/14/18 Subjective:: Patient is resting comfortably in bed. She has no complaints. She is enjoying her lunch. Reason For Visit: HYPONATREMIA Physical Exam Vital Signs: Temp Pulse Resp BP Pulse Ox 98.4 F 65 14 154/64 H 95 12/14/18 08:00 12/14/18 10:00 12/14/18 10:30 12/14/18 10:30 12/14/18 10:30 Intake & Output 12/13/18 12/14/18 12/15/18 06:59 06:59 06:59 Intake Total 500 200 Output Total 1200 300 Balance -700 -100 Weight 91.4 kg General appearance: PRESENT: no acute distress, cooperative, obese, well- developed Head exam: PRESENT: atraumatic, normocephalic Eye exam: PRESENT: conjunctiva pale. ABSENT: conjunctival injection, scleral icterus Ear exam: PRESENT: normal external ear exam. ABSENT: bleeding, drainage Mouth exam: PRESENT: moist, tongue midline Respiratory exam: PRESENT: accessory muscle use, clear to auscultation jackie, symmetrical, unlabored. ABSENT: rales, rhonchi, tachypnea, wheezes Cardiovascular exam: PRESENT: RRR, +S1, +S2. ABSENT: diastolic murmur, systolic murmur Pulses: PRESENT: normal radial pulses, normal dorsalis pedis pul GI/Abdominal exam: PRESENT: distended - Protuberant abdomen, normal bowel sounds, soft. ABSENT: tenderness Rectal exam: PRESENT: deferred Extremities exam: ABSENT: calf tenderness, joint swelling, pedal edema Musculoskeletal exam: PRESENT: normal inspection Neurological exam: PRESENT: alert, awake, oriented to person, oriented to place, oriented to time, oriented to situation, CN II-XII grossly intact Psychiatric exam: PRESENT: appropriate affect, normal mood. ABSENT: agitated, anxious Focused psych exam: ABSENT: delusional, restlessness Skin exam: PRESENT: dry, normal color, warm. ABSENT: rash Results Laboratory Results: 12/14/18 06:00 12/14/18 06:00 12/13/18 12/13/18 12/13/18 15:45 15:45 15:45 WBC 8.8 RBC 3.35 L Hgb 9.9 L Hct 28.1 L MCV 84 MCH 29.6 MCHC 35.4 RDW 14.0 Plt Count 281 Seg Neutrophils % 76.5 Lymphocytes % 14.6 Monocytes % 7.2 Eosinophils % 1.1 Basophils % 0.6 Absolute Neutrophils 6.8 Absolute Lymphocytes 1.3 Absolute Monocytes 0.6 Absolute Eosinophils 0.1 Absolute Basophils 0.1 Sodium 117.5 L* Potassium 3.3 L Chloride 79 L Carbon Dioxide 27 Anion Gap 12 BUN 49 H Creatinine 3.99 H Est GFR ( Amer) 13 L Est GFR (Non-Af Amer) 11 L Glucose 127 H Serum Osmolality Calcium 11.7 H Phosphorus Magnesium 1.1 L* Total Bilirubin 0.4 AST 41 H Alkaline Phosphatase 58 Total Protein 5.5 L Albumin 3.4 L Urine Color Urine Appearance Urine pH Ur Specific [place] Urine Protein Urine Glucose (UA) Urine Ketones Urine Blood Urine Nitrite Ur Leukocyte Esterase Urine WBC (Auto) Urine RBC (Auto) Urine Osmolality 12/13/18 12/13/18 12/13/18 15:45 17:15 20:02 WBC RBC Hgb Hct MCV MCH MCHC RDW Plt Count Seg Neutrophils % Lymphocytes % Monocytes % Eosinophils % Basophils % Absolute Neutrophils Absolute Lymphocytes Absolute Monocytes Absolute Eosinophils Absolute Basophils Sodium 119.3 L* Potassium 3.4 L Chloride 82 L Carbon Dioxide 27 Anion Gap 10 BUN 51 H Creatinine 3.92 H Est GFR ( Amer) 14 L Est GFR (Non-Af Amer) 11 L Glucose 127 H Serum Osmolality 255 L Calcium 12.0 H* Phosphorus Magnesium Total Bilirubin AST Alkaline Phosphatase Total Protein Albumin Urine Color YELLOW Urine Appearance SLIGHTLY-CLOUDY Urine pH 7.0 Ur Specific [place] 1.005 Urine Protein >=500 H Urine Glucose (UA) NEGATIVE Urine Ketones NEGATIVE Urine Blood NEGATIVE Urine Nitrite NEGATIVE Ur Leukocyte Esterase TRACE H Urine WBC (Auto) 8 Urine RBC (Auto) 2 Urine Osmolality 12/14/18 12/14/18 12/14/18 06:00 06:00 06:00 WBC 9.9 RBC 3.09 L Hgb 9.3 L Hct 26.1 L MCV 84 MCH 30.1 MCHC 35.6 RDW 14.0 Plt Count 257 Seg Neutrophils % 74.2 Lymphocytes % 14.5 Monocytes % 8.9 Eosinophils % 1.7 Basophils % 0.7 Absolute Neutrophils 7.3 Absolute Lymphocytes 1.4 Absolute Monocytes 0.9 Absolute Eosinophils 0.2 Absolute Basophils 0.1 Sodium 118.4 L* Potassium 3.5 L Chloride 85 L Carbon Dioxide 25 Anion Gap 8 BUN 44 H Creatinine 3.83 H Est GFR ( Amer) 14 L Est GFR (Non-Af Amer) 12 L Glucose 84 Serum Osmolality Calcium 11.1 H Phosphorus 4.3 Magnesium 2.1 D Total Bilirubin AST Alkaline Phosphatase Total Protein Albumin Urine Color Urine Appearance Urine pH Ur Specific [place] Urine Protein Urine Glucose (UA) Urine Ketones Urine Blood Urine Nitrite Ur Leukocyte Esterase Urine WBC (Auto) Urine RBC (Auto) Urine Osmolality 12/14/18 12/14/18 07:59 07:59 WBC RBC Hgb Hct MCV MCH MCHC RDW Plt Count Seg Neutrophils % Lymphocytes % Monocytes % Eosinophils % Basophils % Absolute Neutrophils Absolute Lymphocytes Absolute Monocytes Absolute Eosinophils Absolute Basophils Sodium Potassium Chloride Carbon Dioxide Anion Gap BUN Creatinine Est GFR ( Amer) Est GFR (Non-Af Amer) Glucose Serum Osmolality Calcium Phosphorus Magnesium Total Bilirubin AST Alkaline Phosphatase Total Protein Albumin Urine Color STRAW Urine Appearance CLEAR Urine pH 7.0 Ur Specific [place] 1.006 Urine Protein 100 H Urine Glucose (UA) NEGATIVE Urine Ketones NEGATIVE Urine Blood LARGE H Urine Nitrite NEGATIVE Ur Leukocyte Esterase NEGATIVE Urine WBC (Auto) 3 Urine RBC (Auto) 16 Urine Osmolality 191 L 12/13/18 15:45 NT-Pro-B Natriuret Pep 2710 H Impressions: Chest X-Ray 12/13/18 17:40 IMPRESSION: Cardiomegaly without pulmonary edema. Assessment and Plan - Diagnosis (1) Hyponatremia Is this a current diagnosis for this admission?: Yes Plan: 12/14/2018-the patient's sodium on admission was 117. With a 100 mL dose of 3% saline and subsequent normal saline the serum sodium went up to 119. Because of the inadequate improvement in the serum sodium I did resume 3% saline this morning. After several hours the serum sodium was still 118 but by this afternoon it had risen to 121. I did decrease the rate of the saline infusion to 30 mL's per hour. 4 hours later the serum sodium was still 121. I did increase the rate slightly and serial labs are ordered through the night. I did discuss the case with Dr. Gutierres. The plan is to change patient back to normal saline once her serum sodium is in the mid 120s level. Hopefully this will occur by this evening. The patient does not appear to be grossly symptomatic at this time. Dr. Gutierres's note does reflect that the patient has a serum sodium that is usually between 130 and 135. Continue current plan and monitor electrolytes frequently. (2) Chronic kidney disease (CKD) Qualifiers: Chronic kidney disease stage: stage 4 (severe) Qualified Code(s): N18.4 - Chronic kidney disease, stage 4 (severe) Is this a current diagnosis for this admission?: Yes Plan: 12/14/2018-the patient does have chronic severe renal failure and follows with Dr. Gutierres. She is having good urine output. We will continue to monitor her intake and output as well as her renal function. I appreciate Dr. Gutierres's assistance. (3) Acute on chronic diastolic (congestive) heart failure Is this a current diagnosis for this admission?: Yes Plan: 12/14/2018-in 2018 the patient had an echocardiogram revealing 2/4 diastolic failure with a normal ejection fraction. We will continue to monitor fluid balance. Aldactone, torsemide and metolazone are currently on hold. Her blood pressure is starting to trend up. I will discuss with Dr. Gutierres with regard to which antihypertensives to add back based on her blood pressure. (4) Hypokalemia Is this a current diagnosis for this admission?: Yes Plan: 12/14/2018-serum potassium remains borderline. The patient is on the electrolyte replacement protocol. Dr. Gutierres notes that the patient usually is hyperkalemic with her kidney failure. We will continue to monitor electrolytes and renal function serially. With the diuretics on hold the potassium will likely increase. Resuming the spironolactone will also cause the potassium to increase slightly as well. (5) Hypomagnesemia Is this a current diagnosis for this admission?: Yes Plan: 12/14/2018-the patient was given intravenous magnesium. We are monitoring the serum magnesium level along with the electrolytes as noted above. We will continue to monitor closely and adjust the magnesium per the electrolyte protocol. (6) Hypercalcemia Is this a current diagnosis for this admission?: Yes Plan: 12/14/2018-the patient is normally on Veltassa. This has been continued. Continue to monitor serum calcium levels. (7) Diabetes mellitus type 2 in obese Is this a current diagnosis for this admission?: Yes Plan: 12/14/2018-the patient is on Tradjenta and Levemir at home. She is currently on sliding scale. Accu-Cheks are all currently under 150. Continue to monitor Accu-Cheks and adjust medications accordingly. (8) Hypertension Qualifiers: Hypertension type: essential hypertension Qualified Code(s): I10 - Essential (primary) hypertension Is this a current diagnosis for this admission?: Yes Plan: 12/14/2018-the patient is on multiple medications for hypertension including carvedilol, hydralazine, valsartan, amlodipine, metolazone, Spironolactone and torsemide. As noted above blood pressures are starting to increase. The diuretics are currently on hold. We will monitor her blood pressure and add back medications accordingly taking into consideration her electrolyte status. (9) Morbid obesity Is this a current diagnosis for this admission?: Yes Plan: 12/14/2018-the patient has a BMI of 38.1. Consider more aggressive dieting. I do not believe her exercise capacity will allow enough exercise for weight reduction and so the focus of weight loss would likely have to be dietary. - Time Time Spent with patient: 15-24 minutes Medications reviewed and adjusted accordingly: Yes Anticipated discharge: Home
[2018-12-14 12:32] LABS: ANION GAP 8 (5-19); BLOOD UREA NITROGEN 46 mg/dL (7-20); CALCIUM 10.5 mg/dL (8.4-10.2); CARBON DIOXIDE 26 mmol/L (22-30); CHLORIDE 87 mmol/L (98-107); GLUCOSE 124 mg/dL (75-110); POTASSIUM 3.6 mmol/L (3.6-5.0)
[2018-12-14 16:42] LABS: ANION GAP 8 (5-19); BLOOD UREA NITROGEN 44 mg/dL (7-20); CALCIUM 10.2 mg/dL (8.4-10.2); CARBON DIOXIDE 24 mmol/L (22-30); CHLORIDE 89 mmol/L (98-107); GLUCOSE 106 mg/dL (75-110); POTASSIUM 3.5 mmol/L (3.6-5.0)
[2018-12-14] MEDS ORDERED: PATIROMER 8.4 GM SUSP PACKET PO SCH (17:00)
[2018-12-14 21:23] LABS: ANION GAP 10 (5-19); BLOOD UREA NITROGEN 44 mg/dL (7-20); CALCIUM 9.9 mg/dL (8.4-10.2); CARBON DIOXIDE 24 mmol/L (22-30); CHLORIDE 88 mmol/L (98-107); GLUCOSE 150 mg/dL (75-110); POTASSIUM 3.6 mmol/L (3.6-5.0)
[2018-12-14] MEDS ORDERED: SODIUM CHLORIDE NASAL SPRAY 44 ML NASL PRN (23:59)
[2018-12-15] MEDS ORDERED: SODIUM CHLORIDE NASAL SPRAY 44 ML ONE (00:13)
[2018-12-15] MEDS ORDERED: SODIUM CHLORIDE 3% 500 ML IV ONE (00:16)
[2018-12-15 06:26] LABS: ANION GAP 7 (5-19); BLOOD UREA NITROGEN 40 mg/dL (7-20); CALCIUM 9.7 mg/dL (8.4-10.2); CARBON DIOXIDE 23 mmol/L (22-30); CHLORIDE 97 mmol/L (98-107); GLUCOSE 81 mg/dL (75-110); POTASSIUM 3.3 mmol/L (3.6-5.0)
[2018-12-15] MEDS: HYDRALAZINE HCL 50 MG TABLET PO SCH ×3 (06:28→22:09)
[2018-12-15] MEDS: INSULIN REG, HUMAN 100 UNIT/ML 3 ML VIAL (PYX) SUBCUT SCH ×4 (08:45→22:09)
[2018-12-15] MEDS ORDERED: POTASSI CL 20 MEQ/NS 1L 1,000 ML IV SCH (09:30)
[2018-12-15] MEDS ORDERED: EPOETIN ALFA-EPBX 10,000 UNIT/ML VIAL (NON-ESRD) SUBCUT ONE (09:30)
--- NOTE | 2018-12-15 09:54 | PDOC PROGRESS REPORT ---
Subjective Progress Note for:: 12/15/18 Subjective:: The patient sitting on the chair beside her bed comfortably. She says she is feeling better. She is eating good without any nausea or vomiting. She denies any more cramping. She denies any other complaints. She made a good amount of urine output of 2445 mL for the last 24 hours. Her intake and output balance appear to be -2225 though. 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 Reason For Visit: HYPONATREMIA Physical Exam Vital Signs: Temp Pulse Resp BP Pulse Ox 98.3 F 78 20 142/66 H 97 12/15/18 08:00 12/15/18 08:00 12/15/18 08:00 12/15/18 08:00 12/15/18 08:00 Intake & Output 12/14/18 12/15/18 12/16/18 06:59 06:59 06:59 Intake Total 500 200 Output Total 1200 2445 400 Balance -700 -2245 -400 Weight 91.4 kg 95.3 kg Exam: General appearance: PRESENT: no acute distress, cooperative, well-developed, well-nourished Head exam: PRESENT: atraumatic, normocephalic Eye exam: PRESENT: conjunctiva slightly pale, PERRLA. ABSENT: scleral icterus Neck exam: ABSENT: JVD Respiratory exam: PRESENT: Normal breath sounds. ABSENT: crackles, rales, rhonchi, unlabored, wheezes Cardiovascular exam: PRESENT: Regular rate rhythm -+S1, +S2. ABSENT: diastolic murmur, systolic murmur GI/Abdominal exam: PRESENT: normal bowel sounds, soft. ABSENT: guarding, mass, tenderness Extremities exam: Trace bilateral lower extremity pitting edema Neurological exam: PRESENT: alert, awake, oriented to person, place and time. Skin exam: PRESENT: dry, warm, Results Laboratory Results: 12/14/18 06:00 12/15/18 05:50 12/14/18 12/14/18 12/14/18 12:00 12:00 12:00 Sodium 121.4 L Potassium 3.6 Chloride 87 L Carbon Dioxide 26 Anion Gap 8 BUN 46 H Creatinine 3.50 H Est GFR ( Amer) 16 L Glucose 124 H Calcium 10.5 H Magnesium TSH 0.82 PTH Intact 46.1 12/14/18 12/14/18 12/15/18 16:05 20:40 05:50 Sodium 121.3 L 121.6 L 127.0 L Potassium 3.5 L 3.6 3.3 L Chloride 89 L 88 L 97 L Carbon Dioxide 24 24 23 Anion Gap 8 10 7 BUN 44 H 44 H 40 H Creatinine 3.37 H 3.23 H 3.13 H Est GFR ( Amer) 16 L 17 L 18 L Glucose 106 150 H 81 Calcium 10.2 9.9 9.7 Magnesium 1.8 TSH PTH Intact 12/13/18 15:45 NT-Pro-B Natriuret Pep 2710 H Impressions: Chest X-Ray 12/13/18 17:40 IMPRESSION: Cardiomegaly without pulmonary edema. Assessment & Plan - Diagnosis (1) Hyponatremia Is this a current diagnosis for this admission?: Yes Plan: Currently improved and patient clinically better. Start normal saline with 20 mEq of potassium x2 bags today at 75 mL an hour. Continue to hold diuretics for now. Her TSH is normal. (2) Hypercalcemia Is this a current diagnosis for this admission?: Yes Plan: Resolved. Her vitamin D, PTH and phosphorus are all within normal limits. Serum protein electrophoresis is pending. This is most likely secondary to dehydration. (3) Hypokalemia Is this a current diagnosis for this admission?: Yes Plan: Replace potassium as needed. (4) Chronic kidney disease, stage V Is this a current diagnosis for this admission?: Yes Plan: Patient's current kidney function is actually better than her baseline. She has diabetic nephropathy with nephrotic range proteinuria. (5) Diabetic nephropathy Qualifiers: Diabetes mellitus type: type 2 Qualified Code(s): E11.21 - Type 2 diabetes mellitus with diabetic nephropathy Is this a current diagnosis for this admission?: Yes (6) Anemia in chronic kidney disease (CKD) Qualifiers: Chronic kidney disease stage: stage 4 (severe) Qualified Code(s): N18.4 - Chronic kidney disease, stage 4 (severe); D63.1 - Anemia in chronic kidney disease Is this a current diagnosis for this admission?: Yes Plan: Her last Procrit shot was a week ago. We will give Procrit 10,000 units subcutaneously x1 dose today. (7) Hypertension Qualifiers: Hypertension type: essential hypertension Qualified Code(s): I10 - Essential (primary) hypertension Is this a current diagnosis for this admission?: Yes Plan: Continue all current medications but I am going to decrease the amlodipine to 5 mg daily to decrease her lower extremity edema. (8) Diabetes mellitus type 2 in obese Is this a current diagnosis for this admission?: Yes - Time Time with patient: 15-25 minutes
[2018-12-15] MEDS ORDERED: EPOETIN ALFA-EPBX 10,000 UNIT/ML VIAL (RENAL) SUBCUT ONE (10:30)
[2018-12-15] MEDS: AMLODIPINE BESYLATE 5 MG TABLET PO SCH (10:49)
[2018-12-15] MEDS: ENOXAPARIN SODIUM INJ 30 MG/0.3 ML DISP.SYRIN SUBCUT SCH (10:49)
[2018-12-15] MEDS: LORATADINE 10 MG TABLET PO SCH (10:50)
[2018-12-15] MEDS: ASPIRIN 81 MG TABLET, ENT COATED PO SCH (10:50)
[2018-12-15] MEDS: VALSARTAN 160 MG TABLET PO SCH (10:50)
[2018-12-15] MEDS: CARVEDILOL 12.5 MG TABLET PO SCH ×2 (10:50→22:08)
[2018-12-15] MEDS: FERROUS SULFATE 325 MG TABLET PO SCH (10:51)
[2018-12-15] MEDS: ATORVASTATIN CALCIUM 40 MG TABLET PO SCH (10:51)
[2018-12-15] MEDS: PANTOPRAZOLE SODIUM 40 MG VIAL IV SCH ×2 (10:51→22:10)
[2018-12-15] MEDS: ROFLUMILAST 500 MCG TABLET PO SCH (10:51)
[2018-12-15] MEDS: TIOTROPIUM BROMIDE DPI 5 CAP/KIT (18 MCG/CAP) IH SCH (10:51)
--- NOTE | 2018-12-15 11:42 | PDOC PROGRESS REPORT ---
Subjective Progress Note for:: 12/15/18 Subjective:: Sitting up in the chair at bedside. Reports that she feels tired. Majority of her breakfast has been eating. She has no new complaints. Reason For Visit: HYPONATREMIA Physical Exam Vital Signs: Temp Pulse Resp BP Pulse Ox 98.3 F 69 15 154/63 H 98 12/15/18 08:00 12/15/18 10:00 12/15/18 10:02 12/15/18 10:02 12/15/18 10:02 Intake & Output 12/14/18 12/15/18 12/16/18 06:59 06:59 06:59 Intake Total 500 200 360 Output Total 1200 2445 575 Balance -700 -2245 -215 Weight 91.4 kg 95.3 kg General appearance: PRESENT: no acute distress, cooperative, obese, well- developed Head exam: PRESENT: atraumatic, normocephalic Eye exam: PRESENT: conjunctiva pale, EOMI. ABSENT: scleral icterus Ear exam: PRESENT: normal external ear exam. ABSENT: bleeding, drainage Mouth exam: PRESENT: moist, tongue midline Neck exam: PRESENT: full ROM, other - Central line left IJ Respiratory exam: PRESENT: clear to auscultation jackie, symmetrical, unlabored. ABSENT: rales, rhonchi, tachypnea, wheezes Cardiovascular exam: PRESENT: RRR, +S1, +S2. ABSENT: diastolic murmur, systolic murmur GI/Abdominal exam: PRESENT: normal bowel sounds, soft. ABSENT: distended, tenderness Rectal exam: PRESENT: deferred Extremities exam: ABSENT: joint swelling, pedal edema, tenderness Musculoskeletal exam: PRESENT: ambulatory, normal inspection. ABSENT: deformity , tenderness Neurological exam: PRESENT: alert, awake, oriented to person, oriented to place, oriented to time, oriented to situation, CN II-XII grossly intact. ABSENT: motor sensory deficit Psychiatric exam: PRESENT: appropriate affect, normal mood. ABSENT: agitated, anxious Focused psych exam: ABSENT: delusional, restlessness Skin exam: PRESENT: dry, normal color, warm. ABSENT: rash Results Laboratory Results: 12/14/18 06:00 12/15/18 05:50 12/14/18 12/14/18 12/14/18 12:00 12:00 12:00 Sodium 121.4 L Potassium 3.6 Chloride 87 L Carbon Dioxide 26 Anion Gap 8 BUN 46 H Creatinine 3.50 H Est GFR ( Amer) 16 L Glucose 124 H Calcium 10.5 H Magnesium TSH 0.82 PTH Intact 46.1 12/14/18 12/14/18 12/15/18 16:05 20:40 05:50 Sodium 121.3 L 121.6 L 127.0 L Potassium 3.5 L 3.6 3.3 L Chloride 89 L 88 L 97 L Carbon Dioxide 24 24 23 Anion Gap 8 10 7 BUN 44 H 44 H 40 H Creatinine 3.37 H 3.23 H 3.13 H Est GFR ( Amer) 16 L 17 L 18 L Glucose 106 150 H 81 Calcium 10.2 9.9 9.7 Magnesium 1.8 TSH PTH Intact 12/13/18 15:45 NT-Pro-B Natriuret Pep 2710 H Impressions: Chest X-Ray 12/13/18 17:40 IMPRESSION: Cardiomegaly without pulmonary edema. Assessment and Plan - Diagnosis (1) Hyponatremia Is this a current diagnosis for this admission?: Yes Plan: 12/14/2018-the patient's sodium on admission was 117. With a 100 mL dose of 3% saline and subsequent normal saline the serum sodium went up to 119. Because of the inadequate improvement in the serum sodium I did resume 3% saline this morning. After several hours the serum sodium was still 118 but by this afternoon it had risen to 121. I did decrease the rate of the saline infusion to 30 mL's per hour. 4 hours later the serum sodium was still 121. I did increase the rate slightly and serial labs are ordered through the night. I did discuss the case with Dr. Gutierres. The plan is to change patient back to normal saline once her serum sodium is in the mid 120s level. Hopefully this will occur by this evening. The patient does not appear to be grossly symptomatic at this time. Dr. Gutierres's note does reflect that the patient has a serum sodium that is usually between 130 and 135. Continue current plan and monitor electrolytes frequently. 12/15/2018-the patient's serum sodium is 127. The 3% saline will be discontinued. She will begin receiving normal saline with a low dose of potassium chloride as she has been exhibiting hypokalemia. Now that she is off of 3% saline to be downgraded to IMCU. Dr. Gutierres will continue to follow her. It is likely that once her sodium is in the low 130 range she may likely be discharged home. She will continue to follow-up with nephrology. Dr. Gutierres has opted not to resume the Zaroxolyn, torsemide and Aldactone at this time. She will reassess patient tomorrow. (2) Chronic kidney disease (CKD) Qualifiers: Chronic kidney disease stage: stage 4 (severe) Qualified Code(s): N18.4 - Chronic kidney disease, stage 4 (severe) Is this a current diagnosis for this admission?: Yes Plan: 12/14/2018-the patient does have chronic severe renal failure and follows with Dr. Gutierres. She is having good urine output. We will continue to monitor her intake and output as well as her renal function. I appreciate Dr. Gutierres's assistance. 12/15/2018-the patient is currently at baseline. In fact reviewing her old records she is slightly better than her outpatient baseline. We will continue the current regimen. She will return to outpatient management with Dr. Gutierres. (3) Acute on chronic diastolic (congestive) heart failure Is this a current diagnosis for this admission?: Yes Plan: 12/14/2018-in 2018 the patient had an echocardiogram revealing 2/4 diastolic failure with a normal ejection fraction. We will continue to monitor fluid balance. Aldactone, torsemide and metolazone are currently on hold. Her blood pressure is starting to trend up. I will discuss with Dr. Gutierres with regard to which antihypertensives to add back based on her blood pressure. 12/15/2018-heart failure is currently asymptomatic. As noted above diuretic therapy is on hold. She will be resuming her valsartan and carvedilol today. (4) Hypokalemia Is this a current diagnosis for this admission?: Yes Plan: 12/14/2018-serum potassium remains borderline. The patient is on the electrolyte replacement protocol. Dr. Gutierres notes that the patient usually is hyper kalemic with her kidney failure. We will continue to monitor electrolytes and renal function serially. With the diuretics on hold the potassium will likely increase. Resuming the spironolactone will also cause the potassium to increase slightly as well. 12/15/2018-she will change from 3% saline to normal saline with potassium chloride. We will continue to monitor her serum electrolytes. (5) Hypomagnesemia Is this a current diagnosis for this admission?: Yes Plan: 12/14/2018-the patient was given intravenous magnesium. We are monitoring the serum magnesium level along with the electrolytes as noted above. We will continue to monitor closely and adjust the magnesium per the electrolyte protocol. 12/15/2018-hypomagnesemia is resolved. Continue to monitor magnesium and other electrolytes. (6) Hypercalcemia Is this a current diagnosis for this admission?: Yes Plan: 12/14/2018-the patient is normally on Veltassa. This has been continued. Continue to monitor serum calcium levels. 12/15/2018-the patient's Veltassa is currently on hold. Serum calcium in fact has normalized. Continue to monitor electrolytes. (7) Diabetes mellitus type 2 in obese Is this a current diagnosis for this admission?: Yes Plan: 12/14/2018-the patient is on Tradjenta and Levemir at home. She is currently on sliding scale. Accu-Cheks are all currently under 150. Continue to monitor Accu-Cheks and adjust medications accordingly. 12/15/2018-continue Accu-Cheks with sliding scale coverage. Upon discharge return to regular home regimen. (8) Hypertension Qualifiers: Hypertension type: essential hypertension Qualified Code(s): I10 - Essential (primary) hypertension Is this a current diagnosis for this admission?: Yes Plan: 12/14/2018-the patient is on multiple medications for hypertension including carvedilol, hydralazine, valsartan, amlodipine, metolazone, Spironolactone and torsemide. As noted above blood pressures are starting to increase. The diuretics are currently on hold. We will monitor her blood pressure and add back medications accordingly taking into consideration her electrolyte status. 12/15/2018-as noted above the patient will resume her valsartan and carvedilol. Aldactone, torsemide and Zaroxolyn are currently on hold. Continue to monitor the patient's vital signs. Adjust medications accordingly. (9) Morbid obesity Is this a current diagnosis for this admission?: Yes Plan: 12/14/2018-the patient has a BMI of 38.1. Consider more aggressive dieting. I do not believe her exercise capacity will allow enough exercise for weight reduction and so the focus of weight loss would likely have to be dietary. 12/15/2018-continue diabetic/renal/cardiac diet - Time Time Spent with patient: 15-24 minutes Medications reviewed and adjusted accordingly: Yes Anticipated discharge: Home Within: within 72 hours
[2018-12-15 17:36] LABS: A/G RATIO 1.5 (0.7-1.7); ALBUMIN 2 3.1 g/dL (2.9-4.4); ALPHA-2-GLOBULIN 2 0.7 g/dL (0.4-1.0); BETA GLOBULINS 0.7 g/dL (0.7-1.3); GAMMA GLOBULIN 0.6 g/dL (0.4-1.8); GLOBULIN TOTAL 2.1 g/dL (2.2-3.9); MONOCLONAL SPIKE Not Observed g/dL (Not Observ); PROTEIN TOTAL SERUM 5.2 g/dL (6.0-8.5)
[2018-12-15 18:43] LABS: ANION GAP 9 (5-19); BLOOD UREA NITROGEN 39 mg/dL (7-20); CALCIUM 9.8 mg/dL (8.4-10.2); CARBON DIOXIDE 22 mmol/L (22-30); CHLORIDE 97 mmol/L (98-107); GLUCOSE 143 mg/dL (75-110); POTASSIUM 3.5 mmol/L (3.6-5.0)
[2018-12-16] MEDS: HYDRALAZINE HCL 50 MG TABLET PO SCH ×3 (05:51→22:24)
[2018-12-16 05:56] LABS: ANION GAP 9 (5-19); BLOOD UREA NITROGEN 36 mg/dL (7-20); CALCIUM 9.8 mg/dL (8.4-10.2); CARBON DIOXIDE 22 mmol/L (22-30); CHLORIDE 98 mmol/L (98-107); GLUCOSE 85 mg/dL (75-110); POTASSIUM 3.5 mmol/L (3.6-5.0)
[2018-12-16] MEDS: ENOXAPARIN SODIUM INJ 30 MG/0.3 ML DISP.SYRIN SUBCUT SCH (09:23)
[2018-12-16] MEDS: INSULIN REG, HUMAN 100 UNIT/ML 3 ML VIAL (PYX) SUBCUT SCH ×4 (09:23→21:35)
[2018-12-16] MEDS: CARVEDILOL 12.5 MG TABLET PO SCH ×2 (09:24→22:24)
[2018-12-16] MEDS: FERROUS SULFATE 325 MG TABLET PO SCH (09:24)
[2018-12-16] MEDS: ASPIRIN 81 MG TABLET, ENT COATED PO SCH (09:24)
[2018-12-16] MEDS: AMLODIPINE BESYLATE 5 MG TABLET PO SCH (09:24)
[2018-12-16] MEDS: LORATADINE 10 MG TABLET PO SCH (09:25)
[2018-12-16] MEDS: VALSARTAN 160 MG TABLET PO SCH (09:25)
[2018-12-16] MEDS: ATORVASTATIN CALCIUM 40 MG TABLET PO SCH (09:25)
[2018-12-16] MEDS: PANTOPRAZOLE SODIUM 40 MG VIAL IV SCH ×2 (09:26→22:25)
[2018-12-16] MEDS: TIOTROPIUM BROMIDE DPI 5 CAP/KIT (18 MCG/CAP) IH SCH (09:27)
[2018-12-16] MEDS: ROFLUMILAST 500 MCG TABLET PO SCH (09:27)
--- NOTE | 2018-12-16 09:34 | PDOC PROGRESS REPORT ---
Subjective Progress Note for:: 12/16/18 Subjective:: The patient is feeling poorly today. She reports constipation. No bowel movement since Wednesday. Reason For Visit: HYPONATREMIA Physical Exam Vital Signs: Temp Pulse Resp BP Pulse Ox 99.2 F 69 15 152/63 H 96 12/15/18 23:44 12/16/18 08:50 12/16/18 06:00 12/16/18 04:12 12/16/18 06:00 Intake & Output 12/15/18 12/16/18 12/17/18 06:59 06:59 06:59 Intake Total 200 1200 Output Total 2445 2600 Balance -2245 -1400 Weight 95.3 kg 95.3 kg General appearance: PRESENT: cooperative, mild distress, obese, well-developed, other - Patient is somewhat tearful. Head exam: PRESENT: atraumatic, normocephalic Eye exam: PRESENT: conjunctiva pale. ABSENT: scleral icterus Ear exam: PRESENT: normal external ear exam. ABSENT: bleeding, drainage Mouth exam: PRESENT: moist, tongue midline Respiratory exam: PRESENT: clear to auscultation jackie, symmetrical, unlabored. ABSENT: accessory muscle use, rales, rhonchi, tachypnea, wheezes Cardiovascular exam: PRESENT: RRR, +S1, +S2 GI/Abdominal exam: PRESENT: diminished bowel sounds, soft, tenderness - Tenderness to palpation in the left lower abdomen. ABSENT: guarding Rectal exam: PRESENT: deferred Extremities exam: ABSENT: pedal edema, tenderness Musculoskeletal exam: PRESENT: normal inspection Neurological exam: PRESENT: alert, awake, oriented to person, oriented to place, oriented to time, oriented to situation, CN II-XII grossly intact Psychiatric exam: PRESENT: other - Sad affect. ABSENT: agitated, anxious Focused psych exam: ABSENT: delusional, restlessness Skin exam: PRESENT: dry, warm. ABSENT: abrasion, rash Results Laboratory Results: 12/14/18 06:00 12/16/18 05:25 12/14/18 12/15/18 12/16/18 12:00 17:58 05:25 Sodium 127.7 L 128.7 L Potassium 3.5 L 3.5 L Chloride 97 L 98 Carbon Dioxide 22 22 Anion Gap 9 9 BUN 39 H 36 H Creatinine 3.08 H 2.79 H Est GFR ( Amer) 18 L 20 L Glucose 143 H 85 Calcium 9.8 9.8 Total Protein 5.2 L Albumin 3.1 12/13/18 15:45 NT-Pro-B Natriuret Pep 2710 H Impressions: Chest X-Ray 12/13/18 17:40 IMPRESSION: Cardiomegaly without pulmonary edema. Assessment and Plan - Diagnosis (1) Hyponatremia Is this a current diagnosis for this admission?: Yes Plan: 12/14/2018-the patient's sodium on admission was 117. With a 100 mL dose of 3% saline and subsequent normal saline the serum sodium went up to 119. Because of the inadequate improvement in the serum sodium I did resume 3% saline this morning. After several hours the serum sodium was still 118 but by this afternoon it had risen to 121. I did decrease the rate of the saline infusion to 30 mL's per hour. 4 hours later the serum sodium was still 121. I did increase the rate slightly and serial labs are ordered through the night. I did discuss the case with Dr. Gutierres. The plan is to change patient back to normal saline once her serum sodium is in the mid 120s level. Hopefully this will occur by this evening. The patient does not appear to be grossly symptomatic at this time. Dr. Gutierres's note does reflect that the patient has a serum sodium that is usually between 130 and 135. Continue current plan and monitor electrolytes frequently. 12/15/2018-the patient's serum sodium is 127. The 3% saline will be discontinued. She will begin receiving normal saline with a low dose of potassium chloride as she has been exhibiting hypokalemia. Now that she is off of 3% saline to be downgraded to IMCU. Dr. Gutierres will continue to follow her. It is likely that once her sodium is in the low 130 range she may likely be discharged home. She will continue to follow-up with nephrology. Dr. Gutierres has opted not to resume the Zaroxolyn, torsemide and Aldactone at this time. She will reassess patient tomorrow. 12/16/2018-serum sodium is up to 128. I did discuss with Dr. Gutierres. She would like to see the serum sodium greater than 130 prior to discharge home. We will continue the normal saline with low-dose potassium as ordered. (2) Chronic kidney disease (CKD) Qualifiers: Chronic kidney disease stage: stage 4 (severe) Qualified Code(s): N18.4 - Chronic kidney disease, stage 4 (severe) Is this a current diagnosis for this admission?: Yes Plan: 12/14/2018-the patient does have chronic severe renal failure and follows with Dr. Gutierres. She is having good urine output. We will continue to monitor her intake and output as well as her renal function. I appreciate Dr. Gutierres's assistance. 12/15/2018-the patient is currently at baseline. In fact reviewing her old records she is slightly better than her outpatient baseline. We will continue the current regimen. She will return to outpatient management with Dr. Gutierres. 12/16/2018-her GFR in fact is better than outpatient baseline. We will continue to monitor. Dr. Gutierres is making adjustments with her antihypertensives. She remains off of any diuretic therapy today. (3) Acute on chronic diastolic (congestive) heart failure Is this a current diagnosis for this admission?: Yes Plan: 12/14/2018-in 2018 the patient had an echocardiogram revealing 2/4 diastolic failure with a normal ejection fraction. We will continue to monitor fluid balance. Aldactone, torsemide and metolazone are currently on hold. Her blood pressure is starting to trend up. I will discuss with Dr. Gutierres with regard to which antihypertensives to add back based on her blood pressure. 12/15/2018-heart failure is currently asymptomatic. As noted above diuretic therapy is on hold. She will be resuming her valsartan and carvedilol today. 12/16/2018-patient is stable and asymptomatic currently. Medication adjustments by Dr. Gutierres as noted above. (4) Hypokalemia Is this a current diagnosis for this admission?: Yes Plan: 12/14/2018-serum potassium remains borderline. The patient is on the electrolyte replacement protocol. Dr. Gutierres notes that the patient usually is hyperkalemic with her kidney failure. We will continue to monitor electrolytes and renal function serially. With the diuretics on hold the potassium will likely increase. Resuming the spironolactone will also cause the potassium to increase slightly as well. 12/15/2018-she will change from 3% saline to normal saline with potassium chloride. We will continue to monitor her serum electrolytes. 12/16/2018-serum potassium is 3.6 this morning. We will continue monitor closely. The patient is on the electrolyte protocol. (5) Hypomagnesemia Is this a current diagnosis for this admission?: Yes Plan: 12/14/2018-the patient was given intravenous magnesium. We are monitoring the serum magnesium level along with the electrolytes as noted above. We will continue to monitor closely and adjust the magnesium per the electrolyte protocol. 12/15/2018-hypomagnesemia is resolved. Continue to monitor magnesium and other electrolytes. 12/16/2018-magnesium was 1.7 yesterday. Will recheck tomorrow. Will supplement accordingly. (6) Hypercalcemia Is this a current diagnosis for this admission?: Yes Plan: 12/14/2018-the patient is normally on Veltassa. This has been continued. Continue to monitor serum calcium levels. 12/15/2018-the patient's Veltassa is currently on hold. Serum calcium in fact has normalized. Continue to monitor electrolytes. 12/16/2018-the patient's serum calcium is in fact normal. Continued management per nephrology. (7) Diabetes mellitus type 2 in obese Is this a current diagnosis for this admission?: Yes Plan: 12/14/2018-the patient is on Tradjenta and Levemir at home. She is currently on sliding scale. Accu-Cheks are all currently under 150. Continue to monitor Accu-Cheks and adjust medications accordingly. 12/15/2018-continue Accu-Cheks with sliding scale coverage. Upon discharge return to regular home regimen. 12/16/2018-on sliding scale the patient's Accu-Cheks have been reasonably controlled. She is on Levemir and Tradjenta at home. Consider resuming medications prior to discharge. Her appetite has been decreased because of her constipation. (8) Hypertension Qualifiers: Hypertension type: essential hypertension Qualified Code(s): I10 - Essential (primary) hypertension Is this a current diagnosis for this admission?: Yes Plan: 12/14/2018-the patient is on multiple medications for hypertension including carvedilol, hydralazine, valsartan, amlodipine, metolazone, Spironolactone and torsemide. As noted above blood pressures are starting to increase. The diuretics are currently on hold. We will monitor her blood pressure and add back medications accordingly taking into consideration her electrolyte status. 12/15/2018-as noted above the patient will resume her valsartan and carvedilol. Aldactone, torsemide and Zaroxolyn are currently on hold. Continue to monitor the patient's vital signs. Adjust medications accordingly. 12/16/2018-with partial resumption of her antihypertensive medications she is exhibiting good blood pressure control. I will defer to nephrology regarding resumption of her diuretics especially considering the recent hyponatremia and her chronic kidney disease. (9) Morbid obesity Is this a current diagnosis for this admission?: Yes Plan: 12/14/2018-the patient has a BMI of 38.1. Consider more aggressive dieting. I do not believe her exercise capacity will allow enough exercise for weight reduction and so the focus of weight loss would likely have to be dietary. 12/15/2018-continue diabetic/renal/cardiac diet 12/16/2018 as above (10) Constipation Qualifiers: Constipation type: slow transit constipation Qualified Code(s): K59.01 - Slow transit constipation Is this a current diagnosis for this admission?: Yes Plan: 12/16/2018-the patient reports no bowel movement since Wednesday. I have added some stool softeners and laxatives. Clearly it is making her uncomfortable. Hopefully we can resolve this issue for her quickly. - Time Time Spent with patient: 15-24 minutes Medications reviewed and adjusted accordingly: Yes Anticipated discharge: Home Within: within 48 hours - Awaiting serum sodium to reach above 130
[2018-12-16] MEDS ORDERED: POTASSI CL 20 MEQ/NS 1L 1,000 ML IV SCH (10:00)
[2018-12-16] MEDS ORDERED: POLYETHYLENE GLYCOL 3350 POWDER 17 GM/1 PACKET PO ONE (10:30)
[2018-12-16] MEDS ORDERED: BISACODYL 10 MG SUPP.RECT PR ONE (10:30)
[2018-12-16] MEDS: POTASSI CL 20 MEQ/NS 1L 1,000 ML IV PRN (10:47)
[2018-12-16] MEDS: SPIRONOLACTONE 25 MG TABLET PO SCH (11:04)
--- NOTE | 2018-12-16 13:06 | PDOC PROGRESS REPORT ---
Subjective Progress Note for:: 12/16/18 Subjective:: Patient says she is doing fine and feeling better except for constipation. She has not gone to the bathroom since Wednesday and is bothered by it. She is now eating good without any problems and no abdominal discomfort. Her blood pressure is also starting to go up. Her sodium level is 128.7 today. I ordered 2 bags of normal saline yesterday, unfortunately they were not given here in the ICU. They were acknowledged by 2 nurses but were never given. Reason For Visit: HYPONATREMIA Physical Exam Vital Signs: Temp Pulse Resp BP Pulse Ox 99.2 F 69 16 166/68 H 97 12/15/18 23:44 12/16/18 08:50 12/16/18 10:00 12/16/18 09:22 12/16/18 10:00 Intake & Output 12/15/18 12/16/18 12/17/18 06:59 06:59 06:59 Intake Total 200 1200 Output Total 2445 2600 375 Balance -2245 -1400 -375 Weight 95.3 kg 95.3 kg Exam: General appearance: PRESENT: no acute distress, cooperative, well-developed, well-nourished Head exam: PRESENT: atraumatic, normocephalic Eye exam: PRESENT: conjunctiva pink, PERRLA. ABSENT: scleral icterus Neck exam: ABSENT: JVD Respiratory exam: PRESENT: Diminished breath sounds. ABSENT: crackles, rales, rhonchi, unlabored, wheezes Cardiovascular exam: PRESENT: Regular rate rhythm -+S1, +S2. ABSENT: diastolic murmur, systolic murmur GI/Abdominal exam: PRESENT: normal bowel sounds, soft. ABSENT: guarding, mass, tenderness Extremities exam: ABSENT: No edema Neurological exam: PRESENT: alert, awake, oriented to person, place and time. Skin exam: PRESENT: dry, warm, Results Laboratory Results: 12/14/18 06:00 12/16/18 05:25 12/14/18 12/15/18 12/16/18 12:00 17:58 05:25 Sodium 127.7 L 128.7 L Potassium 3.5 L 3.5 L Chloride 97 L 98 Carbon Dioxide 22 22 Anion Gap 9 9 BUN 39 H 36 H Creatinine 3.08 H 2.79 H Est GFR ( Amer) 18 L 20 L Glucose 143 H 85 Calcium 9.8 9.8 Total Protein 5.2 L Albumin 3.1 12/13/18 15:45 NT-Pro-B Natriuret Pep 2710 H Impressions: Chest X-Ray 12/13/18 17:40 IMPRESSION: Cardiomegaly without pulmonary edema. Assessment & Plan - Diagnosis (1) Hyponatremia Is this a current diagnosis for this admission?: Yes Plan: Currently improved and patient clinically better. I will order again normal saline with 20 mEq of potassium x2 bags today at 75 mL an hour. Continue to hold diuretics for now. Her TSH is normal. If her sodium level is 130 or above I think she can be safely discharged home tomorrow hopefully. I will also recommend that the patient's diuretics includ ing torsemide and metolazone be instructed to be taken only as needed. (2) Hypercalcemia Is this a current diagnosis for this admission?: Yes Plan: Resolved. Her vitamin D, PTH and phosphorus are all within normal limits. Serum protein electrophoresis negative for monoclonal spike. This is most likely secondary to dehydration. (3) Hypokalemia Is this a current diagnosis for this admission?: Yes Plan: Replace potassium as needed. (4) Chronic kidney disease, stage V Is this a current diagnosis for this admission?: Yes Plan: Patient's current kidney function is actually better than her baseline. She has diabetic nephropathy with nephrotic range proteinuria. (5) Diabetic nephropathy Qualifiers: Diabetes mellitus type: type 2 Qualified Code(s): E11.21 - Type 2 diabetes mellitus with diabetic nephropathy Is this a current diagnosis for this admission?: Yes (6) Anemia in chronic kidney disease (CKD) Qualifiers: Chronic kidney disease stage: stage 4 (severe) Qualified Code(s): N18.4 - Chronic kidney disease, stage 4 (severe); D63.1 - Anemia in chronic kidney disease Is this a current diagnosis for this admission?: Yes Plan: Her last Procrit shot was a week ago. She received Procrit 10,000 units subcutaneously x1 dose yesterday, 822. (7) Hypertension Qualifiers: Hypertension type: essential hypertension Qualified Code(s): I10 - Essential (primary) hypertension Is this a current diagnosis for this admission?: Yes Plan: Continue all current medications but I am going to decrease the amlodipine to 5 mg daily to decrease her lower extremity edema. Restart spironolactone 25 mg p.o. daily. (8) Constipation Is this a current diagnosis for this admission?: Yes Plan: Dulcolax and MiraLAX were ordered today. (9) Diabetes mellitus type 2 in obese Is this a current diagnosis for this admission?: Yes (10) Leg cramps Is this a current diagnosis for this admission?: Yes Plan: Resolved. - Notes Notes: Discussed with Dr. Cooper. - Time Time with patient: 15-25 minutes
[2018-12-16] MEDS ORDERED: POTASSI CL 20 MEQ/NS 1L 1,000 ML IV ONE (21:31)
[2018-12-17] MEDS: POTASSI CL 20 MEQ/NS 1L 1,000 ML IV PRN (00:10)
[2018-12-17] MEDS: HYDRALAZINE HCL 50 MG TABLET PO SCH ×2 (05:29→13:30)
[2018-12-17 06:29] LABS: ALBUMIN 2.6 g/dL (3.5-5.0); ANION GAP 7 (5-19); BLOOD UREA NITROGEN 31 mg/dL (7-20); CALCIUM 9.1 mg/dL (8.4-10.2); CARBON DIOXIDE 22 mmol/L (22-30); CHLORIDE 102 mmol/L (98-107); GLUCOSE 106 mg/dL (75-110); PHOSPHORUS 2.4 mg/dL (2.5-4.5); POTASSIUM 3.6 mmol/L (3.6-5.0)
[2018-12-17] MEDS: INSULIN REG, HUMAN 100 UNIT/ML 3 ML VIAL (PYX) SUBCUT SCH ×2 (08:27→13:28)
[2018-12-17] MEDS: ASPIRIN 81 MG TABLET, ENT COATED PO SCH (09:51)
[2018-12-17] MEDS: VALSARTAN 160 MG TABLET PO SCH (09:52)
[2018-12-17] MEDS: ATORVASTATIN CALCIUM 40 MG TABLET PO SCH (09:52)
[2018-12-17] MEDS: AMLODIPINE BESYLATE 5 MG TABLET PO SCH (09:52)
[2018-12-17] MEDS: CARVEDILOL 12.5 MG TABLET PO SCH (09:52)
[2018-12-17] MEDS: FERROUS SULFATE 325 MG TABLET PO SCH (09:52)
[2018-12-17] MEDS: LORATADINE 10 MG TABLET PO SCH (09:52)
[2018-12-17] MEDS: ROFLUMILAST 500 MCG TABLET PO SCH (09:52)
[2018-12-17] MEDS: SPIRONOLACTONE 25 MG TABLET PO SCH (09:52)
[2018-12-17] MEDS: TIOTROPIUM BROMIDE DPI 5 CAP/KIT (18 MCG/CAP) IH SCH (09:53)
[2018-12-17] MEDS: ENOXAPARIN SODIUM INJ 30 MG/0.3 ML DISP.SYRIN SUBCUT SCH (09:53)
[2018-12-17] MEDS: PANTOPRAZOLE SODIUM 40 MG VIAL IV SCH (09:53)
--- NOTE | 2018-12-17 11:14 | PDOC DISCHARGE SUMMARY ---
General - Admit/Disc Date/PCP Admission Date/Primary Care Provider: 12/13/18 17:35 RAFAL OTTO MD Discharge Date: 12/17/18 - Additional Information Resuscitation Status: Full Code Home Medications: Loratadine 10 mg PO DAILY 04/10/13 Tiotropium Grottoes [Spiriva Handihaler 18 mcg/dose (30 Dose)] 1 puff IH DAILY 07/14/13 Atorvastatin Calcium [Lipitor 40 mg Tablet] 40 mg PO DAILY 06/02/16 Carvedilol [Coreg 25 mg Tablet] 25 mg PO Q12 06/02/16 Hydralazine HCl [Apresoline 50 mg Tablet] 50 mg PO Q8 06/02/16 Insulin Detemir [Levemir Flextouch] 30 units SQ QAM 06/02/16 Linagliptin [Tradjenta] 5 mg PO DAILY 06/02/16 Roflumilast [Daliresp 500 mcg Tablet] 500 mcg PO DAILY 06/02/16 Ergocalciferol (Vitamin D2) [Drisdol 50,000 unit (1.25MG) Capsule] 50,000 unit PO [id number] MDD EVERY OTHER Wednesday04/22/18 Ferrous Sulfate [Feosol 325 mg Tablet] 325 mg PO DAILY 04/22/18 Valsartan [Diovan] 320 mg PO DAILY 04/22/18 Aspirin [Ecotrin 81 mg EC Tablet] 81 mg PO DAILY 05/21/18 Fluticasone/Salmeterol [Advair 250-50 Diskus 14 Dose/Diskus] 1 inh IH Q12 05/21/18 Torsemide [Demadex 20 mg Tablet] 20 mg PO DAILY #30 tablet 05/26/18 Amlodipine Besylate [Norvasc 10 mg Tablet] 10 mg PO DAILY 12/13/18 Metolazone [Zaroxolyn 2.5 mg Tablet] 5 mg PO DAILY 12/13/18 Patiromer Calcium Sorbitex [Veltassa] 1 packet PO DAILY 12/13/18 Spironolactone 50 mg PO DAILY 12/13/18 History of Present Illness History of Present Illness: LUIZA CAMARGO is a 73 year old female with history of congestive heart failure, stage IV kidney disease, hypertension, type 2 diabetes mellitus, ulcerative colitis, COPD came to the emergency room with complaints of abnormal labs chemistry done yesterday came with sodium of 118 and she is complaining of poor appetite for the last 1 month drinking only chicken broth and drinking water because of ulcerative colitis and she is also complaining of recurrent extremely weak not able to sleep for almost a month and of the leg cramps are started from yesterday. The work-up in the emergency room shows serum sodium of 117.5 blood sugar within normal level and medical consult was called for admission for management of the hyponatremia. Went to talk to the patient she denies any headaches denies any dizziness denies any confusion denies any falls denies any nausea denies any pain denies any vomitings and she said she is compliant with her heart failure medications. Her only complaint she is lower leg pains associated with severe cramps. Hospital Course Hospital Course: This is 73 years old black female patient with past medical history of type 2 diabetes mellitus complicated by nephrotic range proteinuria and st stage IV CKD, anemia of CKD, obesity, COPD, hypertension [facility] for acute hyponatremia with sodium of 117.5. Patient admitted directly to the ICU where she has been managed accordingly and later as her sodium improved transferred to [facility]. Today her sodium is 131.2. Her primary rubber mill tender Dr. Gutierres cleared her for discharge once her sodium is greater than 130. Dr. Gutierres also recommended that her torsemide and metolazone to be given on PRN basis. This morning patient seen and evaluated while she is resting in bed comfortably her sodium is markedly improved patient does not have any new complaint. She is stable enough to go home today and follow-up with her primary rubber mill tender Dr. Gutierres in 1 week and her primary care physician was Dr. Otto. Physical Exam Vital Signs: Temp Pulse Resp BP Pulse Ox 97.9 F 64 16 145/65 H 99 12/17/18 08:40 12/17/18 08:40 12/17/18 08:40 12/17/18 08:40 12/17/18 08:40 Intake & Output 12/16/18 12/17/18 12/18/18 06:59 06:59 06:59 Intake Total 1200 2320 Output Total 2600 375 Balance -1400 1945 Weight 95.3 kg General appearance: PRESENT: no acute distress Head exam: PRESENT: atraumatic Eye exam: PRESENT: conjunctiva pink Neck exam: ABSENT: carotid bruit, JVD, lymphadenopathy, thyromegaly Respiratory exam: PRESENT: clear to auscultation jackie. ABSENT: rales, rhonchi, wheezes Pulses: PRESENT: normal dorsalis pedis pul GI/Abdominal exam: PRESENT: normal bowel sounds, soft. ABSENT: distended, guarding, mass, organolmegaly, rebound, tenderness Neurological exam: PRESENT: alert, awake, oriented to person, oriented to place, oriented to time, oriented to situation Results Laboratory Results: 12/14/18 06:00 12/17/18 05:30 12/14/18 12/17/18 12:00 05:30 Sodium 121.4 L 131.2 L Potassium 3.6 3.6 Chloride 87 L 102 Carbon Dioxide 26 22 Anion Gap 8 7 BUN 46 H 31 H Creatinine 3.50 H 2.72 H Est GFR ( Amer) 16 L 21 L Glucose 124 H 106 Calcium 10.5 H 9.1 Phosphorus 2.4 L Magnesium 1.7 Albumin 2.6 L 12/13/18 15:45 NT-Pro-B Natriuret Pep 2710 H Impressions: Chest X-Ray 12/13/18 17:40 IMPRESSION: Cardiomegaly without pulmonary edema. Qualifiers - * PATIENT BEING DISCHARGED WITH ANY OF THE FOLLOWING DIAGNOSIS: No Acute Heart Failure - Is this a Heart Failure Patient?: No LVEF < 40%?: No- if no continue to question #3 3. Anticoagulant therapy for permanect/persistent/paraoxysmal Afib or Aflutter: N/A
[2018-12-17 11:26] VITALS: BP 177/73
== END 2018-12-17 14:15 | disposition home or self-care (01) | DRG 640 ==
LOC: ER 15:02 → UNDOADMIN 17:35 → EH 17:35 → ICU 23:31 → 3S 12-16 10:45
PROVIDERS: ADMIT Internal Medicine; ATTEND Internal Medicine
PROC: 02HV33Z Insertion of Infusion Device into Superior Vena Cava, Percutaneous Approach (ICD-10-PCS; principal; 2018-12-13)
DX: E87.1 Hypo-osmolality and hyponatremia (principal); I50.43 Acute on chronic combined systolic (congestive) and diastolic (congestive) heart failure; N18.4 Chronic kidney disease, stage 4 (severe); I13.0 Hypertensive heart and chronic kidney disease with heart failure and stage 1 through stage 4 chronic kidney disease, or unspecified chronic kidney disease; K51.90 Ulcerative colitis, unspecified, without complications; N25.81 Secondary hyperparathyroidism of renal origin; E11.22 Type 2 diabetes mellitus with diabetic chronic kidney disease; J44.9 Chronic obstructive pulmonary disease, unspecified; E83.52 Hypercalcemia; E83.42 Hypomagnesemia; E66.01 Morbid (severe) obesity due to excess calories; D63.1 Anemia in chronic kidney disease; R63.0 Anorexia; R53.1 Weakness; R80.9 Proteinuria, unspecified; K59.00 Constipation, unspecified; E87.6 Hypokalemia; G47.30 Sleep apnea, unspecified; R25.2 Cramp and spasm; Z79.4 Long term (current) use of insulin; Z87.891 Personal history of nicotine dependence; Z79.82 Long term (current) use of aspirin; Z91.041 Radiographic dye allergy status; Z68.38 Body mass index [BMI] 38.0-38.9, adult
CPT/HCPCS: 36415; 71045; 71046; 80048; 80069; 81001; 82306; 82962; 83735; 83880; 83930; 83935; 83970; 84100; 84133; 84165; 84300; 84443; 85025; 87070; 93005; 93010; 99285; C1751; J1642; J1650; J1815; J3475; J3480; J3490; Q5105; S0164

== ENCOUNTER → 2018-12-13 | Outpatient (CLI) | payer MEDICARE, OTHER ==
[2018-12-13 14:09] LABS: ANION GAP 13 (5-19); BLOOD UREA NITROGEN 52 mg/dL (7-20); CALCIUM 11.7 mg/dL (8.4-10.2); CARBON DIOXIDE 25 mmol/L (22-30); CHLORIDE 81 mmol/L (98-107); GLUCOSE 127 mg/dL (75-110); POTASSIUM 3.7 mmol/L (3.6-5.0)
== END ==
LOC: OD 12:30
PROVIDERS: ATTEND Internal Medicine Nephrology
DX: E11.22 Type 2 diabetes mellitus with diabetic chronic kidney disease (principal); I12.9 Hypertensive chronic kidney disease with stage 1 through stage 4 chronic kidney disease, or unspecified chronic kidney disease; N18.4 Chronic kidney disease, stage 4 (severe); E87.1 Hypo-osmolality and hyponatremia; E83.52 Hypercalcemia
CPT/HCPCS: 36415; 80048

== ENCOUNTER → 2018-12-27 | Outpatient (CLI) | payer MEDICARE, OTHER | LOC: OD 14:23 | PROVIDERS: ATTEND Internal Medicine Nephrology | DX: Z53.9 Procedure and treatment not carried out, unspecified reason (principal) ==

== ENCOUNTER → 2019-01-06 | Outpatient (CLI) | payer MEDICARE, OTHER ==
[2019-01-06 13:11] LABS: HEMATOCRIT 29.5 % (36.0-47.0); HEMOGLOBIN 9.9 g/dL (12.0-15.5); MEAN CORPUSCULAR HEMOGLOBIN 29.8 pg (27.0-33.4); MEAN CORPUSCULAR HGB CONC 33.5 g/dL (32.0-36.0); PLATELET COUNT 305 10^3/uL (150-450); RED BLOOD COUNT 3.31 10^6/uL (3.72-5.28); RED CELL DISTRIBUTION WIDTH 15.4 % (11.5-14.0); WHITE BLOOD COUNT 8.9 10^3/uL (4.0-10.5)
[2019-01-06 13:29] LABS: MEAN CORPUSCULAR VOLUME 89 fl (80-97)
[2019-01-06 13:36] LABS: ANION GAP 10 (5-19); BLOOD UREA NITROGEN 50 mg/dL (7-20); CALCIUM 10.3 mg/dL (8.4-10.2); CARBON DIOXIDE 29 mmol/L (22-30); CHLORIDE 98 mmol/L (98-107); GLUCOSE 143 mg/dL (75-110); IRON(TIBC) 64.6 ug/dL (37-170)
== END ==
LOC: OD 11:49
PROVIDERS: ATTEND Internal Medicine Nephrology
DX: N18.4 Chronic kidney disease, stage 4 (severe) (principal); D63.1 Anemia in chronic kidney disease
CPT/HCPCS: 36415; 80048; 82728; 83540; 83550; 85027

== ENCOUNTER → 2019-05-17 | Outpatient (CLI) | payer MEDICARE, OTHER ==
[2019-05-17 11:52] LABS: ABSOLUTE BASOPHILS # (AUTO) 0.1 10^3/uL (0.0-0.2); ABSOLUTE EOSINOPHILS # (AUTO) 0.6 10^3/uL (0.0-0.6); ABSOLUTE LYMPHOCYTES (AUTO) 2.1 10^3/uL (0.5-4.7); ABSOLUTE MONOCYTES (AUTO) 0.7 10^3/uL (0.1-1.4); ABSOLUTE NEUT (AUTO) 7.3 10^3/uL (1.7-8.2); BASOPHILS % (AUTO) 0.9 % (0-2); EOSINOPHILS % (AUTO) 5.4 % (0-6); HEMATOCRIT 29.3 % (36.0-47.0); LYMPHOCYTES % (AUTO) 19.6 % (13-45); MEAN CORPUSCULAR HEMOGLOBIN 30.1 pg (27.0-33.4); MEAN CORPUSCULAR VOLUME 89 fl (80-97); MONOCYTES % (AUTO) 6.6 % (3-13); PLATELET COUNT 254 10^3/uL (150-450); RED BLOOD COUNT 3.31 10^6/uL (3.72-5.28); SEGMENTED NEUTROPHILS % (AUTO) 67.5 % (42-78); TOTAL CELLS COUNTED % (AUTO) 100 %; WHITE BLOOD COUNT 10.8 10^3/uL (4.0-10.5)
[2019-05-17 11:56] LABS: APPEARANCE,URINE CLEAR; BILIRUBIN,URINE NEGATIVE (NEGATIVE); COLOR,URINE STRAW; GLUCOSE, URINE 50 mg/dL (NEGATIVE); KETONES,URINE NEGATIVE (NEGATIVE); LEUKOCYTE ESTERASE,URINE TRACE (NEGATIVE); NITRITE,URINE NEGATIVE (NEGATIVE); PROTEIN,URINE 100 mg/dL (NEGATIVE); URINE SPECIFIC GRAVITY 1.005; UROBILINOGEN,URINE NEGATIVE mg/dL (<2.0)
[2019-05-17 12:02] LABS: UR PRO/CREAT RATIO RESULT 3.2 mg/mg (0.0-0.2); URINE CREATININE 43.8 mg/dL (15-278); URINE PROTEIN 140.4 mg/dL (<12)
[2019-05-17 12:10] LABS: ALBUMIN 3.8 g/dL (3.5-5.0); ANION GAP 13 (5-19); BLOOD UREA NITROGEN 58 mg/dL (7-20); CARBON DIOXIDE 22 mmol/L (22-30); CHLORIDE 93 mmol/L (98-107); GLUCOSE 163 mg/dL (75-110); IRON(TIBC) 67.6 ug/dL (37-170); PHOSPHORUS 4.8 mg/dL (2.5-4.5); POTASSIUM 4.8 mmol/L (3.6-5.0)
[2019-05-17 12:16] LABS: CALCIUM 11.9 mg/dL (8.4-10.2)
== END ==
LOC: OD 11:12
PROVIDERS: ATTEND Internal Medicine Nephrology
DX: E11.22 Type 2 diabetes mellitus with diabetic chronic kidney disease (principal); I12.9 Hypertensive chronic kidney disease with stage 1 through stage 4 chronic kidney disease, or unspecified chronic kidney disease; N18.4 Chronic kidney disease, stage 4 (severe); E87.1 Hypo-osmolality and hyponatremia; E83.52 Hypercalcemia
CPT/HCPCS: 36415; 80069; 81001; 82306; 82570; 82728; 83540; 83550; 83970; 84156; 85025

== ENCOUNTER → 2019-05-23 | Outpatient (CLI) | payer MEDICARE, OTHER ==
[2019-05-23 10:21] LABS: ANION GAP 10 (5-19); BLOOD UREA NITROGEN 54 mg/dL (7-20); CARBON DIOXIDE 25 mmol/L (22-30); CHLORIDE 96 mmol/L (98-107); GLUCOSE 145 mg/dL (75-110); POTASSIUM 4.6 mmol/L (3.6-5.0)
[2019-05-23 10:43] LABS: CALCIUM 12.3 mg/dL (8.4-10.2)
[2019-05-24 08:37] LABS: HEPATITIS C VIRUS AB <0.1 s/co ratio (0.0-0.9)
[2019-05-24 09:41] LABS: HEPATITS B SURFACE ANTIGEN Negative (Negative)
[2019-05-24 16:37] LABS: A/G RATIO 1.5 (0.7-1.7); ALBUMIN 2 3.6 g/dL (2.9-4.4); ALPHA-2-GLOBULIN 2 0.8 g/dL (0.4-1.0); BETA GLOBULINS 0.8 g/dL (0.7-1.3); GAMMA GLOBULIN 0.7 g/dL (0.4-1.8); GLOBULIN TOTAL 2.4 g/dL (2.2-3.9); MONOCLONAL SPIKE Not Observed g/dL (Not Observ)
== END ==
LOC: OD 09:14
PROVIDERS: ATTEND Internal Medicine Nephrology
DX: N17.9 Acute kidney failure, unspecified (principal); I12.0 Hypertensive chronic kidney disease with stage 5 chronic kidney disease or end stage renal disease; N18.5 Chronic kidney disease, stage 5; E87.1 Hypo-osmolality and hyponatremia; E83.52 Hypercalcemia; E11.59 Type 2 diabetes mellitus with other circulatory complications
CPT/HCPCS: 36415; 80048; 84165; 86317; 86803; 86804; 87340

== ENCOUNTER → 2019-05-30 | Outpatient (CLI) | payer MEDICARE, OTHER ==
--- NOTE | 2019-05-30 14:44 | RADIOLOGY REPORT (SQ) ---
EXAM DESCRIPTION: NM PARATHYROID IMAGING COMPLETED DATE/TIME: 05/30/2019 1:59 pm REASON FOR STUDY: E83.52 HYPERCALCEMIA E83.52 HYPERCALCEMIA COMPARISON: None. RADIONUCLIDE AND DOSE: 21.8 millicuries Tc-99m Sestamibi. The route of agent administration: Intravenous ADDITIONAL DRUGS AND DOSES: None. TECHNIQUE: Early and delayed images of the neck acquired following radionuclide administration. LIMITATIONS: None. FINDINGS: Thyroid: Normal size. Homogeneous activity. Normal washout. No focal lesions. Parathyroid: No retained activity in the thyroid or elsewhere in the neck to indicate a parathyroid a denoma. Other: No other significant findings. IMPRESSION: NORMAL STUDY. NO EVIDENCE OF PARATHYROID ADENOMA. TECHNICAL DOCUMENTATION: JOB ID: [id number] [employer]- All Rights Reserved Reading location - IP/workstation name: [email or web address]
== END ==
LOC: RAD 10:30
PROVIDERS: ATTEND Internal Medicine Nephrology
DX: E83.52 Hypercalcemia (principal); E21.1 Secondary hyperparathyroidism, not elsewhere classified
CPT/HCPCS: 78070; A9500; Q9969

== ENCOUNTER → 2019-06-13 | Outpatient (CLI) | payer MEDICARE, OTHER ==
[2019-06-13 11:57] LABS: ANION GAP 8 (5-19); BLOOD UREA NITROGEN 38 mg/dL (7-20); CALCIUM 11.4 mg/dL (8.4-10.2); CARBON DIOXIDE 24 mmol/L (22-30); CHLORIDE 103 mmol/L (98-107); GLUCOSE 156 mg/dL (75-110); POTASSIUM 4.7 mmol/L (3.6-5.0)
[2019-06-14 15:36] LABS: FREE KAPPA LIGHT CHAINS 57.8 mg/L (3.3-19.4); FREE LAMBDA LIGHT CHAINS 29.9 mg/L (5.7-26.3)
[2019-06-14 17:44] LABS: KAPPA LAMBDA RATIO 1.93 (0.26-1.65)
[2019-06-15 13:36] LABS: A/G RATIO 1.5 (0.7-1.7); ALBUMIN 2 3.7 g/dL (2.9-4.4); ALPHA-2-GLOBULIN 2 0.8 g/dL (0.4-1.0); BETA GLOBULINS 0.8 g/dL (0.7-1.3); GAMMA GLOBULIN 0.8 g/dL (0.4-1.8); GLOBULIN TOTAL 2.5 g/dL (2.2-3.9); MONOCLONAL SPIKE Not Observed g/dL (Not Observ); PROTEIN TOTAL SERUM 6.2 g/dL (6.0-8.5)
== END ==
LOC: OD 10:36
PROVIDERS: ATTEND Internal Medicine Nephrology
DX: I12.0 Hypertensive chronic kidney disease with stage 5 chronic kidney disease or end stage renal disease (principal); N18.5 Chronic kidney disease, stage 5; E83.52 Hypercalcemia; E87.1 Hypo-osmolality and hyponatremia
CPT/HCPCS: 36415; 80048; 82164; 82397; 83883; 84165

== ENCOUNTER → 2019-12-14 | Outpatient (CLI) | payer MEDICARE, OTHER ==
--- NOTE | 2019-12-14 16:25 | RADIOLOGY REPORT (SQ) ---
EXAM DESCRIPTION: BONE SURVEY COMPLETE IMAGES COMPLETED DATE/TIME: 12/14/2019 2:37 pm REASON FOR STUDY: R76.8 OTHER SPECIFIED ABNORMAL IMMUNOLOGICAL FINDINGS IN SERUM R76.8 OTHER SPECIF IED ABNORMAL IMMUNOLOGICAL FINDINGS IN SER. COMPARISON: Chest radiograph, 12/13/2018 TECHNIQUE: Images of the axial and proximal appendicular skeleton are obtained, along with lateral s kull and frontal chest films. LIMITATIONS: None. FINDINGS: AP CHEST: No bony findings. Lungs are clear. LATERAL SKULL: No worrisome bone lesions. AP BOTH HUMERI: No worrisome bone lesions. Osteoarthritis bilateral shoulders. TWO-VIEW LUMBAR SPINE: No worrisome bone lesions. TWO-VIEW THORACIC SPINE: No worrisome bone lesions. AP PELVIS: No worrisome bone lesions. AP BOTH FEMURS: No worrisome bone lesions. OTHER: Multiple calcified pelvic phleboliths are noted. IMPRESSION: NO WORRISOME BONE LESIONS. TECHNICAL DOCUMENTATION: JOB ID: [id number] 2010 [employer] All Rights Reserved Reading location - IP/workstation name: [email or web address]
== END ==
LOC: RAD 15:00
PROVIDERS: ATTEND Internal Medicine Hematology & Oncology
DX: R76.8 Other specified abnormal immunological findings in serum (principal)
CPT/HCPCS: 77075

== ENCOUNTER 2020-02-09 16:53 | Inpatient (IN) | payer MEDICARE, OTHER ==
--- NOTE | 2020-02-09 17:16 | ER Document Report ---
ED Medical Screen (RME) - General Chief Complaint: Abnormal Lab Results Stated Complaint: ABNORMAL LABS Time Seen by Provider: 02/09/20 17:07 Primary Care Provider: PATRICIA ABBOTT MD [Primary Care Provider] - Follow up as needed Mode of Arrival: Wheelchair Information source: Patient Notes: 74-year-old female presented to ED for elevated calcium. She states her ur ologist called her while she was on the way to get an MRI and told her she needed to come to the emergency room for elevated calcium. She states she is stage IV kidney disease but is never been on dialysis. She states she did get the MRI done before coming to the emergency room. She is alert oriented respirations regular nonlabored speaking in full sentences. She states her left hip is extremely painful and is where she was getting the MRI of. She states the main reason for being in the ED is because of the elevated calcium level. I have greeted and performed a rapid initial assessment of this patient. A comprehensive ED assessment and evaluation of the patient, analysis of test results and completion of medical decision making process will be conducted by an additional ED providers. TRAVEL OUTSIDE OF THE [place] IN LAST 30 DAYS: No - Related Data Allergies/Adverse Reactions: Iodinated Contrast Media [IV Dye, Iodine Containing] Adverse Reaction (Unknown, Verified 05/20/18 14:55) Respiratory distress Past Medical History - Past Medical History Cardiac Medical History: Reports: Hx Congestive Heart Failure, Hx Hypertension Denies: Hx Atrial Fibrillation, Hx DVT, Hx Heart Attack, Hx Pulmonary Embolism Pulmonary Medical History: Reports: Hx COPD, Hx Pneumonia, Hx Sleep Apnea Denies: Hx Tuberculosis Neurological Medical History: Denies: Hx Seizures Endocrine Medical History: Reports: Hx Diabetes Mellitus Type 2. Denies: Hx Diabetes Mellitus Type 1, Hx Hyperthyroidism, Hx Hypothyroidism Renal/ Medical History: Reports: Hx End Stage Renal Disease. Denies: Hx Peritoneal Dialysis GI Medical History: Denies: Hx Cirrhosis, Hx Hepatitis Musculoskeltal Medical History: Denies Hx Arthritis, Denies Hx Gout Skin Medical History: Denies Hx Eczema, Denies Hx Psoriasis Psychiatric Medical History: Denies: Hx Depression Infectious Medical History: Denies: Hx Hepatitis Past Surgical History: Reports: Hx Cardiac Catheterization - Last was 2006, Hx Section, Other - Cataract surgeries bilaterally - Immunizations Hx Diphtheria, Pertussis, Tetanus Vaccination: Yes Physical Exam - Vital signs Vitals: Temp Pulse Resp BP Pulse Ox 97.9 F 70 18 180/74 H 97 02/09/20 16:59 02/09/20 16:59 02/09/20 16:59 02/09/20 16:59 02/09/20 16:59 Course - Vital Signs Vital signs: Temp Pulse Resp BP Pulse Ox 97.9 F 70 18 180/74 H 97 02/09/20 16:59 02/09/20 16:59 02/09/20 16:59 02/09/20 16:59 02/09/20 16:59 Doctor's Discharge - Discharge Referrals: PATRICIA ABBOTT MD [Primary Care Provider] - Follow up as needed
[2020-02-09 18:27] LABS: ALBUMIN 3.8 g/dL (3.5-5.0); ALKALINE PHOSPHATASE 73 U/L (38-126); ANION GAP 9 (5-19); ASPARTATE AMINO TRANSFERASE 36 U/L (14-36); BILIRUBIN,DIRECT 0.4 mg/dL (0.0-0.4); BILIRUBIN,TOTAL 0.6 mg/dL (0.2-1.3); BLOOD UREA NITROGEN 31 mg/dL (7-20); CARBON DIOXIDE 28 mmol/L (22-30); CHLORIDE 89 mmol/L (98-107); GLUCOSE 206 mg/dL (75-110); PHOSPHORUS 3.1 mg/dL (2.5-4.5); POTASSIUM 3.8 mmol/L (3.6-5.0); TOTAL PROTEIN 6.3 g/dL (6.3-8.2)
[2020-02-09 18:43] LABS: CALCIUM 13.8 mg/dL (8.4-10.2)
[2020-02-09 20:18] LABS: ABSOLUTE BASOPHILS # (AUTO) 0.1 10^3/uL (0.0-0.2); ABSOLUTE EOSINOPHILS # (AUTO) 0.1 10^3/uL (0.0-0.6); ABSOLUTE MONOCYTES (AUTO) 0.8 10^3/uL (0.1-1.4); ABSOLUTE NEUT (AUTO) 10.1 10^3/uL (1.7-8.2); BASOPHILS % (AUTO) 0.8 % (0-2); EOSINOPHILS % (AUTO) 0.6 % (0-6); HEMATOCRIT 33.9 % (36.0-47.0); HEMOGLOBIN 11.5 g/dL (12.0-15.5); LYMPHOCYTES % (AUTO) 15.4 % (13-45); MEAN CORPUSCULAR HEMOGLOBIN 29.4 pg (27.0-33.4); MEAN CORPUSCULAR VOLUME 86 fl (80-97); MONOCYTES % (AUTO) 6.2 % (3-13); PLATELET COUNT 292 10^3/uL (150-450); RED BLOOD COUNT 3.92 10^6/uL (3.72-5.28); RED CELL DISTRIBUTION WIDTH 15.5 % (11.5-14.0); TOTAL CELLS COUNTED % (AUTO) 100 %; WHITE BLOOD COUNT 13.1 10^3/uL (4.0-10.5)
--- NOTE | 2020-02-09 20:34 | ER Document Report ---
ED General - General Chief Complaint: Abnormal Lab Results Stated Complaint: ABNORMAL LABS Time Seen by Provider: 02/09/20 17:07 Primary Care Provider: PATRICIA ABBOTT MD [ACTIVE STAFF] - Follow up as needed Mode of Arrival: Wheelchair TRAVEL OUTSIDE OF THE [place] IN LAST 30 DAYS: No - HPI Context: This is a 74-year-old female with a history of chronic renal insufficiency and hypercalcemia that presents to the emergency department at the direction of her maintenance manager, Dr. Gutierres. Apparently Dr. Gutierres was informed that the patient had a history of elevated calcium in the past but usually runs around 11. Patient was coming to the hospital today for a couple of MRIs related to chronic hip pain. Patient states her left hip is extremely painful and that is where she was reportedly get an MRI. Dr. Gutierres states that she has not seen the patient since August of this year and does not know a lot of what is currently going on with the patient but when she was notified of the calcium level she recommended the patient come to the emergency department for treatment. Patient states she is not having any problems with stupor or confusion but just that her left hip is really hurting her. Her is at the bedside and he says she does seem to be more confused than usual. Patient describes the hip pain is a 5 out of 5, it is exacerbated by movement and weightbearing and nothing seems to alleviate the pain. Associated symptoms: Other - See HPI Exacerbated by: Other - See HPI Relieved by: Other - See HPI - Related Data Allergies/Adverse Reactions: Iodinated Contrast Media [IV Dye, Iodine Containing] Adverse Reaction (Unknown, Verified 05/20/18 14:55) Respiratory distress Past Medical History - General Information source: Patient - Social History Smoking Status: Unknown if Ever Smoked Frequency of alcohol use: None Drug Abuse: None Lives with: Spouse/Significant other Family History: Reviewed & Not Pertinent Patient has homicidal ideation: No - Past Medical History Cardiac Medical History: Reports: Hx Congestive Heart Failure, Hx Hypertension Denies: Hx Atrial Fibrillation, Hx DVT, Hx Heart Attack, Hx Pulmonary Embolism Pulmonary Medical History: Reports: Hx COPD, Hx Pneumonia, Hx Sleep Apnea Denies: Hx Tuberculosis Neurological Medical History: Denies: Hx Seizures Endocrine Medical History: Reports: Hx Diabetes Mellitus Type 2. Denies: Hx Diabetes Mellitus Type 1, Hx Hyperthyroidism, Hx Hypothyroidism Renal/ Medical History: Reports: Hx End Stage Renal Disease. Denies: Hx Peritoneal Dialysis GI Medical History: Denies: Hx Cirrhosis, Hx Hepatitis Musculoskeletal Medical History: Denies Hx Arthritis, Denies Hx Gout Skin Medical History: Denies Hx Eczema, Denies Hx Psoriasis Psychiatric Medical History: Denies: Hx Depression Infectious Medical History: Denies: Hx Hepatitis Past Surgical History: Reports: Hx Cardiac Catheterization - Last was 2006, Hx Section, Other - Cataract surgeries bilaterally - Immunizations Hx Diphtheria, Pertussis, Tetanus Vaccination: Yes Hx Pneumococcal Vaccination: 04/26/17 Review of Systems - Review of Systems Constitutional: No symptoms reported EENT: No symptoms reported Cardiovascular: No symptoms reported Respiratory: No symptoms reported Gastrointestinal: No symptoms reported Genitourinary: No symptoms reported Female Genitourinary: No symptoms reported Musculoskeletal: Joint pain Skin: No symptoms reported Hematologic/Lymphatic: No symptoms reported Neurological/Psychological: Confusion -: Yes All other systems reviewed and negative Physical Exam - Vital signs Vitals: Temp Pulse Resp BP Pulse Ox 97.9 F 70 18 180/74 H 97 02/09/20 16:59 02/09/20 16:59 02/09/20 16:59 02/09/20 16:59 02/09/20 16:59 - Notes Notes: CONSTITUTIONAL [Vital signs reviewed, Patient appears comfortable, Alert and oriented X 3, Normal stature.] HEAD [Atraumatic, Normocephalic.] EYES [Eyes are normal to inspection, No discharge from eyes, Extraocular muscles intact, Sclera are normal, Conjunctiva are normal.] NECK [Normal ROM, No jugular venous distention, No meningeal signs, no carotid br uit.] RESPIRATORY CHEST [Chest is nontender, Breath sounds normal, No respiratory distress.] CARDIOVASCULAR [RRR, No murmurs, Normal S1 S2, No rub, No gallop.] ABDOMEN [Abdomen is nontender, No pulsatile masses, No other masses, Bowel sounds normal, No distension, No peritoneal signs, No hernias.] BACK [There is no CVA Tenderness, There is no tenderness to palpation, Normal inspection.] UPPER EXTREMITY [Inspection normal, No cyanosis, No clubbing, No edema, 2+ radial pulses.] LOWER EXTREMITY [Inspection normal, No cyanosis, No clubbing, No edema, No calf tenderness, 2+ femoral pulses.] NEURO [No focal motor deficits, No focal sensory deficits, Speech normal.] SKIN [Skin is warm, Skin is dry, Skin is normal color.] LYMPHATIC [No adenopathy in neck.] PSYCHIATRIC [Normal affect. ] Course - Re-evaluation Re-evalutation: 02/10/20 02:07 Results of ED MSE discussed with patient and patient's spouse. Recommendation for admission discussed with patient and patient's spouse. Both were in agreement with this plan. All questions were answered. - Vital Signs Vital signs: Temp Pulse Resp BP Pulse Ox 97.9 F 70 19 202/87 H 98 02/09/20 16:59 02/09/20 16:59 02/09/20 21:01 02/09/20 21:00 02/09/20 21:01 - Laboratory Result Diagrams: 02/09/20 19:39 02/10/20 00:48 Laboratory results interpreted by me: 02/09/20 02/09/20 02/09/20 17:37 19:39 19:39 WBC 13.1 H Hgb 11.5 L Hct 33.9 L RDW 15.5 H Absolute Neuts (auto) 10.1 H Sodium 126.1 L Potassium Chloride 89 L BUN 31 H Creatinine 3.05 H Est GFR ( Amer) 18 L Est GFR (MDRD) Non-Af 15 L Glucose 206 H Calcium 13.8 H* Ionized Calcium Blade 1.65 H Magnesium 1.1 L* Urine Protein Urine Glucose (UA) Urine Ascorbic Acid 02/09/20 02/10/20 19:39 00:48 WBC Hgb Hct RDW Absolute Neuts (auto) Sodium 126.7 L Potassium 3.3 L Chloride 94 L BUN 30 H Creatinine 2.85 H Est GFR ( Amer) 20 L Est GFR (MDRD) Non-Af 16 L Glucose 171 H Calcium 12.8 H* Ionized Calcium Blade Magnesium 1.3 L Urine Protein >=500 H Urine Glucose (UA) 50 H Urine Ascorbic Acid 40 H - Consults Dr. Gutierres Time consulted: 20:39 - Dr. Gutierres stated that the patient can be given some magnesium and some normal saline and if her calcium can be brought down to 4 and her sodium up to 130 then she thinks it would be reasonable to send the patient home. Reason for consultation: 02/09/20 20:[address] Momo Time consulted: 01:56 - Dr. Barr agreed to admit the patient to his service Reason for consultation: 02/10/20 02:08 Persistent hyper calcium Rosalie, persistent hyponatremia, persistent hypomagnesemia Discharge - Discharge Clinical Impression: Hypercalcemia, Hyponatremia, Hypomagnesemia Chronic renal insufficiency Qualifiers: Chronic kidney disease stage: unspecified stage Qualified Code(s): N18.9 - Chronic kidney disease, unspecified Condition: Stable Disposition: ADMITTED OBSERVATION Admitting Provider: Momo (Hospitalist) Unit Admitted: Telemetry Referrals: PATRICIA ABBOTT MD [ACTIVE STAFF] - Follow up as needed
[2020-02-09] MEDS ORDERED: NORMAL SALINE 1000 ML 1,000 ML IV ONE (20:39)
[2020-02-09] MEDS ORDERED: MAGNESIUM SULFATE/D5W 1 GM/100 ML RTUPB IV ONE (20:40)
[2020-02-09 20:43] LABS: APPEARANCE,URINE SLIGHTLY-CLOUDY; BILIRUBIN,URINE NEGATIVE (NEGATIVE); COLOR,URINE YELLOW; GLUCOSE, URINE 50 mg/dL (NEGATIVE); KETONES,URINE NEGATIVE (NEGATIVE); LEUKOCYTE ESTERASE,URINE NEGATIVE (NEGATIVE); NITRITE,URINE NEGATIVE (NEGATIVE); PROTEIN,URINE >=500 mg/dL (NEGATIVE); URINE SPECIFIC GRAVITY 1.012; UROBILINOGEN,URINE NEGATIVE mg/dL (<2.0)
[2020-02-10 01:12] LABS: ANION GAP 6 (5-19); BLOOD UREA NITROGEN 30 mg/dL (7-20); CARBON DIOXIDE 27 mmol/L (22-30); CHLORIDE 94 mmol/L (98-107); GLUCOSE 171 mg/dL (75-110); POTASSIUM 3.3 mmol/L (3.6-5.0)
[2020-02-10 01:18] LABS: CALCIUM 12.8 mg/dL (8.4-10.2)
[2020-02-10] MEDS ORDERED: MAG HYDROX/AL HYDROX/SIMETH SUSP 30 ML UDCUP PO PRN (02:42)
[2020-02-10] MEDS ORDERED: POTASSI CL 20 MEQ/NS 1L 1,000 ML IV PRN (02:42)
[2020-02-10] MEDS ORDERED: MAGNESIUM HYDROXIDE SUSP 30 ML UDCUP PO PRN (02:42)
[2020-02-10] MEDS ORDERED: LEVALBUTEROL HCL NEB 0.63 MG/3 ML AMPUL NEB PRN (02:42)
[2020-02-10] MEDS ORDERED: MORPHINE SULFATE 10 MG/ML INJ IV PRN ×4 (02:50→04:13)
[2020-02-10] MEDS ORDERED: INSULIN REG, HUMAN 100 UNIT/ML 3 ML VIAL (PYX) SUBCUT PRN (02:50)
[2020-02-10] MEDS ORDERED: GUAIFENESIN SYRP 200 MG/10 ML UDC PO PRN (02:50)
[2020-02-10] MEDS ORDERED: LORAZEPAM INJ 2 MG/1 ML VIAL IV PRN (02:50)
[2020-02-10] MEDS ORDERED: DEXTROSE 50%-WATER 25 GM/50 ML DISP.SYRIN IV PRN ×2 (02:51)
[2020-02-10] MEDS ORDERED: DEXTROSE 40% GEL 15 GM TUBE PO PRN ×2 (02:51)
[2020-02-10] MEDS ORDERED: GLUCAGON,HUMAN RECOMB 1 MG INJ IM PRN (02:51)
[2020-02-10] MEDS ORDERED: METOPROLOL TARTRATE PF/INJ 5 MG/5 ML SDV IV PRN (02:52)
--- NOTE | 2020-02-10 05:00 | PDOC H&P ---
History of Present Illness Admission Date/PCP: 02/10/2020 02:12 RAFAL OTTO MD Patient complains of: Hypercalcemia History of Present Illness: LUIZA CAMARGO is a 74 year old female who presented to the emergency room as directed by Dr. Gutierres who found her to have a elevated serum calcium on lab work performed on 02/09/2020. Patient admits chronic hypercalcemia with her usual level being in the range of 11.0, but was found to have a level of 13.[address] Gutierres's office. She denies any acute signs or symptoms of hyperkalemia although her told ER staff members that she is somewhat more confused over the last few days then per her mental status. She does admit to chronic severe sharp grinding left hip pain worsened by movement and attempts at weightbearing. In the emergency room she was found to have an initial calcium of 13.8, sodium of 126.1, and magnesium of 1.1 and a white blood count of 13,100. Her creatinine was 2.85 and her BUN was 30. At Dr. Gutierres's direction she was given magnesium sulfate 1 g IV and 1 L of IV normal saline over the course of several hours. Her calcium dropped to 12.8 and her magnesium increased to 1.3 after this initial treatment. Patient was subsequently admitted observation status for further evaluation and treatment. Past Medical History Cardiac Medical History: Reports: Congestive Heart Failure, Hypertension Denies: Atrial Fibrillation, DVT, Myocardial Infarction, Pulmonary Embolism Pulmonary Medical History: Reports: Chronic Obstructive Pulmonary Disease (COPD), Pneumonia, Sleep Apnea Denies: Tuberculosis EENT Medical History: Reports: Cataracts Denies: Ears - Hearing aids Neurological Medical History: Denies: Hemorrhagic CVA, Ischemic CVA, Seizures Endocrine Medical History: Reports: Diabetes Mellitus Type 2, Obesity Denies: Diabetes Mellitus Type 1, Hyperthyroidism, Hypothyroidism Renal/ Medical History: Reports: Chronic Kidney Disease Denies: Nephrolithiasis Malignancy Medical History: Reports: None GI Medical History: Denies: Cirrhosis, Gastroesophageal Reflux Disease, Hepatitis, Peptic Ulcer Disease Musculoskeltal Medical History: Denies: Fibromyalgia, Gout Skin Medical History: Denies: Eczema, Psoriasis Psychiatric Medical History: Denies: Alcohol Dependency, Depression, Substance Abuse, Tobacco Dependency Traumatic Medical History: Reports: None Hematology: Reports: Anemia - Chronic anemia of renal insufficiency Denies: Bleeding Tendencies Infectious Medical History: Reports: None Past Surgical History Past Surgical History: Reports: Cardiac Catheterization, Section, Other - Cataract surgeries bilaterally Social History Information Source: Patient Lives with: Spouse/Significant other Smoking Status: Former Smoker Electronic Cigarette use?: No Frequency of Alcohol Use: None Hx Recreational Drug Use: No Drugs: None Hx Prescription Drug Abuse: No - Advance Directive Resuscitation Status: Full Code Surrogate healthcare decision maker:: Gildardo Camargo Family History Family History: Malignancy Parental Family History Reviewed: Yes Children Family History Reviewed: No Sibling(s) Family History Reviewed.: No Medication/Allergy Home Medications: Loratadine 10 mg PO DAILY 04/10/13 Atorvastatin Calcium [Lipitor 40 mg Tablet] 40 mg PO DAILY 06/02/16 Carvedilol [Coreg 25 mg Tablet] 25 mg PO Q12 06/02/16 Hydralazine HCl [Apresoline 50 mg Tablet] 50 mg PO Q8 06/02/16 Insulin Detemir [Levemir Flextouch] 30 units SQ QAM 06/02/16 Linagliptin [Tradjenta] 5 mg PO DAILY 06/02/16 Roflumilast [Daliresp 500 mcg Tablet] 500 mcg PO DAILY 06/02/16 Ergocalciferol (Vitamin D2) [Drisdol 50,000 unit (1.25MG) Capsule] 50,000 unit PO [id number] MDD EVERY OTHER Wednesday04/22/18 Ferrous Sulfate [Feosol 325 mg Tablet] 325 mg PO DAILY 04/22/18 Valsartan [Diovan] 320 mg PO DAILY 04/22/18 Aspirin [Ecotrin 81 mg EC Tablet] 81 mg PO DAILY 05/21/18 Fluticasone/Salmeterol [Advair 250-50 Diskus 14 Dose/Diskus] 1 inh IH Q12 0 05/21/18 Torsemide [Demadex 20 mg Tablet] 20 mg PO DAILY #30 tablet 05/26/18 Amlodipine Besylate [Norvasc 10 mg Tablet] 10 mg PO DAILY 12/13/18 Metolazone [Zaroxolyn 2.5 mg Tablet] 5 mg PO DAILY 12/13/18 Patiromer Calcium Sorbitex [Veltassa] 1 packet PO DAILY 12/13/18 Spironolactone 50 mg PO DAILY 12/13/18 Tiotropium [place] [Spiriva Handihaler 5 Cap/Kit (18 Mcg/Cap)] 1 cap IH DAILY #0 kit 12/17/18 Allergies/Adverse Reactions: Iodinated Contrast Media [IV Dye, Iodine Containing] Adverse Reaction (Unknown, Verified 05/20/18 14:55) Respiratory distress Review of Systems Constitutional: ABSENT: chills, fever(s) Eyes: ABSENT: visual disturbances, other - Eye pain Ears: ABSENT: hearing changes, other - Ear pain Nose, Mouth, and Throat: ABSENT: headache(s), sore throat Cardiovascular: ABSENT: chest pain, palpitations Respiratory: ABSENT: cough, dyspnea Gastrointestinal: ABSENT: abdominal pain, constipation, diarrhea, nausea, vomiting Genitourinary: ABSENT: dysuria, hematuria Musculoskeletal: PRESENT: as per HPI, other - Chronic left hip pain. ABSENT: back pain, joint swelling Neurological: PRESENT: as per HPI, confusion. ABSENT: convulsions, focal weakness, memory loss, syncope Psychiatric: ABSENT: anxiety, depression Endocrine: ABSENT: cold intolerance, heat intolerance Hematologic/Lymphatic: ABSENT: easy bleeding, easy bruising Allergic/Immunologic: ABSENT: seasonal rhinorrhea Physical Exam Vital Signs: Temp Pulse Resp BP Pulse Ox 97.9 F 70 19 202/87 H 98 02/09/20 16:59 02/09/20 16:59 02/09/20 21:01 02/09/20 21:00 02/09/20 21:01 Intake & Output 02/08/20 02/09/20 02/10/20 23:59 23:59 23:59 Intake Total 1100 Balance 1100 Weight 87.6 kg General appearance: PRESENT: no acute distress, cooperative Head exam: PRESENT: atraumatic, normocephalic Eye exam: PRESENT: conjunctiva pink. ABSENT: conjunctival injection, scleral icterus Ear exam: PRESENT: normal external ear exam. ABSENT: bleeding, drainage Mouth exam: PRESENT: dry mucosa, neck supple Neck exam: ABSENT: thyromegaly, tracheal deviation Respiratory exam: PRESENT: decreased breath sounds - Minimally decreased breath sounds throughout both lung, prolonged expiratory phas - Minimally prolonged expiratory phase throughout all chen, symmetrical, unlabored Cardiovascular exam: PRESENT: RRR. ABSENT: clicks, gallop, rubs Pulses: PRESENT: normal radial pulses, normal dorsalis pedis pul Vascular exam: PRESENT: normal capillary refill. ABSENT: pallor GI/Abdominal exam: PRESENT: normal bowel sounds, soft. ABSENT: tenderness Rectal exam: PRESENT: deferred Extremities exam: ABSENT: joint swelling, pedal edema Musculoskeletal exam: ABSENT: deformity, dislocation Neurological exam: PRESENT: alert, oriented to person, oriented to place, oriented to time, oriented to situation, CN II-XII grossly intact. ABSENT: motor sensory deficit Psychiatric exam: PRESENT: appropriate affect, normal mood Skin exam: PRESENT: dry, intact, warm. ABSENT: jaundice, rash, urticaria Results Laboratory Results: 02/09/20 19:39 02/10/20 00:48 02/09/20 02/09/20 02/09/20 17:37 17:37 19:39 WBC Cancelled RBC Cancelled Hgb Cancelled Hct Cancelled MCV Cancelled MCH Cancelled MCHC Cancelled RDW Cancelled Plt Count Cancelled Seg Neutrophils % Cancelled Sodium 126.1 L Potassium 3.8 Chloride 89 L Carbon Dioxide 28 Anion Gap 9 BUN 31 H Creatinine 3.05 H Est GFR ( Amer) 18 L Glucose 206 H Calcium 13.8 H* Ionized Calcium Blade 1.65 H Phosphorus 3.1 Magnesium 1.1 L* Total Bilirubin 0.6 AST 36 Alkaline Phosphatase 73 Total Protein 6.3 Albumin 3.8 Urine Color Urine Appearance Urine pH Ur Specific [place] Urine Protein Urine Glucose (UA) Urine Ketones Urine Blood Urine Nitrite Ur Leukocyte Esterase Urine WBC (Auto) Urine RBC (Auto) 02/09/20 02/09/20 02/10/20 19:39 19:39 00:48 WBC 13.1 H RBC 3.92 Hgb 11.5 L Hct 33.9 L MCV 86 MCH 29.4 MCHC 34.0 RDW 15.5 H Plt Count 292 Seg Neutrophils % 77.0 Sodium 126.7 L Potassium 3.3 L Chloride 94 L Carbon Dioxide 27 Anion Gap 6 BUN 30 H Creatinine 2.85 H Est GFR ( Amer) 20 L Glucose 171 H Calcium 12.8 H* Ionized Calcium Blade Phosphorus Magnesium 1.3 L Total Bilirubin AST Alkaline Phosphatase Total Protein Albumin Urine Color YELLOW Urine Appearance SLIGHTLY-CLOUDY Urine pH 7.0 Ur Specific [place] 1.012 Urine Protein >=500 H Urine Glucose (UA) 50 H Urine Ketones NEGATIVE Urine Blood NEGATIVE Urine Nitrite NEGATIVE Ur Leukocyte Esterase NEGATIVE Urine WBC (Auto) 4 Urine RBC (Auto) 3 Assessment and Plan - Diagnosis (1) Hypercalcemia Is this a current diagnosis for this admission?: Yes (2) Hyponatremia Is this a current diagnosis for this admission?: Yes (3) Hypomagnesemia Is this a current diagnosis for this admission?: Yes (4) Hypokalemia Is this a current diagnosis for this admission?: Yes (5) Chronic diastolic congestive heart failure Is this a current diagnosis for this admission?: Yes (6) Obstructive sleep apnea Is this a current diagnosis for this admission?: Yes (7) Chronic obstructive pulmonary disease Qualifiers: COPD type: unspecified COPD Qualified Code(s): J44.9 - Chronic obstructive pulmonary disease, unspecified Is this a current diagnosis for this admission?: Yes (8) Diabetes mellitus type 2 in obese Is this a current diagnosis for this admission?: Yes (9) Hypertension Qualifiers: Hypertension type: essential hypertension Qualified Code(s): I10 - Essential (primary) hypertension Is this a current diagnosis for this admission?: Yes (10) Chronic kidney disease, stage 4 (severe) Is this a current diagnosis for this admission?: Yes (11) Anemia in chronic kidney disease (CKD) Qualifiers: Chronic kidney disease stage: stage 4 (severe) Qualified Code(s): N18.4 - Chronic kidney disease, stage 4 (severe); D63.1 - Anemia in chronic kidney disease Is this a current diagnosis for this admission?: Yes (12) Chronic left hip pain Is this a current diagnosis for this admission?: Yes (13) Obesity Qualifiers: Obesity type: due to excess calories Obesity classification: adult class 2 (BMI 35 - 39.9) Serious obesity comorbidity presence: with serious comorbidity Body mass index: BMI 36.0-36.9 Qualified Code(s): E66.01 - Morbid (severe) obesity due to excess calories; Z68.36 - Body mass index [BMI] 36.0-36.9, adult Is this a current diagnosis for this admission?: Yes - Plan Summary Summary: Patient will be admitted to the medical floor in a telemetry bed, on observation status, where she will receive routine supportive and symptomatic cares. She will be treated with IV fluids utilizing normal saline with 20 mEq potassium chloride per liter at 167 mL/h. She will receive an additional 3 grams of magn esium sulfate. She will receive zoledronic acid 4 g infused over 60 minutes x 1 dose. Serial metabolic profiles will be obtained to evaluate her therapeutic effects. Patient will be on a cardiac, dialysis and diabetic restricted diet. Before meals and at bedtime Accu-Cheks to be performed with sliding scale insulin for hyperglycemia and a hypoglycemic protocol in place. Patient use Ativan 1 mg IV every 4 hours as needed for anxiety or restlessness. She will use morphine sulfate 2 to 4 mg IV every 2 hours as needed for pain. Orthopedic consultation with Dr. Batista will be obtained to evaluate her left hip pain. Nephrology consultation will be obtained if the patient is still hospitalized at the time nephrology services are again available. - Time Time Spent with patient: 15-24 minutes Medications reviewed and adjusted accordingly: Yes Anticipated Discharge Disposition: Home, Self Care Anticipated Discharge Timeframe: within 36 hours - Inpatient Certification Based on my medical assessment, after consideration of the patient's comorbidit ies, presenting symptoms, or acuity I expect that the services needed warrant INPATIENT care.: No I certify that my determination is in accordance with my understanding of [facility]'s requirements for reasonable and necessary INPATIENT services [42 CFR 412.3e].: No
[2020-02-10] MEDS: MAGNESIUM SULFATE/D5W 1 GM/100 ML RTUPB IV SCH ×3 (05:32→08:34)
[2020-02-10] MEDS: PANTOPRAZOLE SODIUM 20 MG TABLET.DR PO SCH (05:32)
[2020-02-10] MEDS: HYDRALAZINE HCL INJ/PF 20 MG/1 ML SDV IV PRN (05:34)
[2020-02-10] MEDS: HEPARIN SOD (PORCINE) 5,000 UNIT/ML 1 ML VIAL SUBCUT SCH ×2 (05:58→15:06)
[2020-02-10] MEDS ORDERED: CALCITONIN,SALMON,SYNTHETIC 400 UNIT/2 ML VIAL IM ONE ×2 (06:00→18:00)
[2020-02-10] MEDS ORDERED: CALCITONIN,SALMON,SYNTHETIC 400 UNIT/2 ML VIAL ONE ×2 (06:11→19:07)
[2020-02-10 06:39] LABS: ANION GAP 9 (5-19); BLOOD UREA NITROGEN 27 mg/dL (7-20); CARBON DIOXIDE 22 mmol/L (22-30); CHLORIDE 97 mmol/L (98-107); GLUCOSE 161 mg/dL (75-110)
[2020-02-10 06:49] LABS: CALCIUM 12.4 mg/dL (8.4-10.2)
[2020-02-10] MEDS ORDERED: NORMAL SALINE 1000 ML 1,000 ML IV ONE (08:19)
[2020-02-10] MEDS: IPRATROPIUM BROMIDE 0.02% NEB 0.5 MG/2.5 ML AMPUL NEB SCH ×2 (08:27→15:16)
[2020-02-10] MEDS: BUDESONIDE NEB 0.5 MG/2 ML AMPUL NEB SCH ×2 (08:27→20:18)
[2020-02-10] MEDS: LEVALBUTEROL HCL NEB 1.25 MG/3 ML AMPUL NEB SCH ×2 (08:27→15:16)
[2020-02-10] MEDS: ONDANSETRON HCL INJ/PF 4 MG/2 ML SDV IV PRN ×3 (08:33→18:16)
[2020-02-10] MEDS ORDERED: ZOLEDRONIC ACID 4 MG/100 ML RTU IV ONE (09:00)
[2020-02-10] MEDS ORDERED: INSULIN REG, HUMAN 100 UNIT/ML 3 ML VIAL (PYX) SUBCUT SCH (11:00)
[2020-02-10] MEDS: DOCUSATE SODIUM 100 MG CAPSULE PO SCH ×2 (12:08→18:17)
[2020-02-10] MEDS: INSULIN REG, HUMAN 100 UNIT/ML 3 ML VIAL (PYX) SUBCUT SCH ×3 (12:09→18:19)
[2020-02-10 12:23] LABS: ANION GAP 9 (5-19); BLOOD UREA NITROGEN 27 mg/dL (7-20); CARBON DIOXIDE 21 mmol/L (22-30); CHLORIDE 97 mmol/L (98-107); GLUCOSE 219 mg/dL (75-110); POTASSIUM 3.2 mmol/L (3.6-5.0)
[2020-02-10 12:41] LABS: CALCIUM 11.9 mg/dL (8.4-10.2)
[2020-02-10 13:43] LABS: ARTERIAL BLOOD BASE EXCESS -3.8 mmol/L; ARTERIAL BLOOD FIO2 21%; ARTERIAL BLOOD H2CO3 1.23 mmol/L (1.05-1.35); ARTERIAL BLOOD HCO3 21.6 mmol/L (20-24); ARTERIAL BLOOD O2 SATURATION 94.6 % (94-98); ARTERIAL BLOOD PCO2 40.8 mmHg (35-45); ARTERIAL BLOOD PH 7.34 (7.35-7.45); ARTERIAL BLOOD PO2 76.4 mmHg (80-100); ARTERIAL BLOOD TOTAL CO2 22.9 mmol/L (21-25)
[2020-02-10] MEDS ORDERED: NORMAL SALINE 1000 ML 1,000 ML IV PRN (15:05)
--- NOTE | 2020-02-10 15:38 | Progress Note ---
Provider Note Provider Note: LUIZA CAMARGO is a 74 year old female who presented to the emergency room as directed by Dr. Gutierres who found her to have a elevated serum calcium on lab work performed on 02/09/2020. Patient admits chronic hypercalcemia with her usual level being in the range of 11.0, but was found to have a level of 13.[address] Gutierres's office. She denies any acute signs or symptoms of hyperkalemia although her told ER staff members that she is somewhat more confused over the last few days then per her mental status. She does admit to chronic severe sharp grinding left hip pain worsened by movement and attempts at weightbearing. In the emergency room she was found to have an initial calcium of 13.8, sodium of 126.1, and magnesium of 1.1 and a white blood count of 13,100. Her creatinine was 2.85 and her BUN was 30. At Dr. Gutierres's direction she was given magnesium sulfate 1 g IV and 1 L of IV normal saline over the course of several hours. Her calcium dropped to 12.8 and her magnesium increased to 1.3 after this initial treatment. Patient was subsequently admitted observation status for further evaluation and treatment. 02/10/20 D2 Hospital stay. She was seen and examined at bedside. She appears very sleepy. She is able to answer questions but falls asleep in the middle of talking. This is likely due to her hypercalcemia. Ca has decreased from 13.8>11.9 after IV fluid and 1 dose of calcitonin. IV fluids was changed to saline 150 ml/hr and KCL IV and 1 more dose of calcitonin at 6 pm. PTH is normal. 25 OH Vitamin D normal, pending 1,25 dihydroxy and PTHrP ordered. Patient has been complaining of hip pain as well and coupled with hypercalcemia and CKD multiple myeloma is part of the differential.
--- NOTE | 2020-02-10 16:07 | PDOC PROGRESS REPORT ---
Subjective Progress Note for:: 02/10/20 Subjective:: LUIZA CAMARGO is a 74 year old female who presented to the emergency room as directed by Dr. uGtierres who found her to have a elevated serum calcium on lab work performed on 02/09/2020. Patient admits chronic hypercalcemia with her usual level being in the range of 11.0, but was found to have a level of 13.[address] Gutierres's office. She denies any acute signs or symptoms of hyperkalemia although her told ER staff members that she is somewhat more confused over the last few days then per her mental status. She does admit to chronic severe sharp grinding left hip pain worsened by movement and attempts at weightbearing. In the emergency room she was found to have an initial calcium of 13.8, sodium of 126.1, and magnesium of 1.1 and a white blood count of 13,100. Her creatinine was 2.85 and her BUN was 30. At Dr. Gutierres's direction she was given magnesium sulfate 1 g IV and 1 L of IV normal saline over the course of several hours. Her calcium dropped to 12.8 and her magnesium increased to 1.3 after this initial treatment. Patient was subsequently admitted observation status for further evaluation and treatment. 02/10/20 D2 Hospital stay. She was seen and examined at bedside. She appears very sleepy. She is able to answer questions but falls asleep in the middle of talking. This is likely due to her hypercalcemia. Ca has decreased from 13.8>11.9 after IV fluid and 1 dose of calcitonin. IV fluids was changed to saline 150 ml/hr and KCL IV and 1 more dose of calcitonin at 6 pm. PTH is normal. 25 OH Vitamin D normal, pending 1,25 dihydroxy and PTHrP ordered. Patient has been complaining of hip pain as well and coupled with hypercalcemia and CKD multiple myeloma is part of the differential. Reason For Visit: HYPERCALCEMIA,HYPOKALEMIA,HYPONATREMIA, Physical Exam Vital Signs: Temp Pulse Resp BP Pulse Ox 97.9 F 74 17 130/51 H 97 02/10/20 11:56 02/10/20 11:56 02/10/20 11:56 02/10/20 11:56 02/10/20 11:56 Intake & Output 02/09/20 02/10/20 02/11/20 06:59 06:59 06:59 Intake Total 1200 100 Balance 1200 100 Weight 85.6 kg General appearance: PRESENT: no acute distress, cooperative Head exam: PRESENT: atraumatic, normocephalic Eye exam: PRESENT: EOMI, PERRLA Mouth exam: PRESENT: moist Neck exam: PRESENT: full ROM Respiratory exam: PRESENT: clear to auscultation jackie, symmetrical, unlabored Cardiovascular exam: PRESENT: RRR, +S1, +S2 Pulses: PRESENT: +2 pedal pulses bilateral GI/Abdominal exam: PRESENT: normal bowel sounds, soft. ABSENT: rebound, tenderness Extremities exam: PRESENT: full ROM Musculoskeletal exam: PRESENT: full ROM Neurological exam: PRESENT: alert, oriented to place, oriented to time, oriented to situation Psychiatric exam: PRESENT: normal mood Results Laboratory Results: 02/09/20 19:39 02/10/20 11:57 02/09/20 02/09/20 02/09/20 17:37 17:37 19:39 WBC Cancelled RBC Cancelled Hgb Cancelled Hct Cancelled MCV Cancelled MCH Cancelled MCHC Cancelled RDW Cancelled Plt Count Cancelled Seg Neutrophils % Cancelled Carbonic Acid HCO3/H2CO3 Ratio ABG pH ABG pCO2 ABG pO2 ABG HCO3 ABG O2 Saturation ABG Base Excess FiO2 Sodium 126.1 L Potassium 3.8 Chloride 89 L Carbon Dioxide 28 Anion Gap 9 BUN 31 H Creatinine 3.05 H Est GFR ( Amer) 18 L Glucose 206 H Calcium 13.8 H* Ionized Calcium Blade 1.65 H Phosphorus 3.1 Magnesium 1.1 L* Total Bilirubin 0.6 AST 36 Alkaline Phosphatase 73 Total Protein 6.3 Albumin 3.8 PTH Intact Urine Color Urine Appearance Urine pH Ur Specific [place] Urine Protein Urine Glucose (UA) Urine Ketones Urine Blood Urine Nitrite Ur Leukocyte Esterase Urine WBC (Auto) Urine RBC (Auto) 02/09/20 02/09/20 02/10/20 19:39 19:39 00:48 WBC 13.1 H RBC 3.92 Hgb 11.5 L Hct 33.9 L MCV 86 MCH 29.4 MCHC 34.0 RDW 15.5 H Plt Count 292 Seg Neutrophils % 77.0 Carbonic Acid HCO3/H2CO3 Ratio ABG pH ABG pCO2 ABG pO2 ABG HCO3 ABG O2 Saturation ABG Base Excess FiO2 Sodium 126.7 L Potassium 3.3 L Chloride 94 L Carbon Dioxide 27 Anion Gap 6 BUN 30 H Creatinine 2.85 H Est GFR ( Amer) 20 L Glucose 171 H Calcium 12.8 H* Ionized Calcium Blade Phosphorus Magnesium 1.3 L Total Bilirubin AST Alkaline Phosphatase Total Protein Albumin PTH Intact Urine Color YELLOW Urine Appearance SLIGHTLY-CLOUDY Urine pH 7.0 Ur Specific [place] 1.012 Urine Protein >=500 H Urine Glucose (UA) 50 H Urine Ketones NEGATIVE Urine Blood NEGATIVE Urine Nitrite NEGATIVE Ur Leukocyte Esterase NEGATIVE Urine WBC (Auto) 4 Urine RBC (Auto) 3 02/10/20 02/10/20 02/10/20 06:07 09:37 11:57 WBC RBC Hgb Hct MCV MCH MCHC RDW Plt Count Seg Neutrophils % Carbonic Acid HCO3/H2CO3 Ratio ABG pH ABG pCO2 ABG pO2 ABG HCO3 ABG O2 Saturation ABG Base Excess FiO2 Sodium 127.7 L 126.9 L Potassium 3.0 L* 3.2 L Chloride 97 L 97 L Carbon Dioxide 22 21 L Anion Gap 9 9 BUN 27 H 27 H Creatinine 2.76 H 2.65 H Est GFR ( Amer) 20 L 21 L Glucose 161 H 219 H Calcium 12.4 H* 11.9 H Ionized Calcium Blade Phosphorus Magnesium Total Bilirubin AST Alkaline Phosphatase Total Protein Albumin PTH Intact 44.2 Urine Color Urine Appearance Urine pH Ur Specific [place] Urine Protein Urine Glucose (UA) Urine Ketones Urine Blood Urine Nitrite Ur Leukocyte Esterase Urine WBC (Auto) Urine RBC (Auto) 02/10/20 13:15 WBC RBC Hgb Hct MCV MCH MCHC RDW Plt Count Seg Neutrophils % Carbonic Acid 1.23 HCO3/H2CO3 Ratio 17:1 ABG pH 7.34 L ABG pCO2 40.8 ABG pO2 76.4 L ABG HCO3 21.6 ABG O2 Saturation 94.6 ABG Base Excess -3.8 FiO2 21% Sodium Potassium Chloride Carbon Dioxide Anion Gap BUN Creatinine Est GFR ( Amer) Glucose Calcium Ionized Calcium Blade Phosphorus Magnesium Total Bilirubin AST Alkaline Phosphatase Total Protein Albumin PTH Intact Urine Color Urine Appearance Urine pH Ur Specific [place] Urine Protein Urine Glucose (UA) Urine Ketones Urine Blood Urine Nitrite Ur Leukocyte Esterase Urine WBC (Auto) Urine RBC (Auto) Assessment and Plan - Diagnosis (1) Hypercalcemia Is this a current diagnosis for this admission?: Yes Plan: - noted by Dr. Gutierres on lab work performed 10/16 - Hx of chronic hypercalcemia - ddx. hyperparathyroidism, hypercalcemia of malignancy, multiple myeloma since she has hip pain and CKD - Ca 13.8>12.4 - PTH 44 normal - 25 Hydroxy Vit D normal - 1,25 hydroxy pending - XR hip ordered. MRI was suppose to be done outpatient - s/p 1 dose calcitonin will give 1 more dose - IV fluids cautious hydration since she has a hx of CHF. May give Lasix if she becomes fluid overloaded (2) Chronic kidney disease, stage 4 (severe) Is this a current diagnosis for this admission?: Yes Plan: - Crea 3.05>2.65 which is around her baseline - hx of DM and DM nephropathy. follows with Dr. Gutierres - Multiple myeloma part of diagnosis since she als has hip pain, CKD and hypercalcemia - continue IV fluids - will likely need SPEP/UPEP, light chains - monitor daily (3) Chronic diastolic congestive heart failure Is this a current diagnosis for this admission?: Yes Plan: - no recent echo - no sign of fluid overload - resumed torsamide, lipitor, losartan - will monitor. may need repeat echo (4) Hypomagnesemia Is this a current diagnosis for this admission?: Yes Plan: - 1.1>1.3 - will replace with IV Mg - continue to monitor (5) Hypokalemia Is this a current diagnosis for this admission?: Yes Plan: - K 3.0>3.2 - will replace via IV - can be RTA type 1 (6) Hyponatremia Is this a current diagnosis for this admission?: Yes Plan: - chronic 126.7>126.9 - will continue to monitor. (7) Obesity Qualifiers: Obesity type: due to excess calories Obesity classification: adult class 2 (BMI 35 - 39.9) Serious obesity comorbidity presence: with serious comorbidity Body mass index: BMI 36.0-36.9 Qualified Code(s): E66.01 - Morbid (severe) obesity due to excess calories; Z68.36 - Body mass index [BMI] 36.0-36.9, adult Is this a current diagnosis for this admission?: Yes - Plan Summary Summary: . - Time Time Spent with patient: 35 or more minutes Anticipated Discharge Disposition: Home, Self Care Anticipated Discharge Timeframe: to be determined
[2020-02-10] MEDS: NORMAL SALINE 1000 ML 1,000 ML IV PRN (16:39)
[2020-02-10] MEDS: POTASSI CL 20 MEQ/50 ML RIDER 20 MEQ/50 ML RTUPB IV SCH ×2 (16:51→18:21)
[2020-02-10 18:46] LABS: ANION GAP 7 (5-19); BLOOD UREA NITROGEN 27 mg/dL (7-20); CALCIUM 11.7 mg/dL (8.4-10.2); CARBON DIOXIDE 21 mmol/L (22-30); CHLORIDE 100 mmol/L (98-107); GLUCOSE 236 mg/dL (75-110); POTASSIUM 3.7 mmol/L (3.6-5.0)
[2020-02-11] MEDS: HEPARIN SOD (PORCINE) 5,000 UNIT/ML 1 ML VIAL SUBCUT SCH ×4 (00:34→22:57)
[2020-02-11] MEDS: CARVEDILOL 12.5 MG TABLET PO SCH ×3 (00:39→23:07)
[2020-02-11] MEDS: MELATONIN 5 MG TABLET PO PRN ×2 (00:40→23:07)
[2020-02-11] MEDS: HYDRALAZINE HCL 50 MG TABLET PO SCH ×4 (00:40→23:07)
[2020-02-11] MEDS: DOXAZOSIN MESYLATE 2 MG TABLET PO SCH ×2 (00:40→23:05)
[2020-02-11] MEDS: INSULIN REG, HUMAN 100 UNIT/ML 3 ML VIAL (PYX) SUBCUT SCH ×5 (00:45→22:58)
[2020-02-11] MEDS: ONDANSETRON HCL INJ/PF 4 MG/2 ML SDV IV PRN ×3 (00:48→18:36)
[2020-02-11] MEDS: IPRATROPIUM BROMIDE 0.02% NEB 0.5 MG/2.5 ML AMPUL NEB SCH ×3 (00:56→16:08)
[2020-02-11] MEDS: LEVALBUTEROL HCL NEB 1.25 MG/3 ML AMPUL NEB SCH ×3 (00:56→16:08)
--- NOTE | 2020-02-11 02:06 | RADIOLOGY REPORT (SQ) ---
CLINICAL HISTORY: hip pain, hypercalcemia COMPARISON: None. TECHNIQUE: XR HIP 1 VIEW BILATERAL 02/10/2020 12:00 AM CDT FINDINGS: There is no fracture. There is mild narrowing of both hip joints. Soft tissues are unremarkable. IMPRESSION: No acute osseous findings.
--- NOTE | 2020-02-11 02:07 | RADIOLOGY REPORT (SQ) ---
CLINICAL HISTORY: hypercalcemia work up for sarcoidosis COMPARISON: 12/14/2019. TECHNIQUE: XR CHEST 1 VIEW 02/10/2020 12:00 AM CDT FINDINGS: The heart is enlarged. Lungs are clear without consolidation, atelectasis, mass or edema. There is no pleural effusion. There is no pneumothorax. There are no acute osseous findings. IMPRESSION: Clear lungs.
[2020-02-11] MEDS: ACETAMINOPHEN 325 MG TABLET PO PRN ×2 (03:17→12:49)
[2020-02-11] MEDS: NORMAL SALINE 1000 ML 1,000 ML IV PRN ×3 (03:18→23:05)
[2020-02-11] MEDS: PANTOPRAZOLE SODIUM 20 MG TABLET.DR PO SCH (06:33)
[2020-02-11] MEDS: BUDESONIDE NEB 0.5 MG/2 ML AMPUL NEB SCH ×2 (08:30→21:04)
[2020-02-11] MEDS ORDERED: INSULIN GLARGINE,HUM.REC.ANLOG 1,000 UNIT/10 ML VIAL (PYX) SUBCUT ONE (08:51)
[2020-02-11] MEDS: INSULIN GLARGINE,HUM.REC.ANLOG 1,000 UNIT/10 ML VIAL SUBCUT SCH (08:53)
[2020-02-11 09:46] LABS: ABSOLUTE BASOPHILS # (AUTO) 0.1 10^3/uL (0.0-0.2); ABSOLUTE EOSINOPHILS # (AUTO) 0.1 10^3/uL (0.0-0.6); ABSOLUTE LYMPHOCYTES (AUTO) 1.4 10^3/uL (0.5-4.7); ABSOLUTE MONOCYTES (AUTO) 0.7 10^3/uL (0.1-1.4); ABSOLUTE NEUT (AUTO) 9.6 10^3/uL (1.7-8.2); BASOPHILS % (AUTO) 0.8 % (0-2); EOSINOPHILS % (AUTO) 0.7 % (0-6); HEMATOCRIT 30.1 % (36.0-47.0); HEMOGLOBIN 10.4 g/dL (12.0-15.5); MEAN CORPUSCULAR HEMOGLOBIN 29.4 pg (27.0-33.4); MEAN CORPUSCULAR HGB CONC 34.5 g/dL (32.0-36.0); MEAN CORPUSCULAR VOLUME 85 fl (80-97); PLATELET COUNT 278 10^3/uL (150-450); RED BLOOD COUNT 3.54 10^6/uL (3.72-5.28); SEGMENTED NEUTROPHILS % (AUTO) 80.5 % (42-78); TOTAL CELLS COUNTED % (AUTO) 100 %
[2020-02-11 09:47] LABS: ALBUMIN 2.8 g/dL (3.5-5.0); ALKALINE PHOSPHATASE 61 U/L (38-126); ANION GAP 7 (5-19); ASPARTATE AMINO TRANSFERASE 32 U/L (14-36); BILIRUBIN,DIRECT 0.3 mg/dL (0.0-0.4); BILIRUBIN,TOTAL 0.3 mg/dL (0.2-1.3); BLOOD UREA NITROGEN 24 mg/dL (7-20); CALCIUM 11.4 mg/dL (8.4-10.2); CARBON DIOXIDE 20 mmol/L (22-30); CHLORIDE 104 mmol/L (98-107); GLUCOSE 142 mg/dL (75-110); POTASSIUM 3.6 mmol/L (3.6-5.0); TOTAL PROTEIN 5.3 g/dL (6.3-8.2)
[2020-02-11] MEDS: DOCUSATE SODIUM 100 MG CAPSULE PO SCH ×2 (12:05→18:35)
[2020-02-11] MEDS: AMLODIPINE BESYLATE 10 MG TABLET PO SCH (12:05)
[2020-02-11] MEDS: LOSARTAN POTASSIUM 50 MG TABLET PO SCH (12:05)
[2020-02-11] MEDS: SPIRONOLACTONE 25 MG TABLET PO SCH (12:06)
[2020-02-11] MEDS: FLUTICASONE/VILANTEROL 200-25 MCG/DOSE IH SCH (12:07)
[2020-02-11] MEDS: TORSEMIDE 20 MG TABLET PO SCH (12:08)
[2020-02-11] MEDS: ROFLUMILAST 500 MCG TABLET PO SCH (12:08)
[2020-02-11] MEDS: UMECLIDINIUM BROMIDE 62.5 MCG/DOSE IH SCH (12:08)
--- NOTE | 2020-02-11 12:49 | PDOC CONSULTATION ---
Consultation Consult Date: 02/11/20 Attending physician:: ISIDRA MCCARTY Provider Consulted: SYMONE MALONEY Consult reason:: Left hip pain History of Present Illness Admission Date/PCP: 02/10/20 02:42 RAFAL OTTO MD History of Present Illness: LUIZA CAMARGO is a 74 year old female with COPD, diabetes, morbid obesity, and chronic renal failure admitted to the medical service for multiple metabolic abnormalities including hypercalcemia. The patient states she has had worsening pain in her left hip which has made walking difficult. She denies any recent trauma. She underwent MRI of the thoracic and lumbar spine on the same day as admission. Past Medical History Cardiac Medical History: Reports: Congestive Heart Failure, Hypertension Denies: Atrial Fibrillation, DVT, Myocardial Infarction, Pulmonary Embolism Pulmonary Medical History: Reports: Chronic Obstructive Pulmonary Disease (COPD), Pneumonia, Sleep Apnea Denies: Tuberculosis EENT Medical History: Reports: Cataracts Denies: Ears - Hearing aids Neurological Medical History: Denies: Hemorrhagic CVA, Ischemic CVA, Seizures Endocrine Medical History: Reports: Diabetes Mellitus Type 2, Obesity Denies: Diabetes Mellitus Type 1, Hyperthyroidism, Hypothyroidism Renal/ Medical History: Reports: Chronic Kidney Disease, End Stage Renal Disease Denies: Nephrolithiasis Malignancy Medical History: Reports: None GI Medical History: Denies: Cirrhosis, Gastroesophageal Reflux Disease, Hepatitis, Peptic Ulcer Disease Musculoskeltal Medical History: Denies: Arthritis, Fibromyalgia, Gout Skin Medical History: Denies: Eczema, Psoriasis Psychiatric Medical History: Denies: Alcohol Dependency, Depression, Substance Abuse, Tobacco Dependency Traumatic Medical History: Reports: None Hematology: Reports: Anemia - Chronic anemia of renal insufficiency Denies: Bleeding Tendencies Infectious Medical History: Reports: None Past Surgical History Past Surgical History: Reports: Cardiac Catheterization, Section, Other - Cataract surgeries bilaterally Social History Lives with: Spouse/Significant other Smoking Status: Former Smoker Electronic Cigarette use?: No Frequency of Alcohol Use: None Hx Recreational Drug Use: No Drugs: None Hx Prescription Drug Abuse: No - Advance Directive Resuscitation Status: Full Code Family History Family History: Malignancy Parental Family History Reviewed: No Children Family History Reviewed: No Sibling(s) Family History Reviewed.: No Medication/Allergy Home Medications: Loratadine 10 mg PO DAILY 04/10/13 Atorvastatin Calcium [Lipitor 40 mg Tablet] 40 mg PO DAILY 06/02/16 Carvedilol [Coreg 25 mg Tablet] 25 mg PO Q12 06/02/16 Hydralazine HCl [Apresoline 50 mg Tablet] 50 mg PO Q8 06/02/16 Insulin Detemir [Levemir Flextouch] 30 units SQ QAM 06/02/16 Linagliptin [Tradjenta] 5 mg PO DAILY 06/02/16 Roflumilast [Daliresp 500 mcg Tablet] 500 mcg PO DAILY 06/02/16 Fluticasone/Salmeterol [Advair 250-50 Diskus 14 Dose/Diskus] 1 inh IH Q12 05/21/18 Torsemide [Demadex 20 mg Tablet] 20 mg PO DAILY #30 tablet 05/26/18 Amlodipine Besylate [Norvasc 10 mg Tablet] 10 mg PO DAILY 12/13/18 Patiromer Calcium Sorbitex [Veltassa] 1 packet PO Q2D 12/13/18 Spironolactone 50 mg PO DAILY 12/13/18 Tiotropium Cade [Spiriva Handihaler 5 Cap/Kit (18 Mcg/Cap)] 1 cap IH DAILY #0 kit 12/17/18 Doxazosin Mesylate [Cardura 2 mg Tablet] 2 mg PO QHS 02/10/20 Losartan Potassium [Cozaar 50 mg Tablet] 100 mg PO DAILY 02/10/20 [place]-3/Dha/Epa/Fish Oil [Fish Oil 500 mg Softgel] 1 each PO DAILY 02/10/20 Allergies/Adverse Reactions: Iodinated Contrast Media [IV Dye, Iodine Containing] Adverse Reaction (Unknown, Verified 05/20/18 14:55) Respiratory distress Review of Systems All systems: reviewed and no additional remarkable complaints except as stated - As per HPI Physical Exam Vital Signs: Temp Pulse Resp BP Pulse Ox 98.9 F 73 16 142/108 H 99 02/11/20 11:54 02/11/20 11:54 02/11/20 11:54 02/11/20 11:54 02/11/20 11:54 Intake & Output 02/10/20 02/11/20 02/12/20 06:59 06:59 06:59 Intake Total 1200 3528 892 Output Total 0 Balance 1200 3528 892 Weight 85.6 kg 87.4 kg General appearance: PRESENT: no acute distress, cooperative, morbidly obese Head exam: PRESENT: atraumatic, normocephalic Eye exam: PRESENT: EOMI Mouth exam: PRESENT: moist, neck supple Neck exam: PRESENT: full ROM Respiratory exam: PRESENT: prolonged expiratory phas, unlabored Cardiovascular exam: PRESENT: RRR GI/Abdominal exam: PRESENT: soft Rectal exam: PRESENT: deferred Musculoskeletal exam: PRESENT: other - Examination of the left hip: There is no discomfort in the hip joint with internal or external rotation of the hip both actively and passively. There is discomfort with deep palpation on the lateral aspects of the thigh. Pain is not localized to the joint of the hip. Patient is able to flex and extend her knee. Patient is able to dorsiflex and plantarflex the ankle. Sensation is intact to touch. 2+ DP and PT pulses. Examination of the right hip: There is no discomfort with internal or external rotation of the hip joint. Patient has active motion of the knee and ankle. Sensation is intact to touch. 2+ DP and PT pulses. Results Laboratory Results: 02/11/20 09:08 02/11/20 09:08 02/10/20 02/10/20 02/10/20 11:57 13:15 18:00 WBC RBC Hgb Hct MCV MCH MCHC RDW Plt Count Seg Neutrophils % Carbonic Acid 1.23 HCO3/H2CO3 Ratio 17:1 ABG pH 7.34 L ABG pCO2 40.8 ABG pO2 76.4 L ABG HCO3 21.6 ABG O2 Saturation 94.6 ABG Base Excess -3.8 FiO2 21% Sodium 126.9 L 128.0 L Potassium 3.2 L 3.7 Chloride 97 L 100 Carbon Dioxide 21 L 21 L Anion Gap 9 7 BUN 27 H 27 H Creatinine 2.65 H 2.58 H Est GFR ( Amer) 21 L 22 L Glucose 219 H 236 H Calcium 11.9 H 11.7 H Magnesium Total Bilirubin AST Alkaline Phosphatase Total Protein Albumin 02/11/20 02/11/20 02/11/20 06:40 06:40 09:08 WBC Cancelled 12.0 H RBC Cancelled 3.54 L Hgb Cancelled 10.4 L Hct Cancelled 30.1 L MCV Cancelled 85 MCH Cancelled 29.4 MCHC Cancelled 34.5 RDW Cancelled 16.0 H Plt Count Cancelled 278 Seg Neutrophils % 80.5 H Carbonic Acid HCO3/H2CO3 Ratio ABG pH ABG pCO2 ABG pO2 ABG HCO3 ABG O2 Saturation ABG Base Excess FiO2 Sodium Potassium Chloride Carbon Dioxide Anion Gap BUN Creatinine Est GFR ( Amer) Glucose Calcium Magnesium 1.9 Total Bilirubin AST Alkaline Phosphatase Total Protein Albumin 02/11/20 09:08 WBC RBC Hgb Hct MCV MCH MCHC RDW Plt Count Seg Neutrophils % Carbonic Acid HCO3/H2CO3 Ratio ABG pH ABG pCO2 ABG pO2 ABG HCO3 ABG O2 Saturation ABG Base Excess FiO2 Sodium 131.4 L Potassium 3.6 Chloride 104 Carbon Dioxide 20 L Anion Gap 7 BUN 24 H Creatinine 2.53 H Est GFR ( Amer) 23 L Glucose 142 H Calcium 11.4 H Magnesium Total Bilirubin 0.3 AST 32 Alkaline Phosphatase 61 Total Protein 5.3 L Albumin 2.8 L 02/09/20 19:39 Clean Catch Midstream Urine Culture - Final Mixed Urogenital Arianna Impressions: Chest X-Ray 02/10/20 00:00 IMPRESSION: Clear lungs. Hip X-Ray 02/10/20 00:00 IMPRESSION: No acute osseous findings. Assessment & Plan - Diagnosis (1) Left thigh pain Is this a current diagnosis for this admission?: Yes - Time Time Spent: 30 to 50 Minutes Anticipated discharge: Home - Plan Summary Plan Summary: The patient is a 74-year-old woman with multiple medical problems admitted for metabolic abnormalities, most significantly hypercalcemia. She also has a history of chronic renal failure. She is complaining of discomfort in the left hip. The pain she is experiencing is not localized to the hip joint. Radiographs of the left hip joint are relatively normal with some mild osteoarthritis present. Interestingly radiographs of the right hip demonstrate more significant osteoarthritis. There are no marrow signal abnormalities which would be concerning for tumor or myeloma specifically. MRI of the thoracic and lumbar spine have been independently reviewed and do not demonstrate any significant abnormality. The pain she is experiencing is more localized to the lateral aspect of the thigh. The patient's current symptoms are likely the result of her chronic metabolic abnormalities.
[2020-02-11] MEDS: TRAMADOL HCL 50 MG TABLET PO PRN ×2 (14:27→18:36)
--- NOTE | 2020-02-11 14:28 | PDOC PROGRESS REPORT ---
Subjective Progress Note for:: 02/11/20 Subjective:: LUIZA CAMARGO is a 74 year old female who presented to the emergency room as directed by Dr. Gutierres who found her to have a elevated serum calcium on lab work performed on 02/09/2020. Patient admits chronic hypercalcemia with her usual level being in the range of 11.0, but was found to have a level of 13.[address] Gutierres's office. She denies any acute signs or symptoms of hyperkalemia although her told ER staff members that she is somewhat more confused over the last few days then per her mental status. She does admit to chronic severe sharp grinding left hip pain worsened by movement and attempts at weightbearing. In the emergency room she was found to have an initial calcium of 13.8, sodium of 126.1, and magnesium of 1.1 and a white blood count of 13,100. Her creatinine was 2.85 and her BUN was 30. At Dr. Gutierres's direction she was given magnesium sulfate 1 g IV and 1 L of IV normal saline over the course of several hours. Her calcium dropped to 12.8 and her magnesium increased to 1.3 after this initial treatment. Patient was subsequently admitted observation status for further evaluation and treatment. 02/10/20 D2 Hospital stay. She was seen and examined at bedside. She appears very sleepy. She is able to answer questions but falls asleep in the middle of talking. This is likely due to her hypercalcemia. Ca has decreased from 13.8>11.9 after IV fluid and 1 dose of calcitonin. IV fluids was changed to saline 150 ml/hr and KCL IV and 1 more dose of calcitonin at 6 pm. PTH is normal. 25 OH Vitamin D normal, pending 1,25 dihydroxy and PTHrP ordered. Patient has been complaining of hip pain as well and coupled with hypercalcemia and CKD multiple myeloma is part of the differential. 02/11/20 D3 Hospital stay. She was seen and examined at bedside. She seems more alert and awake today, able to sustain longer conversation than yesterday, still sometimes fall asleep in between conversation. Ca decreased to 11.4 , K incr eased to 3.6, Mg 1.9. Dr. Batista reviewed her Hip XR and previous MRI did not see any sign of myeloma, just arthritis. 1,25 Vit D and PTHrP pending. Plan to continue on IV fluids and monitor Ca. Monitor IO as she has CHF Reason For Visit: HYPERCALCEMIA,HYPOKALEMIA,HYPONATREMIA, Physical Exam Vital Signs: Temp Pulse Resp BP Pulse Ox 98.9 F 73 16 142/108 H 99 02/11/20 11:54 02/11/20 11:54 02/11/20 11:54 02/11/20 11:54 02/11/20 11:54 Intake & Output 02/10/20 02/11/20 02/12/20 06:59 06:59 06:59 Intake Total 1200 3528 1388 Output Total 0 300 Balance 1200 3528 1088 Weight 85.6 kg 87.4 kg General appearance: PRESENT: no acute distress, cooperative Head exam: PRESENT: atraumatic, normocephalic Eye exam: PRESENT: EOMI, PERRLA Mouth exam: PRESENT: moist Neck exam: PRESENT: full ROM Respiratory exam: PRESENT: clear to auscultation jackie, symmetrical, unlabored. ABSENT: rales Cardiovascular exam: PRESENT: RRR, +S1, +S2 Pulses: PRESENT: normal dorsalis pedis pul GI/Abdominal exam: PRESENT: normal bowel sounds, soft. ABSENT: rebound, tenderness Extremities exam: PRESENT: full ROM Musculoskeletal exam: PRESENT: full ROM Neurological exam: PRESENT: alert, awake, oriented to person, oriented to place, oriented to time, other - would sometimes fall asleep during conversations Skin exam: PRESENT: normal color Results Laboratory Results: 02/11/20 09:08 02/11/20 09:08 02/10/20 02/11/20 02/11/20 18:00 06:40 06:40 WBC Cancelled RBC Cancelled Hgb Cancelled Hct Cancelled MCV Cancelled MCH Cancelled MCHC Cancelled RDW Cancelled Plt Count Cancelled Seg Neutrophils % Sodium 128.0 L Potassium 3.7 Chloride 100 Carbon Dioxide 21 L Anion Gap 7 BUN 27 H Creatinine 2.58 H Est GFR ( Amer) 22 L Glucose 236 H Calcium 11.7 H Magnesium 1.9 Total Bilirubin AST Alkaline Phosphatase Total Protein Albumin 02/11/20 02/11/20 02/11/20 09:08 09:08 12:42 WBC 12.0 H RBC 3.54 L Hgb 10.4 L Hct 30.1 L MCV 85 MCH 29.4 MCHC 34.5 RDW 16.0 H Plt Count 278 Seg Neutrophils % 80.5 H Sodium 131.4 L Potassium 3.6 Chloride 104 Carbon Dioxide 20 L Anion Gap 7 BUN 24 H Creatinine 2.53 H Est GFR ( Amer) 23 L Glucose 142 H Calcium 11.4 H Magnesium 1.8 Total Bilirubin 0.3 AST 32 Alkaline Phosphatase 61 Total Protein 5.3 L Albumin 2.8 L 02/09/20 19:39 Clean Catch Midstream Urine Culture - Final Mixed Urogenital Arianna Impressions: Chest X-Ray 02/10/20 00:00 IMPRESSION: Clear lungs. Hip X-Ray 02/10/20 00:00 IMPRESSION: No acute osseous findings. Assessment and Plan - Diagnosis (1) Hypercalcemia Is this a current diagnosis for this admission?: Yes Plan: - noted by Dr. Gutierres on lab work performed 02/08 - Hx of chronic hypercalcemia - ddx. hyperparathyroidism, hypercalcemia of malignancy, multiple myeloma since she has hip pain and CKD - Ca 13.8>12.4>11.4 - PTH 44 normal - 25 Hydroxy Vit D normal - 1,25 hydroxy pending - XR hip no acute osseous findings - s/p 1 dose calcitonin will give 1 more dose - IV fluids cautious hydration since she has a hx of CHF. Home medication torsamide was resumed (2) Chronic kidney disease, stage 4 (severe) Is this a current diagnosis for this admission?: Yes Plan: - Crea 3.05>2.65 which is around her baseline - hx of DM and DM nephropathy. follows with Dr. Gutierres - Multiple myeloma part of differential diagnosis since she also has hip pain, CKD and hypercalcemia - continue IV fluids - monitor daily (3) Chronic diastolic congestive heart failure Is this a current diagnosis for this admission?: Yes Plan: - no recent echo - no sign of fluid overload - resumed torsamide, lipitor, losartan - will monitor. may need repeat echo (4) Hypomagnesemia Is this a current diagnosis for this admission?: Yes Plan: - 1.1>1.3>1.8 - continue to monitor (5) Hypokalemia Is this a current diagnosis for this admission?: Yes Plan: - K 3.0>3.2 - can be RTA type 1 - continue to monitor (6) Hyponatremia Is this a current diagnosis for this admission?: Yes Plan: - chronic 126.7>126.9>131.4 - will continue to monitor. (7) Obesity Qualifiers: Obesity type: due to excess calories Obesity classification: adult class 2 (BMI 35 - 39.9) Serious obesity comorbidity presence: with serious comorbidity Body mass index: BMI 36.0-36.9 Qualified Code(s): E66.01 - Morbid (severe) obesity due to excess calories; Z68.36 - Body mass index [BMI] 36.0-36.9, adult Is this a current diagnosis for this admission?: Yes (8) Diabetes Qualifiers: Diabetes mellitus type: type 2 Diabetes mellitus complication status: with unspecified complications Is this a current diagnosis for this admission?: Yes Plan: -SSI - accucheck - hypoglycemia protocol - Time Time Spent with patient: 25-34 minutes Anticipated Discharge Disposition: Home, Self Care Anticipated Discharge Timeframe: within 48 hours
[2020-02-11] MEDS: HYDRALAZINE HCL INJ/PF 20 MG/1 ML SDV IV PRN (20:22)
[2020-02-11] MEDS: ATORVASTATIN CALCIUM 40 MG TABLET PO SCH (23:07)
[2020-02-12] MEDS: LEVALBUTEROL HCL NEB 1.25 MG/3 ML AMPUL NEB SCH ×3 (00:08→16:12)
[2020-02-12] MEDS: IPRATROPIUM BROMIDE 0.02% NEB 0.5 MG/2.5 ML AMPUL NEB SCH ×3 (00:08→16:12)
[2020-02-12] MEDS: HYDRALAZINE HCL 50 MG TABLET PO SCH ×3 (05:26→22:59)
[2020-02-12] MEDS: PANTOPRAZOLE SODIUM 20 MG TABLET.DR PO SCH (05:27)
[2020-02-12] MEDS: HEPARIN SOD (PORCINE) 5,000 UNIT/ML 1 ML VIAL SUBCUT SCH ×3 (05:28→22:42)
[2020-02-12] MEDS: BUDESONIDE NEB 0.5 MG/2 ML AMPUL NEB SCH ×2 (08:02→19:41)
[2020-02-12] MEDS: INSULIN REG, HUMAN 100 UNIT/ML 3 ML VIAL (PYX) SUBCUT SCH ×4 (08:16→22:45)
[2020-02-12 10:28] LABS: ABSOLUTE EOSINOPHILS # (AUTO) 0.2 10^3/uL (0.0-0.6); ABSOLUTE LYMPHOCYTES (AUTO) 1.1 10^3/uL (0.5-4.7); ABSOLUTE MONOCYTES (AUTO) 0.6 10^3/uL (0.1-1.4); ABSOLUTE NEUT (AUTO) 7.7 10^3/uL (1.7-8.2); BASOPHILS % (AUTO) 0.5 % (0-2); EOSINOPHILS % (AUTO) 1.8 % (0-6); HEMATOCRIT 29.1 % (36.0-47.0); HEMOGLOBIN 10.4 g/dL (12.0-15.5); LYMPHOCYTES % (AUTO) 11.6 % (13-45); MEAN CORPUSCULAR HEMOGLOBIN 30.7 pg (27.0-33.4); MEAN CORPUSCULAR HGB CONC 35.7 g/dL (32.0-36.0); MEAN CORPUSCULAR VOLUME 86 fl (80-97); MONOCYTES % (AUTO) 6.6 % (3-13); PLATELET COUNT 274 10^3/uL (150-450); RED BLOOD COUNT 3.39 10^6/uL (3.72-5.28); SEGMENTED NEUTROPHILS % (AUTO) 79.5 % (42-78); TOTAL CELLS COUNTED % (AUTO) 100 %; WHITE BLOOD COUNT 9.6 10^3/uL (4.0-10.5)
[2020-02-12 10:45] LABS: ALBUMIN 2.6 g/dL (3.5-5.0); ALKALINE PHOSPHATASE 54 U/L (38-126); ANION GAP 7 (5-19); ASPARTATE AMINO TRANSFERASE 27 U/L (14-36); BILIRUBIN,DIRECT 0.3 mg/dL (0.0-0.4); BILIRUBIN,TOTAL 0.3 mg/dL (0.2-1.3); BLOOD UREA NITROGEN 25 mg/dL (7-20); CALCIUM 10.8 mg/dL (8.4-10.2); CARBON DIOXIDE 19 mmol/L (22-30); CHLORIDE 104 mmol/L (98-107); GLUCOSE 122 mg/dL (75-110); POTASSIUM 3.5 mmol/L (3.6-5.0); TOTAL PROTEIN 5.1 g/dL (6.3-8.2)
[2020-02-12] MEDS: CARVEDILOL 12.5 MG TABLET PO SCH ×2 (10:54→22:59)
[2020-02-12] MEDS: DOCUSATE SODIUM 100 MG CAPSULE PO SCH ×2 (10:54→18:42)
[2020-02-12] MEDS: AMLODIPINE BESYLATE 10 MG TABLET PO SCH (10:54)
[2020-02-12] MEDS: LOSARTAN POTASSIUM 50 MG TABLET PO SCH (10:54)
[2020-02-12] MEDS: INSULIN GLARGINE,HUM.REC.ANLOG 1,000 UNIT/10 ML VIAL SUBCUT SCH (10:57)
[2020-02-12] MEDS: FLUTICASONE/VILANTEROL 200-25 MCG/DOSE IH SCH (10:58)
[2020-02-12] MEDS: UMECLIDINIUM BROMIDE 62.5 MCG/DOSE IH SCH (10:59)
[2020-02-12] MEDS: ROFLUMILAST 500 MCG TABLET PO SCH (10:59)
[2020-02-12] MEDS: TORSEMIDE 20 MG TABLET PO SCH (10:59)
[2020-02-12] MEDS: NORMAL SALINE 1000 ML 1,000 ML IV PRN (11:01)
--- NOTE | 2020-02-12 14:26 | PDOC PROGRESS REPORT ---
Subjective Progress Note for:: 02/12/20 Subjective:: LUIZA CAMARGO is a 74 year old female who presented to the emergency room as directed by Dr. Gutierres who found her to have a elevated serum calcium on lab work performed on 02/09/2020. Patient admits chronic hypercalcemia with her usual level being in the range of 11.0, but was found to have a level of 13.[address] Gutierres's office. She denies any acute signs or symptoms of hyperkalemia although her told ER staff members that she is somewhat more confused over the last few days then per her mental status. She does admit to chronic severe sharp grinding left hip pain worsened by movement and attempts at weightbearing. In the emergency room she was found to have an initial calcium of 13.8, sodium of 126.1, and magnesium of 1.1 and a white blood count of 13,100. Her creatinine was 2.85 and her BUN was 30. At Dr. Gutierres's direction she was given magnesium sulfate 1 g IV and 1 L of IV normal saline over the course of several hours. Her calcium dropped to 12.8 and her magnesium increased to 1.3 after this initial treatment. Patient was subsequently admitted observation status for further evaluation and treatment. 02/10/20 D2 Hospital stay. She was seen and examined at bedside. She appears very sleepy. She is able to answer questions but falls asleep in the middle of talking. This is likely due to her hypercalcemia. Ca has decreased from 13.8>11.9 after IV fluid and 1 dose of calcitonin. IV fluids was changed to saline 150 ml/hr and KCL IV and 1 more dose of calcitonin at 6 pm. PTH is normal. 25 OH Vitamin D normal, pending 1,25 dihydroxy and PTHrP ordered. Patient has been complaining of hip pain as well and coupled with hypercalcemia and CKD multiple myeloma is part of the differential. 02/11/20 D3 Hospital stay. She was seen and examined at bedside. She seems more alert and awake today, able to sustain longer conversation than yesterday, still sometimes fall asleep in between conversation. Ca decreased to 11.4 , K incr eased to 3.6, Mg 1.9. Dr. Batista reviewed her Hip XR and previous MRI did not see any sign of myeloma, just arthritis. 1,25 Vit D and PTHrP pending. Plan to continue on IV fluids and monitor Ca. Monitor IO as she has CHF. 02/12/20 D4 Hospital stay. She was seen and examined at bedside. Continues to have improvement of her mental status. Denies any new pain other kuldip her chronic right hip pain. I spoke to Dr. Gutierres who stated that she had already undergone extensive work up for the cause of her calcium which has so far been negative. We continue to give her IV fluids to lower her Ca and she has received [address] chest and abdomen and head ordered by Dr. Gutierres to look for remote malignancy. Reason For Visit: HYPERCALCEMIA Physical Exam Vital Signs: Temp Pulse Resp BP Pulse Ox 98.1 F 70 15 173/74 H 94 02/12/20 07:35 02/12/20 08:03 02/12/20 08:03 02/12/20 07:35 02/12/20 08:03 Intake & Output 02/11/20 02/12/20 02/13/20 06:59 06:59 06:59 Intake Total 3528 2558 1000 Output Total 0 500 Balance 3528 2058 1000 Weight 87.4 kg 89.8 kg 89.8 kg General appearance: PRESENT: no acute distress, cooperative Head exam: PRESENT: atraumatic, normocephalic Eye exam: PRESENT: EOMI, PERRLA Mouth exam: PRESENT: moist Neck exam: PRESENT: full ROM Respiratory exam: PRESENT: clear to auscultation jackie, symmetrical, unlabored Cardiovascular exam: PRESENT: RRR, +S1, +S2 GI/Abdominal exam: PRESENT: normal bowel sounds, soft. ABSENT: rebound, tende rness Extremities exam: PRESENT: full ROM Musculoskeletal exam: PRESENT: full ROM Neurological exam: PRESENT: alert, awake, other - tends to fall asleep during conversations Psychiatric exam: PRESENT: normal mood Skin exam: PRESENT: normal color Results Laboratory Results: 02/12/20 10:00 02/12/20 10:00 02/11/20 02/12/20 02/12/20 18:40 10:00 10:00 WBC 9.6 RBC 3.39 L Hgb 10.4 L Hct 29.1 L MCV 86 MCH 30.7 MCHC 35.7 RDW 16.0 H Plt Count 274 Seg Neutrophils % 79.5 H Sodium 130.4 L Potassium 3.5 L Chloride 104 Carbon Dioxide 19 L Anion Gap 7 BUN 25 H Creatinine 2.55 H Est GFR ( Amer) 22 L Glucose 122 H Calcium 10.8 H Magnesium 1.6 Total Bilirubin 0.3 AST 27 Alkaline Phosphatase 54 Total Protein 5.1 L Albumin 2.6 L Impressions: Chest X-Ray 02/10/20 00:00 IMPRESSION: Clear lungs. Hip X-Ray 02/10/20 00:00 IMPRESSION: No acute osseous findings. Assessment and Plan - Diagnosis (1) Hypercalcemia Is this a current diagnosis for this admission?: Yes Plan: - noted by Dr. Gutierres on lab work performed 02/08 - Hx of chronic hypercalcemia per Dr. Gutierres extensive work up has been done as to the cause of her elevated Ca - ddx. hyperparathyroidism, hypercalcemia of malignancy, multiple myeloma since she has hip pain and CKD - Ca 13.8>12.4>11.4>10.8 - PTH 44 normal - 25 Hydroxy Vit D normal - 1,25 hydroxy pending - XR hip no acute osseous findings - s/p 2 dose calcitonin - IV fluids cautious hydration since she has a hx of CHF. Home medication torsamide was resumed - awaiting on CT chest and abdomen to look for occult malignancy that can cause elevated Ca (2) Chronic kidney disease, stage 4 (severe) Is this a current diagnosis for this admission?: Yes Plan: - Crea 3.05>2.65>2.55improving with IV fluids. IV fluids mainly for elevated Ca - hx of DM and DM nephropathy. follows with Dr. Gutierres - Multiple myeloma part of differential diagnosis since she also has hip pain, CKD and hypercalcemia. According to Dr. Gutierres she has been worked up for multiple myeloma the past year. - continue IV fluids - monitor daily (3) Chronic diastolic congestive heart failure Is this a current diagnosis for this admission?: Yes Plan: - no recent echo - no sign of fluid overload - resumed torsamide, lipitor, losartan - will monitor for signs of fluid overload. may need repeat echo (4) Hypomagnesemia Is this a current diagnosis for this admission?: Yes Plan: - 1.1>1.3>1.8 - continue to monitor (5) Hypokalemia Is this a current diagnosis for this admission?: Yes Plan: - K 3.0>3.2>3.5 - can be RTA type 1 - continue to monitor. Replace as needed (6) Hyponatremia Is this a current diagnosis for this admission?: Yes Plan: - chronic 126.7>126.9>131.4.130 - will continue to monitor. (7) Obesity Qualifiers: Obesity type: due to excess calories Obesity classification: adult class 2 (BMI 35 - 39.9) Serious obesity comorbidity presence: with serious comorbidity Body mass index: BMI 36.0-36.9 Qualified Code(s): E66.01 - Morbid (severe) obesity due to excess calories; Z68.36 - Body mass index [BMI] 36.0-36.9, adult Is this a current diagnosis for this admission?: Yes (8) Diabetes Qualifiers: Diabetes mellitus type: type 2 Diabetes mellitus complication status: with unspecified complications Is this a current diagnosis for this admission?: Yes Plan: -SSI - accucheck - hypoglycemia protocol (9) Sleep apnea treated with nocturnal BiPAP Is this a current diagnosis for this admission?: Yes Plan: - CPAP ordered QHS (10) Physical deconditioning Is this a current diagnosis for this admission?: Yes Plan: - PT ordered. may need home health. - Plan Summary Summary: Patient is a 74-year-old female history of chronic hypercalcemia which according to Dr. Gutierres has been extensively worked up outpatient with no clear cause. History of CKD, sleep apnea who was sent to the ED by Dr. Gutierres after it was noted on an outpatient lab that her calcium was 13.8. She was given IV fluids and 2 doses of calcitonin which eventually improved her calcium. Dr. Gutierres ordered a CT chest and abdomen to look for occult malignancy that may be causing her hypocalcemia. Multiple myeloma has been ruled out in the outpatient setting. PT OT was consulted because she is deconditioned. She should be able to be discharged once her calcium has come back to normal. - Time Time Spent with patient: 25-34 minutes Medications reviewed and adjusted accordingly: Yes Anticipated Discharge Disposition: Home with Home Health Anticipated Discharge Timeframe: to be determined
--- NOTE | 2020-02-12 14:35 | RADIOLOGY REPORT (SQ) ---
EXAM DESCRIPTION: CT CHEST WITHOUT IMAGES COMPLETED DATE/TIME: 02/12/2020 2:02 pm REASON FOR STUDY: Hypercalcemia, CKD E83.52 HYPERCALCEMIA COMPARISON: 07/19/2013 TECHNIQUE: CT scan performed of the chest without intravenous contrast. Images reviewed with lung, soft tissue and bone windows. Reconstructed coronal and sagittal MPR images reviewed. All images st ored on PACS. All CT scanners at this facility use dose modulation, iterative reconstruction, and/or weight based d osing when appropriate to reduce radiation dose to as low as reasonably achievable (ALARA). [facility]: Dose Right [facility]: CareDose [facility]: Dose Right [facility]: Teradose 4D [facility]: [employer] RADIATION DOSE: CT Rad equipment meets quality standard of care and radiation dose reduction techniq ues were employed. CTDIvol: 19.2 - 20.9 mGy. DLP: 1706 mGy-cm. mGy. LIMITATIONS: No technical limitations. FINDINGS: LUNGS AND PLEURA: Small bilateral pleural effusions with minimal associated basilar consol idation, likely atelectasis. No other discrete airspace disease. No pneumothorax. No discrete nodu les or masses. HILAR AND MEDIASTINAL STRUCTURES: No identified masses or abnormal nodes. No obvious aneurysm. HEART AND VASCULAR STRUCTURES: Cardiomegaly. Trace pericardial effusion. Scattered coronary atheros clerosis. UPPER ABDOMEN: See separate report of the CT of the abdomen. THYROID AND OTHER SOFT TISSUES: 1.0 cm right thyroid lobe nodule. No subcutaneous masses. BONES: No significant finding. HARDWARE: None in the chest. OTHER: No other significant findings. IMPRESSION: 1. Cardiomegaly with small bilateral pleural effusions. 2. No other evidence of acute intrathoracic process. 3. See same-day abdomen CT for findings below the diaphragm. TECHNICAL DOCUMENTATION: JOB ID: [id number] Quality ID # [id number]: Final reports with documentation of one or more dose reduction techniques (e.g., Au tomated exposure control, adjustment of the mA and/or kV according to patient size, use of iterative reconstruction technique) 2010 [employer]- All Rights Reserved Reading location - IP/workstation name: [email or web address]
--- NOTE | 2020-02-12 14:56 | RADIOLOGY REPORT (SQ) ---
EXAM DESCRIPTION: CT ABD/PELVIS NO ORAL OR IV IMAGES COMPLETED DATE/TIME: 02/12/2020 2:02 pm REASON FOR STUDY: Hypercalcemia, CKD E83.52 HYPERCALCEMIA COMPARISON: 02/09/2020 TECHNIQUE: CT scan of the abdomen and pelvis performed without intravenous contrast. Patient was gi helene Oral contrast. Images reviewed with lung, soft tissue, and bone windows. Reconstructed coronal an d sagittal MPR images reviewed. All images stored on PACS. All CT scanners at this facility use dose modulation, iterative reconstruction, and/or weight based d osing when appropriate to reduce radiation dose to as low as reasonably achievable (ALARA). [facility]: Dose Right [facility]: CareDose [facility]: Dose Right [facility]: Teradose 4D [facility]: [employer] RADIATION DOSE: mGy. LIMITATIONS: None. FINDINGS: LOWER CHEST: See separate report of the CT of the chest. NON-CONTRASTED LIVER, SPLEEN, ADRENALS: Evaluation limited by lack of IV contrast. Incompletely luis daniel acterized irregular hypodense mass within the right hepatic dome measuring approximately 6.1 x 5.6 cm (series 3, image 66). This has decreased in size compared to exam from 11/06/13 we are previously me asured 11 x 7.5 cm. Small adjacent nodule versus contiguous extension more anteriorly. Subtle small os area of hypoattenuation within segment 2 measuring approximately 11 mm (series 3, image 73). Thi s also demonstrates decreased size compared to prior exam from 2013. No other discrete hepatic lesio ns. No intrahepatic ductal dilation. Spleen and adrenals are unremarkable. PANCREAS: No masses. No peripancreatic inflammatory changes. GALLBLADDER: No identified stones by CT criteria. No inflammatory changes to suggest cholecystitis. RIGHT KIDNEY AND URETER: No suspicious masses. Assessment limited by lack of IV contrast. Hypodense 12 mm interpolar lesion, most compatible with cyst. No significant calcifications. No hydronephros is or hydroureter. LEFT KIDNEY AND URETER: No suspicious masses. Assessment limited by lack of IV contrast. No signifi cant calcifications. No hydronephrosis or hydroureter. AORTA AND RETROPERITONEUM: No aneurysm. No retroperitoneal masses or adenopathy. Vascular calcificat ions. BOWEL AND PERITONEAL CAVITY: No evidence of intestinal obstruction. No focal bowel wall thickening. Contrast throughout the colon. APPENDIX: Nonvisualized. PELVIS, BLADDER, AND ABDOMINAL WALL:Moderately distended urinary bladder. Interval wall scattered pe lvic phleboliths. No discrete adenopathy or mass. No free fluid. Anasarca. BONES: No acute bony abnormality. No suspicious osseous lesions. Lower lumbar spondylosis and facet arthropathy. OTHER: No other significant finding. IMPRESSION: 1. Incompletely characterized irregular hypodense mass within the right hepatic dome me asuring approximately 6.1 x 5.6 cm has decreased in size compared to prior exam dated 11/06/2013. Thi s was previously characterized as a hemangioma. Additional smaller left hepatic lobe hypodense nodul e has also decreased in size compared to prior exam. 2. Mildly distended urinary bladder. 3. No other evidence of acute intra-abdominal/pelvic process. COMMENT: Quality ID # [id number]: Final reports with documentation of one or more dose reduction techniques (e.g., Automated exposure control, adjustment of the mA and/or kV according to patient size, use of iterative reconstruction technique) TECHNICAL DOCUMENTATION: JOB ID: [id number] 2010 [employer]- All Rights Reserved Reading location - IP/workstation name: [email or web address]
[2020-02-12] MEDS ORDERED: POTASSIUM CHLORIDE 20 MEQ PACKET PO ONE (15:00)
--- NOTE | 2020-02-12 17:57 | PDOC CONSULTATION ---
Consultation Consult Date: 02/12/20 Provider Consulted: KAMILLE GLASGOW Consult reason:: Hypercalcemia, CKD History of Present Illness Admission Date/PCP: 02/11/20 13:05 RAFAL OTTO MD History of Present Illness: LUIZA CAMARGO is a 74 year old female known to me with history of chronic ki dney disease stage IV/V secondary to diabetic nephropathy, diabetes mellitus type 2, hypertension, proteinuria, anemia of chronic kidney disease and hypercalcemia admitted on 02/10/2020 due to acute worsening of her baseline hypercalcemia to a level of 13.8. Patient has been having hypercalcemia at least for the past year with usual level of around 11. I did extensive work-up for her hypercalcemia as an outpatient and at this time etiology is still uncertain. She had mildly abnormal free light chains so I sent her to vessel scrapper, Dr. Boateng for evaluation. Her SPEP and UPEP are within normal limits. A bone survey was done on December 14, 2019 which shows no worrisome bone lesions. She had a fat pad biopsy by Dr. Munoz in January 19, 2020 which was negative for amyloidosis. Last Wednesday blood test was sent to our office from Dr. Montes De Oca with elevated calcium of 13+. Her told my staff that the patient has been falling and is very weak so we recommended that she get evaluated in the emergency room. In the ED initial evaluation shows a calcium of 13.8, sodium of 126.1, and magnesium of 1.1. She also came in with a BUN of 30, creatinine of 2.85. Her creatinine at baseline usually runs around 4+. Patient was treated with normal saline, 2 doses of calcitonin and replaced her magnesium. Her calcium today is 10.8, sodium of 130.4, potassium of 3.5, bicarbonate of 19, BUN of 25 and creatinine of 2.55. Furthermore the patient told me that she has been weak, feeling tired for the past week. She usually is able to ambulate but since then she has not been able to walk and has been wheelchair-bound. She claims that she is eating normally and drinking fluids normally at home. She denies any nausea, vomiting, diarrhea nor abdominal pain. Her appetite here in the hospital is not as good but she claims that she just does not like the food. She reports that her urine output is normal and has not seen any gross hematuria or foaming the urine. She also mentioned that she is having left leg pain. Past Medical History Cardiac Medical History: Reports: CHF-Diastolic, Hypertension-primary Pulmonary Medical History: Reports: Chronic Obstructive Pulmonary Disease (COPD), Pneumonia, Sleep Apnea EENT Medical History: Reports: Cataracts Endocrine Medical History: Reports: Diabetes Mellitus Type 2, Obesity Complications of Diabetes: Reports: Nephropathy Renal/ Medical History: Reports: Chronic Kidney Disease Stage IV, Hypercalcemia, Hyperkalemia, Hyponatremia, Hyperphosphatemia, Metabolic Acidosis Hematology Medical History: Reports Anemia of Chronic Kidney Disease Past Surgical History Past Surgical History: Reports: Cardiac Catheterization - 2006, Section, Other - Cataract surgeries bilaterally Social History Information Source: Patient Lives with: Spouse/Significant other Smoking Status: Former Smoker Electronic Cigarette use?: No Frequency of Alcohol Use: None Hx Recreational Drug Use: No Drugs: None Hx Prescription Drug Abuse: No - Advance Directive Resuscitation Status: Full Code Family History Family History: Malignancy - Mother, Other - Hemophilia on her father Parental Family History Reviewed: Yes Children Family History Reviewed: Yes Sibling(s) Family History Reviewed.: Yes Medication/Allergy Home Medications: Loratadine 10 mg PO DAILY 04/10/13 Atorvastatin Calcium [Lipitor 40 mg Tablet] 40 mg PO DAILY 06/02/16 Carvedilol [Coreg 25 mg Tablet] 25 mg PO Q12 06/02/16 Hydralazine HCl [Apresoline 50 mg Tablet] 50 mg PO Q8 06/02/16 Insulin Detemir [Levemir Flextouch] 30 units SQ QAM 06/02/16 Linagliptin [Tradjenta] 5 mg PO DAILY 06/02/16 Roflumilast [Daliresp 500 mcg Tablet] 500 mcg PO DAILY 06/02/16 Fluticasone/Salmeterol [Advair 250-50 Diskus 14 Dose/Diskus] 1 inh IH Q12 05/21/18 Torsemide [Demadex 20 mg Tablet] 20 mg PO DAILY #30 tablet 05/26/18 Amlodipine Besylate [Norvasc 10 mg Tablet] 10 mg PO DAILY 12/13/18 Patiromer Calcium Sorbitex [Veltassa] 1 packet PO Q2D 12/13/18 Spironolactone 50 mg PO DAILY 12/13/18 Tiotropium [place] [Spiriva Handihaler 5 Cap/Kit (18 Mcg/Cap)] 1 cap IH DAILY #0 kit 12/17/18 Doxazosin Mesylate [Cardura 2 mg Tablet] 2 mg PO QHS 02/10/20 Losartan Potassium [Cozaar 50 mg Tablet] 100 mg PO DAILY 02/10/20 [place]-3/Dha/Epa/Fish Oil [Fish Oil 500 mg Softgel] 1 each PO DAILY 02/10/20 Allergies/Adverse Reactions: Iodinated Contrast Media [IV Dye, Iodine Containing] Adverse Reaction (Unknown, Verified 05/20/18 14:55) Respiratory distress Review of Systems All systems: reviewed and no additional remarkable complaints except as stated Review of Systems: Constitutional: ABSENT: chills, fever(s), headache(s), weight gain, weight loss; admits fatigue and generalized weakness causing difficulty ambulation Eyes: ABSENT: visual disturbances Ears: ABSENT: hearing changes Cardiovascular: ABSENT: chest pain, dyspnea on exertion, edema, orthropnea, palpitations Respiratory: ABSENT: cough, dyspnea, hemoptysis Gastrointestinal: ABSENT: abdominal pain, constipation, diarrhea, hematemesis, hematochezia, nausea, vomiting Genitourinary: ABSENT: dysuria, hematuria Musculoskeletal: ABSENT: joint swelling; left leg pain the need to difficulty ambulating Integumentary: ABSENT: rash, wounds Neurological: ABSENT: abnormal speech, confusion, dizziness, focal weakness, numbness, syncope Psychiatric: ABSENT: anxiety, depression Endocrine: ABSENT: cold intolerance, heat intolerance, polydipsia, polyuria Hematologic/Lymphatic: ABSENT: easy bleeding, easy bruising, lymphadenopathy Physical Exam Vital Signs: Temp Pulse Resp BP Pulse Ox 98.1 F 70 15 173/74 H 94 02/12/20 07:35 02/12/20 08:03 02/12/20 08:03 02/12/20 07:35 02/12/20 08:03 Intake & Output 02/11/20 02/12/20 02/13/20 06:59 06:59 06:59 Intake Total 3528 2558 Output Total 0 500 Balance 3528 2058 Weight 87.4 kg 89.8 kg Exam: General appearance: No acute distress, cooperative, well-developed, well- nourished Head exam: PRESENT: atraumatic, normocephalic Eye exam: PRESENT: Conjunctiva [place], EOMI, PERRLA. ABSENT: conjunctival injecti on, scleral icterus Mouth exam: PRESENT: moist, neck supple, tongue midline Neck exam: PRESENT: full ROM. ABSENT: carotid bruit, JVD, lymphadenopathy, thyromegaly Respiratory exam: PRESENT: clear to auscultation bilaterally. ABSENT: rales, rhonchi, stridor, wheezes Cardiovascular exam: PRESENT: RRR, +S1, +S2. ABSENT: systolic murmur Pulses: PRESENT: normal radial pulses, normal dorsalis pedis pulses GI/Abdominal exam: PRESENT: normal bowel sounds, soft. ABSENT: guarding, mass, tenderness Rectal exam: Deferred Extremities exam: PRESENT: full ROM. Upper extremity are swollen where she had IV inserted ABSENT: calf tenderness, lower extremity pedal edema Musculoskeletal: PRESENT: full ROM. ABSENT: deformity Neurological exam: PRESENT: alert, Awake, Oriented to person, Oriented to place, Oriented to time, reflexes normal, CN II-XII grossly intact. ABSENT: motor sensory deficit Psychiatric exam: PRESENT: appropriate affect, normal mood. ABSENT: homicidal ideation, suicidal ideation Skin exam: PRESENT: intact, dry, warm. ABSENT: rash Results Laboratory Results: 02/12/20 10:00 02/12/20 10:00 02/11/20 02/11/20 02/12/20 12:42 18:40 10:00 WBC 9.6 RBC 3.39 L Hgb 10.4 L Hct 29.1 L MCV 86 MCH 30.7 MCHC 35.7 RDW 16.0 H Plt Count 274 Seg Neutrophils % 79.5 H Sodium Potassium Chloride Carbon Dioxide Anion Gap BUN Creatinine Est GFR ( Amer) Glucose Calcium Magnesium 1.8 1.6 Total Bilirubin AST Alkaline Phosphatase Total Protein Albumin 02/12/20 10:00 WBC RBC Hgb Hct MCV MCH MCHC RDW Plt Count Seg Neutrophils % Sodium 130.4 L Potassium 3.5 L Chloride 104 Carbon Dioxide 19 L Anion Gap 7 BUN 25 H Creatinine 2.55 H Est GFR ( Amer) 22 L Glucose 122 H Calcium 10.8 H Magnesium Total Bilirubin 0.3 AST 27 Alkaline Phosphatase 54 Total Protein 5.1 L Albumin 2.6 L Impressions: Chest X-Ray 02/10/20 00:00 IMPRESSION: Clear lungs. Hip X-Ray 02/10/20 00:00 IMPRESSION: No acute osseous findings. Assessment & Plan - Diagnosis (1) Hypercalcemia Is this a current diagnosis for this admission?: Yes Plan: Etiology is still uncertain at this time. Calcium level improved, 13.8- current of 10.8, with IV fluids and 2 doses of calcitonin. Current work-up: Normal PTH 44.2, near normal 25-hydroxy vitamin D of 25.1, sl ightly low 125 vitamin D of 11 and PTH RP pending. Chest x-ray on admission is unremarkable. Previous work-up: As an outpatient she has had normal PTH, borderline vitamin D, normal phosphorus, negative SPEP/UPEP. Parathyroid scan in 05/30/2019 showed no evidence of parathyroid adenoma. NOHEMY level was within normal limits. PTH RP was also within normal limits. Bone survey on 12/14/2019 showed no worrisome lesions. Fat pad biopsy on 01/19/2020 is negative for amyloidosis. Spine MRI on 02/10/2020 showed mild lumbar spondylosis at multiple levels. Thoracic spine MRI on 02/09/2020 is relatively unremarkable. I will order chest and abdominal CT without contrast today to see if there is any occult malignancy. Continue IV fluids for now. (2) Chronic kidney disease, stage 4 (severe) Is this a current diagnosis for this admission?: Yes Plan: Secondary to diabetic nephropathy with nonnephrotic range proteinuria. Her kidney function currently is actually better than what her kidney function has been for the past year. No intervention needed at this time. (3) Diabetic nephropathy Qualifiers: Diabetes mellitus type: type 2 Qualified Code(s): E11.21 - Type 2 diabetes mellitus with diabetic nephropathy Is this a current diagnosis for this admission?: Yes (4) Hypertension Qualifiers: Hypertension type: essential hypertension Qualified Code(s): I10 - Essential (primary) hypertension Is this a current diagnosis for this admission?: Yes Plan: Currently uncontrolled. I will increase her hydralazine 100 mg every 8 hours. (5) Hyponatremia Is this a current diagnosis for this admission?: Yes Plan: Improved from 126.7-131.4. This could be partly due to volume depletion and admission. Discontinue spironolactone at this time. (6) Metabolic acidosis Is this a current diagnosis for this admission?: Yes Plan: Developed during this admission, likely due to saline. (7) Hypomagnesemia Is this a current diagnosis for this admission?: Yes Plan: Resolved. (8) Hypokalemia Is this a current diagnosis for this admission?: Yes Plan: Replace as necessary. (9) Left thigh pain Is this a current diagnosis for this admission?: Yes (10) Anemia in chronic kidney disease (CKD) Qualifiers: Chronic kidney disease stage: stage 4 (severe) Qualified Code(s): N18.4 - Chronic kidney disease, stage 4 (severe); D63.1 - Anemia in chronic kidney disease Is this a current diagnosis for this admission?: Yes Plan: Patient has been on EDEL therapy as an outpatient. She currently does not need it but will monitor during this hospitalization. (11) Diabetes mellitus type 2 in obese Is this a current diagnosis for this admission?: Yes Plan: Controlled. - Notes Notes: Thank you very much for this consultation. Discussed the case with Dr. Gamboa.
[2020-02-12] MEDS: SPIRONOLACTONE 25 MG TABLET PO SCH (19:52)
[2020-02-12] MEDS: DOXAZOSIN MESYLATE 2 MG TABLET PO SCH (22:59)
[2020-02-12] MEDS: MELATONIN 5 MG TABLET PO PRN (22:59)
[2020-02-12] MEDS: ATORVASTATIN CALCIUM 40 MG TABLET PO SCH (22:59)
[2020-02-13] MEDS: LEVALBUTEROL HCL NEB 1.25 MG/3 ML AMPUL NEB SCH ×3 (00:11→16:58)
[2020-02-13] MEDS: IPRATROPIUM BROMIDE 0.02% NEB 0.5 MG/2.5 ML AMPUL NEB SCH ×3 (00:11→16:58)
[2020-02-13] MEDS: NORMAL SALINE 1000 ML 1,000 ML IV PRN ×3 (01:57→21:41)
[2020-02-13] MEDS: HEPARIN SOD (PORCINE) 5,000 UNIT/ML 1 ML VIAL SUBCUT SCH ×3 (05:46→21:49)
[2020-02-13] MEDS: HYDRALAZINE HCL 50 MG TABLET PO SCH ×3 (05:46→21:42)
[2020-02-13] MEDS: PANTOPRAZOLE SODIUM 20 MG TABLET.DR PO SCH (05:46)
[2020-02-13] MEDS: BUDESONIDE NEB 0.5 MG/2 ML AMPUL NEB SCH ×2 (08:00→20:21)
[2020-02-13 08:25] LABS: ALBUMIN 2.6 g/dL (3.5-5.0); ALKALINE PHOSPHATASE 44 U/L (38-126); ANION GAP 6 (5-19); ASPARTATE AMINO TRANSFERASE 27 U/L (14-36); BILIRUBIN,DIRECT 0.4 mg/dL (0.0-0.4); BILIRUBIN,TOTAL 0.4 mg/dL (0.2-1.3); BLOOD UREA NITROGEN 28 mg/dL (7-20); CALCIUM 10.5 mg/dL (8.4-10.2); CARBON DIOXIDE 19 mmol/L (22-30); CHLORIDE 106 mmol/L (98-107); PHOSPHORUS 2.1 mg/dL (2.5-4.5); POTASSIUM 3.9 mmol/L (3.6-5.0)
[2020-02-13 08:28] LABS: ABSOLUTE BASOPHILS # (AUTO) 0.1 10^3/uL (0.0-0.2); ABSOLUTE EOSINOPHILS # (AUTO) 0.6 10^3/uL (0.0-0.6); ABSOLUTE LYMPHOCYTES (AUTO) 1.7 10^3/uL (0.5-4.7); ABSOLUTE MONOCYTES (AUTO) 0.9 10^3/uL (0.1-1.4); ABSOLUTE NEUT (AUTO) 7.4 10^3/uL (1.7-8.2); BASOPHILS % (AUTO) 0.7 % (0-2); EOSINOPHILS % (AUTO) 5.3 % (0-6); HEMOGLOBIN 10.4 g/dL (12.0-15.5); LYMPHOCYTES % (AUTO) 15.7 % (13-45); MEAN CORPUSCULAR HEMOGLOBIN 29.5 pg (27.0-33.4); MEAN CORPUSCULAR HGB CONC 34.5 g/dL (32.0-36.0); MEAN CORPUSCULAR VOLUME 86 fl (80-97); MONOCYTES % (AUTO) 8.7 % (3-13); PLATELET COUNT 302 10^3/uL (150-450); RED BLOOD COUNT 3.51 10^6/uL (3.72-5.28); RED CELL DISTRIBUTION WIDTH 15.8 % (11.5-14.0); SEGMENTED NEUTROPHILS % (AUTO) 69.6 % (42-78); TOTAL CELLS COUNTED % (AUTO) 100 %; WHITE BLOOD COUNT 10.6 10^3/uL (4.0-10.5)
[2020-02-13] MEDS: INSULIN REG, HUMAN 100 UNIT/ML 3 ML VIAL (PYX) SUBCUT SCH ×3 (08:30→16:52)
[2020-02-13 08:33] LABS: GLUCOSE 56 mg/dL (75-110)
[2020-02-13] MEDS: LOSARTAN POTASSIUM 50 MG TABLET PO SCH (11:01)
[2020-02-13] MEDS: DOCUSATE SODIUM 100 MG CAPSULE PO SCH ×2 (11:01→18:08)
[2020-02-13] MEDS: CARVEDILOL 12.5 MG TABLET PO SCH ×2 (11:03→21:41)
[2020-02-13] MEDS: ROFLUMILAST 500 MCG TABLET PO SCH (11:04)
[2020-02-13] MEDS: AMLODIPINE BESYLATE 10 MG TABLET PO SCH (11:04)
[2020-02-13] MEDS: TORSEMIDE 20 MG TABLET PO SCH (11:05)
[2020-02-13] MEDS: UMECLIDINIUM BROMIDE 62.5 MCG/DOSE IH SCH (11:08)
[2020-02-13] MEDS: FLUTICASONE/VILANTEROL 200-25 MCG/DOSE IH SCH (11:08)
[2020-02-13] MEDS ORDERED: INSULIN GLARGINE,HUM.REC.ANLOG 1,000 UNIT/10 ML VIAL (PYX) SUBCUT ONE (12:00)
[2020-02-13] MEDS ORDERED: BISACODYL 5 MG TABEC PO ONE (18:00)
--- NOTE | 2020-02-13 18:11 | PDOC PROGRESS REPORT ---
Subjective Progress Note for:: 02/13/20 Subjective:: LUIZA CAMARGO is a 74 year old female who presented to the emergency room as directed by Dr. Gutierres who found her to have a elevated serum calcium on lab work performed on 02/09/2020. Patient admits chronic hypercalcemia with her usual level being in the range of 11.0, but was found to have a level of 13.[address] Gutierres's office. She denies any acute signs or symptoms of hyperkalemia although her told ER staff members that she is somewhat more confused over the last few days then per her mental status. She does admit to chronic severe sharp grinding left hip pain worsened by movement and attempts at weightbearing. In the emergency room she was found to have an initial calcium of 13.8, sodium of 126.1, and magnesium of 1.1 and a white blood count of 13,100. Her creatinine was 2.85 and her BUN was 30. At Dr. Gutierres's direction she was given magnesium sulfate 1 g IV and 1 L of IV normal saline over the course of several hours. Her calcium dropped to 12.8 and her magnesium increased to 1.3 after this initial treatment. Patient was subsequently admitted observation status for further evaluation and treatment. 02/10/20 D2 Hospital stay. She was seen and examined at bedside. She appears very sleepy. She is able to answer questions but falls asleep in the middle of talking. This is likely due to her hypercalcemia. Ca has decreased from 13.8>11.9 after IV fluid and 1 dose of calcitonin. IV fluids was changed to saline 150 ml/hr and KCL IV and 1 more dose of calcitonin at 6 pm. PTH is normal. 25 OH Vitamin D normal, pending 1,25 dihydroxy and PTHrP ordered. Patient has been complaining of hip pain as well and coupled with hypercalcemia and CKD multiple myeloma is part of the differential. 02/11/20 D3 Hospital stay. She was seen and examined at bedside. She seems more alert and awake today, able to sustain longer conversation than yesterday, still sometimes fall asleep in between conversation. Ca decreased to 11.4 , K incre ased to 3.6, Mg 1.9. Dr. Batista reviewed her Hip XR and previous MRI did not see any sign of myeloma, just arthritis. 1,25 Vit D and PTHrP pending. Plan to continue on IV fluids and monitor Ca. Monitor IO as she has CHF. 02/12/20 D4 Hospital stay. She was seen and examined at bedside. Continues to have improvement of her mental status. Denies any new pain other kuldip her chronic right hip pain. I spoke to Dr. Gutierres who stated that she had already undergone extensive work up for the cause of her calcium which has so far been negative. We continue to give her IV fluids to lower her Ca and she has received [address] chest and abdomen and head ordered by Dr. Gutierres to look for r emote malignancy. 02/13/2020. No acute events overnight. Patient comfortably sitting bed no appa rent distress, accompanied by her son, enjoying her breakfast, denies any fever, chills, nausea, vomiting. Complaining of constipation. CT abdomen is negative for any malignancy. Serum calcium is improving mildly. Reason For Visit: HYPERCALCEMIA Physical Exam Vital Signs: Temp Pulse Resp BP Pulse Ox 97.7 F 62 24 H 143/62 H 99 02/13/20 12:48 02/13/20 12:48 02/13/20 12:48 02/13/20 12:48 02/13/20 12:48 Intake & Output 02/12/20 02/13/20 02/14/20 06:59 06:59 06:59 Intake Total 2558 2520 1500 Output Total 500 700 Balance 2058 1820 1500 Weight 89.8 kg 89.8 kg General appearance: PRESENT: no acute distress, obese, well-developed, well- nourished Head exam: PRESENT: atraumatic, normocephalic Respiratory exam: PRESENT: clear to auscultation jackie. ABSENT: rales, rhonchi, wheezes GI/Abdominal exam: PRESENT: normal bowel sounds, soft. ABSENT: distended, guarding, mass, organolmegaly, rebound, tenderness Neurological exam: PRESENT: alert, awake, oriented to person, oriented to place, oriented to time, oriented to situation, CN II-XII grossly intact. ABSENT: motor sensory deficit Results Laboratory Results: 02/13/20 07:34 02/13/20 07:34 02/13/20 02/13/20 07:34 07:34 WBC 10.6 H RBC 3.51 L Hgb 10.4 L Hct 30.0 L MCV 86 MCH 29.5 MCHC 34.5 RDW 15.8 H Plt Count 302 Seg Neutrophils % 69.6 Sodium 130.9 L Potassium 3.9 Chloride 106 Carbon Dioxide 19 L Anion Gap 6 BUN 28 H Creatinine 2.61 H Est GFR ( Amer) 22 L Glucose 56 L Calcium 10.5 H Phosphorus 2.1 L Magnesium 1.6 Total Bilirubin 0.4 AST 27 Alkaline Phosphatase 44 Total Protein 5.0 L Albumin 2.6 L Impressions: Chest X-Ray 02/10/20 00:00 IMPRESSION: Clear lungs. Hip X-Ray 02/10/20 00:00 IMPRESSION: No acute osseous findings. Abdomen/Pelvis CT 02/12/20 00:00 IMPRESSION: 1. Incompletely characterized irregular hypodense mass within the right hepatic dome measuring approximately 6.1 x 5.6 cm has decreased in size compared to prior exam dated 11/06/2013. This was previously characterized as a hemangioma. Additional smaller left hepatic lobe hypodense nodule has also decreased in size compared to prior exam. 2. Mildly distended urinary bladder. 3. No other evidence of acute intra-abdominal/pelvic process. Chest CT 02/12/20 00:00 IMPRESSION: 1. Cardiomegaly with small bilateral pleural effusions. 2. No other evidence of acute intrathoracic process. 3. See same-day abdomen CT for findings below the diaphragm. Assessment and Plan - Diagnosis (1) Chronic diastolic congestive heart failure Is this a current diagnosis for this admission?: Yes Plan: - no recent echo - no sign of fluid overload - resumed torsamide, lipitor, losartan - will monitor for signs of fluid overload. may need repeat echo (2) Chronic kidney disease, stage 4 (severe) Is this a current diagnosis for this admission?: Yes Plan: - Crea 3.05>2.65>2.55improving with IV fluids. IV fluids mainly for elevated Ca - hx of DM and DM nephropathy. follows with Dr. Gutierres - Multiple myeloma part of differential diagnosis since she also has hip pain, CKD and hypercalcemia. According to Dr. Gutierres she has been worked up for multiple myeloma the past year. - continue IV fluids - monitor daily (3) Diabetes Qualifiers: Diabetes mellitus type: type 2 Diabetes mellitus complication status: with unspecified complications Is this a current diagnosis for this admission?: Yes Plan: -SSI - accucheck - hypoglycemia protocol (4) Hypercalcemia Is this a current diagnosis for this admission?: Yes Plan: - noted by Dr. Gutierres on lab work performed 02/08 - Hx of chronic hypercalcemia per Dr. Gutierres extensive work up has been done as to the cause of her elevated Ca - ddx. hyperparathyroidism, hypercalcemia of malignancy, multiple myeloma since she has hip pain and CKD - Ca 13.8>12.4>11.4>10.8 - PTH 44 normal - 25 Hydroxy Vit D normal - 1,25 hydroxy pending - XR hip no acute osseous findings - s/p 2 dose calcitonin - IV fluids cautious hydration since she has a hx of CHF. Home medication torsamide was resumed - awaiting on CT chest and abdomen to look for occult malignancy that can cause elevated Ca (5) Hypokalemia Is this a current diagnosis for this admission?: Yes Plan: - K 3.0>3.2>3.5 - can be RTA type 1 - continue to monitor. Replace as needed (6) Hypomagnesemia Is this a current diagnosis for this admission?: Yes Plan: - 1.1>1.3>1.8 - continue to monitor (7) Hyponatremia Is this a current diagnosis for this admission?: Yes Plan: - chronic 126.7>126.9>131.4.130 - will continue to monitor. (8) Obesity Qualifiers: Obesity type: due to excess calories Obesity classification: adult class 2 (BMI 35 - 39.9) Serious obesity comorbidity presence: with serious comorbidity Body mass index: BMI 36.0-36.9 Qualified Code(s): E66.01 - Morbid (severe) obesity due to excess calories; Z68.36 - Body mass index [BMI] 36.0-36.9, adult Is this a current diagnosis for this admission?: Yes - Plan Summary Summary: Patient is a 74-year-old female history of chronic hypercalcemia which according to Dr. Gutierres has been extensively worked up outpatient with no clear cause. History of CKD, sleep apnea who was sent to the ED by Dr. Gutierres after it was noted on an outpatient lab that her calcium was 13.8. She was given IV fluids and 2 doses of calcitonin which eventually improved her calcium. Dr. Gutierres ordered a CT chest and abdomen to look for occult malignancy that may be causing her hypocalcemia. Multiple myeloma has been ruled out in the outpatient setting. PT OT was consulted because she is deconditioned. She should be able to be discharged once her calcium has come back to normal.
[2020-02-13] MEDS: DOXAZOSIN MESYLATE 2 MG TABLET PO SCH (21:42)
[2020-02-13] MEDS: ATORVASTATIN CALCIUM 40 MG TABLET PO SCH (21:42)
[2020-02-13] MEDS: MELATONIN 5 MG TABLET PO PRN (21:42)
[2020-02-13] MEDS: ACETAMINOPHEN 325 MG TABLET PO PRN (21:45)
[2020-02-14] MEDS: LEVALBUTEROL HCL NEB 1.25 MG/3 ML AMPUL NEB SCH ×3 (00:21→16:44)
[2020-02-14] MEDS: IPRATROPIUM BROMIDE 0.02% NEB 0.5 MG/2.5 ML AMPUL NEB SCH ×3 (00:21→16:44)
[2020-02-14] MEDS: HEPARIN SOD (PORCINE) 5,000 UNIT/ML 1 ML VIAL SUBCUT SCH ×2 (05:16→14:40)
[2020-02-14] MEDS: HYDRALAZINE HCL 50 MG TABLET PO SCH ×2 (05:19→14:44)
[2020-02-14] MEDS: PANTOPRAZOLE SODIUM 20 MG TABLET.DR PO SCH (05:20)
[2020-02-14 05:24] LABS: HEMOGLOBIN 9.9 g/dL (12.0-15.5); MEAN CORPUSCULAR HEMOGLOBIN 28.5 pg (27.0-33.4); MEAN CORPUSCULAR HGB CONC 32.9 g/dL (32.0-36.0); MEAN CORPUSCULAR VOLUME 87 fl (80-97); PLATELET COUNT 287 10^3/uL (150-450); RED BLOOD COUNT 3.46 10^6/uL (3.72-5.28); WHITE BLOOD COUNT 9.3 10^3/uL (4.0-10.5)
[2020-02-14 06:09] LABS: ALBUMIN 2.7 g/dL (3.5-5.0); ALKALINE PHOSPHATASE 57 U/L (38-126); ANION GAP 7 (5-19); ASPARTATE AMINO TRANSFERASE 52 U/L (14-36); BILIRUBIN,DIRECT 0.4 mg/dL (0.0-0.4); BILIRUBIN,TOTAL 0.4 mg/dL (0.2-1.3); BLOOD UREA NITROGEN 28 mg/dL (7-20); CALCIUM 9.9 mg/dL (8.4-10.2); CARBON DIOXIDE 17 mmol/L (22-30); CHLORIDE 107 mmol/L (98-107); POTASSIUM 3.6 mmol/L (3.6-5.0); TOTAL PROTEIN 5.2 g/dL (6.3-8.2)
[2020-02-14 06:16] LABS: GLUCOSE 64 mg/dL (75-110)
[2020-02-14] MEDS: ACETAMINOPHEN 325 MG TABLET PO PRN (07:51)
[2020-02-14] MEDS ORDERED: INSULIN GLARGINE,HUM.REC.ANLOG 1,000 UNIT/10 ML VIAL SUBCUT SCH (08:00)
[2020-02-14] MEDS: BUDESONIDE NEB 0.5 MG/2 ML AMPUL NEB SCH (08:22)
[2020-02-14] MEDS: INSULIN GLARGINE,HUM.REC.ANLOG 1,000 UNIT/10 ML VIAL SUBCUT SCH (09:23)
[2020-02-14] MEDS ORDERED: AMLODIPINE BESYLATE 10 MG TABLET PO SCH (10:00)
[2020-02-14] MEDS ORDERED: BISACODYL 10 MG SUPP.RECT PR ONE (10:15)
[2020-02-14] MEDS: CARVEDILOL 12.5 MG TABLET PO SCH (11:05)
[2020-02-14] MEDS: DOCUSATE SODIUM 100 MG CAPSULE PO SCH ×2 (11:05→17:16)
[2020-02-14] MEDS: LOSARTAN POTASSIUM 50 MG TABLET PO SCH (11:06)
[2020-02-14] MEDS: FLUTICASONE/VILANTEROL 200-25 MCG/DOSE IH SCH (11:07)
[2020-02-14] MEDS: TORSEMIDE 20 MG TABLET PO SCH (11:07)
[2020-02-14] MEDS: UMECLIDINIUM BROMIDE 62.5 MCG/DOSE IH SCH (11:07)
[2020-02-14] MEDS: ROFLUMILAST 500 MCG TABLET PO SCH (11:07)
[2020-02-14] MEDS ORDERED: CARVEDILOL 12.5 MG TABLET PO ONE (15:00)
[2020-02-14 16:16] VITALS: BP 144/54
[2020-02-14] MEDS ORDERED: CARVEDILOL 12.5 MG TABLET PO SCH (22:00)
[2020-02-15] MEDS ORDERED: INSULIN GLARGINE,HUM.REC.ANLOG 1,000 UNIT/10 ML VIAL SUBCUT SCH (08:00)
--- NOTE | 2020-02-15 15:46 | PDOC DISCHARGE SUMMARY ---
Impression - Admit/DC Date/PCP Admission Date/Primary Care Provider: 02/11/20 13:05 RAFAL OTTO MD Discharge Date: 02/14/20 - Discharge Diagnosis (1) Chronic diastolic congestive heart failure Is this a current diagnosis for this admission?: Yes (2) Chronic kidney disease, stage 4 (severe) Is this a current diagnosis for this admission?: Yes (3) Diabetes Is this a current diagnosis for this admission?: Yes (4) Hypercalcemia Is this a current diagnosis for this admission?: Yes (5) Hypokalemia Is this a current diagnosis for this admission?: Yes (6) Hypomagnesemia Is this a current diagnosis for this admission?: Yes (7) Hyponatremia Is this a current diagnosis for this admission?: Yes (8) Obesity Is this a current diagnosis for this admission?: Yes - Assessment Summary: Patient is a 74-year-old female history of chronic hypercalcemia which according to Dr. Boateng has been extensively worked up outpatient with no clear cause. History of CKD, sleep apnea who was sent to the ED by Dr. Boateng after it was noted on an outpatient lab that her calcium was 13.8. She was given IV fluids and 2 doses of calcitonin which eventually improved her calcium. Dr. Boateng ordered a CT chest and abdomen to look for occult malignancy that may be causing her hypocalcemia. Multiple myeloma has been ruled out in the outpatient setting. PT OT was consulted because she is deconditioned. She should be able to be discharged once her calcium has come back to normal. - Additional Information Resuscitation Status: Full Code Discharge Diet: As Tolerated, Cardiac, Diabetic Discharge Activity: Activity As Tolerated, Balance Activity w/Rest Referrals: KAMILLE GLASGOW MD [ACTIVE STAFF] - (Theodore to send message to Dr. Glasgow to see when patient can get in for follow-up appointment.) Prescriptions: Docusate Sodium 200 mg PO BID 30 Days #60 tablet Bisacodyl [Dulcolax 5 mg Tablet] 5 mg PO PRN PRN #7 tabec PRN Reason: Hydralazine HCl 100 mg PO Q8 30 Days #90 tablet Insulin Glargine,Hum.rec.anlog [Lantus (Pyxis) Insulin 100 Unit/1 ml 10 ml] 5 unit SUBCUT QAM 30 Days #1 unit Home Medications: Loratadine 10 mg PO DAILY 04/10/13 Atorvastatin Calcium [Lipitor 40 mg Tablet] 40 mg PO DAILY 06/02/16 Carvedilol [Coreg 25 mg Tablet] 25 mg PO Q12 06/02/16 Linagliptin [Tradjenta] 5 mg PO DAILY 06/02/16 Roflumilast [Daliresp 500 mcg Tablet] 500 mcg PO DAILY 06/02/16 Fluticasone/Salmeterol [Advair 250-50 Diskus 14 Dose/Diskus] 1 inh IH Q12 05/21/18 Torsemide [Demadex 20 mg Tablet] 20 mg PO DAILY #30 tablet 05/26/18 Amlodipine Besylate [Norvasc 10 mg Tablet] 10 mg PO DAILY 12/13/18 Patiromer Calcium Sorbitex [Veltassa] 1 packet PO Q2D 12/13/18 Tiotropium Nelson [Spiriva Handihaler 5 Cap/Kit (18 Mcg/Cap)] 1 cap IH DAILY #0 kit 12/17/18 Doxazosin Mesylate [Cardura 2 mg Tablet] 2 mg PO QHS 02/10/20 Losartan Potassium [Cozaar 50 mg Tablet] 100 mg PO DAILY 02/10/20 [place]-3/Dha/Epa/Fish Oil [Fish Oil 500 mg Softgel] 1 each PO DAILY 02/10/20 Bisacodyl [Dulcolax 5 mg Tablet] 5 mg PO PRN PRN #7 tabec 02/14/20 Docusate Sodium 200 mg PO BID 30 Days #60 tablet 02/14/20 Hydralazine HCl 100 mg PO Q8 30 Days #90 tablet 02/14/20 Insulin Glargine,Hum.rec.anlog [Lantus (Pyxis) Insulin 100 Unit/1 ml 10 ml] 5 unit SUBCUT QAM 30 Days #1 unit 02/15/20 History of Present Illiness History of Present Illness: LUIZA CAMARGO is a 74 year old female who presented to the emergency room as directed by Dr. Glasgow who found her to have a elevated serum calcium on lab work performed on 02/09/2020. Patient admits chronic hypercalcemia with her usual level being in the range of 11.0, but was found to have a level of 13.[address] Glasgow's office. She denies any acute signs or symptoms of hyperkalemia although her told ER staff members that she is somewhat more confused over the last few days then per her mental status. She does admit to chronic severe sharp grinding left hip pain worsened by movement and attempts at weightbearing. In the emergency room she was found to have an initial calcium of 13.8, sodium of 126.1, and magnesium of 1.1 and a white blood count of 13,100. Her creatinine was 2.85 and her BUN was 30. At Dr. Glasgow's direction she was given magnesium sulfate 1 g IV and 1 L of IV normal saline over the course of several hours. Her calcium dropped to 12.8 and her magnesium increased to 1.3 after this initial treatment. Patient was subsequently admitted observation status for further evaluation and treatment. Hospital Course Hospital Course: (1) Chronic diastolic congestive heart failure 2D echo 04/24/2018, LVEF 65%. Stage II diastolic dysfunction. Did not appear to be acutely exacerbated. Continued on diuretics, beta-blockers, ARB. Started on cardiac diet. Strict in and out. Daily weights. Advised to follow-up with PCP and cardiology. (2) Chronic kidney disease, stage 4 (severe) Improved. Back to baseline. Crea 3.05>2.65>2.55. hx of DM and DM nephropathy. follows with Dr. Glasgow Multiple myeloma part of differential diagnosis since she also has hip pain, CKD and hypercalcemia. According to Dr. Glasgow she has been worked up for multiple myeloma the past year. Nephrology consulted. Recommendations noted. Patient advised to follow-up with nephrology upon discharge. (3) Diabetes Was noted to be hypoglycemic on this admission, likely due to worsening renal function. She was started on diabetic diet, sliding scale insulin, long-acting insulin, hypoglycemic protocol, Accu-Chek. Insulin dosage was adjusted accordingly, and was discharged on Lantus 5 unit every morning to resume home meds. Patient and were advised on frequently checking her blood sugar and following up with PCP for readjustment of her insulin dosage. (4) Hypercalcemia Resovled. Nnoted by Dr. Glasgow on lab work performed 02/08 Hx of chronic hypercalcemia per Dr. Glasgow extensive work up has been done as to the cause of her elevated Ca ddx. hyperparathyroidism, hypercalcemia of malignancy, multiple myeloma since she has hip pain and CKD Ca 13.8>12.4>11.4>10.8>9.9 PTH 44 normal 25 Hydroxy Vit D normal 1,25 hydroxy pending XR hip no acute osseous findings s/p 2 dose calcitonin Started on IV fluids cautious hydration since she has a hx of CHF. Home medication torsamide was resumed CT abdomen and chest no acute abnormalities. PTH related peptide pending at the time of discharge. Patient has established care with Dr. Glasgow her filler spreader. Patient was advised to follow-up with Dr. Glasgow and also an clinical staff pharmacist for further work-up and to her chronic hypercalcemia. (5) Hypokalemia Resolved. (6) Hypomagnesemia Resolved. (7) Hyponatremia Moderate improvement. 131 asymptomatic. Patient was advised to follow-up with PCP for evaluation of sodium level as soon as possible. Patient and voiced understanding. (8) Obesity BMI 37.4. TSH WNL. Diet and lifestyle modification recommended. Physical Exam Vital Signs: Temp Pulse Resp BP Pulse Ox 97.6 F 73 18 144/54 H 96 02/14/20 18:32 02/14/20 18:32 02/14/20 18:32 02/14/20 18:32 02/14/20 18:32 Intake & Output 02/14/20 02/15/20 02/16/20 06:59 06:59 06:59 Intake Total 2597 1818 Output Total 700 1000 Balance 1897 818 Weight 89.8 kg General appearance: PRESENT: no acute distress, obese, well-developed, well- nourished Head exam: PRESENT: atraumatic, normocephalic Respiratory exam: PRESENT: clear to auscultation jackie. ABSENT: rales, rhonchi, wheezes Cardiovascular exam: PRESENT: RRR. ABSENT: diastolic murmur, rubs, systolic murmur GI/Abdominal exam: PRESENT: normal bowel sounds, soft. ABSENT: distended, guarding, mass, organolmegaly, rebound, tenderness Neurological exam: PRESENT: alert, awake, oriented to person, oriented to place, oriented to time, oriented to situation, CN II-XII grossly intact. ABSENT: motor sensory deficit Results Laboratory Results: WBC 9.3 10^3/uL (4.0-10.5) 02/14/20 04:55 RBC 3.46 10^6/uL (3.72-5.28) L 02/14/20 04:55 Hgb 9.9 g/dL (12.0-15.5) L 02/14/20 04:55 Hct 30.0 % (36.0-47.0) L 02/14/20 04:55 MCV 87 fl (80-97) 02/14/20 04:55 MCH 28.5 pg (27.0-33.4) 02/14/20 04:55 MCHC 32.9 g/dL (32.0-36.0) 02/14/20 04:55 RDW 16.0 % (11.5-14.0) H 02/14/20 04:55 Plt Count 287 10^3/uL (150-450) 02/14/20 04:55 Lymph % (Auto) 15.7 % (13-45) 02/13/20 07:34 [place] % (Auto) 8.7 % (3-13) 02/13/20 07:34 Eos % (Auto) 5.3 % (0-6) 02/13/20 07:34 Baso % (Auto) 0.7 % (0-2) 02/13/20 07:34 Absolute Neuts (auto) 7.4 10^3/uL (1.7-8.2) 02/13/20 07:34 Absolute Lymphs (auto) 1.7 10^3/uL (0.5-4.7) 02/13/20 07:34 Absolute Monos (auto) 0.9 10^3/uL (0.1-1.4) 02/13/20 07:34 Absolute Eos (auto) 0.6 10^3/uL (0.0-0.6) 02/13/20 07:34 Absolute Basos (auto) 0.1 10^3/uL (0.0-0.2) 02/13/20 07:34 Seg Neutrophils % 69.6 % (42-78) 02/13/20 07:34 Platelet Estimate Cancelled 02/11/20 06:40 Carbonic Acid 1.23 mmol/L (1.05-1.35) 02/10/20 13:15 HCO3/H2CO3 Ratio 17:1 02/10/20 13:15 ABG pH 7.34 (7.35-7.45) L 02/10/20 13:15 ABG pCO2 40.8 mmHg (35-45) 02/10/20 13:15 ABG pO2 76.4 mmHg (80-100) L 02/10/20 13:15 ABG HCO3 21.6 mmol/L (20-24) 02/10/20 13:15 ABG Total CO2 22.9 mmol/L (21-25) 02/10/20 13:15 ABG O2 Saturation 94.6 % (94-98) 02/10/20 13:15 ABG Base Excess -3.8 mmol/L 02/10/20 13:15 FiO2 21% 02/10/20 13:15 Sodium 131.0 mmol/L (137-145) L 02/14/20 04:55 Potassium 3.6 mmol/L (3.6-5.0) 02/14/20 04:55 Chloride 107 mmol/L (98-107) 02/14/20 04:55 Carbon Dioxide 17 mmol/L (22-30) L 02/14/20 04:55 Anion Gap 7 (5-19) 02/14/20 04:55 BUN 28 mg/dL (7-20) H 02/14/20 04:55 Creatinine 2.80 mg/dL (0.52-1.25) H 02/14/20 04:55 Est GFR ( Amer) 20 (>60) L 02/14/20 04:55 Est GFR (MDRD) Non-Af 17 (>60) L 02/14/20 04:55 Glucose 64 mg/dL (75-110) L 02/14/20 04:55 POC Glucose 164 mg/dL (70-110) H 02/14/20 15:55 Calcium 9.9 mg/dL (8.4-10.2) 02/14/20 04:55 Ionized Calcium Blade 1.65 mmol/L (1.14-1.30) H 02/09/20 19:39 Phosphorus 2.1 mg/dL (2.5-4.5) L 02/13/20 07:34 Magnesium 1.6 mg/dL (1.6-2.3) 02/14/20 04:55 Total Bilirubin 0.4 mg/dL (0.2-1.3) 02/14/20 04:55 Direct Bilirubin 0.4 mg/dL (0.0-0.4) 02/14/20 04:55 Neonat Total Bilirubin Not Reportable 02/14/20 04:55 Neonat Direct Bilirubin Not Reportable 02/14/20 04:55 Neonat Indirect Bili Not Reportable 02/14/20 04:55 AST 52 U/L (14-36) H 02/14/20 04:55 ALT 14 U/L (<35) 02/14/20 04:55 Alkaline Phosphatase 57 U/L (38-126) 02/14/20 04:55 Total Protein 5.2 g/dL (6.3-8.2) L 02/14/20 04:55 Albumin 2.7 g/dL (3.5-5.0) L 02/14/20 04:55 Vitamin D 25-Hydroxy 25.1 ng/mL (14.7-68.3) 02/10/20 09:37 Vit D 1,25-Dihydroxy 11.0 pg/mL (19.9-79.3) L 02/10/20 09:37 PTH Intact 44.2 pg/mL (10.0-65.0) 02/10/20 09:37 Urine Color YELLOW 02/09/20 19:39 Urine Appearance SLIGHTLY-CLOUDY 02/09/20 19:39 Urine pH 7.0 (5.0-9.0) 02/09/20 19:39 Ur Specific [place] 1.012 02/09/20 19:39 Urine Protein >=500 mg/dL (NEGATIVE) H 02/09/20 19:39 Urine Glucose (UA) 50 mg/dL (NEGATIVE) H 02/09/20 19:39 Urine Ketones NEGATIVE mg/dL (NEGATIVE) 02/09/20 19:39 Urine Blood NEGATIVE (NEGATIVE) 02/09/20 19:39 Urine Nitrite NEGATIVE (NEGATIVE) 02/09/20 19:39 Urine Bilirubin NEGATIVE (NEGATIVE) 02/09/20 19:39 Urine Urobilinogen NEGATIVE mg/dL (<2.0) 02/09/20 19:39 Ur Leukocyte Esterase NEGATIVE (NEGATIVE) 02/09/20 19:39 Urine WBC (Auto) 4 /HPF 02/09/20 19:39 Urine RBC (Auto) 3 /HPF 02/09/20 19:39 U Hyaline Cast (Auto) 1 /LPF 02/09/20 19:39 Urine Bacteria (Auto) 1+ /HPF 02/09/20 19:39 Squamous Epi Cells Auto 3 /HPF 02/09/20 19:39 Urine Mucus (Auto) RARE /LPF 02/09/20 19:39 Urine Ascorbic Acid 40 (NEGATIVE) H 02/09/20 19:39 Slides for Path Review Cancelled 02/11/20 06:40 Impressions: Chest X-Ray 02/10/20 00:00 IMPRESSION: Clear lungs. Hip X-Ray 02/10/20 00:00 IMPRESSION: No acute osseous findings. Abdomen/Pelvis CT 02/12/20 00:00 IMPRESSION: 1. Incompletely characterized irregular hypodense mass within the right hepatic dome measuring approximately 6.1 x 5.6 cm has decreased in size compared to prior exam dated 11/06/2013. This was previously characterized as a hemangioma. Additional smaller left hepatic lobe hypodense nodule has also decreased in size compared to prior exam. 2. Mildly distended urinary bladder. 3. No other evidence of acute intra-abdominal/pelvic process. Chest CT 02/12/20 00:00 IMPRESSION: 1. Cardiomegaly with small bilateral pleural effusions. 2. No other evidence of acute intrathoracic process. 3. See same-day abdomen CT for findings below the diaphragm. Stroke Is this a Stroke Patient?: No Acute Heart Failure Is this a Heart Failure Patient?: No
== END 2020-02-14 19:24 | disposition home health service (06) | DRG 641 ==
LOC: ER 16:53 → EH 02-10 02:42 → 4W 02-10 04:00 → OBSVTOIN 02-11 13:05 → 4N 02-12 00:45
PROVIDERS: ADMIT Emergency Medicine; ATTEND Internal Medicine
DX: E83.52 Hypercalcemia (principal); E87.1 Hypo-osmolality and hyponatremia; I13.0 Hypertensive heart and chronic kidney disease with heart failure and stage 1 through stage 4 chronic kidney disease, or unspecified chronic kidney disease; I50.32 Chronic diastolic (congestive) heart failure; N18.4 Chronic kidney disease, stage 4 (severe); E87.2 Acidosis; E83.42 Hypomagnesemia; D63.1 Anemia in chronic kidney disease; E11.22 Type 2 diabetes mellitus with diabetic chronic kidney disease; E11.21 Type 2 diabetes mellitus with diabetic nephropathy; Z79.4 Long term (current) use of insulin; G47.33 Obstructive sleep apnea (adult) (pediatric); M25.552 Pain in left hip; G89.29 Other chronic pain; E66.01 Morbid (severe) obesity due to excess calories; Z87.891 Personal history of nicotine dependence; Z91.041 Radiographic dye allergy status; Z68.36 Body mass index [BMI] 36.0-36.9, adult; Z71.3 Dietary counseling and surveillance
CPT/HCPCS: 36415; 36600; 71045; 71250; 72146; 72148; 73522; 74176; 80048; 80053; 81001; 82306; 82330; 82397; 82652; 82803; 82962; 83735; 83970; 84100; 85025; 85027; 87086; 94660; 96365; 99285; G0378; J0360; J0630; J1644; J1815; J2270; J2405; J3475; J3480; J3490; J7030; J7614; J7644

== ENCOUNTER → 2020-02-09 | Outpatient (CLI) | payer MEDICARE, OTHER ==
--- NOTE | 2020-02-10 14:11 | RADIOLOGY REPORT (SQ) ---
EXAM DESCRIPTION: MRI LUMBAR SPINE WITHOUT IMAGES COMPLETED DATE/TIME: 02/09/2020 4:53 pm REASON FOR STUDY: R76.8 OTHER SPECIFIED ABNORMAL IMMUNOLOGICAL FINDINGS IN SERUM R76.8 OTHER SPECIF IED ABNORMAL IMMUNOLOGICAL FINDINGS IN SER COMPARISON: Correlated with radiographs from recently. TECHNIQUE: Sagittal and Axial imaging includes T1, T2, STIR and gradient echo sequences. Coronal T2/ HASTE imaging. LIMITATIONS: Motion artifact necessitating repeats. There is still at least mild motion on most seq uences. FINDINGS: VISUALIZED UPPER ABDOMEN: Metallic artifact in the dorsal soft tissues left flank. Correl ation with radiographs shows a tiny subcutaneous metallic foreign body here. Patient suffered no ill affects at the time of study per technologist. SEGMENTATION: No transitional anatomy. The lowest well-developed disc space is labeled L5-S1. ALIGNMENT: Anatomic. VERTEBRAE: Intact. BONE MARROW: Normal. No marrow replacement or reactive changes. DISC SIGNAL: Generally preserved disc heights throughout. Multilevel mild disc desiccation. POSTERIOR ELEMENTS: No gross pars defect allowing for limiting motion and mild multilevel facet arth ropathy. HARDWARE: None in the spine. CORD AND CONUS: Normal in size and signal intensity. Conus at the appropriate level. SOFT TISSUES: No aortic aneurysm seen. No bulky retroperitoneal adenopathy or mass. No paraspinal mas s or fluid. L1-L2: Mild facet arthropathy with no significant stenosis. L2-L3: Mild facet arthropathy with slight central canal narrowing. Mild bilateral foraminal narrowin g. L3-L4: Mild disc and facet disease with very slight central narrowing and mild bilateral foraminal st enosis. L4-L5: Mild facet overgrowth. Mild disc disease. There is mild left lateral recess narrowing. Bila teral noncritical foraminal stenosis. L5-S1: Mild disc and facet disease without suggestion of significant stenosis. LOWER THORACIC: Limited evaluation. No gross cord compression. SACRUM: Visualized upper sacrum intact. OTHER: No other significant findings. IMPRESSION: 1. Fairly mild lumbar spondylosis at multiple levels. No suggestion of high-grade stenosis, fracture or bone lesion or spinal malalignment. Limiting artifact as above. TECHNICAL DOCUMENTATION: JOB ID: [id number] 2010 [employer]- All Rights Reserved Reading location - IP/workstation name: [email or web address]
--- NOTE | 2020-02-10 14:36 | RADIOLOGY REPORT (SQ) ---
EXAM DESCRIPTION: MRI THORACIC SPINE WITHOUT IMAGES COMPLETED DATE/TIME: 02/09/2020 4:53 pm REASON FOR STUDY: R76.8 OTHER SPECIFIED ABNORMAL IMMUNOLOGICAL FINDINGS IN SERUM R76.8 OTHER SPECIF IED ABNORMAL IMMUNOLOGICAL FINDINGS IN SER COMPARISON: None. TECHNIQUE: Sagittal and Axial imaging includes T1, T2, STIR and gradient echo sequences. LIMITATIONS: Motion artifact. Despite attempted repeats, there is considerable motion artifact part icularly on the axial images. This limits. FINDINGS: LOCALIZER: No worrisome findings. ALIGNMENT: Normal. VERTEBRAE: Intact. BONE MARROW: Normal. No marrow replacement or reactive changes. HARDWARE: None in the spine. CORD: Allowing for artifact, felt to be normal. SOFT TISSUES: No paraspinal mass. Large hyperintense T2 lesion in the liver dome, please refer to pr evious cross-sectional imaging. The patient has a chronic mass. THORACIC DISCS T1-T12: No large disc bulges or hernias. No significant spinal stenosis. LOWER CERVICAL: Incompletely imaged. No significant spinal stenosis or exit foraminal stenosis. UPPER LUMBAR: Please see separate dictation same date. OTHER: No other significant finding. IMPRESSION: 1. Limiting motion. Relatively unremarkable MRI thoracic spine allowing for this. TECHNICAL DOCUMENTATION: JOB ID: [id number] 2010 [employer]- All Rights Reserved Reading location - IP/workstation name: [email or web address]
== END ==
LOC: RAD 15:18
PROVIDERS: ATTEND Internal Medicine Hematology & Oncology
DX: M47.816 Spondylosis without myelopathy or radiculopathy, lumbar region (principal)
CPT/HCPCS: 72146; 72148

== ENCOUNTER 2020-03-11 09:51 | Emergency (ER) | payer MEDICARE, OTHER ==
--- NOTE | 2020-03-11 11:42 | ER Document Report ---
ED General - General Chief Complaint: Sinus Congestion Stated Complaint: CONGESTION Time Seen by Provider: 03/11/20 11:10 Primary Care Provider: RAFAL OTTO MD [Primary Care Provider] - Follow up as needed Notes: 74-year-old female presents to the emergency room complaining of sinus pressure cough and upper respiratory symptoms. States been going on for the last several days. Starting on Wednesday. Complains of a sore scratchy throat a lot of facial pressure runny nose congestion yellow nasal discharge. Denies falls trauma or head injury. Describes a pressure in her face is moderate. Nothing makes it better or worse she tries to blow her nose but it does not really help. Has had a cough its been nonproductive. Denies any chest pain denies shortness of breath denies abdominal pain. Denies nausea vomiting diarrhea TRAVEL OUTSIDE OF THE [place] IN LAST 30 DAYS: No - Related Data Allergies/Adverse Reactions: Iodinated Contrast Media [IV Dye, Iodine Containing] Adverse Reaction (Unknown, Verified 03/11/20 11:28) Respiratory distress Past Medical History - Social History Smoking Status: Never Smoker Family History: Malignancy Patient has homicidal ideation: No - Past Medical History Cardiac Medical History: Reports: Hx Congestive Heart Failure, Hx Hypertension Denies: Hx Atrial Fibrillation, Hx DVT, Hx Heart Attack, Hx Pulmonary Embolism Pulmonary Medical History: Reports: Hx COPD, Hx Pneumonia, Hx Sleep Apnea Denies: Hx Tuberculosis Neurological Medical History: Denies: Hx Seizures Endocrine Medical History: Reports: Hx Diabetes Mellitus Type 2. Denies: Hx Diabetes Mellitus Type 1, Hx Hyperthyroidism, Hx Hypothyroidism Renal/ Medical History: Reports: Hx End Stage Renal Disease. Denies: Hx Peritoneal Dialysis GI Medical History: Denies: Hx Cirrhosis, Hx Gastroesophageal Reflux Disease, Hx Hepatitis Musculoskeletal Medical History: Denies Hx Arthritis, Denies Hx Fibromyalgia, Denies Hx Gout Skin Medical History: Denies Hx Eczema, Denies Hx Psoriasis Psychiatric Medical History: Denies: Hx Depression Infectious Medical History: Denies: Hx Hepatitis Past Surgical History: Reports: Hx Cardiac Catheterization - 2006, Hx Section, Other - Cataract surgeries bilaterally - Immunizations Hx Diphtheria, Pertussis, Tetanus Vaccination: Yes Hx Pneumococcal Vaccination: 04/26/17 Review of Systems - Review of Systems Constitutional: Chills, Fever EENT: Nose congestion, Nose discharge, Sinus pressure, Sinus discharge, Throat pain. denies: Ear pain, Difficulty swallowing, Throat swelling, Mouth swelling Cardiovascular: No symptoms reported Respiratory: Cough. denies: Short of breath, Sputum, Wheezing Gastrointestinal: No symptoms reported Genitourinary: No symptoms reported Female Genitourinary: No symptoms reported Skin: denies: Rash Neurological/Psychological: denies: Headaches -: Yes All other systems reviewed and negative Physical Exam - Vital signs Vitals: Temp Pulse Resp BP Pulse Ox 98.1 F 70 18 134/61 H 100 03/11/20 10:19 03/11/20 10:19 03/11/20 10:19 03/11/20 10:19 03/11/20 10:19 - Notes Notes: GENERAL_APPEARANCE: well_nourished, alert, cooperative, no_acute_distress, no_obvious_discomfort. VITALS: reviewed, see vital signs table. HEAD: no_swelling\tenderness on the head. EYES: PERRL, EOMI, conjunctiva_clear. NOSE: Clear_nasal_discharge. Bilateral turbinate inflammation MOUTH: (-)decreased moisture. No drooling or stridor THROAT: Mild throat_inflammation, no_airway_obstruction. no_lymphadenopathy NECK: supple, no_neck_tenderness, (-)thyromegaly. BACK: no_back_tenderness. CHEST_WALL: no_chest_tenderness. LUNGS: no_wheezing, no_rales, no_rhonchi, (-)accessory muscle use, good air exchange bilateral. HEART: normal_rate, normal_rhythm, normal_S1, normal_S2, (-)S3, (-)S4, no_murmur, no_rub. ABDOMEN: soft, no_abd_tenderness, (-)guarding, (-)rebound, no_organomegaly, no_abd_masses. EXTREMITIES: good pulses in all_extremities, no_swelling\tenderness in the extremities, no_edema. SKIN: warm, dry, good_color, no_rash. MENTAL_STATUS: speech_clear, oriented_X_3, normal_affect, responds_appropriately to questions. Course - Re-evaluation Re-evalutation: 03/11/20 11:42 74-year-old female presents with upper respiratory symptoms and sinus pressure. Will swab for flu and Covid. Patient does have a lot of sinus pressure and congestion. 03/11/20 15:02 Influenza and strep are negative. This is likely more sinusitis and I think Covid but Covid is still pending. Place patient on some antibiotics and cough medicine. Have her follow-up with primary care spoke with her about Covid pr ecautions. - Vital Signs Vital signs: Temp Pulse Resp BP Pulse Ox 98.1 F 70 18 134/61 H 100 03/11/20 10:19 03/11/20 10:19 03/11/20 10:19 03/11/20 10:03/11/20 10:19 Discharge - Discharge Clinical Impression: Person under investigation for COVID-19 Acute sinusitis Qualifiers: Sinusitis location: maxillary Recurrence: non-recurrent Qualified Code(s): J01.00 - Acute maxillary sinusitis, unspecified Condition: Good Disposition: HOME, SELF-CARE Instructions: Sinusitis ([facility]), COVID-19 Guidance for Persons Under Investigation Prescriptions: Doxycycline Hyclate 100 mg PO BID #20 tablet.dr Methylprednisolone [Medrol Dosepack (4 mg/Tab) 21 Tab/Dosepak] 4 mg PO ASDIR PRN #21 tab.ds.pk PRN Reason: Referrals: RAFAL OTTO MD [Primary Care Provider] - Follow up as needed
[2020-03-11 12:49] LABS: A TYPE INFLUENZA AG NEGATIVE (NEGATIVE); B INFLUENZA AG NEGATIVE (NEGATIVE)
[2020-03-11 15:14] VITALS: BP 133/65
== END 2020-03-11 15:34 | disposition home or self-care (01) ==
LOC: ER 09:51
DX: J01.00 Acute maxillary sinusitis, unspecified (principal); R09.81 Nasal congestion; R05 Cough; R51.9 Headache, unspecified; R09.89 Other specified symptoms and signs involving the circulatory and respiratory systems; Z88.8 Allergy status to other drugs, medicaments and biological substances; I11.0 Hypertensive heart disease with heart failure; I50.9 Heart failure, unspecified; Z20.828 Contact with and (suspected) exposure to other viral communicable diseases
CPT/HCPCS: 99283; 87070; 87880; 87804; U0003; C9803; 87635

== ENCOUNTER → 2020-03-14 | Outpatient (CLI) | payer MEDICARE, OTHER ==
--- NOTE | 2020-03-14 15:12 | WOMENS IMAGING REPORT ---
EXAM DESCRIPTION: BILAT SCREENING MAMMO W/CAD IMAGES COMPLETED DATE/TIME: 03/14/2020 2:46 pm REASON FOR STUDY: Z12.31 ENCNTR SCREEN MAMMOGRAM FOR MALIGNANT NEOPLASM OF BREAST Z12.31 ENCNTR SCR EEN MAMMOGRAM FOR MALIGNANT NEOPLASM OF [place] COMPARISON: 2014 EXAM PARAMETERS: Standard craniocaudal and mediolateral oblique views of each breast recorded using digital acquisition. Read with the assistance of CAD. .[facility] Mammal Keeper Version 9.2 LIMITATIONS: None. FINDINGS: No suspicious masses, suspicious calcifications or architectural distortion. No areas of c oncern. IMPRESSION: NEGATIVE MAMMOGRAM. BIRADS 1 BREAST DENSITY: b. There are scattered areas of fibroglandular density. BIRAD: ASSESSMENT: 1 NEGATIVE RECOMMENDATION: ROUTINE SCREENING COMMENT: The patient has been notified of the results by letter per MQSA requirements. Additional no tification policies are in place for contacting patient with suspicious or incomplete findings. Quality ID #[id number]: The [employer] recommends an annual screening mammogram for women aged 40 years or over. This facility utilizes a reminder system to ensure that all patients receive reminder letters, and/or direct phone calls for appointments. This includes reminders for routine scr eening mammograms, diagnostic mammograms, or other Breast Imaging Interventions when appropriate. Th is patient will be placed in the appropriate reminder system. TECHNICAL DOCUMENTATION: FINDING NUMBER: (1) ASSESSMENT: (1) JOB ID: [id number] 2010 [employer]- All Rights Reserved Reading location - IP/workstation name: [email or web address]
== END ==
LOC: WI 13:03
PROVIDERS: ATTEND Internal Medicine Nephrology
DX: Z12.31 Encounter for screening mammogram for malignant neoplasm of breast (principal)
CPT/HCPCS: 77067

== ENCOUNTER 2020-04-24 13:25 | Emergency (ER) | payer MEDICARE, OTHER ==
[2020-04-24 13:32] VITALS: BP 138/50
--- NOTE | 2020-04-24 13:45 | ER Document Report ---
HPI - HPI Patient complains to provider of: Sinus congestion Time Seen by Provider: 04/24/20 13:25 Onset: Other - 2 weeks Onset/Duration: Persistent Quality of pain: Achy Pain Level: 3 Context: Patient presents complaining of sinus congestion for the past 2 weeks. Patient denies any fever cough. Patient denies any chest pain or shortness of breath. Patient states that she does have a referral to see an ENT due to having problems with her sinuses in the past. Patient is scheduled to see them within the next week. Patient also complains of bilateral lower extremity pain that she attributes to her neuropathy. Patient denies any injury to the legs. Patient denies any recent immobilization or bedrest. Patient states that she has chronic leg pain and that her symptoms usually improve after she goes home and elevates her legs. Associated Symptoms: Sinus pain/drainage, Other - Leg pain. denies: Fever, Nausea Exacerbated by: Denies Relieved by: Denies Similar symptoms previously: Yes Recently seen / treated by doctor: No - ROS ROS below otherwise negative: Yes Systems Reviewed and Negative: Yes All other systems reviewed and negative - CONSTITUTIONAL Constitutional: DENIES: Fever, Chills - EENT EENT: REPORTS: Nasal Drainage-Clear, Congestion. DENIES: Sore Throat - NEURO Neurology: DENIES: Headache - RESPIRATORY Respiratory: DENIES: Trouble Breathing, Coughing - GASTROINTESTINAL Gastrointestinal: DENIES: Nausea, Patient vomiting - MUSCULOSKELETAL Musculoskeletal: REPORTS: Extremity pain, Swelling - DERM Skin Color: Normal Skin Problems: None Past Medical History - General Information source: Patient - Social History Smoking Status: Former Smoker Frequency of alcohol use: None Drug Abuse: None Lives with: Family Family History: Malignancy - Past Medical History Cardiac Medical History: Reports: Hx Congestive Heart Failure, Hx Hypertension Denies: Hx Atrial Fibrillation, Hx DVT, Hx Heart Attack, Hx Pulmonary Embolism Pulmonary Medical History: Reports: Hx COPD, Hx Pneumonia, Hx Sleep Apnea Denies: Hx Tuberculosis Neurological Medical History: Reports: Other - Neuropathy. Denies: Hx Seizures Endocrine Medical History: Reports: Hx Diabetes Mellitus Type 2. Denies: Hx Diabetes Mellitus Type 1, Hx Hyperthyroidism, Hx Hypothyroidism Renal/ Medical History: Reports: Hx Renal Insufficiency. Denies: Hx Peritoneal Dialysis GI Medical History: Denies: Hx Cirrhosis, Hx Gastroesophageal Reflux Disease, Hx Hepatitis Musculoskeletal Medical History: Reports Hx Arthritis, Denies Hx Fibromyalgia, Denies Hx Gout Skin Medical History: Denies Hx Eczema, Denies Hx Psoriasis Psychiatric Medical History: Denies: Hx Depression Infectious Medical History: Denies: Hx Hepatitis Past Surgical History: Reports: Hx Cardiac Catheterization - 2006, Hx S ection, Other - Cataract surgeries bilaterally - Immunizations Hx Diphtheria, Pertussis, Tetanus Vaccination: Yes Hx Pneumococcal Vaccination: 04/26/17 Vertical Provider Document - CONSTITUTIONAL Agree With Documented VS: Yes Exam Limitations: No Limitations General Appearance: WD/WN, No Apparent Distress - INFECTION CONTROL TRAVEL OUTSIDE OF THE [place] IN LAST 30 DAYS: No - HEENT HEENT: Atraumatic, Normocephalic. negative: Pharyngeal Exudate, Pharyngeal Tenderness, Pharyngeal Erythema, Tympanic Membrane Red Notes: Swollen nasal mucosa, clear rhinorrhea, maxillary sinus tenderness - NECK Neck: Normal Inspection, Supple - RESPIRATORY Respiratory: Breath Sounds Normal, No Respiratory Distress - CARDIOVASCULAR Cardiovascular: Regular Rate, Regular Rhythm - BACK Back: Normal Inspection - MUSCULOSKELETAL/EXTREMETIES Musculoskeletal/Extremeties: MAEW, Edema - 2+ edema bilateral lower extremities, no calf tenderness, no erythema or calor - NEURO Level of Consciousness: Awake, Alert, Appropriate Motor/Sensory: No Motor Deficit - DERM Integumentary: Warm, Dry Course - Re-evaluation Re-evalutation: 04/24/20 13:47 Patient presents complaining of sinus congestion symptoms for the past 2 weeks. Patient denies any fever, chest pain or shortness of breath. Patient states that she had a sinus infection a month ago. Patient denies any other complaints at this time. Educated patient on use of saline nasal irrigation. Will start patient on a antibiotics to treat sinusitis at this time. Patient reports chronic leg pain and states that her pain is due to her neuropathy. Patient states that she has chronic edema that improves whenever she elevates her feet daily. 04/24/20 13:52 Reviewed patient's history of chronic kidney disease with most recent creatinine of 2.8, will adjust antibiotic dosing to reflect patient's history of chronic kidney disease 04/24/20 21:43 - Vital Signs Vital signs: Temp Pulse Resp BP Pulse Ox 98.2 F 68 20 138/50 H 97 04/24/20 13:29 04/24/20 13:29 04/24/20 13:29 04/24/20 13:29 04/24/20 13:29 - Laboratory Results Critical Laboratory Results Reviewed: No Critical Results - Radiology Results Critical Radiology Results Reviewed: No Critical Results Discharge - Discharge Clinical Impression: Sinusitis Qualifiers: Sinusitis location: unspecified location Chronicity: unspecified Qualified Code(s): J32.9 - Chronic sinusitis, unspecified Condition: Stable Disposition: HOME, SELF-CARE Instructions: Augmentin ([facility]), Sinusitis ([facility]) Additional Instructions: Return immediately for any new or worsening symptoms Followup with your primary care provider, call tomorrow to make a followup appointment Use saline nasal spray or a saline nasal wash to help with congestion symptoms Follow-up with an hearing consultant for further duration, call for appointment Prescriptions: Amoxicillin/Potassium Clav [Augmentin 500-125 Tablet] 1 each PO BID #20 tablet Referrals: RAFAL OTTO MD [Primary Care Provider] - Follow up as needed [facility] [Provider [facility]] - Follow up as needed
== END 2020-04-24 14:00 | disposition home or self-care (01) ==
LOC: ER 13:25
DX: J32.9 Chronic sinusitis, unspecified (principal); M79.605 Pain in left leg; M79.604 Pain in right leg; I50.9 Heart failure, unspecified; I11.0 Hypertensive heart disease with heart failure; E11.9 Type 2 diabetes mellitus without complications
CPT/HCPCS: 99283

== ENCOUNTER → 2020-05-07 | Outpatient (CLI) | payer MEDICARE, OTHER | LOC: OD 13:13 | PROVIDERS: ATTEND Otolaryngology | DX: J34.3 Hypertrophy of nasal turbinates (principal) | CPT/HCPCS: 36415; 82785; 86003 ==